=== PATIENT | female | born 1950 | race Caucasian/White ===

== ENCOUNTER → 2016-09-25 | Outpatient (CLI) | payer OTHER ==
[~2016-09-25] MED LIST: ACET325T96 PO; ALBU1AER9 INH; ASPI-435 PO; CHLOTAB10 PO; DEXT30SU8 PO; GEMF600T PO; GLC500 PO; HYDR25TA4 PO; HYDR5SYP11 PO; LISI-729 PO; LISI5TAB3 PO; NF34 PV; PRED10TA PO; PRLSR20 PO
--- NOTE | 2016-09-25 11:51 | DIAGNOSTIC IMAGING REPORT ---
MRI LUMBAR SPINE W/O CONTRAST CLINICAL HISTORY: Low back pain with bilateral radiculopathy. Altered gait. Diminished lower extremity reflexes. TECHNIQUE: Sagittal and axial T1, T2 and STIR images were obtained. The patient was imaged under 0.7 Rosi open MRI scanner. COMPARISON STUDY: No previous studies for comparison. OBSERVATIONS: The vertebral bodies and posterior elements appear intact. There is no abnormal bony signal present to suggest a marrow replacement process. L1-2: There is a mild circumferential disc bulge. This is asymmetric on the right. There is minimal spinal canal narrowing. There is no significant foraminal narrowing L2-3: There is a mild circumferential disc bulge with mild spinal canal narrowing. There is no significant foraminal narrowing L3-4: There is a mild circumferential disc bulge. There is an annular fissure and small left lateral disc protrusion. There is no significant spinal or foraminal stenosis. L4-5: There is a grade 1 spondylolisthesis of L4 on L5. There is a circumferential disc bulge present. There is facet joint arthropathy. There is moderate to severe spinal stenosis. There is mild right-sided foraminal narrowing. L5-S1: There is a moderate left-sided disc extrusion which fills the left lateral recess and likely impinges on the left S1 nerve root. There is secondary thecal sac deformity. The conus medullaris and cauda equina appear normal. IMPRESSION: 1. Multilevel spondylitic changes as described above. The study is most significant for moderate to severe spinal stenosis at the L4-5 level, as well as a moderate left-sided disc extrusion at the L5-S1 level which fills the left lateral recess and likely impinges on the left S1 nerve root. Electronically signed by: Brandon Stone M.D. 09/25/2016 11:49 AM Dictated Date/Time: 09/25/2016 11:43 AM
== END | disposition home or self-care (01) ==
LOC: C.OPENMRI 10:32
PROVIDERS: ATTEND Family Medicine
DX: M48.06 Spinal stenosis, lumbar region (principal); M51.27 Other intervertebral disc displacement, lumbosacral region

== ENCOUNTER 2016-12-01 12:48 | Emergency (ER) | payer OTHER ==
[~2016-12-01] VITALS: Ht 152.4 cm; Wt 85.5 kg
[~2016-12-01 12:48] MED LIST changes: -CHLOTAB10 PO; -DEXT30SU8 PO; -GEMF600T PO; -HYDR5SYP11 PO; -LISI-729 PO; -PRED10TA PO
[2016-12-01 12:55] VITALS: TEMP 36.6; Ht 152.4 cm; Wt 85.5 kg
[2016-12-01 13:20] VITALS: O2SAT 96
[2016-12-01] MEDS ORDERED: ALBUT/IPRATROP 3MG/0.5MG NEB 3 ML VIAL INH STA (13:26)
[2016-12-01] MEDS ORDERED: METHYLPREDNISOLONE 125 MG VIAL IV STA (13:26)
[2016-12-01 13:39] LABS: BASO % 0.5 %; BASO ABS # 0.03 K/uL (0-0.2); COMPLETE YES; EOS % 7.7 %; HEMATOCRIT 38.8 % (37-47); IG% 0.2 %; LYMPH % 40.4 %; LYMPH ABS # 2.31 K/uL (1.2-3.4); MEAN CORPUSCULAR HEMOGLOBIN 29.6 pg (25-34); MEAN PLATELET VOLUME 9.5 fL (7.4-10.4); MONO % 7.3 %; NEUT % 43.9 %; PLATELET COUNT 300 K/uL (130-400); RED BLOOD COUNT 4.46 M/uL (4.2-5.4); WHITE BLOOD COUNT 5.72 K/uL (4.8-10.8)
[2016-12-01] MEDS ORDERED: LISI-729 PO (13:43)
--- NOTE | 2016-12-01 13:45 | DIAGNOSTIC IMAGING REPORT ---
CHEST ONE VIEW PORTABLE CLINICAL HISTORY: Cough. Difficulty breathing. COMPARISON STUDY: Chest radiograph and chest CT November 25, 2015. FINDINGS: No pneumothorax or pleural effusion is present. There is no consolidation to suggest pneumonia. Borderline cardiomegaly is unchanged. There is no evidence of pulmonary edema. IMPRESSION: No acute cardiopulmonary findings. Electronically signed by: Monster Bains M.D. 12/01/2016 1:44 PM Dictated Date/Time: 12/01/2016 1:43 PM
[2016-12-01] MEDS ORDERED: GEMF600T PO (13:46)
[2016-12-01] MEDS ORDERED: DEXT30SU8 PO (13:46)
[2016-12-01] MEDS ORDERED: CHLOTAB10 PO (13:46)
[2016-12-01 13:53] LABS: ALT/SGPT 31 U/L (12-78); AST/SGOT 17 U/L (15-37); BLOOD UREA NITROGEN 19 mg/dl (7-18); BUN/CREATININE RATIO 19.6 (10-20); CALCIUM 9.3 mg/dl (8.5-10.1); CARBON DIOXIDE 29 mmol/L (21-32); CHLORIDE 104 mmol/L (98-107); CREATININE 0.96 mg/dl (0.60-1.20); GLUCOSE 114 mg/dl (70-99); POTASSIUM 3.9 mmol/L (3.5-5.1); SODIUM 142 mmol/L (136-145)
[2016-12-01 13:56] LABS: ALKALINE PHOSPHATASE 60 U/L (45-117)
[2016-12-01 14:52] VITALS: BP 145/84; PULSE 90; O2SAT 94
[2016-12-01] MEDS ORDERED: PRED10TA PO (15:19)
[2016-12-01] MEDS ORDERED: HYDR5SYP11 PO (15:19)
--- NOTE | 2016-12-01 15:41 | EMERGENCY ROOM VISIT NOTE ---
History Report prepared by Charli: Dena Torres Under the Supervision of: Dr. María Hagan M.D. First contact with patient: 13:09 Chief Complaint: RESPIRATORY PROBLEMS Stated Complaint: CAN'T BREATHE History of Present Illness The patient is a 66 year old female who presents to the Emergency Room with complaints of worsening SOB starting 1 month ago. She has been seen by her PCP and was given a z-Rui, nebulizer, and inhaler. She has been using albuterol nebulizer treatments 4 times a day. She has not gotten any better. She has a cough and tightness in her chest. She has not had a chest X-ray. She has a history of diabetes. She denies any history of cancer. Source of History: patient Onset: 1 month ago Position: other (respiratory) Quality: other (SOB) Timing: worsening Associated Symptoms: + cough Note: Pt reports chest tightness. Review of Systems See HPI for pertinent positives & negatives. A total of 10 systems reviewed and were otherwise negative. Past Medical & Surgical Medical Problems: (1) Bronchitis (2) Diabetes (3) Heart disease (4) Hypertension (5) Pneumonia Family History Cancer Diabetes mellitus Diabetes mellitus Hypertension Seizures Social History Smoking Status: Never Smoker Alcohol Use: occasionally Marital Status: Housing Status: lives with significant other Current/Historical Medications Scheduled Aspirin (Aspirin 81), 81 M PO DAILY Gemfibrozil (Lopid), 1 TAB PO BID Hydrochlorothiazide (Hctz), 25 MG PO DAILY Lisinopril (Zestril), 5 MG PO DAILY Metformin HCl (Metformin HCl), 500 MG PO BID Omeprazole (Prilosec), 20 MG PO BID Prednisone (Prednisone), 10 MG PO DIRECTED Scheduled PRN Acetaminophen Tab (Tylenol), 650 MG PO Q4 PRN for Pain or Fever Chlorpheniramine-Dm (Coricidin Hbp Cough & Col), 1 TAB PO UD PRN for COLD SYMPTOMS Dextromethorphan Polistirex (Robitussin 12 Hour Cough), 5 ML PO UD PRN for Cough Hydrocodone W/ Homatropine (Hycodan 5/1.5MG 5 Ml), 5-10 ML PO Q4H PRN for Cough Allergies Coded Allergies: Naproxen (Verified Allergy, Intermediate, EDEMA OF FACE/LIPS/TONGUE, ) Sulfa Drugs (Unverified Allergy, Intermediate, RASH, 12/01/16) Atorvastatin (Verified Adverse Reaction, Intermediate, LEG PAIN/SWELLING, 12/01/16) Simvastatin (Verified Adverse Reaction, Mild, LEG CRAMPS, 12/01/16) Physical Exam Vital Signs Date Time Temp Pulse Resp B/P Pulse Ox O2 Delivery O2 Flow Rate FiO2 12/01/16 14:52 90 16 145/84 94 Room Air 12/01/16 14:14 91 12/01/16 13:20 96 Room Air 12/01/16 13:20 96 Room Air 12/01/16 12:55 36.6 98 20 149/93 93 Room Air Physical Exam Vital signs reviewed. General: Well-appearing, in no significant distress. HEENT: No scleral icterus, PERRLA, neck supple. Atraumatic. Cardiovascular: Regular rate and rhythm, no extra sounds. Pulmonary: Wheezing to the bilateral lung wayne, normal work of breathing. Abdomen: Soft, nontender, nondistended, positive bowel sounds. Musculoskeletal: Atraumatic, no peripheral edema. Neurologic: Patient awake alert and oriented x 3 Skin: Warm, dry, no rash Medical Decision & Procedures ER Provider Diagnostic Interpretation: X-ray results as stated below per interpretation by me and the radiologist: CHEST ONE VIEW PORTABLE CLINICAL HISTORY: Cough. Difficulty breathing. COMPARISON STUDY: Chest radiograph and chest CT November 25, 2015. FINDINGS: No pneumothorax or pleural effusion is present. There is no consolidation to suggest pneumonia. Borderline cardiomegaly is unchanged. There is no evidence of pulmonary edema. IMPRESSION: No acute cardiopulmonary findings. Electronically signed by: Monster Bains M.D. 12/01/2016 1:44 PM Dictated Date/Time: 12/01/2016 1:43 PM Laboratory Results 12/01/16 13:20 Red Blood Count 4.46, Mean Corpuscular Volume 87.0, Mean Corpuscular Hemoglobin 29.6, Mean Corpuscular Hemoglobin Concent 34.0, Mean Platelet Volume 9.5, Neutrophils (%) (Auto) 43.9, Lymphocytes (%) (Auto) 40.4, Monocytes (%) (Auto) 7.3, Eosinophils (%) (Auto) 7.7, Basophils (%) (Auto) 0.5, Neutrophils # (Auto) 2.51, Lymphocytes # (Auto) 2.31, Monocytes # (Auto) 0.42, Eosinophils # (Auto) 0.44, Basophils # (Auto) 0.03 12/01/16 13:20 Test 12/01/16 13:20 12/01/16 13:30 White Blood Count 5.72 K/uL (4.8-10.8) Red Blood Count 4.46 M/uL (4.2-5.4) Hemoglobin 13.2 g/dL (12.0-16.0) Hematocrit 38.8 % (37-47) Mean Corpuscular Volume 87.0 fL (80-100) Mean Corpuscular Hemoglobin 29.6 pg (25-34) Mean Corpuscular Hemoglobin Concent 34.0 g/dl (32-36) Platelet Count 300 K/uL (130-400) Mean Platelet Volume 9.5 fL (7.4-10.4) Neutrophils (%) (Auto) 43.9 % Lymphocytes (%) (Auto) 40.4 % Monocytes (%) (Auto) 7.3 % Eosinophils (%) (Auto) 7.7 % Basophils (%) (Auto) 0.5 % Neutrophils # (Auto) 2.51 K/uL (1.4-6.5) Lymphocytes # (Auto) 2.31 K/uL (1.2-3.4) Monocytes # (Auto) 0.42 K/uL (0.11-0.59) Eosinophils # (Auto) 0.44 K/uL (0-0.5) Basophils # (Auto) 0.03 K/uL (0-0.2) RDW Standard Deviation 43.2 fL (36.4-46.3) RDW Coefficient of Variation 13.6 % (11.5-14.5) Immature Granulocyte % (Auto) 0.2 % Immature Granulocyte # (Auto) 0.01 K/uL (0.00-0.02) Anion Gap 9.0 mmol/L (3-11) Est Creatinine Clear Calc Drug Dose 57.5 ml/min Estimated GFR () 72.4 Estimated GFR (Non- 62.5 BUN/Creatinine Ratio 19.6 (10-20) Calcium Level 9.3 mg/dl (8.5-10.1) Total Bilirubin 0.3 mg/dl (0.2-1) Direct Bilirubin < 0.1 mg/dl (0-0.2) Aspartate Amino Transf (AST/SGOT) 17 U/L (15-37) Alanine Aminotransferase (ALT/SGPT) 31 U/L (12-78) Alkaline Phosphatase 60 U/L (45-117) Total Protein 7.6 gm/dl (6.4-8.2) Albumin 3.8 gm/dl (3.4-5.0) Bedside D-Dimer 289 ng/mlFEU (0-450) Laboratory results per my review. Medications Administered Medications (Trade) Dose Ordered Sig/Светлана Route Start Time Stop Time Status Last Admin Dose Admin Albuterol/ Ipratropium (Duoneb) 3 ml NOW STAT INH 12/01/16 13:26 12/01/16 13:28 DC 12/01/16 13:37 3 ML Methylprednisolone Sodium Succinate (Solu-Medrol IV) 125 mg NOW STAT IV 12/01/16 13:26 12/01/16 13:28 DC 12/01/16 13:37 125 MG ECG Indication: SOB/dyspnea Rate (beats per minute): 87 Rhythm: normal sinus Findings: no acute ischemic change, no ectopy ED Course 1321: Past medical records reviewed. The patient was evaluated in room A9. A complete history and physical examination was performed. 1326: Solu-Medrol IV 125 mg IV, Duoneb 3 ml INH. 1450: Upon reevaluation, the patient appeared to have improvement of her symptoms. I discussed findings with her. She verbalized agreement of the treatment plan. She was discharged home. Medical Decision Differential diagnosis: Etiologies such as infections, reactive airway disease, pneumonia, pneumothorax , COPD, CHF, cardiac ischemia, pulmonary embolism, musculoskeletal, gastrointestinal, as well as others were entertained. This patient was evaluated and appeared to be in no significant distress. IV access was obtained and laboratory work was drawn. The patient was given a DuoNeb treatment, IV Solu-Medrol. Chest x-ray was obtained and is negative for focal infiltrate. EKG reveals a sinus rhythm without ectopy or ischemia. The patient was discharged with a prednisone taper, advised to watch her carbohydrate intake and her blood glucose closely. Patient was advised to use her albuterol inhaler every 4-6 hours as needed. Patient will follow-up with her primary care physician this week for reevaluation return to the ER for worsening of symptoms or any medical concerns. Impression Primary Impression: Wheezing Additional Impression: Bronchitis Scribe Attestation The scribe's documentation has been prepared under my direction and personally reviewed by me in its entirety. I confirm that the note above accurately reflects all work, treatment, procedures, and medical decision making performed by me. Departure Information Dispostion Home / Self-Care Prescriptions Hydrocodone W/ Homatropine (HYCODAN 5/1.5MG 5 ML) 1 Syp Syp 5-10 ML PO Q4H Y for Cough, #120 ML Prov: María Hagan M.D. 12/01/16 Prednisone (Prednisone) 10 Mg Tab 10 MG PO DIRECTED, #31 TAB Prov: María Hagan M.D. 12/01/16 Referrals Liliam Crum PA-C Forms HOME CARE DOCUMENTATION FORM, IMPORTANT VISIT INFORMATION, WORK / SCHOOL INSTRUCTIONS Patient Instructions My [facility] Additional Instructions Diagnosis: Wheezing, bronchitis Prednisone 40 mg for 4 days, 30 mg for 3 days, 20 g for 2 days, 10 mg for 2 days. Maintain a low carbohydrate diet while on this medication, check blood sugars several times daily Continue albuterol nebulizers every 4 hours as needed. Hycodan cough syrup 1-2 teaspoons at night for coughing. Do not drive on this medication. Follow-up with your physician this week for reevaluation. Return to the ER for worsening of symptoms or any medical concerns. Problem Qualifiers
== END 2016-12-01 15:15 | disposition home or self-care (01) ==
LOC: C.EDB 12:51 → C.EDA 15:15
DX: J40 Bronchitis, not specified as acute or chronic (principal); E11.9 Type 2 diabetes mellitus without complications; I10 Essential (primary) hypertension; Z87.01 Personal history of pneumonia (recurrent); Z80.9 Family history of malignant neoplasm, unspecified; Z83.3 Family history of diabetes mellitus; Z82.49 Family history of ischemic heart disease and other diseases of the circulatory system; Z82.0 Family history of epilepsy and other diseases of the nervous system; Z79.82 Long term (current) use of aspirin; Z79.899 Other long term (current) drug therapy

== ENCOUNTER 2017-05-11 13:08 | Emergency (ER) | payer OTHER ==
[~2017-05-11] VITALS: Ht 154.9 cm; Wt 84.6 kg
[~2017-05-11 13:08] MED LIST changes: -ALBU1AER9 INH; +CHLOTAB10 PO; +DEXT30SU8 PO; +GEMF600T PO; +LISI-729 PO; -LISI5TAB3 PO; -NF34 PV; +PRED10TA PO
[2017-05-11 13:17] VITALS: TEMP 36.8; Ht 154.9 cm; Wt 84.6 kg
[2017-05-11] MEDS ORDERED: IBUP-1050 PO (13:33)
[2017-05-11] MEDS ORDERED: GUAI1SOL5 PO (13:33)
[2017-05-11] MEDS ORDERED: PRED10TA PO (13:33)
[2017-05-11] MEDS ORDERED: AZITTAB PO (13:33)
[2017-05-11] MEDS ORDERED: GEMF600T3 PO (13:33)
[2017-05-11] MEDS ORDERED: VNTHFA/IN INH (13:35)
[2017-05-11] MEDS ORDERED: ALBINS/ INH (13:35)
[2017-05-11 14:12] VITALS: O2SAT 91
[2017-05-11 14:26] LABS: BASO % 0.7 %; BASO ABS # 0.05 K/uL (0-0.2); COMPLETE YES; EOS % 1.6 %; HEMATOCRIT 40.5 % (37-47); IG% 1.3 %; LYMPH % 21.4 %; LYMPH ABS # 1.51 K/uL (1.2-3.4); MEAN CELL VOLUME 83.9 fL (80-100); MEAN CORPUSCULAR HEMOGLOBIN 29.2 pg (25-34); MEAN CORPUSCULAR HGB CONC 34.8 g/dl (32-36); MEAN PLATELET VOLUME 9.5 fL (7.4-10.4); MONO % 4.2 %; NEUT % 70.8 %; PLATELET COUNT 330 K/uL (130-400); RED BLOOD COUNT 4.83 M/uL (4.2-5.4); WHITE BLOOD COUNT 7.06 K/uL (4.8-10.8)
[2017-05-11 14:40] LABS: BUN/CREATININE RATIO 24.5 (10-20); CALCIUM 9.4 mg/dl (8.5-10.1); CREATININE 0.95 mg/dl (0.60-1.20); POTASSIUM 3.8 mmol/L (3.5-5.1)
--- NOTE | 2017-05-11 15:05 | EMERGENCY ROOM VISIT NOTE ---
History Report prepared by Charli: Isidra Knight Under the Supervision of: Dr. Cuba Jarvis M.D. First contact with patient: 13:49 Chief Complaint: RESPIRATORY PROBLEMS Stated Complaint: CHEST COLD Nursing Triage Summary: pt reports cold and cough sx X 1.5 weeks , to PCP on . started on abx with cough med and prednisone . sat. started to cough worse and not feeling better History of Present Illness The patient is a 67 year old female who presents to the Emergency Room with complaints of worsening respiratory problems that started over a week ago. Patient states that she saw her PCP three days ago and was prescribed a Z-Rui and Prednisone. She notes that the medications seemed to be helping her feel better. The patient also states that she has been taking cough syrup to help with her cough. She notes that her symptoms have not improved with the cough syrup. The patient has a history of bronchitis and pneumonia. She notes that she has an albuterol machine that she uses 4 times per day. She also has an inhaler that she uses PRN. She states that she has been experiencing sweats and chills. She denies any fever, abdominal pain, diarrhea, or trouble urinating. She rates her pain as a 5/10 in severity. Source of History: patient Onset: Over 1 week ago Position: chest (respiratory) Symptom Intensity: 5/10 Timing: worsening Modifying Factors (Relieving): other (Z-Rui and Prednisone) Associated Symptoms: + chills, No fevers, No abdominal pain, No diarrhea, No urinary symptoms Note: The patient reports sweats. Review of Systems All systems have been listed, reviewed, and are negative other than those previously mentioned. Please see Additional Medical History Sheet. Past Medical & Surgical Medical Problems: (1) Bronchitis (2) Diabetes (3) Heart disease (4) Hypertension (5) Pneumonia Family History Cancer Diabetes mellitus Diabetes mellitus Hypertension Seizures Social History Smoking Status: Current Every Day Smoker Alcohol Use: occasionally Marital Status: Housing Status: lives with significant other Current/Historical Medications Scheduled Albuterol Hfa (Ventolin Hfa), 2-4 PUFFS INH Q6H Albuterol Sulf (Proventil 0.083% 2.5MG/3ML), 2.5 MG INH QID Aspirin (Aspirin 81), 81 M PO DAILY Azithromycin (Zithromax Z-Rui), 1 PKT PO UD Gemfibrozil (Lopid), 600 MG PO BID Guaifenesin-Codeine (Codeine/Guaifenesin 100-10 mg/5Ml), 5 ML PO Q4H Hydrochlorothiazide (Hctz), 25 MG PO DAILY Lisinopril (Zestril), 5 MG PO DAILY Metformin HCl (Metformin HCl), 500 MG PO BID Omeprazole (Prilosec), 20 MG PO DAILY Prednisone (Prednisone), 20 MG PO BID Prednisone Tab (Prednisone), 10 MG PO DAILY Scheduled PRN Ibuprofen (Advil), 200-600 MG PO Q4H PRN for Pain Allergies Coded Allergies: Naproxen (Verified Allergy, Intermediate, EDEMA OF FACE/LIPS/TONGUE, ) Sulfa Drugs (Unverified Allergy, Intermediate, RASH, 05/11/17) Atorvastatin (Verified Adverse Reaction, Intermediate, LEG PAIN/SWELLING, 05/11/17) Simvastatin (Verified Adverse Reaction, Mild, LEG CRAMPS, 05/11/17) Physical Exam Vital Signs Date Time Temp Pulse Resp B/P (MAP) Pulse Ox O2 Delivery O2 Flow Rate FiO2 05/11/17 16:53 85 18 138/96 98 05/11/17 14:12 91 20 94 Room Air 05/11/17 14:12 91 Room Air 05/11/17 14:07 93 05/11/17 13:17 36.8 100 20 157/79 96 Room Air Physical Exam GENERAL: Patient awake, alert, oriented x 3. Patient follows commands. Patient does not appear toxic. Patient is adequately hydrated and well- nourished. SKIN: No erythema, pallor, cyanosis or rash HEENT: Normal head, pupils equal, reactive to light and accommodation. Ears normal. Oral cavity and posterior pharynx appear normal. Neck: Without adenopathy, no neck vein distention. LUNGS: Faint wheezing bilaterally. No rales, no rhonchi. HEART: No murmurs. No gallops. No rubs ABDOMEN: Soft, non-tender. EXTREMITIES: No signs of trauma or infection. NEUROLOGIC: Cranial nerves II-XII within normal limits. No gross motor sensory function deficits. Medical Decision & Procedures ER Provider Diagnostic Interpretation: Radiology results as stated below per my review and radiologist interpretation: CHEST 2 VIEWS ROUTINE CLINICAL HISTORY: 67 years-old Female presenting with cough for one week. TECHNIQUE: PA and lateral views of the chest were obtained. COMPARISON: 12/01/2016. FINDINGS: Prominence of the cardiac silhouette. A calcified mediastinal lymph node may be present in the right hilum. Lungs and pleural spaces clear. Mild degenerative changes of the thoracic spine. Surgical clip projects over the epigastrium. IMPRESSION: 1. No acute cardiopulmonary disease. Electronically signed by: Rashawn Pool M.D. 05/11/2017 4:20 PM Dictated Date/Time: 05/11/2017 4:17 PM Laboratory Results 05/11/17 14:00 Red Blood Count 4.83, Mean Corpuscular Volume 83.9, Mean Corpuscular Hemoglobin 29.2, Mean Corpuscular Hemoglobin Concent 34.8, Mean Platelet Volume 9.5, Neutrophils (%) (Auto) 70.8, Lymphocytes (%) (Auto) 21.4, Monocytes (%) (Auto) 4.2, Eosinophils (%) (Auto) 1.6, Basophils (%) (Auto) 0.7, Neutrophils # (Auto) 5.00, Lymphocytes # (Auto) 1.51, Monocytes # (Auto) 0.30, Eosinophils # (Auto) 0.11, Basophils # (Auto) 0.05 05/11/17 14:00 Test 05/11/17 14:00 White Blood Count 7.06 K/uL (4.8-10.8) Red Blood Count 4.83 M/uL (4.2-5.4) Hemoglobin 14.1 g/dL (12.0-16.0) Hematocrit 40.5 % (37-47) Mean Corpuscular Volume 83.9 fL (80-100) Mean Corpuscular Hemoglobin 29.2 pg (25-34) Mean Corpuscular Hemoglobin Concent 34.8 g/dl (32-36) Platelet Count 330 K/uL (130-400) Mean Platelet Volume 9.5 fL (7.4-10.4) Neutrophils (%) (Auto) 70.8 % Lymphocytes (%) (Auto) 21.4 % Monocytes (%) (Auto) 4.2 % Eosinophils (%) (Auto) 1.6 % Basophils (%) (Auto) 0.7 % Neutrophils # (Auto) 5.00 K/uL (1.4-6.5) Lymphocytes # (Auto) 1.51 K/uL (1.2-3.4) Monocytes # (Auto) 0.30 K/uL (0.11-0.59) Eosinophils # (Auto) 0.11 K/uL (0-0.5) Basophils # (Auto) 0.05 K/uL (0-0.2) RDW Standard Deviation 39.9 fL (36.4-46.3) RDW Coefficient of Variation 13.3 % (11.5-14.5) Immature Granulocyte % (Auto) 1.3 % Immature Granulocyte # (Auto) 0.09 K/uL (0.00-0.02) Anion Gap 10.0 mmol/L (3-11) Est Creatinine Clear Calc Drug Dose 58.2 ml/min Estimated GFR () 72.8 Estimated GFR (Non- 62.9 BUN/Creatinine Ratio 24.5 (10-20) Calcium Level 9.4 mg/dl (8.5-10.1) Laboratory results as stated above per my review. ED Course 1349: Past medical records reviewed. The patient was evaluated in room A11B. A complete history and physical examination was performed. 1636: I reassessed the patient at this time. She is feeling better and resting comfortably. I discussed the results and treatment plan with the patient. I answered all pertaining questions that she had. She expressed understanding and verbalized agreement. The patient will be discharged home. Medical Decision Nurses notes reviewed. Medical history sheet reviewed. Differential diagnosis includes but is not limited to: Bronchitis, pneumonia, asthma, COPD. The patient is here with frequent coughing but no fever. She has had some chills and sweats. The patient is currently on day 4 of Zithromax. She has an inhaler at home. The patient has also been on prednisone but that ran out. Blood work and imaging were performed today. Please see above. There is no evidence of a new pneumonia. The patient will complete her course of Zithromax. I will give her another 5 days of prednisone. The patient was encouraged to increase the frequency of her inhaler use. The patient is to follow-up with her family physician. Medication Reconcilliation Current Medication List: was personally reviewed by me Blood Pressure Screening Patient's blood pressure: Elevated blood pressure Blood pressure disposition: Referred to PCP Impression Primary Impression: Bronchitis Scribe Attestation The scribe's documentation has been prepared under my direction and personally reviewed by me in its entirety. I confirm that the note above accurately reflects all work, treatment, procedures, and medical decision making performed by me. Departure Information Dispostion Home / Self-Care Prescriptions Prednisone (Prednisone) 20 Mg Tab 20 MG PO BID for 5 Days, #10 TAB Prov: Cuba Jarvis M.D. 05/11/17 Referrals No Doctor, Assigned (PCP) Patient Instructions My [facility] Additional Instructions 20 mg of prednisone twice a day for 5 days. Complete course of Zithromax. Use your inhaler up to 6 times a day. Follow-up with your family physician within the next 7 days.
--- NOTE | 2017-05-11 16:21 | DIAGNOSTIC IMAGING REPORT ---
CHEST 2 VIEWS ROUTINE CLINICAL HISTORY: 67 years-old Female presenting with cough for one week. TECHNIQUE: PA and lateral views of the chest were obtained. COMPARISON: 12/01/2016. FINDINGS: Prominence of the cardiac silhouette. A calcified mediastinal lymph node may be present in the right hilum. Lungs and pleural spaces clear. Mild degenerative changes of the thoracic spine. Surgical clip projects over the epigastrium. IMPRESSION: 1. No acute cardiopulmonary disease. Electronically signed by: Rashawn Pool M.D. 05/11/2017 4:20 PM Dictated Date/Time: 05/11/2017 4:17 PM
[2017-05-11] MEDS ORDERED: PRED20TA PO (16:40)
[2017-05-11 16:53] VITALS: BP 138/96; PULSE 85; O2SAT 98
== END 2017-05-11 16:55 | disposition home or self-care (01) ==
LOC: C.EDB 13:09 → C.EDA 16:55
DX: J40 Bronchitis, not specified as acute or chronic (principal); E11.9 Type 2 diabetes mellitus without complications; I10 Essential (primary) hypertension; I51.9 Heart disease, unspecified; F17.200 Nicotine dependence, unspecified, uncomplicated; Z79.82 Long term (current) use of aspirin; Z79.84 Long term (current) use of oral hypoglycemic drugs; Z79.899 Other long term (current) drug therapy; Z88.2 Allergy status to sulfonamides; Z88.8 Allergy status to other drugs, medicaments and biological substances; Z80.9 Family history of malignant neoplasm, unspecified; Z83.3 Family history of diabetes mellitus; Z82.49 Family history of ischemic heart disease and other diseases of the circulatory system; Z82.0 Family history of epilepsy and other diseases of the nervous system

== ENCOUNTER 2017-08-02 13:49 | Emergency (ER) | payer OTHER ==
[~2017-08-02] VITALS: Ht 152.4 cm; Wt 84.6 kg
[~2017-08-02 13:49] MED LIST changes: -ACET325T96 PO; +ALBINS/ INH; +AZITTAB PO; -CHLOTAB10 PO; -DEXT30SU8 PO; -GEMF600T PO; +GEMF600T5 PO; +GUAI1SOL5 PO; +IBUP-1050 PO; +VNTHFA/IN INH
[2017-08-02 13:58] VITALS: Ht 152.4 cm; Wt 84.6 kg
--- NOTE | 2017-08-02 14:37 | DIAGNOSTIC IMAGING REPORT ---
CHEST 2 VIEWS ROUTINE CLINICAL HISTORY: 67 years-old Female presenting with cough . TECHNIQUE: PA and lateral views of the chest were obtained. COMPARISON: 05/11/2017. FINDINGS: Atherosclerosis of the aortic arch. Cardiac silhouette normal in size. Lungs and pleural spaces clear. Osseous structures normal. Surgical clip projects over the epigastrium. IMPRESSION: 1. No acute cardiopulmonary disease. Electronically signed by: Rashawn Pool M.D. 08/02/2017 2:36 PM Dictated Date/Time: 08/02/2017 2:35 PM
[2017-08-02] MEDS ORDERED: AMOXICILLIN 250 MG CAP PO STA (14:59)
[2017-08-02] MEDS ORDERED: AMOX500C3 PO (15:02)
[2017-08-02 15:05] LABS: INFLUENZA B ANTIGEN Neg for Influ B (NEG)
[2017-08-02 15:17] VITALS: BP 143/89; PULSE 100; TEMP 36.7; O2SAT 93
--- NOTE | 2017-08-02 20:00 | EMERGENCY ROOM VISIT NOTE ---
History Report prepared by Charli: Odalis Rod Under the Supervision of: Blaze GonsalezO. First contact with patient: 14:03 Chief Complaint: FLU LIKE SX Stated Complaint: FLU SYMPTOMS History of Present Illness The patient is a 67 year old female who presents to the Emergency Room with complaints of persistent flu like symptoms that began yesterday. Her main complaint today is her severe sore throat and a left ear pain. She notes that she is unable to hear out of her left ear. It has been throbbing. It is progressively worsening. The patient states that she has been having a sore throat, some discomfort with coughing. The patient denies having rhinorrhea. She notes that she is having trouble hearing out of her left ear. The patient states that she has a history of bronchitis. Pt denies headache, change in vision, fevers, shortness of breath, nausea, vomiting, diarrhea, pain with urination, and melena. Patient denies diabetes, hypertension, hyperlipidemia, CAD, history of sudden at a young age, and smoking. Patient denies swelling of calves, recent trips, history of immobilization or recent surgery, prior history of DVT, hemoptysis, history of malignancy, history of smoking, or control/estrogen use. Source of History: patient Onset: yesterday Position: other (global ) Quality: other (flu like symptoms ) Timing: other (persistent) Associated Symptoms: + sorethroat, + cough Review of Systems See HPI for pertinent positives & negatives. A total of 10 systems reviewed and were otherwise negative. Past Medical & Surgical Medical Problems: (1) Bronchitis (2) Diabetes (3) Heart disease (4) Hypertension (5) Pneumonia Family History Cancer Diabetes mellitus Diabetes mellitus Hypertension Seizures Social History Smoking Status: Never Smoker Alcohol Use: occasionally Marital Status: Housing Status: lives with significant other Current/Historical Medications Scheduled Albuterol Hfa (Ventolin Hfa), 2-4 PUFFS INH Q6H Albuterol Sulf (Proventil 0.083% 2.5MG/3ML), 2.5 MG INH QID Amoxicillin (Amoxil), 500 MG PO TID Aspirin (Aspirin 81), 81 M PO DAILY Gemfibrozil (Lopid), 600 MG PO BID Hydrochlorothiazide (Hctz), 25 MG PO DAILY Lisinopril (Zestril), 5 MG PO DAILY Metformin HCl (Metformin HCl), 500 MG PO BID Omeprazole (Prilosec), 20 MG PO DAILY Scheduled PRN Ibuprofen (Advil), 200-600 MG PO Q4H PRN for Pain Allergies Coded Allergies: Naproxen (Verified Allergy, Intermediate, EDEMA OF FACE/LIPS/TONGUE, 08/02) Sulfa Drugs (Unverified Allergy, Intermediate, RASH, 08/02/17) Atorvastatin (Verified Adverse Reaction, Intermediate, LEG PAIN/SWELLING, 08/02/17) Simvastatin (Verified Adverse Reaction, Mild, LEG CRAMPS, 08/02/17) Physical Exam Vital Signs Date Time Temp Pulse Resp B/P (MAP) Pulse Ox O2 Delivery O2 Flow Rate FiO2 08/02/17 15:17 36.7 100 18 143/89 93 08/02/17 13:58 36.7 100 18 143/89 93 Room Air Physical Exam GENERAL: Sitting up in bed, talking in full sentences, alert, well appearing, well nourished, no distress, non-toxic EYE EXAM: normal conjunctiva. OROPHARYNX: no exudate, no erythema, lips, buccal mucosa, and tongue normal and mucous membranes are moist EARS: Right TM clear, left TM with green purulence behind TM is bulging NECK: supple, no nuchal rigidity, no adenopathy, non-tender LUNGS: Clear to auscultation. Normal chest wall mechanics HEART: Tachycardic. no murmurs, S1 normal and S2 normal ABDOMEN: abdomen soft, non-tender, normo-active bowel sounds, no masses, no rebound or guarding. BACK: Back is symmetrical on inspection and there is no deformity, no midline tenderness, no CVA tenderness. SKIN: no rashes and no bruising UPPER EXTREMITIES: upper extremities are grossly normal. LOWER EXTREMITIES: No pitting edema. NEURO EXAM: Normal sensorium, cranial nerves II-XII grossly intact, normal speech, no gross weakness of arms, no gross weakness of legs. Medical Decision & Procedures ER Provider Diagnostic Interpretation: Radiology results as stated below per my review and the radiologist's interpretation: CHEST 2 VIEWS ROUTINE CLINICAL HISTORY: 67 years-old Female presenting with cough . TECHNIQUE: PA and lateral views of the chest were obtained. COMPARISON: 05/11/2017. FINDINGS: Atherosclerosis of the aortic arch. Cardiac silhouette normal in size. Lungs and pleural spaces clear. Osseous structures normal. Surgical clip projects over the epigastrium. IMPRESSION: 1. No acute cardiopulmonary disease. Electronically signed by: Rashawn Pool M.D. 08/02/2017 2:36 PM Dictated Date/Time: 08/02/2017 2:35 PM Laboratory Results Test 08/02/17 00:00 Influenza Type A Antigen Neg for Influ A (NEG) Influenza Type B Antigen Neg for Influ B (NEG) Laboratory results per my review. Medications Administered Medications (Trade) Dose Ordered Sig/Светлана Route Start Time Stop Time Status Last Admin Dose Admin Amoxicillin (Amoxil Cap) 500 mg NOW STAT PO 08/02/17 14:59 08/02/17 15:00 DC 08/02/17 15:15 500 MG ED Course ED COURSE: Vital signs were reviewed and showed tachycardic rate. The patients medical record was reviewed The above diagnostic studies were performed and reviewed. ED treatments and interventions as stated above. 1411: The patient was evaluated in room B12. A complete history and physical examination was performed. 1459: Ordered Amoxicillin 500mg PO. 1503: Upon reevaluation, the patient is feeling significantly better.I discussed my findings with the patient and she understands and agrees with the treatment plan. The patient was discharged home. Medical Decision Differential diagnosis: Etiologies such as viral syndrome, tonsillitis, streptococcal pharyngitis, mononucleosis, peritonsillar abscess, retropharyngeal abscess, otitis, pneumonia , influenza, as well as others were entertained. The patient is a 67 year old female who presents to the ED with complaints of a sore throat and left ear pain. She notes that she was unable to get in to see her PCP today. Symptoms started initially with her throat and now she cannot hear out of her left ear. On exam she has a clear left otitis media. She was given oral antibiotics. Influenza was negative. Chest x-ray unremarkable. Patient has no other complaints with the exception of a mild cough and discomfort with the coughing. I believe all her symptoms are likely related to a viral URI with now an otitis media. She is not swabbed for strep as the antibiotics will cover this as well. She is discharged follow-up with PCP as an outpatient. She was afebrile. Discussed with Pt concerning signs and symptoms to watch out for. Pt was instructed to follow up with their PCP and discussed with the patient their option to return to the ED at anytime for persistent or worsening symptoms. The appropriate anticipatory guidance and out- patient management, including indications for return to the emergency department , were explained at length to the patient and understood. Medication Reconcilliation Current Medication List: was personally reviewed by me Impression Primary Impression: Otitis media Additional Impressions: Pharyngitis Influenza-like symptoms Scribe Attestation The scribe's documentation has been prepared under my direction and personally reviewed by me in its entirety. I confirm that the note above accurately reflects all work, treatment, procedures, and medical decision making performed by me. Departure Information Dispostion Home / Self-Care Prescriptions Amoxicillin (AMOXIL) 500 Mg Cap 500 MG PO TID, #30 CAP Prov: Sam Frank, DO 08/02/17 Referrals Liliam Crum PA-C (PCP) Forms HOME CARE DOCUMENTATION FORM, IMPORTANT VISIT INFORMATION Patient Instructions My [facility] Additional Instructions Please follow up with your primary care doctor with in the next 24 hours. Any worsening of your symptoms, please return to the ED immediately. This includes any fevers greater than 100.4, worsening pain, chest pain, shortness breath, persistent nausea, vomiting, unable to eat or drink, or any other concerning signs or symptoms from your standpoint. Please take antibiotics as prescribed. Your will receive a phone call if your flu testing is positive. Problem Qualifiers Primary Impression: Otitis media Otitis media type: unspecified Chronicity: acute Qualified Codes: H66.90 - Otitis media, unspecified, unspecified ear Additional Impressions: Pharyngitis Pharyngitis/tonsillitis etiology: unspecified etiology Qualified Codes: J02.9 - Acute pharyngitis, unspecified
[2018-02-09] MEDS ORDERED: CEPH500C PO (15:43)
== END 2017-08-02 15:18 | disposition home or self-care (01) ==
LOC: C.EDB 13:52
DX: H66.90 Otitis media, unspecified, unspecified ear (principal); J02.9 Acute pharyngitis, unspecified; R69 Illness, unspecified; E11.9 Type 2 diabetes mellitus without complications; I51.9 Heart disease, unspecified; I10 Essential (primary) hypertension; Z83.3 Family history of diabetes mellitus; Z82.49 Family history of ischemic heart disease and other diseases of the circulatory system; Z82.0 Family history of epilepsy and other diseases of the nervous system; Z79.82 Long term (current) use of aspirin

== ENCOUNTER 2020-11-28 08:29 | Inpatient (IN) ==
[2020-11-28] MEDS ORDERED: SODIUM CHLORIDE 0.9% 500 ML IV STA (09:15)
[2020-11-28] MEDS ORDERED: SODIUM CHLORIDE 0.9% 1000ML 1,000 ML IV SCH (09:15)
[2020-11-28] MEDS ORDERED: dexAMETHasone 4 MG in SYRINGE 0 ML IV ONE (09:15)
[2020-11-28] MEDS ORDERED: ONDANSETRON INJ 2 MG/ML 2 ML VIAL IV STA (09:15)
[2020-11-28] MEDS ORDERED: ALBUT/IPRATROP 3MG/0.5MG NEB 3 ML VIAL NEB STA (09:17)
[2020-11-28] MEDS ORDERED: DEXAMETHASONE SOD INJ 4 MG/ML VIAL ONE (09:21)
[2020-11-28 09:29] LABS: Basophils # (auto) 0.02 K/uL (0-0.2); Basophils % (auto) 0.2 %; Hematocrit (blood only) 37.9 % (37-47); Hemoglobin 13.6 g/dL (12.0-16.0); Immature Granulocytes # (auto) 0.04 K/uL (0.00-0.02); Immature Granulocytes % (auto) 0.4 %; Lymphocytes % (auto) 9.4 %; Mean Corpuscular Hemoglobin 28.7 pg (25-34); Mean Corpuscular Hgb Conc 35.9 g/dL (32-36); Mean Platelet Volume 9.4 fL (7.4-10.4); Monocytes # (auto) 0.63 K/uL (0.11-0.59); Monocytes % (auto) 6.6 %; Neutrophils % (auto) 83.4 %; Platelet Count 342 K/uL (130-400); RDW Coefficient of Variation 13.9 % (11.5-14.5); RDW Standard Deviation 40.8 fL (36.4-46.3); Red Blood Count 4.74 M/uL (4.2-5.4); White Blood Count 9.59 K/uL (4.8-10.8)
[2020-11-28 09:35] LABS: Alanine Aminotransferase 28 U/L (12-78); Albumin Level 3.1 gm/dl (3.4-5.0); Aspartate Aminotransferase 35 U/L (15-37); Blood Urea Nitrogen 15 mg/dl (7-18); Calcium 9.8 mg/dl (8.5-10.1); Carbon Dioxide 24 mmol/L (21-32); Chloride 101 mmol/L (98-107); Est GFR (African American) 86.5; Est GFR (Non-African American) 74.6; Glucose 135 mg/dl (70-99); Magnesium 2.3 mg/dl (1.8-2.4); Potassium 3.4 mmol/L (3.5-5.1); Sodium 134 mmol/L (136-145)
[2020-11-28 09:40] LABS: Albumin Globulin Ratio 0.6 (0.9-2); Alkaline Phosphatase 71 U/L (45-117); Bilirubin,Total 0.5 mg/dl (0.2-1); Globulin 5.3 gm/dl (2.5-4.0); INR 1.1 (0.9-1.1); Partial Thromboplastin Time 25.8 Seconds (21.0-31.0); Prothrombin Time 11.3 Seconds (9.0-12.0); Total Protein 8.4 gm/dl (6.4-8.2); Troponin I < 0.015 ng/ml (0-0.045)
--- NOTE | 2020-11-28 10:03 | XRay Report ---
XR chest 1V portable CLINICAL HISTORY: Shortness of breath COMPARISON STUDY: 11/24/2020 FINDINGS: The heart is enlarged. There are bilateral pulmonary airspace opacities. There are no cysti c or pleural effusions. The findings are suspicious for multifocal pneumonia. Asymmetric pulmonary ed mahendra could potentially appear similar. Clinical and radiographic follow-up is recommended. IMPRESSION: Bilateral pulmonary airspace opacities suspicious for multifocal pneumonia. Clinical and radiographic follow-up are recommended. ACT 112: Negative or not required by law. Electronically signed by: Brandon Stone M.D. 11/28/2020 10:02 AM
--- NOTE | 2020-11-28 12:16 | History & Physical Report ---
Date of Service November 28, 2020 Assessment & Plan (1) Pneumonia due to COVID-19 virus: (2) Hypoxia: This is a 70-year-old female who has significant past medical history of T2DM, HTN, HLD, obesity, osteoporosis, lichen sclerosis who presents to ED secondary to worsening shortness of breath x3 days. CXR with multifocal PNA Hypoxic on 4L of O2 ESR 56, CRP 20.90, procal pending received 4mg IV decadron in ED Admit to PCU Obtain CTA chest give additional 2mg IV dexamethasone to = 6mg Dexamethasone 6mg IV daily Remdesivir 200mg IV x 1 now then 100mg daily albuterol QID, Incentive spirometry, muccinex, tessalon perles monitor LFTS Lovenox BID for DVT prophylaxis (3) Hypokalemia: k 3.4 give 20meq KCL monitor bmp (4) Diabetes: Last a1c 10/03/20 6.8 hold metformin lantus/novolog per protocol consult glycemic pharmacy 09/05 to steroid use (5) Hypertension: bp controlled continue lisinopril with parameters (6) HLD (hyperlipidemia): continue statin monitor lfts (7) DVT prophylaxis: SQ Lovenox Q12hr Dispo:PCU PCP: ELISEO Crum FULL CODE Pt was collaborated and seen by Dr. Steinberg, please see Addendum History of Present Illness Chief Complaint: Worsening shortness of breath x3 days. Primary Care Provider: Liliam Crum PA-C This is a 70-year-old female who has significant past medical history of T2DM, HTN, HLD, obesity, osteoporosis, lichen sclerosis who presents to ED secondary to worsening shortness of breath x3 days. Of significance patient presented to ED on 11/24 secondary to approximately 1 week of persistent cough, sinus congestion, shortness of breath, diarrhea, generalized weakness and loss of taste & smell. She admits to known Covid exposure with family member. She tested positive on 11/24 and imaging revealed small patchy airspace opacity in the left lower lobe. At that time she was not hypoxic and discharged to home. She had a follow-up video visit yesterday with PCP for which she did not participate in. She was prescribed azithromycin and prednisone for treatment which she started yesterday. Patient summoned EMS today in which her O2 saturations were 84% requiring 4 L to maintain normal saturation. In ED chest x-ray reveals bilateral pulmonary airspace opacities consistent with multifocal pneumonia. Lab work-up otherwise unremarkable except for mild hypokalemia and hyperglycemia. She was treated with IV dexamethasone, albuterol nebulizer treatment and IV fluid. Secondary to profound hypoxia she was recommended for admission. Allergies Allergy/AdvReac Type Severity Reaction Status Date / Time naproxen Allergy Intermediate EDEMA OF Verified 11/28/20 11:55 FACE/LIPS/TONGUE Sulfa (Sulfonamide Allergy Intermediate RASH Unverified 11/28/20 11:55 Antibiotics) atorvastatin AdvReac Intermediate LEG Verified 11/28/20 11:55 PAIN/SWELLING simvastatin AdvReac Mild LEG CRAMPS Verified 11/28/20 11:55 Home Medications Medication Instructions Recorded Confirmed Type albuterol sulfate 2.5 mg INHALATION QID 07/16/18 11/28/20 History albuterol sulfate [ProAir HFA] 2 - 4 puff INHALATION DIRECTED 07/16/18 11/28/20 History PRN aspirin 81 mg PO BID 07/16/18 11/28/20 History gemfibrozil [Lopid] 600 mg PO BID 07/16/18 11/28/20 History hydrochlorothiazide 25 mg PO DAILY PRN 07/16/18 11/28/20 History lisinopril 5 mg PO QAM 07/16/18 11/28/20 History metformin 500 mg PO BID 07/16/18 11/28/20 History omeprazole 20 mg PO QAM 07/16/18 11/28/20 History ezetimibe [Zetia] 10 mg PO QAM 11/24/20 11/28/20 History Past Med/Surg History Medical History (Updated 11/28/20 @ 12:48 by Bren Nuñez PA-C) Diabetes History of hysteroscopy HLD (hyperlipidemia) Hypertension Hypokalemia Lichen sclerosus Obesity Osteoporosis Surgical History History of cystoscopy History of shoulder surgery x 2 on R and L x 1 - rotator cuff Family History Mother , 65 Stomach cancer Coronary heart disease Stroke Daughter Breast cancer Social History Smoking Status: Never smoker Tobacco Type: Cigarettes Do You Dip or Chew Tobacco: No; Hx Alcohol Use: No Hx Substance Use: No Preferred Language: [place]an Communication Ability: Effective marital status: Current Living Situation: Spouse Feels Safe at Home: Yes Review of Systems Review of Systems: All systems reviewed & are unremarkable except as noted in HPI & below Physical Exam Physical Exam: please see Dr. Steinberg addendum for physical exam findings: Lying in bed with moderate shortness of breath Constitutional: well developed, well nourished, + acute distress (Due to shortness of breath at rest) and + ill appearing Eyes: PERRL, conjunctivae normal, anicteric sclerae ENMT: external ear and nose normal, oropharynx normal Neck: trachea midline, no thyromegaly Respiratory: + respiratory distress (Moderate shortness of breath at rest ) and + uses accessory muscles Auscultation: + diminished lung sounds and + crackles (Moderate crackles at the bases) Cardiovascular: Rate/Rhythm: regular rate and regular rhythm Heart Sounds: no murmur Extremities: + edema (Trace edema bilaterally) Gastrointestinal (Abdomen): Inspection/Auscultation: normal bowel sounds; abdomen not distended Percussion/Palpation: abdomen soft; abdomen nontender Musculoskeletal: No acute arthritis in any joint Neurologic: Alert, awake and oriented x3. Generally weak Psychiatric: A+Ox3, euthymic affect Lymphatic: no cervical or axillary lymphadenopathy Results & Data Results & Data ([facility]) Vital Signs (Past 12 Hours) Vital Signs Temp Pulse Pulse Resp BP BP Pulse Ox 11/28/20 11:31 92 H 30 H 92 11/28/20 11:30 36.6 C 95 H 22 135/74 92 11/28/20 11:15 93 H 25 H 123/69 96 11/28/20 11:00 90 24 119/70 96 11/28/20 10:45 98 H 24 124/71 95 11/28/20 10:30 93 H 21 117/66 95 11/28/20 10:15 102 H 22 124/74 94 11/28/20 10:00 100 H 20 118/69 95 11/28/20 09:45 99 H 22 124/69 95 11/28/20 09:35 96 H 20 119/61 95 11/28/20 09:28 95 H 24 94 11/28/20 08:55 88 L 11/28/20 08:50 98 H 20 141/81 H 93 11/28/20 08:39 37 C 107 H 22 122/70 79 L Laboratory Results Short CBC 11/28/20 Range/Units 08:55 WBC 9.59 (4.8-10.8) K/uL Hgb 13.6 (12.0-16.0) g/dL Hct 37.9 (37-47) % Plt Count 342 (130-400) K/uL BMP 11/28/20 08:55 Sodium 134 L Potassium 3.4 L Chloride 101 Carbon Dioxide 24 BUN 15 Creatinine 0.81 Glucose 135 H Calcium 9.8 Cardiac Enzymes 11/28/20 Range/Units 08:55 Troponin I < 0.015 (0-0.045) ng/ml Liver Function 11/28/20 Range/Units 08:55 Total Bilirubin 0.5 (0.2-1) mg/dl AST 35 (15-37) U/L ALT 28 (12-78) U/L Alkaline Phosphatase 71 (45-117) U/L Albumin 3.1 L (3.4-5.0) gm/dl Diagnostic Findings Chest X-Ray 11/28/20 09:15 XR chest 1V portable CLINICAL HISTORY: Shortness of breath COMPARISON STUDY: 11/24/2020 FINDINGS: The heart is enlarged. There are bilateral pulmonary airspace opacities. There are no cystic or pleural effusions. The findings are suspicious for multifocal pneumonia. Asymmetric pulmonary edema could potentially appear similar. Clinical and radiographic follow-up is recommended. IMPRESSION: Bilateral pulmonary airspace opacities suspicious for multifocal pneumonia. Clinical and radiographic follow-up are recommended. ACT 112: Negative or not required by law. Electronically signed by: Brandon Stone M.D. 11/28/2020 10:02 AM Medications Administered Sodium Chloride (Nss 1000ml) 1,000 mls @ 125 mls/hr IV .Q8H ELISE Stop: 11/28/20 17:14 Last Admin: 11/28/20 10:08 Dose: 125 mls/hr Documented by: [id number] Discontinued Medications Albuterol (Albut/Ipratrop 3mg/0.5mg Neb 3 Ml Vial) 3 ml NEB NOW STA Stop: 11/28/20 09:18 Last Admin: 11/28/20 09:25 Dose: 3 ml Documented by: [id number] Dexamethasone (Dexamethasone Sod Inj 4 Mg/Ml Vial) Confirm Administered Dose 4 mg .ROUTE .STK-MED ONE Stop: 11/28/20 09:22 Last Admin: 11/28/20 09:34 Dose: 4 mg Documented by: [id number] Sodium Chloride (Nss) 500 mls @ 999 mls/hr IV .Q31M STA Stop: 11/28/20 09:45 Last Infusion: 11/28/20 10:09 Dose: 0 mls/hr Documented by: [id number] Admin: 11/28/20 09:34 Dose: 999 mls/hr Documented by: [id number] Dexamethasone 4 mg/ Syringe 1 mls @ 1 mls/min IV ONE ONE Stop: 11/28/20 09:16 Last Admin: 11/28/20 09:34 Dose: Not Given Documented by: [id number] Ondansetron HCl (Ondansetron Inj 2 Mg/Ml 2 Ml Vial) 4 mg IV NOW STA Stop: 11/28/20 09:16 Last Admin: 11/28/20 09:34 Dose: 4 mg Documented by: [id number] ECG Rate (beats per minute): 97 Rhythm: normal sinus COVID-19 Results Results COVID-19 Adm Lab Results: RBC 4.74 M/uL (4.2-5.4) 11/28/20 WBC 9.59 K/uL (4.8-10.8) 11/28/20 Hgb 13.6 g/dL (12.0-16.0) 11/28/20 Hct 37.9 % (37-47) 11/28/20 Plt Count 342 K/uL (130-400) 11/28/20 Neutrophils (%) (Auto) 83.4 % 11/28/20 Lymphocytes (%) (Auto) 9.4 % 11/28/20 Monocytes # (Auto) 0.63 K/uL (0.11-0.59) H 11/28/20 Eosinophils # (Auto) 0.00 K/uL (0-0.5) 11/28/20 Immature Granulocyte % (Auto) 0.4 % 11/28/20 Neutrophils # (Auto) 8.00 K/uL (1.4-6.5) H 11/28/20 Lymphocytes # (Auto) 0.90 K/uL (1.2-3.4) L 11/28/20 Monocytes # (Auto) 0.63 K/uL (0.11-0.59) H 11/28/20 Eosinophils # (Auto) 0.00 K/uL (0-0.5) 11/28/20 Basophils # (Auto) 0.02 K/uL (0-0.2) 11/28/20 Immature Granulocyte # (Auto) 0.04 K/uL (0.00-0.02) H 11/28/20 Na 134 mmol/L (136-145) L 11/28/20 K 3.4 mmol/L (3.5-5.1) L 11/28/20 Cl 101 mmol/L (98-107) 11/28/20 CO2 24 mmol/L (21-32) 11/28/20 Anion Gap 9.0 (3-11) 11/28/20 BUN 15 mg/dl (7-18) 11/28/20 Creatinine 0.81 mg/dl (0.6-1.2) 11/28/20 BUN/Creatinine Ratio 18.0 (10-20) 11/28/20 Glucose Level 135 mg/dl (70-99) H 11/28/20 Ca 9.8 mg/dl (8.5-10.1) 11/28/20 Total Bilirubin 0.5 mg/dl (0.2-1) 11/28/20 AST/SGOT 35 U/L (15-37) 11/28/20 ALT/SGPT 28 U/L (12-78) 11/28/20 Alkaline Phosphatase 71 U/L (45-117) 11/28/20 Total Protein 8.4 gm/dl (6.4-8.2) H 11/28/20 Albumin 3.1 gm/dl (3.4-5.0) L 11/28/20 Globulin 5.3 gm/dl (2.5-4.0) H 11/28/20 Albumin/Globulin Ratio 0.6 (0.9-2) L 11/28/20 Troponin I < 0.015 ng/ml (0-0.045) 11/28/20 CRP 20.90 mg/dl (0-0.29) H 11/28/20 Procalcitonin Pending 11/28/20 PTT 25.8 Seconds (21.0-31.0) 11/28/20 INR 1.1 (0.9-1.1) 11/28/20 Chest X-Ray 11/28/20 Code Status & VTE Plan Code Status Full Code VTE Prophylaxis Plan VTE Prophylaxis will be ordered: Yes Supervising Physician Co-Signing Physician Notes Attending addendum: The patient was seen and examined in emergency room She has been complaining of cough with minimal shortness of breath for the last 1 week or so and was diagnosed with COVID-19 virus on of this month Her condition has been getting worse since yesterday especially last night when she checked her saturation that was around 70s She complains to have more shortness of breath with cough and sweating but no documented fever and/or pain Physical exam as in admission exam section Her admission labs, EKG and imaging studies reviewed Has bilateral multifocal pneumonia secondary to COVID-19 virus We will start with intravenous remdesivir and dexamethasone Supportive management for cough and shortness of breath Discussed with the patient about current management of Covid and further management options in case the condition deteriorates. Agree with assessment and plan as outlined above by ELISEO Menjivar Dr.
[2020-11-28] MEDS ORDERED: POTASSIUM CHLORIDE CRTAB 20 MEQ TABCR PO STA (12:40)
[2020-11-28] MEDS ORDERED: DEXAMETHASONE SOD INJ 4 MG/ML VIAL IV STA (12:41)
[2020-11-28] MEDS ORDERED: OPTIRAY 350 500ml IV ONE (12:44)
--- NOTE | 2020-11-28 12:57 | CT Scan Report ---
CT ANGIOGRAPHY OF THE CHEST, PULMONARY EMBOLUS PROTOCOL CLINICAL HISTORY: Shortness of breath. Covid. COMPARISON STUDY: Chest CT November 25, 2015. Chest radiograph performed earlier today. TECHNIQUE: Following IV administration of 111 mL of Optiray, helical axial images of the chest were o btained utilizing the pulmonary embolus protocol. Maximal intensity projections and sagittal and cor onal reformats were viewed on an independent 3D workstation. IV contrast was administered without co mplication. Automated exposure control was utilized for the study. A dose lowering technique was ut ilized adhering to the principles of ALARA. CT DOSE: 450.95 mGycm FINDINGS: No pulmonary emboli are identified although this exam is mildly compromised by respiratory motion. There is no thoracic aortic dissection. Moderate cardiomegaly and coronary artery calcificat ion is noted. Central airways are patent. Extensive groundglass opacities within the lungs are noted. No pneumothorax or pleural effusion is noted. There is no lobar consolidation. Multiple mildly enlar ged mediastinal lymph nodes are likely reactive. Index AP window lymph node measures 1.3 cm in short axis diameter. There is probable hepatic steatosis. IMPRESSION: 1. No pulmonary emboli identified although exam mildly compromised by respiratory motion. 2. Extensive groundglass opacities within the lungs suggestive of viral pneumonia. 3. Multiple mildly enlarged mediastinal lymph nodes which are likely reactive. 4. Cardiomegaly. ACT 112: Negative or not required by law. Electronically signed by: Monster Bains M.D. 11/28/2020 12:56 PM
--- NOTE | 2020-11-28 13:00 | Electrocardiogram Report ---
Test Reason : Blood Pressure : / mmHG Vent. Rate : 097 BPM Atrial Rate : 097 BPM P-R Int : 142 ms QRS Dur : 068 ms QT Int : 362 ms P-R-T Axes : 007 -29 031 degrees QTc Int : 459 ms Normal sinus rhythm Voltage criteria for left ventricular hypertrophy Abnormal ECG When compared with ECG of 24-NOV-2020 14:46, Premature atrial complexes are no longer Present Confirmed by Pradeep Martin ([id number]) on 11/28/2020 1:00:29 PM Referred By: REFERRED SELF Confirmed By:Pradeep Martin
[2020-11-28] MEDS ORDERED: GLUCAGON FOR INJ 1 MG VIAL SQ PRN (13:29)
[2020-11-28] MEDS ORDERED: MAGNESIUM HYDROXIDE SUSP 30 ML UDC PO PRN (13:29)
[2020-11-28] MEDS ORDERED: ACETAMINOPHEN 325 MG TAB PO PRN (13:29)
[2020-11-28] MEDS ORDERED: ONDANSETRON INJ 2 MG/ML 2 ML VIAL IV PRN (13:29)
[2020-11-28] MEDS ORDERED: GLUCOSE 10 TABS/TUBE PO PRN (13:29)
[2020-11-28] MEDS ORDERED: DEXTROSE 50% 50 ML SYRINGE IV PRN (13:29)
[2020-11-28] MEDS ORDERED: CARBOHYDRATES FOR HYPOGLYCEMIA PO PRN (13:29)
[2020-11-28] MEDS ORDERED: ALUMINUM/MAGNESIUM SUSP 30 ML UDC PO PRN (13:29)
[2020-11-28] MEDS ORDERED: GLUCOSE 40% GEL 15 GM TUBE PO PRN (13:29)
[2020-11-28] MEDS ORDERED: POLYETHYLENE (MIRALAX) 17 GM PACK PO PRN (13:29)
[2020-11-28] MEDS ORDERED: PHARMACY GLYCEMIC MGMT CONSULT PRN (13:56)
[2020-11-28] MEDS ORDERED: REMDESIVIR 200 MG in SODIUM CHLORIDE 0.9% 210 ML IV STA (13:57)
--- NOTE | 2020-11-28 14:23 | Pharmacy Report ---
Pharmacy Glycemic Short Note 2 - Date of Service November 28, 2020 - Glycemic Short BSG Results (Last 24 hours): 11/28/20 11/28/20 08:55 13:05 Glucose 135 H POC Glucose 168 H OUTPATIENT ANTIDIABETIC REGIMEN: * Metformin 500 mg PO BIDM * HbA1c = 6.8% (10/03/20) ASSESSMENT: * 70 yo F admitted secondary to Covid-19 pneumonia. Pharmacy has been consulted to assist with inpatient glycemic management. * Admission BSG was 135 mg/dL with a recheck at lunch of 168 mg/dL. * Patient received 4 mg of IV Dexamethasone. She will start on Dexamethasone 6 mg IV daily x 10 days tomorrow. * Will give an NPH dose of 20 units (~0.25 units/kg) x 1 now to account for steroid-induced hyperglycemia. Will start Novolog based on a weight/stress of 3. Will add overnight checks for the first evening. PLAN FOR INPATIENT GLYCEMIC CONTROL: * Hold outpatient oral diabetes medications * Basal insulin * NPH 20 units SC x 1 * Bolus insulin * NovoLog per scale ACHS or Q6hrs while NPO * Goal Range: Low 110 mg/dL - High 140 mg/dL * Correction Factor: 20 mg/dL/unit * Nutritional / Prandial insulin per carb ratio of 1 unit per 7 grams CHO consumed PLAN FOR DISCHARGE: * HbA1c = 6.8% from October 2020 which is at goal for this patient. Recommend continuing outpatient regimen upon discharge.
[2020-11-28] MEDS ORDERED: NovoLIN-N (NPH) PER UNIT CHARGE SQ ONE (14:30)
[2020-11-28 14:34] LABS: Appearance Urine Cloudy (Clear); Bacteria Urine Automated 4+ (Negative); Bilirubin Urine Negative (Negative); Blood Urine Trace (Negative); Color Urine Yellow; Epithelial Cell Urine Auto 0-5 /lpf (0-5); Glucose Urine UA Trace (Negative); Ketones Urine 1+ (Negative); Leukocyte Esterase Urine Trace (Negative); Nitrite Urine Positive (Negative); Protein Urine 1+ (Negative); RBC Urine Automated 0-4 /hpf (0-4); Specific Gravity Urine > 1.045 (1.000-1.030); Urobilinogen Urine Negative (Negative)
[2020-11-28] MEDS: BENZONATATE 100 MG CAPSULE PO SCH ×2 (14:34→20:48)
[2020-11-28] MEDS: ALBUTEROL HFA 8 GM INHALER INH SCH ×2 (14:57→19:44)
[2020-11-28] MEDS ORDERED: dexAMETHasone 2 MG in SYRINGE 0 ML IV ONE (15:00)
--- NOTE | 2020-11-28 15:12 | Emergency Department Note ---
History of Present Illness General Chief complaint: Shortness of Breath/Dyspnea Stated complaint: COVID, PNA, LOW O2 Source: patient and RN notes reviewed Mode of arrival: ambulatory Limitations: no limitations History of Present Illness Provider complaint: Covid, low oxygen saturations, shortness of breath Maximum Pain Intensity: 0 This patient is a 70-year-old female who presents to the emergency department with complaints of shortness of breath, low oxygen saturations. Patient states she is Covid positive and was tested here on 11/24. She has not been taking any medications at home until yesterday when she called her primary care physician and was prescribed azithromycin and prednisone. She has only had one dose of both of these medications. She has been able to drink plenty of fluids but now has not been eating. She did have diarrhea but this has now resolved. She denies any improvement with the above medications. Patient is concerned because her oxygen saturations were in the mid 80s at home on room air. She states "I am just not doing well." Home Medications Medication Instructions Recorded Confirmed Type albuterol sulfate 2.5 mg INHALATION QID 07/16/18 11/28/20 History albuterol sulfate [ProAir HFA] 2 - 4 puff INHALATION DIRECTED 07/16/18 11/28/20 History PRN aspirin 81 mg PO BID 07/16/18 11/28/20 History gemfibrozil [Lopid] 600 mg PO BID 07/16/18 11/28/20 History hydrochlorothiazide 25 mg PO DAILY PRN 07/16/18 11/28/20 History lisinopril 5 mg PO QAM 07/16/18 11/28/20 History metformin 500 mg PO BID 07/16/18 11/28/20 History omeprazole 20 mg PO QAM 07/16/18 11/28/20 History ezetimibe [Zetia] 10 mg PO QAM 11/24/20 11/28/20 History Allergies Allergy/AdvReac Type Severity Reaction Status Date / Time naproxen Allergy Intermediate EDEMA OF Verified 11/28/20 11:55 FACE/LIPS/TONGUE Sulfa (Sulfonamide Allergy Intermediate RASH Unverified 11/28/20 11:55 Antibiotics) atorvastatin AdvReac Intermediate LEG Verified 11/28/20 11:55 PAIN/SWELLING simvastatin AdvReac Mild LEG CRAMPS Verified 11/28/20 11:55 Past Med/Surg History Medical History Diabetes History of hysteroscopy HLD (hyperlipidemia) Hypertension Hypokalemia Lichen sclerosus Obesity Osteoporosis Surgical History History of cystoscopy History of shoulder surgery x 2 on R and L x 1 - rotator cuff Family History Mother , 65 Stomach cancer Coronary heart disease Stroke Daughter Breast cancer Social History Smoking Status: Never smoker Tobacco Type: Cigarettes Second Hand Exposure: No; Do You Dip or Chew Tobacco: No; Hx Alcohol Use: No Hx Substance Use: No Preferred Language: Swazi Communication Ability: Effective Business Support Assistant Required: No Beliefs That Will Affect Care: None marital status: Current Living Situation: Spouse Other Information That Helps Us Care for You: No Feels Safe at Home: Yes Safety Concerns: Feels Safe At This Time Assistive Devices: Oxygen - Continuous Review of Systems See HPI for pertinent positives & negatives. and A total of 10 systems reviewed and were otherwise negative Physical Exam Vital Signs Vital Signs - 24 hr 11/28/20 08:39 11/28/20 08:50 11/28/20 08:55 Temperature 37 C Temperature Source Temporal Artery Scan Pulse Rate 107 H Pulse Rate [Apical] 98 H Pulse Rate from SpO2 Sensor Respiratory Rate 22 20 Respiratory Effort / Characteristics Non-Labored Short of Breath SOB on Exertion Respiratory Depth Normal Normal Respiratory Pattern Regular Blood Pressure 122/70 Blood Pressure [Left Arm] 141/81 H Blood Pressure Mean 87 Blood Pressure Mean [Left Arm] 101 Pulse Oximetry 79 L 93 88 L Oxygen Delivery Method Room Air Nasal Cannula Room Air Oxygen Flow Rate 4 4 Sepsis Recent Fever Within 48 Hours Yes Sepsis New/Unexplained Change in Mental Status No Sepsis Action Taken by Nursing Physician Notified Oxygen Flow Rate - Titration 4 Pulse Oximetry Post Tiitration 93 11/28/20 09:28 11/28/20 09:35 11/28/20 09:45 Temperature Temperature Source Pulse Rate 99 H Pulse Rate [Apical] 95 H 96 H Pulse Rate from SpO2 Sensor Respiratory Rate 24 20 22 Respiratory Effort / Characteristics Non-Labored Spontaneous Respiratory Depth Respiratory Pattern Blood Pressure 124/69 Blood Pressure [Left Arm] 119/61 Blood Pressure Mean 87 Blood Pressure Mean [Left Arm] 80 Pulse Oximetry 94 95 95 Oxygen Delivery Method Nasal Cannula Nasal Cannula Oxygen Flow Rate 4 4 4 Sepsis Recent Fever Within 48 Hours Sepsis New/Unexplained Change in Mental Status Sepsis Action Taken by Nursing Oxygen Flow Rate - Titration Pulse Oximetry Post Tiitration 11/28/20 10:00 11/28/20 10:15 11/28/20 10:30 Temperature Temperature Source Pulse Rate 100 H 102 H 93 H Pulse Rate [Apical] Pulse Rate from SpO2 Sensor Respiratory Rate 20 22 21 Respiratory Effort / Characteristics Respiratory Depth Respiratory Pattern Blood Pressure 118/69 124/74 117/66 Blood Pressure [Left Arm] Blood Pressure Mean 85 90 83 Blood Pressure Mean [Left Arm] Pulse Oximetry 95 94 95 Oxygen Delivery Method Oxygen Flow Rate 4 4 4 Sepsis Recent Fever Within 48 Hours Sepsis New/Unexplained Change in Mental Status Sepsis Action Taken by Nursing Oxygen Flow Rate - Titration Pulse Oximetry Post Tiitration 11/28/20 10:45 11/28/20 11:00 11/28/20 11:15 Temperature Temperature Source Pulse Rate 98 H 90 93 H Pulse Rate [Apical] Pulse Rate from SpO2 Sensor 89 Respiratory Rate 24 24 25 H Respiratory Effort / Characteristics Respiratory Depth Respiratory Pattern Blood Pressure 124/71 119/70 123/69 Blood Pressure [Left Arm] Blood Pressure Mean 88 86 87 Blood Pressure Mean [Left Arm] Pulse Oximetry 95 96 96 Oxygen Delivery Method Oxygen Flow Rate 4 4 4 Sepsis Recent Fever Within 48 Hours Sepsis New/Unexplained Change in Mental Status Sepsis Action Taken by Nursing Oxygen Flow Rate - Titration Pulse Oximetry Post Tiitration 11/28/20 11:30 11/28/20 11:31 11/28/20 11:45 Temperature 36.6 C Temperature Source Pulse Rate 95 H 92 H 90 Pulse Rate [Apical] Pulse Rate from SpO2 Sensor 93 H Respiratory Rate 22 30 H 22 Respiratory Effort / Characteristics Respiratory Depth Respiratory Pattern Blood Pressure 135/74 122/71 Blood Pressure [Left Arm] Blood Pressure Mean 94 88 Blood Pressure Mean [Left Arm] Pulse Oximetry 92 92 93 Oxygen Delivery Method Oxygen Flow Rate 4 4 Sepsis Recent Fever Within 48 Hours Sepsis New/Unexplained Change in Mental Status Sepsis Action Taken by Nursing Oxygen Flow Rate - Titration Pulse Oximetry Post Tiitration 11/28/20 12:00 Temperature Temperature Source Pulse Rate 87 Pulse Rate [Apical] Pulse Rate from SpO2 Sensor Respiratory Rate 24 Respiratory Effort / Characteristics Respiratory Depth Respiratory Pattern Blood Pressure 113/73 Blood Pressure [Left Arm] Blood Pressure Mean 86 Blood Pressure Mean [Left Arm] Pulse Oximetry 93 Oxygen Delivery Method Oxygen Flow Rate 4 Sepsis Recent Fever Within 48 Hours Sepsis New/Unexplained Change in Mental Status Sepsis Action Taken by Nursing Oxygen Flow Rate - Titration Pulse Oximetry Post Tiitration Vital signs reviewed. General: Somewhat ill-appearing 70-year-old female, in no significant distress. On nasal cannula oxygen. HEENT: No scleral icterus, PERRLA, neck supple. Atraumatic. Cardiovascular: Regular but tachycardic, no extra sound Pulmonary: Coarse breath sounds bilaterally, normal work of breathing on nasal cannula oxygen. Dry cough. Abdomen: Soft, nontender, nondistended, positive bowel sounds. Musculoskeletal: Atraumatic, no peripheral edema. Neurologic: Patient awake alert and oriented x 3 Skin: Warm, dry, no rash Course Administered Medications Acetaminophen (Acetaminophen 325 Mg Tab) 650 mg PO Q4H PRN PRN Reason: Pain or Fever Stop: 12/28/20 13:28 Last Admin: 11/29/20 18:35 Dose: 650 mg Documented by: [id number] Albuterol (Albuterol Hfa 8 Gm Inhaler) 2 puffs INH QIDR ELISE Stop: 12/28/20 14:59 Last Admin: 11/30/20 19:42 Dose: 2 puffs Documented by: [id number] Admin: 11/30/20 14:49 Dose: 2 puffs Documented by: [id number] Admin: 11/30/20 11:36 Dose: 2 puffs Documented by: [id number] Admin: 11/30/20 07:01 Dose: 2 puffs Documented by: [id number] Admin: 11/30/20 04:51 Dose: 2 puffs Documented by: [id number] Admin: 11/29/20 19:28 Dose: 2 puffs Documented by: [id number] Admin: 11/29/20 15:05 Dose: 2 puffs Documented by: [id number] Admin: 11/29/20 11:16 Dose: 2 puffs Documented by: [id number] Admin: 11/29/20 07:56 Dose: 2 puffs Documented by: [id number] Admin: 11/28/20 19:44 Dose: 2 puffs Documented by: [id number] Admin: 11/28/20 14:57 Dose: 2 puffs Documented by: [id number] Aspirin (Aspirin 81 Mg Ectab) 81 mg PO BID ELISE Stop: 12/28/20 20:59 Last Admin: 11/30/20 08:46 Dose: 81 mg Documented by: [id number] Admin: 11/29/20 21:12 Dose: 81 mg Documented by: [id number] Admin: 11/29/20 08:34 Dose: 81 mg Documented by: [id number] Admin: 11/28/20 20:48 Dose: 81 mg Documented by: [id number] Benzonatate (Benzonatate 100 Mg Capsule) 100 mg PO TID ELISE Stop: 12/28/20 13:59 Last Admin: 11/30/20 14:09 Dose: 100 mg Documented by: [id number] Admin: 11/30/20 08:44 Dose: 100 mg Documented by: [id number] Admin: 11/29/20 21:13 Dose: 100 mg Documented by: [id number] Admin: 11/29/20 14:28 Dose: 100 mg Documented by: [id number] Admin: 11/29/20 08:35 Dose: 100 mg Documented by: [id number] Admin: 11/28/20 20:48 Dose: 100 mg Documented by: [id number] Admin: 11/28/20 14:34 Dose: 100 mg Documented by: [id number] Ezetimibe (Ezetimibe 10 Mg Tablet) 10 mg PO QAM ELISE Stop: 12/29/20 08:59 Last Admin: 11/30/20 08:44 Dose: 10 mg Documented by: [id number] Admin: 11/29/20 08:35 Dose: 10 mg Documented by: [id number] Enoxaparin Sodium (Enoxaparin Inj 40 Mg/0.4 Ml Syr) 40 mg SQ Q12H ELISE Stop: 12/28/20 21:59 Last Admin: 11/30/20 10:50 Dose: 40 mg Documented by: [id number] Admin: 11/29/20 21:12 Dose: 40 mg Documented by: [id number] Admin: 11/29/20 09:12 Dose: 40 mg Documented by: [id number] Admin: 11/28/20 20:48 Dose: 40 mg Documented by: [id number] Gemfibrozil (Gemfibrozil 600 Mg Tab) 600 mg PO BID ELISE Stop: 12/28/20 20:59 Last Admin: 11/30/20 08:45 Dose: 600 mg Documented by: [id number] Admin: 11/29/20 21:12 Dose: 600 mg Documented by: [id number] Admin: 11/29/20 08:34 Dose: 600 mg Documented by: [id number] Admin: 11/28/20 20:48 Dose: 600 mg Documented by: [id number] Guaifenesin/Codeine Phosphate (Guaifenesin/Codeine 100mg/10mg 5ml Udc) 5 ml PO Q6H PRN PRN Reason: Cough Stop: 12/28/20 23:14 Last Admin: 11/29/20 21:13 Dose: 5 ml Documented by: [id number] Admin: 11/28/20 23:38 Dose: 5 ml Documented by: [id number] Dexamethasone 6 mg/ Syringe 1.5 mls @ 1 mls/min IV DAILY ELISE Stop: 12/09/20 08:59 Last Admin: 11/30/20 08:43 Dose: 1 mls/min Documented by: [id number] Admin: 11/29/20 08:34 Dose: 1 mls/min Documented by: [id number] Remdesivir 100 mg/ Sodium (Chloride) 250 mls @ 250 mls/hr IV Q24H ELISE; Protocol Stop: 12/02/20 12:59 Last Infusion: 11/30/20 13:01 Dose: 0 mls/hr Documented by: [id number] Admin: 11/30/20 11:41 Dose: 250 mls/hr Documented by: [id number] Infusion: 11/29/20 13:44 Dose: 0 mls/hr Documented by: [id number] Admin: 11/29/20 12:18 Dose: 250 mls/hr Documented by: [id number] Ceftriaxone Sodium 2,000 mg/ (Dextrose) 70 mls @ 100 mls/hr IV DAILY@1600 ELISE; Protocol Stop: 12/03/20 16:44 Last Infusion: 11/30/20 16:49 Dose: 0 mls/hr Documented by: [id number] Admin: 11/30/20 16:07 Dose: 100 mls/hr Documented by: [id number] Infusion: 11/29/20 17:14 Dose: 0 mls/hr Documented by: [id number] Admin: 11/29/20 16:19 Dose: 100 mls/hr Documented by: [id number] Infusion: 11/28/20 17:54 Dose: 0 mls/hr Documented by: [id number] Admin: 11/28/20 16:57 Dose: 100 mls/hr Documented by: [id number] Insulin Aspart (Insulin Aspart 100 Units/Ml 3 Ml Pen) 0 units SC AC [facility] Stop: 12/29/20 07:29 Last Admin: 11/30/20 16:43 Dose: Not Given Documented by: [id number] Cosigned by: [id number] Admin: 11/30/20 11:44 Dose: Not Given Documented by: [id number] Cosigned by: [id number] Admin: 11/30/20 09:23 Dose: Not Given Documented by: [id number] Cosigned by: [id number] Admin: 11/29/20 17:01 Dose: Not Given Documented by: [id number] Cosigned by: [id number] Admin: 11/29/20 12:06 Dose: Not Given Documented by: [id number] Cosigned by: [id number] Admin: 11/29/20 08:57 Dose: Not Given Documented by: [id number] Cosigned by: [id number] Insulin Aspart (Insulin Aspart 100 Units/Ml 3 Ml Pen) 0 units SC [facility] Stop: 12/29/20 20:59 Last Admin: 11/29/20 20:50 Dose: Not Given Documented by: [id number] Cosigned by: [id number] Insulin Human NPH (Insulin Human Nph) 24 units SC [facility] Stop: 12/29/20 08:59 Last Admin: 11/29/20 08:58 Dose: Not Given Documented by: [id number] Lisinopril (Lisinopril 5 Mg Tab) 5 mg PO [facility] Stop: 12/29/20 08:59 Last Admin: 11/30/20 08:45 Dose: 5 mg Documented by: [id number] Admin: 11/29/20 08:35 Dose: 5 mg Documented by: [id number] Miscellaneous (Carbohydrates For Hypoglycemia ) 15 - 30 gm PO UD PRN PRN Reason: Hypoglycemia Protocol Stop: 12/28/20 13:28 Last Admin: 11/29/20 03:57 Dose: 15 gm Documented by: [id number] Pantoprazole Sodium (Pantoprazole 40 Mg Tab) 40 mg PO [facility]; Protocol Stop: 12/29/20 08:59 Last Admin: 11/30/20 08:45 Dose: 40 mg Documented by: [id number] Admin: 11/29/20 08:34 Dose: 40 mg Documented by: [id number] Sodium Chloride (Sodium Chloride 0.9% 10ml Flush) 30 ml IV DAILY@1200 ELISE Stop: 12/02/20 12:01 Last Admin: 11/30/20 11:41 Dose: 30 ml Documented by: [id number] Admin: 11/29/20 12:20 Dose: 30 ml Documented by: [id number] Admin: 11/28/20 16:35 Dose: 30 ml Documented by: [id number] Discontinued Medications Albuterol (Albut/Ipratrop 3mg/0.5mg Neb 3 Ml Vial) 3 ml NEB NOW STA Stop: 11/28/20 09:18 Last Admin: 11/28/20 09:25 Dose: 3 ml Documented by: [id number] Dexamethasone (Dexamethasone Sod Inj 4 Mg/Ml Vial) Confirm Administered Dose 4 mg .ROUTE .STK-MED ONE Stop: 11/28/20 09:22 Last Admin: 11/28/20 09:34 Dose: 4 mg Documented by: [id number] Furosemide (Furosemide 40 Mg/4 Ml Vial) 40 mg IV 0900 ONE Stop: 11/30/20 09:01 Last Admin: 11/30/20 08:54 Dose: 40 mg Documented by: [id number] Sodium Chloride (Nss 1000ml) 1,000 mls @ 125 mls/hr IV .Q8H ELISE Stop: 11/28/20 17:14 Last Infusion: 11/28/20 13:00 Dose: 0 mls/hr Documented by: [id number] Admin: 11/28/20 10:08 Dose: 125 mls/hr Documented by: [id number] Sodium Chloride (Nss) 500 mls @ 999 mls/hr IV .Q31M STA Stop: 11/28/20 09:45 Last Infusion: 11/28/20 10:09 Dose: 0 mls/hr Documented by: [id number] Admin: 11/28/20 09:34 Dose: 999 mls/hr Documented by: [id number] Dexamethasone 4 mg/ Syringe 1 mls @ 1 mls/min IV ONE ONE Stop: 11/28/20 09:16 Last Admin: 11/28/20 09:34 Dose: Not Given Documented by: [id number] Remdesivir 200 mg/ Sodium (Chloride) 250 mls @ 125 mls/hr IV NOW STA; Protocol Stop: 11/28/20 15:56 Last Infusion: 11/28/20 16:35 Dose: 0 mls/hr Documented by: [id number] Admin: 11/28/20 14:33 Dose: 125 mls/hr Documented by: [id number] Dexamethasone 2 mg/ Syringe 0.5 mls @ 1 mls/min IV ONE ONE Stop: 11/28/20 15:01 Last Admin: 11/28/20 15:38 Dose: 1 mls/min Documented by: [id number] Vancomycin HCl 2,000 mg/ (Sodium Chloride) 540 mls @ 200 mls/hr IV TODAY@0830 [facility] Stop: 11/29/20 12:00 Last Infusion: 11/29/20 12:17 Dose: 0 mls/hr Documented by: [id number] Admin: 11/29/20 09:12 Dose: 200 mls/hr Documented by: [id number] Insulin Aspart (Insulin Aspart 100 Units/Ml 3 Ml Pen) 0 units SC [facility]S [facility] Stop: 12/28/20 16:29 Last Admin: 11/29/20 17:01 Dose: Not Given Documented by: [id number] Cosigned by: [id number] Admin: 11/28/20 20:57 Dose: 7 units Documented by: [id number] Cosigned by: [id number] Admin: 11/28/20 17:33 Dose: 6 units Documented by: [id number] Cosigned by: [id number] Insulin Aspart (Insulin Aspart 100 Units/Ml 3 Ml Pen) 0 units SC TODAY@0000,0400 [facility] Stop: 11/29/20 04:01 Last Admin: 11/29/20 03:56 Dose: Not Given Documented by: [id number] Admin: 11/28/20 23:57 Dose: 4 units Documented by: [id number] Cosigned by: [id number] Insulin Human NPH (Novolin-N (Nph) Per Unit Charge) 20 units SQ ONE ONE Stop: 11/28/20 14:31 Last Admin: 11/28/20 15:38 Dose: 20 units Documented by: [id number] Cosigned by: [id number] Ioversol (Optiray 350 500ml) 111 ml IV ONCE ONE Stop: 11/28/20 12:45 Last Admin: 11/28/20 12:46 Dose: 111 ml Documented by: [id number] Ondansetron HCl (Ondansetron Inj 2 Mg/Ml 2 Ml Vial) 4 mg IV NOW STA Stop: 11/28/20 09:16 Last Admin: 11/28/20 09:34 Dose: 4 mg Documented by: [id number] Potassium Chloride (Potassium Chloride Crtab 20 Meq Tabcr) 20 meq PO NOW STA Stop: 11/28/20 12:41 Last Admin: 11/28/20 15:38 Dose: 20 meq Documented by: [id number] Medical Decision Making Differential Diagnosis Reactive airway disease, pneumonia, pneumothorax, COPD, CHF, infections, cardiac ischemia, pulmonary embolism, musculoskeletal, gastrointestinal, as well as other pathologies. Medical Records Attestation: I reviewed the patient's medical records. Home Medications Current Medication List: was personally reviewed by me Laboratory Data Attestation: I reviewed the patient's lab results. Result diagrams: 11/30/20 06:09 11/30/20 06:09 Lab Results 11/28/20 11/28/20 11/28/20 Range/Units 08:55 08:55 08:55 WBC 9.59 (4.8-10.8) K/uL RBC 4.74 (4.2-5.4) M/uL Hgb 13.6 (12.0-16.0) g/dL Hct 37.9 (37-47) % MCV 80.0 (80-100) fL MCH 28.7 (25-34) pg MCHC 35.9 (32-36) g/dL RDW Std Deviation 40.8 (36.4-46.3) fL RDW Coeff of Jason 13.9 (11.5-14.5) % Plt Count 342 (130-400) K/uL MPV 9.4 (7.4-10.4) fL Immature Gran % (Auto) 0.4 % Neut % (Auto) 83.4 % Lymph % (Auto) 9.4 % [place] % (Auto) 6.6 % Eos % (Auto) 0.0 % Baso % (Auto) 0.2 % Neut # (Auto) 8.00 H (1.4-6.5) K/uL Lymph # (Auto) 0.90 L (1.2-3.4) K/uL [place] # (Auto) 0.63 H (0.11-0.59) K/uL Eos # (Auto) 0.00 (0-0.5) K/uL Baso # (Auto) 0.02 (0-0.2) K/uL Immature Gran # (Auto) 0.04 H (0.00-0.02) K/uL ESR (0-30) mm/hr PT 11.3 (9.0-12.0) Seconds INR 1.1 (0.9-1.1) APTT 25.8 (21.0-31.0) Seconds PTT Ratio 1.0 Sodium 134 L (136-145) mmol/L Potassium 3.4 L (3.5-5.1) mmol/L Chloride 101 (98-107) mmol/L Carbon Dioxide 24 (21-32) mmol/L Anion Gap 9.0 (3-11) BUN 15 (7-18) mg/dl Creatinine 0.81 (0.6-1.2) mg/dl Est Cr Clr Drug Dosing 61.0 ml/min Est GFR ( Amer) 86.5 Est GFR (Non-Af Amer) 74.6 BUN/Creatinine Ratio 18.0 (10-20) Glucose 135 H (70-99) mg/dl Lactate (0.4-2.0) mmol/L Calcium 9.8 (8.5-10.1) mg/dl Magnesium 2.3 (1.8-2.4) mg/dl Total Bilirubin 0.5 (0.2-1) mg/dl AST 35 (15-37) U/L ALT 28 (12-78) U/L Alkaline Phosphatase 71 (45-117) U/L Troponin I < 0.015 (0-0.045) ng/ml C-Reactive Protein (0-0.29) mg/dl Total Protein 8.4 H (6.4-8.2) gm/dl Albumin 3.1 L (3.4-5.0) gm/dl Globulin 5.3 H (2.5-4.0) gm/dl Albumin/Globulin Ratio 0.6 L (0.9-2) Procalcitonin (0-0.5) ng/ml 11/28/20 11/28/20 11/28/20 Range/Units 09:18 09:18 09:18 WBC (4.8-10.8) K/uL RBC (4.2-5.4) M/uL Hgb (12.0-16.0) g/dL Hct (37-47) % MCV (80-100) fL MCH (25-34) pg MCHC (32-36) g/dL RDW Std Deviation (36.4-46.3) fL RDW Coeff of Jason (11.5-14.5) % Plt Count (130-400) K/uL MPV (7.4-10.4) fL Immature Gran % (Auto) % Neut % (Auto) % Lymph % (Auto) % [place] % (Auto) % Eos % (Auto) % Baso % (Auto) % Neut # (Auto) (1.4-6.5) K/uL Lymph # (Auto) (1.2-3.4) K/uL [place] # (Auto) (0.11-0.59) K/uL Eos # (Auto) (0-0.5) K/uL Baso # (Auto) (0-0.2) K/uL Immature Gran # (Auto) (0.00-0.02) K/uL ESR 56 H (0-30) mm/hr PT (9.0-12.0) Seconds INR (0.9-1.1) APTT (21.0-31.0) Seconds PTT Ratio Sodium (136-145) mmol/L Potassium (3.5-5.1) mmol/L Chloride (98-107) mmol/L Carbon Dioxide (21-32) mmol/L Anion Gap (3-11) BUN (7-18) mg/dl Creatinine (0.6-1.2) mg/dl Est Cr Clr Drug Dosing ml/min Est GFR ( Amer) Est GFR (Non-Af Amer) BUN/Creatinine Ratio (10-20) Glucose (70-99) mg/dl Lactate (0.4-2.0) mmol/L Calcium (8.5-10.1) mg/dl Magnesium (1.8-2.4) mg/dl Total Bilirubin (0.2-1) mg/dl AST (15-37) U/L ALT (12-78) U/L Alkaline Phosphatase (45-117) U/L Troponin I (0-0.045) ng/ml C-Reactive Protein 20.90 H (0-0.29) mg/dl Total Protein (6.4-8.2) gm/dl Albumin (3.4-5.0) gm/dl Globulin (2.5-4.0) gm/dl Albumin/Globulin Ratio (0.9-2) Procalcitonin 0.49 (0-0.5) ng/ml 11/28/20 Range/Units 09:30 WBC (4.8-10.8) K/uL RBC (4.2-5.4) M/uL Hgb (12.0-16.0) g/dL Hct (37-47) % MCV (80-100) fL MCH (25-34) pg MCHC (32-36) g/dL RDW Std Deviation (36.4-46.3) fL RDW Coeff of Jason (11.5-14.5) % Plt Count (130-400) K/uL MPV (7.4-10.4) fL Immature Gran % (Auto) % Neut % (Auto) % Lymph % (Auto) % [place] % (Auto) % Eos % (Auto) % Baso % (Auto) % Neut # (Auto) (1.4-6.5) K/uL Lymph # (Auto) (1.2-3.4) K/uL [place] # (Auto) (0.11-0.59) K/uL Eos # (Auto) (0-0.5) K/uL Baso # (Auto) (0-0.2) K/uL Immature Gran # (Auto) (0.00-0.02) K/uL ESR (0-30) mm/hr PT (9.0-12.0) Seconds INR (0.9-1.1) APTT (21.0-31.0) Seconds PTT Ratio Sodium (136-145) mmol/L Potassium (3.5-5.1) mmol/L Chloride (98-107) mmol/L Carbon Dioxide (21-32) mmol/L Anion Gap (3-11) BUN (7-18) mg/dl Creatinine (0.6-1.2) mg/dl Est Cr Clr Drug Dosing ml/min Est GFR ( Amer) Est GFR (Non-Af Amer) BUN/Creatinine Ratio (10-20) Glucose (70-99) mg/dl Lactate 1.2 (0.4-2.0) mmol/L Calcium (8.5-10.1) mg/dl Magnesium (1.8-2.4) mg/dl Total Bilirubin (0.2-1) mg/dl AST (15-37) U/L ALT (12-78) U/L Alkaline Phosphatase (45-117) U/L Troponin I (0-0.045) ng/ml C-Reactive Protein (0-0.29) mg/dl Total Protein (6.4-8.2) gm/dl Albumin (3.4-5.0) gm/dl Globulin (2.5-4.0) gm/dl Albumin/Globulin Ratio (0.9-2) Procalcitonin (0-0.5) ng/ml Imaging Data Radiologist's Impression: Chest X-Ray 11/28/20 09:15 XR chest 1V portable CLINICAL HISTORY: Shortness of breath COMPARISON STUDY: 11/24/2020 FINDINGS: The heart is enlarged. There are bilateral pulmonary airspace opacities. There are no cystic or pleural effusions. The findings are suspicious for multifocal pneumonia. Asymmetric pulmonary edema could potentially appear similar. Clinical and radiographic follow-up is recommended. IMPRESSION: Bilateral pulmonary airspace opacities suspicious for multifocal pneumonia. Clinical and radiographic follow-up are recommended. ACT 112: Negative or not required by law. Electronically signed by: Brandon Stone M.D. 11/28/2020 10:02 AM Chest CTA 11/28/20 12:01 CT ANGIOGRAPHY OF THE CHEST, PULMONARY EMBOLUS PROTOCOL CLINICAL HISTORY: Shortness of breath. Covid. COMPARISON STUDY: Chest CT November 25, 2015. Chest radiograph performed earlier today. TECHNIQUE: Following IV administration of 111 mL of Optiray, helical axial images of the chest were obtained utilizing the pulmonary embolus protocol. Maximal intensity projections and sagittal and coronal reformats were viewed on an independent 3D workstation. IV contrast was administered without complication. Automated exposure control was utilized for the study. A dose lowering technique was utilized adhering to the principles of ALARA. CT DOSE: 450.95 mGycm FINDINGS: No pulmonary emboli are identified although this exam is mildly compromised by respiratory motion. There is no thoracic aortic dissection. Moderate cardiomegaly and coronary artery calcification is noted. Central airways are patent. Extensive groundglass opacities within the lungs are noted. No pneumothorax or pleural effusion is noted. There is no lobar consolidation. Multiple mildly enlarged mediastinal lymph nodes are likely reactive. Index AP window lymph node measures 1.3 cm in short axis diameter. There is probable hepatic steatosis. IMPRESSION: 1. No pulmonary emboli identified although exam mildly compromised by respiratory motion. 2. Extensive groundglass opacities within the lungs suggestive of viral pneumonia. 3. Multiple mildly enlarged mediastinal lymph nodes which are likely reactive. 4. Cardiomegaly. ACT 112: Negative or not required by law. Electronically signed by: Monster Bains M.D. 11/28/2020 12:56 PM ECG Data Attestation: I personally reviewed and interpreted this ECG as follows: Indication: + palpitations Rate (beats per minute): 97 Rhythm: + normal sinus ECG Intervals/blocks: + Normal QT-c ECG ST segments: + Nonspecific ST abnormalities ECG Findings: + LVH; no PACs and no PVCs Blood Pressure Blood Pressure Findings: Normal blood pressure Blood Pressure Disposition: did not require urgent referral MDM Narrative This patient was evaluated and appeared to be in no significant distress. IV access was obtained and laboratory work was drawn. An order for cardiac monitoring was placed and the patient is noted to be in a normal sinus rhythm and 97 bpm. Patient was hydrated with normal saline solution. She was given IV dexamethasone, DuoNeb, IV Zofran. Patient's chest x-ray is with the Covid pneumonia and multifocal bilateral infiltrates. Given the patient's oxygen requirement and failed outpatient management, she will be referred to the hospitalist service for further management. Patient is aware of the plan and ag yamilet. Impression & Plan Pneumonia due to COVID-19 virus, Hypoxia Discharge Plan Visit Data Chief Complaint: Shortness of Breath/Dyspnea Stated Complaint: COVID, PNA, LOW O2 ED Provider: María Hagan Discharge Problem: Pneumonia due to COVID-19 virus, Hypoxia Patient Disposition: Admitted As Inpatient Discharge Instructions Interventions: ED Discharge Assessment Last Done: 11/28/20 12:30
[2020-11-28] MEDS: SODIUM CHLORIDE 0.9% 10ML FLUSH IV SCH (16:35)
[2020-11-28] MEDS: cefTRIAXone SODIUM 2,000 MG in DEXTROSE 5% 50 ML IV SCH (16:57)
[2020-11-28] MEDS: INSULIN ASPART 100 UNITS/ML 3 ML PEN SC SCH ×3 (17:33→23:57)
[2020-11-28] MEDS: ASPIRIN 81 MG ECTAB PO SCH (20:48)
[2020-11-28] MEDS: ENOXAPARIN INJ 40 MG/0.4 ML SYR SQ SCH (20:48)
[2020-11-28] MEDS: gemfibroziL 600 MG TAB PO SCH (20:48)
[2020-11-28] MEDS ORDERED: INSULIN GLARGINE SOLOSTAR 100 UNITS/ML 3 ML PEN SC SCH (21:00)
[2020-11-28] MEDS: guaiFENesin/CODEINE 100MG/10MG 5ML UDC PO PRN (23:38)
[2020-11-29] MEDS: INSULIN ASPART 100 UNITS/ML 3 ML PEN SC SCH ×6 (03:56→20:50)
[2020-11-29 06:04] LABS: Hematocrit (blood only) 32.7 % (37-47); Hemoglobin 11.3 g/dL (12.0-16.0); Mean Corpuscular Hemoglobin 28.1 pg (25-34); Mean Corpuscular Hgb Conc 34.6 g/dL (32-36); Mean Corpuscular Volume 81.3 fL (80-100); Mean Platelet Volume 8.8 fL (7.4-10.4); Platelet Count 264 K/uL (130-400); RDW Standard Deviation 42.2 fL (36.4-46.3); Red Blood Count 4.02 M/uL (4.2-5.4); White Blood Count 5.85 K/uL (4.8-10.8)
[2020-11-29 06:19] LABS: Basophils # (auto) 0.02 K/uL (0-0.2); Basophils % (auto) 0.3 %; Immature Granulocytes # (auto) 0.02 K/uL (0.00-0.02); Immature Granulocytes % (auto) 0.3 %; Lymphocytes # (auto) 0.95 K/uL (1.2-3.4); Lymphocytes % (auto) 16.2 %; Monocytes # (auto) 0.58 K/uL (0.11-0.59); Monocytes % (auto) 9.9 %; Neutrophils # (auto) 4.28 K/uL (1.4-6.5); Neutrophils % (auto) 73.3 %; Ovalocytes 1+
[2020-11-29 06:46] LABS: Albumin Globulin Ratio 0.6 (0.9-2); Albumin Level 2.5 gm/dl (3.4-5.0); BUN Creatinine Ratio 27.2 (10-20); Bilirubin,Total 0.2 mg/dl (0.2-1); Calcium 8.5 mg/dl (8.5-10.1); Est GFR (Non-African American) 95.8; Globulin 4.2 gm/dl (2.5-4.0); Magnesium 2.6 mg/dl (1.8-2.4); Potassium 4.3 mmol/L (3.5-5.1); Total Protein 6.7 gm/dl (6.4-8.2)
[2020-11-29] MEDS: ALBUTEROL HFA 8 GM INHALER INH SCH ×4 (07:56→19:28)
[2020-11-29] MEDS ORDERED: VANCOMYCIN CONSULT ACTIVE PRN (08:04)
[2020-11-29] MEDS ORDERED: VANCOMYCIN HCL 1,000 MG/270 ML BAG IV STA (08:04)
[2020-11-29] MEDS ORDERED: VANCOMYCIN HCL 2,000 MG in SODIUM CHLORIDE 0.9% 500 ML IV SCH (08:30)
[2020-11-29] MEDS: PANTOprazole 40 MG TAB PO SCH (08:34)
[2020-11-29] MEDS: dexAMETHasone 6 MG in SYRINGE 0 ML IV SCH (08:34)
[2020-11-29] MEDS: ASPIRIN 81 MG ECTAB PO SCH ×2 (08:34→21:12)
[2020-11-29] MEDS: gemfibroziL 600 MG TAB PO SCH ×2 (08:34→21:12)
[2020-11-29] MEDS: lisinopril 5 MG TAB PO SCH (08:35)
[2020-11-29] MEDS: EZETIMIBE 10 MG TABLET PO SCH (08:35)
[2020-11-29] MEDS: BENZONATATE 100 MG CAPSULE PO SCH ×3 (08:35→21:13)
[2020-11-29] MEDS ORDERED: INSULIN HUMAN NPH SC SCH (09:00)
[2020-11-29] MEDS: ENOXAPARIN INJ 40 MG/0.4 ML SYR SQ SCH ×2 (09:12→21:12)
--- NOTE | 2020-11-29 11:31 | Pharmacy Report ---
Pharmacy Glycemic Short Note 2 - Date of Service November 29, 2020 - Glycemic Short BSG Results (Last 24 hours): 11/28/20 11/28/20 11/28/20 13:05 16:09 20:29 Glucose POC Glucose 168 H 193 H 278 H 11/28/20 11/29/20 11/29/20 23:55 03:55 04:13 Glucose POC Glucose 195 H 62 L* 92 11/29/20 11/29/20 05:51 07:47 Glucose 91 POC Glucose 89 OUTPATIENT ANTIDIABETIC REGIMEN: * Metformin 500 mg PO BIDM * HbA1c = 6.8% (10/03/20) ASSESSMENT: 11/29 * BSGs did climb to as high as 278 yesterday evening following dinner * She did drop into the 60s overnight, this was likely secondary to Novolog correction given HS and midnight, at a time when the effects of dexamethasone IV were dissipating. * I have ordered NPH 0.3units/kg SQ to be given w/ AM dexamethasone. I have also ordered Novolog CF / CR based upon weight and "moderate" stress level. Of note, patient is refusing all insulin doses at this time (no basal or prandial). IV dexamethasone 6mg daily continues. Hyperglycemia will likely ensue. 11/28 * 70 yo F admitted secondary to Covid-19 pneumonia. Pharmacy has been consulted to assist with inpatient glycemic management. * Admission BSG was 135 mg/dL with a recheck at lunch of 168 mg/dL. * Patient received 4 mg of IV Dexamethasone. She will start on Dexamethasone 6 mg IV daily x 10 days tomorrow. * Will give an NPH dose of 20 units (~0.25 units/kg) x 1 now to account for steroid-induced hyperglycemia. Will start Novolog based on a weight/stress of 3. Will add overnight checks for the first evening. PLAN FOR INPATIENT GLYCEMIC CONTROL: * Hold outpatient oral diabetes medications (metformin) * Basal insulin * NPH 24 units SC daily in the AM w/ IV dexamethasone * Bolus insulin * NovoLog per scale ACHS or Q6hrs while NPO * Goal Range: Low 110 mg/dL - High 140 mg/dL * Correction Factor: 20 mg/dL/unit * Nutritional / Prandial insulin per carb ratio of 1 unit per 7 grams CHO consumed PLAN FOR DISCHARGE: * HbA1c = 6.8% from October 2020 which is at goal for this patient. Recommend continuing outpatient regimen upon discharge.
[2020-11-29] MEDS: REMDESIVIR 100 MG in SODIUM CHLORIDE 0.9% 230 ML IV SCH (12:18)
[2020-11-29] MEDS: SODIUM CHLORIDE 0.9% 10ML FLUSH IV SCH (12:20)
--- NOTE | 2020-11-29 15:06 | Hospitalist Progress Note ---
Date of Service November 29, 2020 Assessment & Plan (1) Pneumonia due to COVID-19 virus: Management with intravenous remdesivir and dexamethasone Oxygen as needed Cough suppressants (2) Hypoxia: Acute respiratory failure with hypoxia secondary to Covid 19 pneumonia This is a 70-year-old female who has significant past medical history of T2DM, HTN, HLD, obesity, osteoporosis, lichen sclerosis who presents to ED secondary to worsening shortness of breath x3 days. CXR with multifocal PNA Hypoxic on 4L of O2 ESR 56, CRP 20.90, procal pending Started with intravenous remdesivir and dexamethasone Oxygen as needed Albuterol QID, Incentive spirometry, muccinex, tessalon perles Monitor LFTS Lovenox BID for DVT prophylaxis (3) Hypokalemia: k 3.4 give 20meq KCL monitor bmp-potassium has been normalized to 4.3 (4) Diabetes: Last a1c 10/03/20 6.8 Hold metformin lantus/novolog per protocol consult glycemic pharmacy 09/05 to steroid use Has been refusing sliding scale insulin coverage and will hold off for now (5) Hypertension: bp controlled continue lisinopril with parameters (6) HLD (hyperlipidemia): continue statin monitor lfts (7) DVT prophylaxis: SQ Lovenox Q12hr Dispo:PCU PCP: ELISEO Crum FULL CODE Admission and Anticipated Discharge Date Admission Date: November 28, 2020 Subjective 11/29/2020 The patient was seen and examined in telemetry and Covid unit She has been feeling a little better but is still requiring 4 L of oxygen to maintain saturation Still has cough but denies any fever and/or chills Review of Systems Review of Systems: All systems reviewed and are unremarkable except as noted below Respiratory: + cough, + dyspnea and + dyspnea on exertion Physical Exam Physical Exam: please see Dr. Steinberg addendum for physical exam findings: Lying in bed with moderate shortness of breath Constitutional: well developed, well nourished, + acute distress (Due to shortness of breath at rest) and + ill appearing Eyes: PERRL, conjunctivae normal, anicteric sclerae ENMT: external ear and nose normal, oropharynx normal Neck: trachea midline, no thyromegaly Respiratory: + respiratory distress (Moderate shortness of breath at rest ) and + uses accessory muscles Auscultation: + diminished lung sounds and + crackles (Moderate crackles at the bases) Cardiovascular: Rate/Rhythm: regular rate and regular rhythm Heart Sounds: no murmur Extremities: + edema (Trace edema bilaterally) Gastrointestinal (Abdomen): Inspection/Auscultation: normal bowel sounds; abdomen not distended Percussion/Palpation: abdomen soft; abdomen nontender Psychiatric: A+Ox3, euthymic affect Lymphatic: no cervical or axillary lymphadenopathy Results & Data Results & Data ([facility]) Vital Signs (Past 12 Hours) Vital Signs Temp Pulse Pulse Resp BP BP Pulse Ox 11/29/20 11:27 36.4 C L 76 23 113/71 92 11/29/20 11:16 76 16 95 11/29/20 07:56 84 20 90 11/29/20 07:45 36.5 C 90 24 105/64 90 11/29/20 07:38 66 11/29/20 04:38 36.9 C 82 24 111/55 L 94 Laboratory Results Short CBC 11/29/20 Range/Units 05:51 WBC 5.85 (4.8-10.8) K/uL Hgb 11.3 L (12.0-16.0) g/dL Hct 32.7 L (37-47) % Plt Count 264 (130-400) K/uL BMP 11/29/20 05:51 Sodium 140 Potassium 4.3 D Chloride 109 H Carbon Dioxide 27 BUN 15 Creatinine 0.56 L Glucose 91 Calcium 8.5 Liver Function 11/29/20 Range/Units 05:51 Total Bilirubin 0.2 (0.2-1) mg/dl AST 26 (15-37) U/L ALT 26 (12-78) U/L Alkaline Phosphatase 54 (45-117) U/L Albumin 2.5 L (3.4-5.0) gm/dl Medications Administered Current Inpatient Medications Acetaminophen (Acetaminophen 325 Mg Tab) 650 mg PO Q4H PRN PRN Reason: Pain or Fever Stop: 12/28/20 13:28 Al Hydrox/Mg Hydrox/Simethicone (Aluminum/Magnesium Susp 30 Ml Udc) 15 ml PO Q4H PRN PRN Reason: Dyspepsia Stop: 12/28/20 13:28 Albuterol (Albuterol Hfa 8 Gm Inhaler) 2 puffs INH QIDR [facility] Stop: 12/28/20 14:59 Last Admin: 11/29/20 15:05 Dose: 2 puffs Documented by: Aspirin (Aspirin 81 Mg Ectab) 81 mg PO BID [facility] Stop: 12/28/20 20:59 Last Admin: 11/29/20 08:34 Dose: 81 mg Documented by: Benzonatate (Benzonatate 100 Mg Capsule) 100 mg PO TID [facility] Stop: 12/28/20 13:59 Last Admin: 11/29/20 14:28 Dose: 100 mg Documented by: Dextrose (Dextrose 50% 50 Ml Syringe) 25 - 50 ml IV UD PRN; Protocol PRN Reason: Hypoglycemia Protocol Stop: 12/28/20 13:28 Ezetimibe (Ezetimibe 10 Mg Tablet) 10 mg PO QAM [facility] Stop: 12/29/20 08:59 Last Admin: 11/29/20 08:35 Dose: 10 mg Documented by: Enoxaparin Sodium (Enoxaparin Inj 40 Mg/0.4 Ml Syr) 40 mg SQ Q12H [facility] Stop: 12/28/20 21:59 Last Admin: 11/29/20 09:12 Dose: 40 mg Documented by: Gemfibrozil (Gemfibrozil 600 Mg Tab) 600 mg PO BID [facility] Stop: 12/28/20 20:59 Last Admin: 11/29/20 08:34 Dose: 600 mg Documented by: Glucagon (Glucagon For Inj 1 Mg Vial) 1 mg SQ UD PRN; Protocol PRN Reason: Hypoglycemia Protocol Stop: 12/28/20 13:28 Glucose (Glucose 10 Tabs/Tube) 4 - 8 tabs PO UD PRN; Protocol PRN Reason: Hypoglycemia Protocol Stop: 12/28/20 13:28 Glucose (Glucose 40% Gel 15 Gm Tube) 15 - 30 gm PO UD PRN; Protocol PRN Reason: Hypoglycemia Protocol Stop: 12/28/20 13:28 Guaifenesin/Codeine Phosphate (Guaifenesin/Codeine 100mg/10mg 5ml Udc) 5 ml PO Q6H PRN PRN Reason: Cough Stop: 12/28/20 23:14 Last Admin: 11/28/20 23:38 Dose: 5 ml Documented by: Dexamethasone 6 mg/ Syringe 1.5 mls @ 1 mls/min IV DAILY [facility] Stop: 12/09/20 08:59 Last Admin: 11/29/20 08:34 Dose: 1 mls/min Documented by: Remdesivir 100 mg/ Sodium (Chloride) 250 mls @ 250 mls/hr IV Q24H [facility]; Protocol Stop: 12/02/20 12:59 Last Infusion: 11/29/20 13:44 Dose: Infused Documented by: Ceftriaxone Sodium 2,000 mg/ (Dextrose) 70 mls @ 100 mls/hr IV DAILY@1600 [facility]; Protocol Stop: 12/03/20 16:44 Last Infusion: 11/28/20 17:54 Dose: Infused Documented by: Insulin Aspart (Insulin Aspart 100 Units/Ml 3 Ml Pen) 0 units SC AC [facility] Stop: 12/29/20 07:29 Last Admin: 11/29/20 12:06 Dose: Not Given Documented by: Insulin Aspart (Insulin Aspart 100 Units/Ml 3 Ml Pen) 0 units SC [facility] Stop: 12/29/20 20:59 Insulin Human NPH (Insulin Human Nph) 24 units SC [facility] [place] [place] Stop: 12/29/20 08:59 Last Admin: 11/29/20 08:58 Dose: Not Given Documented by: Lisinopril (Lisinopril 5 Mg Tab) [facility] [place] [place] Stop: 12/29/20 08:59 Last Admin: 11/29/20 08:35 Dose: 5 mg Documented by: Magnesium Hydroxide (Magnesium Hydroxide Susp 30 Ml Udc) 30 ml PO Q12H PRN PRN Reason: Constipation Stop: 12/28/20 13:28 Miscellaneous (Carbohydrates For Hypoglycemia ) 15 - 30 gm PO UD PRN PRN Reason: Hypoglycemia Protocol Stop: 12/28/20 13:28 Last Admin: 11/29/20 03:57 Dose: 15 gm Documented by: Miscellaneous Information (Pharmacy Glycemic Mgmt Consult) 1 ea N/A UD PRN; Protocol PRN Reason: Consult Stop: 12/28/20 13:55 Ondansetron HCl (Ondansetron Inj 2 Mg/Ml 2 Ml Vial) 4 mg IV Q6H PRN PRN Reason: Nausea Stop: 12/28/20 13:28 Pantoprazole Sodium (Pantoprazole 40 Mg Tab) [facility] [place] [place]; Protocol Stop: 12/29/20 08:59 Last Admin: 11/29/20 08:34 Dose: 40 mg Documented by: Polyethylene Glycol (Polyethylene (Miralax) 17 Gm Pack) 17 gm PO DAILY PRN PRN Reason: Constipation Stop: 12/28/20 13:28 Sodium Chloride (Sodium Chloride 0.9% 10ml Flush) 30 ml IV DAILY@1200 [facility] Stop: 12/02/20 12:01 Last Admin: 11/29/20 12:20 Dose: 30 ml Documented by:
[2020-11-29] MEDS: cefTRIAXone SODIUM 2,000 MG in DEXTROSE 5% 50 ML IV SCH (16:19)
[2020-11-29] MEDS: guaiFENesin/CODEINE 100MG/10MG 5ML UDC PO PRN (21:13)
[2020-11-30] MEDS: ALBUTEROL HFA 8 GM INHALER INH SCH ×5 (04:51→19:42)
[2020-11-30 06:35] LABS: Basophils # (auto) 0.01 K/uL (0-0.2); Basophils % (auto) 0.2 %; Hemoglobin 11.8 g/dL (12.0-16.0); Immature Granulocytes # (auto) 0.02 K/uL (0.00-0.02); Immature Granulocytes % (auto) 0.4 %; Lymphocytes # (auto) 1.16 K/uL (1.2-3.4); Lymphocytes % (auto) 20.4 %; Mean Corpuscular Hemoglobin 27.6 pg (25-34); Mean Corpuscular Hgb Conc 33.7 g/dL (32-36); Mean Corpuscular Volume 81.8 fL (80-100); Mean Platelet Volume 8.7 fL (7.4-10.4); Monocytes # (auto) 0.52 K/uL (0.11-0.59); Monocytes % (auto) 9.1 %; Neutrophils # (auto) 3.99 K/uL (1.4-6.5); Neutrophils % (auto) 69.9 %; Platelet Count 353 K/uL (130-400); RDW Coefficient of Variation 14.2 % (11.5-14.5); RDW Standard Deviation 42.4 fL (36.4-46.3); Red Blood Count 4.28 M/uL (4.2-5.4)
--- NOTE | 2020-11-30 07:00 | XRay Report ---
XR chest 1V portable HISTORY: 70 years-old Female hypoxia acute hypoxia COMPARISON: Chest radiograph and CTA chest 11/28/2020 TECHNIQUE: Portable AP view of the chest FINDINGS: Cardiac silhouette is mildly enlarged. No pneumothorax, pleural effusion or overt pulmonary edema. Le ft greater than right bilateral airspace opacities are redemonstrated and appear generally unchanged. Degenerative changes of the shoulders and spine. Surgical clip of the abdominal left upper quadrant. IMPRESSION: Unchanged left greater than right airspace opacities compatible with multifocal pneumonia . ACT 112: Negative or not required by law. The above report was generated using voice recognition software. It may contain grammatical, syntax o r spelling errors. Electronically signed by: Roc Hernandez M.D. 11/30/2020 6:59 AM
[2020-11-30 07:12] LABS: Albumin Level 2.7 gm/dl (3.4-5.0); BUN Creatinine Ratio 24.6 (10-20); Calcium 8.7 mg/dl (8.5-10.1); Creatinine Clr Calc Pharmacy 71.2 ml/min; Est GFR (African American) 103.2; Magnesium 2.5 mg/dl (1.8-2.4)
[2020-11-30 07:14] LABS: Albumin Globulin Ratio 0.6 (0.9-2); Bilirubin,Total 0.2 mg/dl (0.2-1); Globulin 4.3 gm/dl (2.5-4.0); Phosphorus 3.1 mg/dl (2.5-4.9)
[2020-11-30] MEDS ORDERED: FUROSEMIDE 40 MG in SYRINGE 0 ML IV ONE (08:43)
[2020-11-30] MEDS: dexAMETHasone 6 MG in SYRINGE 0 ML IV SCH (08:43)
[2020-11-30] MEDS: BENZONATATE 100 MG CAPSULE PO SCH ×3 (08:44→21:47)
[2020-11-30] MEDS: EZETIMIBE 10 MG TABLET PO SCH (08:44)
[2020-11-30] MEDS: gemfibroziL 600 MG TAB PO SCH ×2 (08:45→21:47)
[2020-11-30] MEDS: PANTOprazole 40 MG TAB PO SCH (08:45)
[2020-11-30] MEDS: lisinopril 5 MG TAB PO SCH (08:45)
[2020-11-30] MEDS: ASPIRIN 81 MG ECTAB PO SCH ×2 (08:46→21:47)
[2020-11-30] MEDS ORDERED: FUROSEMIDE 40 MG/4 ML VIAL IV ONE (09:00)
[2020-11-30] MEDS: INSULIN ASPART 100 UNITS/ML 3 ML PEN SC SCH ×4 (09:23→21:48)
--- NOTE | 2020-11-30 10:23 | Pharmacy Report ---
Pharmacy Glycemic Short Note 2 - Date of Service November 30, 2020 - Glycemic Short BSG Results (Last 24 hours): 11/29/20 11/29/20 11/29/20 11:36 16:32 20:43 Glucose POC Glucose 110 H 157 H 172 H 11/30/20 11/30/20 06:09 07:31 Glucose 117 H POC Glucose 100 H OUTPATIENT ANTIDIABETIC REGIMEN: * Metformin 500 mg PO BIDM * HbA1c = 6.8% (10/03/20) ASSESSMENT: 11/30 * BSGs actually well controlled over last 24 hrs despite no insulin administration * Patient refused all insulin doses yesterday * Will remove orders for NPH and prandial insulin at this time. Correctional insulin will remain for BSGs greater than 180. * Should BSG climb to greater than 180, insulin adjustments will be made. 11/29 * BSGs did climb to as high as 278 yesterday evening following dinner * She did drop into the 60s overnight, this was likely secondary to Novolog correction given HS and midnight, at a time when the effects of dexamethasone IV were dissipating. * I have ordered NPH 0.3units/kg SQ to be given w/ AM dexamethasone. I have also ordered Novolog CF / CR based upon weight and "moderate" stress level. Of note, patient is refusing all insulin doses at this time (no basal or prandial). IV dexamethasone 6mg daily continues. Hyperglycemia will likely ensue. 11/28 * 70 yo F admitted secondary to Covid-19 pneumonia. Pharmacy has been consulted to assist with inpatient glycemic management. * Admission BSG was 135 mg/dL with a recheck at lunch of 168 mg/dL. * Patient received 4 mg of IV Dexamethasone. She will start on Dexamethasone 6 mg IV daily x 10 days tomorrow. * Will give an NPH dose of 20 units (~0.25 units/kg) x 1 now to account for steroid-induced hyperglycemia. Will start Novolog based on a weight/stress of 3. Will add overnight checks for the first evening. PLAN FOR INPATIENT GLYCEMIC CONTROL: * Hold outpatient oral diabetes medications (metformin) * Basal insulin * NPH - hold * Bolus insulin * NovoLog per scale ACHS or Q6hrs while NPO * Goal Range: Low 110 mg/dL - High 180 mg/dL * Correction Factor: 20 mg/dL/unit * Nutritional / Prandial insulin: hold PLAN FOR DISCHARGE: * HbA1c = 6.8% from October 2020 which is at goal for this patient. Recommend continuing outpatient regimen upon discharge.
[2020-11-30] MEDS: ENOXAPARIN INJ 40 MG/0.4 ML SYR SQ SCH ×2 (10:50→21:46)
[2020-11-30] MEDS: REMDESIVIR 100 MG in SODIUM CHLORIDE 0.9% 230 ML IV SCH (11:41)
[2020-11-30] MEDS: SODIUM CHLORIDE 0.9% 10ML FLUSH IV SCH (11:41)
[2020-11-30] MEDS: cefTRIAXone SODIUM 2,000 MG in DEXTROSE 5% 50 ML IV SCH (16:07)
--- NOTE | 2020-11-30 17:23 | Hospitalist Progress Note ---
Date of Service November 30, 2020 Assessment & Plan (1) Pneumonia due to COVID-19 virus: Management with intravenous remdesivir and dexamethasone Oxygen as needed Was requiring 5 L of oxygen to maintain saturation Received a dose of Lasix of 40 mg Feels a little bit better following administration of Lasix (2) Hypoxia: Acute respiratory failure with hypoxia secondary to Covid 19 pneumonia This is a 70-year-old female who has significant past medical history of T2DM, HTN, HLD, obesity, osteoporosis, lichen sclerosis who presents to ED secondary to worsening shortness of breath x3 days. CXR with multifocal PNA Hypoxic on 4L of O2 ESR 56, CRP 20.90, procal pending Started with intravenous remdesivir and dexamethasone Oxygen as needed Albuterol QID, Incentive spirometry, muccinex, tessalon perles Monitor LFTS-remains stable Remains stable but not showing any significant improvement (3) Hypokalemia: k 3.4 give 20meq KCL monitor bmp-potassium has been normalized to 4.3 (4) Diabetes: Last a1c 10/03/20 6.8 Hold metformin lantus/novolog per protocol consult glycemic pharmacy 09/05 to steroid use Has been refusing sliding scale insulin coverage and will hold off for now (5) Hypertension: bp controlled continue lisinopril with parameters (6) HLD (hyperlipidemia): continue statin monitor lfts (7) DVT prophylaxis: SQ Lovenox Q12hr Dispo:PCU PCP: ELISEO Crum FULL CODE Admission and Anticipated Discharge Date Admission Date: November 28, 2020 Subjective 11/29/2020 The patient was seen and examined in telemetry and Covid unit She has been feeling a little better but is still requiring 4 L of oxygen to maintain saturation Still has cough but denies any fever and/or chills 11/30/2020 The patient was seen in the telemetry and Covid unit She has not been doing much better and required 5 L of oxygen to maintain saturation Has been feeling a lot better during my examination Review of Systems Review of Systems: All systems reviewed and are unremarkable except as noted below Respiratory: + cough, + dyspnea and + dyspnea on exertion Physical Exam Physical Exam: please see Dr. Steinberg addendum for physical exam findings: Lying in bed with moderate shortness of breath Constitutional: well developed, well nourished, + acute distress (Due to shortness of breath at rest) and + ill appearing Eyes: PERRL, conjunctivae normal, anicteric sclerae ENMT: external ear and nose normal, oropharynx normal Neck: trachea midline, no thyromegaly Respiratory: + respiratory distress (Moderate shortness of breath at rest ) and + uses accessory muscles Auscultation: + diminished lung sounds and + crackles (Moderate crackles at the bases) Cardiovascular: Rate/Rhythm: regular rate and regular rhythm Heart Sounds: no murmur Extremities: + edema (Trace edema bilaterally) Gastrointestinal (Abdomen): Inspection/Auscultation: normal bowel sounds; abdomen not distended Percussion/Palpation: abdomen soft; abdomen nontender Musculoskeletal: No acute arthritis in any joint Psychiatric: A+Ox3, euthymic affect Lymphatic: no cervical or axillary lymphadenopathy Results & Data Results & Data ([facility]) Vital Signs (Past 12 Hours) Vital Signs Temp Pulse Pulse Resp BP Pulse Ox 11/30/20 14:51 80 19 92 11/30/20 14:20 88 11/30/20 11:37 94 H 18 95 11/30/20 11:16 88 22 113/60 93 11/30/20 07:30 36.4 C L 78 20 130/76 91 11/30/20 07:20 67 11/30/20 07:01 87 22 90 Laboratory Results Short CBC 11/30/20 Range/Units 06:09 WBC 5.70 (4.8-10.8) K/uL Hgb 11.8 L (12.0-16.0) g/dL Hct 35.0 L (37-47) % Plt Count 353 (130-400) K/uL BMP 11/30/20 06:09 Sodium 140 Potassium 4.0 Chloride 109 H Carbon Dioxide 29 BUN 17 Creatinine 0.70 Glucose 117 H Calcium 8.7 Liver Function 11/30/20 Range/Units 06:09 Total Bilirubin 0.2 (0.2-1) mg/dl AST 21 (15-37) U/L ALT 27 (12-78) U/L Alkaline Phosphatase 55 (45-117) U/L Albumin 2.7 L (3.4-5.0) gm/dl Medications Administered Current Inpatient Medications Acetaminophen (Acetaminophen 325 Mg Tab) 650 mg PO Q4H PRN PRN Reason: Pain or Fever Stop: 12/28/20 13:28 Last Admin: 11/29/20 18:35 Dose: 650 mg Documented by: Al Hydrox/Mg Hydrox/Simethicone (Aluminum/Magnesium Susp 30 Ml Udc) 15 ml PO Q4H PRN PRN Reason: Dyspepsia Stop: 12/28/20 13:28 Albuterol (Albuterol Hfa 8 Gm Inhaler) 2 puffs INH QIDR [facility] Stop: 12/28/20 14:59 Last Admin: 11/30/20 14:49 Dose: 2 puffs Documented by: Aspirin (Aspirin 81 Mg Ectab) 81 mg PO BID [facility] Stop: 12/28/20 20:59 Last Admin: 11/30/20 08:46 Dose: 81 mg Documented by: Benzonatate (Benzonatate 100 Mg Capsule) 100 mg PO TID [facility] Stop: 12/28/20 13:59 Last Admin: 11/30/20 14:09 Dose: 100 mg Documented by: Dextrose (Dextrose 50% 50 Ml Syringe) 25 - 50 ml IV UD PRN; Protocol PRN Reason: Hypoglycemia Protocol Stop: 12/28/20 13:28 Ezetimibe (Ezetimibe 10 Mg Tablet) 10 mg PO QAM [facility] Stop: 12/29/20 08:59 Last Admin: 11/30/20 08:44 Dose: 10 mg Documented by: Enoxaparin Sodium (Enoxaparin Inj 40 Mg/0.4 Ml Syr) 40 mg SQ Q12H [facility] Stop: 12/28/20 21:59 Last Admin: 11/30/20 10:50 Dose: 40 mg Documented by: Gemfibrozil (Gemfibrozil 600 Mg Tab) 600 mg PO BID [facility] Stop: 12/28/20 20:59 Last Admin: 11/30/20 08:45 Dose: 600 mg Documented by: Glucagon (Glucagon For Inj 1 Mg Vial) 1 mg SQ UD PRN; Protocol PRN Reason: Hypoglycemia Protocol Stop: 12/28/20 13:28 Glucose (Glucose 10 Tabs/Tube) 4 - 8 tabs PO UD PRN; Protocol PRN Reason: Hypoglycemia Protocol Stop: 12/28/20 13:28 Glucose (Glucose 40% Gel 15 Gm Tube) 15 - 30 gm PO UD PRN; Protocol PRN Reason: Hypoglycemia Protocol Stop: 12/28/20 13:28 Guaifenesin/Codeine Phosphate (Guaifenesin/Codeine 100mg/10mg 5ml Udc) 5 ml PO Q6H PRN PRN Reason: Cough Stop: 12/28/20 23:14 Last Admin: 11/29/20 21:13 Dose: 5 ml Documented by: Dexamethasone 6 mg/ Syringe 1.5 mls @ 1 mls/min IV DAILY [facility] Stop: 12/09/20 08:59 Last Admin: 11/30/20 08:43 Dose: 1 mls/min Documented by: Remdesivir 100 mg/ Sodium (Chloride) 250 mls @ 250 mls/hr IV Q24H [facility]; Protocol Stop: 12/02/20 12:59 Last Infusion: 11/30/20 13:01 Dose: Infused Documented by: Ceftriaxone Sodium 2,000 mg/ (Dextrose) 70 mls @ 100 mls/hr IV DAILY@1600 [facility]; Protocol Stop: 12/03/20 16:44 Last Infusion: 11/30/20 16:49 Dose: Infused Documented by: Insulin Aspart (Insulin Aspart 100 Units/Ml 3 Ml Pen) 0 units SC AC [facility] Stop: 12/29/20 07:29 Last Admin: 11/30/20 16:43 Dose: Not Given Documented by: Insulin Aspart (Insulin Aspart 100 Units/Ml 3 Ml Pen) 0 units SC HS [facility] Stop: 12/29/20 20:59 Last Admin: 11/29/20 20:50 Dose: Not Given Documented by: Insulin Human NPH (Insulin Human Nph) [facility] Stop: 12/29/20 08:59 Last Admin: 11/29/20 08:58 Dose: Not Given Documented by: Lisinopril (Lisinopril 5 Mg Tab) 5 mg PO QAM [facility] Stop: 12/29/20 08:59 Last Admin: 11/30/20 08:45 Dose: 5 mg Documented by: Magnesium Hydroxide (Magnesium Hydroxide Susp 30 Ml Udc) 30 ml PO Q12H PRN PRN Reason: Constipation Stop: 12/28/20 13:28 Miscellaneous (Carbohydrates For Hypoglycemia ) 15 - 30 gm PO UD PRN PRN Reason: Hypoglycemia Protocol Stop: 12/28/20 13:28 Last Admin: 11/29/20 03:57 Dose: 15 gm Documented by: Miscellaneous Information (Pharmacy Glycemic Mgmt Consult) 1 ea N/A UD PRN; Protocol PRN Reason: Consult Stop: 12/28/20 13:55 Ondansetron HCl (Ondansetron Inj 2 Mg/Ml 2 Ml Vial) 4 mg IV Q6H PRN PRN Reason: Nausea Stop: 12/28/20 13:28 Pantoprazole Sodium (Pantoprazole 40 Mg Tab) 40 mg PO QAM [facility]; Protocol Stop: 12/29/20 08:59 Last Admin: 11/30/20 08:45 Dose: 40 mg Documented by: Polyethylene Glycol (Polyethylene (Miralax) 17 Gm Pack) 17 gm PO DAILY PRN PRN Reason: Constipation Stop: 12/28/20 13:28 Sodium Chloride (Sodium Chloride 0.9% 10ml Flush) 30 ml IV DAILY@1200 [facility] Stop: 12/02/20 12:01 Last Admin: 11/30/20 11:41 Dose: 30 ml Documented by:
[2020-11-30] MEDS: guaiFENesin/CODEINE 100MG/10MG 5ML UDC PO PRN (21:47)
[2020-12-01] MEDS: ALBUTEROL HFA 8 GM INHALER INH SCH ×4 (07:30→20:12)
[2020-12-01 07:43] LABS: Calcium 8.7 mg/dl (8.5-10.1); Est GFR (African American) 104.2; Est GFR (Non-African American) 89.9; Magnesium 2.3 mg/dl (1.8-2.4); Potassium 3.8 mmol/L (3.5-5.1)
[2020-12-01 07:46] LABS: C Reactive Protein 4.66 mg/dl (0-0.29); Phosphorus 3.6 mg/dl (2.5-4.9)
[2020-12-01] MEDS: lisinopril 5 MG TAB PO SCH (08:57)
[2020-12-01] MEDS: dexAMETHasone 6 MG in SYRINGE 0 ML IV SCH (08:57)
[2020-12-01] MEDS: FLUTICASONE PROPIONATE NA SPR 16 GM BTL SCH (08:57)
[2020-12-01] MEDS: gemfibroziL 600 MG TAB PO SCH ×2 (08:57→21:08)
[2020-12-01] MEDS: ENOXAPARIN INJ 40 MG/0.4 ML SYR SQ SCH ×2 (08:57→21:08)
[2020-12-01] MEDS: EZETIMIBE 10 MG TABLET PO SCH (08:57)
[2020-12-01] MEDS: ASPIRIN 81 MG ECTAB PO SCH ×2 (08:57→21:08)
[2020-12-01] MEDS: BENZONATATE 100 MG CAPSULE PO SCH ×3 (08:57→21:08)
[2020-12-01] MEDS: PANTOprazole 40 MG TAB PO SCH (08:57)
[2020-12-01] MEDS: INSULIN ASPART 100 UNITS/ML 3 ML PEN SC SCH ×2 (10:00→11:49)
[2020-12-01] MEDS: REMDESIVIR 100 MG in SODIUM CHLORIDE 0.9% 230 ML IV SCH (11:44)
[2020-12-01] MEDS: SODIUM CHLORIDE 0.9% 10ML FLUSH IV SCH (11:45)
[2020-12-01] MEDS ORDERED: FUROSEMIDE 40 MG in SYRINGE 0 ML IV ONE (14:38)
--- NOTE | 2020-12-01 14:38 | Hospitalist Progress Note ---
Date of Service December 01, 2020 Assessment & Plan (1) Pneumonia due to COVID-19 virus: Management with intravenous remdesivir and dexamethasone Oxygen as needed Was requiring 5 L of oxygen to maintain saturation Received a dose of Lasix of 40 mg Feels a little bit better following administration of Lasix Clinically much better and he still has bibasilar crackles Will administer another dose of intravenous Lasix today and monitor PRP (2) Hypoxia: Acute respiratory failure with hypoxia secondary to Covid 19 pneumonia This is a 70-year-old female who has significant past medical history of T2DM, HTN, HLD, obesity, osteoporosis, lichen sclerosis who presents to ED secondary to worsening shortness of breath x3 days. CXR with multifocal PNA Hypoxic on 4L of O2 ESR 56, CRP 20.90, procal pending Started with intravenous remdesivir and dexamethasone Oxygen as needed Albuterol QID, Incentive spirometry, muccinex, tessalon perles Monitor LFTS-remains stable Remains stable but not showing any significant improvement Requiring 2 L of oxygen to maintain saturation which is an improvement (3) Hypokalemia: k 3.4 give 20meq KCL monitor bmp-potassium has been normalized to 4.3 (4) Diabetes: Last a1c 10/03/20 6.8 Hold metformin lantus/novolog per protocol consult glycemic pharmacy 09/05 to steroid use Has been refusing sliding scale insulin coverage and will hold off for now She does not like to have any insulin and will discontinue that (5) Hypertension: bp controlled continue lisinopril with parameters (6) HLD (hyperlipidemia): continue statin monitor lfts (7) DVT prophylaxis: SQ Lovenox Q12hr Dispo:PCU PCP: ELISEO Crum FULL CODE Admission and Anticipated Discharge Date Admission Date: November 28, 2020 Subjective 11/29/2020 The patient was seen and examined in telemetry and Covid unit She has been feeling a little better but is still requiring 4 L of oxygen to maintain saturation Still has cough but denies any fever and/or chills 11/30/2020 The patient was seen in the telemetry and Covid unit She has not been doing much better and required 5 L of oxygen to maintain saturation Has been feeling a lot better during my examination 12/01/2020 The patient was seen and examined in telemetry and Covid unit She has been feeling much better today Her cough is decreased and shortness of breath is improved too Denies any significant symptoms Review of Systems Review of Systems: All systems reviewed and are unremarkable except as noted below Respiratory: + cough, + dyspnea and + dyspnea on exertion Physical Exam Physical Exam: Sitting on a chair without any acute distress Constitutional: well developed, well nourished, + acute distress (Due to shortness of breath at rest) and + ill appearing Eyes: PERRL, conjunctivae normal, anicteric sclerae ENMT: external ear and nose normal, oropharynx normal Neck: trachea midline, no thyromegaly Respiratory: + respiratory distress (Moderate shortness of breath at rest ) and + uses accessory muscles Auscultation: + diminished lung sounds and + crackles (Moderate crackles at the bases) Cardiovascular: Rate/Rhythm: regular rate and regular rhythm Heart Sounds: no murmur Extremities: + edema (Trace edema bilaterally) Gastrointestinal (Abdomen): Inspection/Auscultation: normal bowel sounds; abdomen not distended Percussion/Palpation: abdomen soft; abdomen nontender Musculoskeletal: No acute arthritis in any joint Psychiatric: A+Ox3, euthymic affect Lymphatic: no cervical or axillary lymphadenopathy Results & Data Results & Data ([facility]) Vital Signs (Past 12 Hours) Vital Signs Temp Pulse Resp BP Pulse Ox 12/01/20 14:32 92 12/01/20 13:30 90 12/01/20 11:07 36.6 C 92 H 18 112/65 91 12/01/20 11:05 90 20 93 12/01/20 10:38 95 12/01/20 07:48 36.7 C 93 H 22 119/74 89 L 12/01/20 07:32 92 H 20 90 12/01/20 04:00 36.7 C 77 20 113/60 95 Laboratory Results [facility] 12/01/20 06:27 Sodium 138 Potassium 3.8 Chloride 105 Carbon Dioxide 29 BUN 20 H Creatinine 0.68 Glucose 99 Calcium 8.7 Liver Function 12/01/20 Range/Units 06:27 AST 16 (15-37) U/L ALT 24 (12-78) U/L Medications Administered Current Inpatient Medications Acetaminophen (Acetaminophen 325 Mg Tab) 650 mg PO Q4H PRN PRN Reason: Pain or Fever Stop: 12/28/20 13:28 Last Admin: 11/29/20 18:35 Dose: 650 mg Documented by: Al Hydrox/Mg Hydrox/Simethicone (Aluminum/Magnesium Susp 30 Ml Udc) 15 ml PO Q4H PRN PRN Reason: Dyspepsia Stop: 12/28/20 13:28 Albuterol (Albuterol Hfa 8 Gm Inhaler) 2 puffs INH QIDR ELISE Stop: 12/28/20 14:59 Last Admin: 12/01/20 11:03 Dose: 2 puffs Documented by: Aspirin (Aspirin 81 Mg Ectab) 81 mg PO BID [facility] Stop: 12/28/20 20:59 Last Admin: 12/01/20 08:57 Dose: 81 mg Documented by: Benzonatate (Benzonatate 100 Mg Capsule) 100 mg PO TID [facility] Stop: 12/28/20 13:59 Last Admin: 12/01/20 13:19 Dose: 100 mg Documented by: Dextrose (Dextrose 50% 50 Ml Syringe) 25 - 50 ml IV UD PRN; Protocol PRN Reason: Hypoglycemia Protocol Stop: 12/28/20 13:28 Ezetimibe (Ezetimibe 10 Mg Tablet) 10 mg PO QAM [facility] Stop: 12/29/20 08:59 Last Admin: 12/01/20 08:57 Dose: 10 mg Documented by: Enoxaparin Sodium (Enoxaparin Inj 40 Mg/0.4 Ml Syr) 40 mg SQ Q12H [facility] Stop: 12/28/20 21:59 Last Admin: 12/01/20 08:57 Dose: 40 mg Documented by: Fluticasone Propionate (Fluticasone Propionate Na Spr 16 Gm Btl) 2 sprays NA DAILY [facility] Stop: 12/31/20 08:59 Last Admin: 12/01/20 08:57 Dose: 2 sprays Documented by: Gemfibrozil (Gemfibrozil 600 Mg Tab) 600 mg PO BID [facility] Stop: 12/28/20 20:59 Last Admin: 12/01/20 08:57 Dose: 600 mg Documented by: Glucagon (Glucagon For Inj 1 Mg Vial) 1 mg SQ UD PRN; Protocol PRN Reason: Hypoglycemia Protocol Stop: 12/28/20 13:28 Glucose (Glucose 10 Tabs/Tube) 4 - 8 tabs PO UD PRN; Protocol PRN Reason: Hypoglycemia Protocol Stop: 12/28/20 13:28 Glucose (Glucose 40% Gel 15 Gm Tube) 15 - 30 gm PO UD PRN; Protocol PRN Reason: Hypoglycemia Protocol Stop: 12/28/20 13:28 Guaifenesin/Codeine Phosphate (Guaifenesin/Codeine 100mg/10mg 5ml Udc) 5 ml PO Q6H PRN PRN Reason: Cough Stop: 12/28/20 23:14 Last Admin: 11/30/20 21:47 Dose: 5 ml Documented by: Dexamethasone 6 mg/ Syringe 1.5 mls @ 1 mls/min IV DAILY [facility] Stop: 12/09/20 08:59 Last Admin: 12/01/20 08:57 Dose: 1 mls/min Documented by: Remdesivir 100 mg/ Sodium (Chloride) 250 mls @ 250 mls/hr IV Q24H [facility]; Protocol Stop: 12/02/20 12:59 Last Infusion: 12/01/20 13:07 Dose: Infused Documented by: Ceftriaxone Sodium 2,000 mg/ (Dextrose) 70 mls @ 100 mls/hr IV DAILY@1600 [facility]; Protocol Stop: 12/03/20 16:44 Last Infusion: 11/30/20 16:49 Dose: Infused Documented by: [facility]inopril ([facility] 5 Mg Tab) [facility] [place]: 12/29/20 08:59 Last Admin: 12/01/20 08:57 Dose: 5 mg Documented by: Magnesium Hydroxide (Magnesium Hydroxide Susp 30 Ml Udc) 30 ml PO Q12H PRN PRN Reason: Constipation Stop: 12/28/20 13:28 Miscellaneous (Carbohydrates For Hypoglycemia ) 15 - 30 gm PO UD PRN PRN Reason: Hypoglycemia Protocol Stop: 12/28/20 13:28 Last Admin: 11/29/20 03:57 Dose: 15 gm Documented by: Ondansetron HCl (Ondansetron Inj 2 Mg/Ml 2 Ml Vial) 4 mg IV Q6H PRN PRN Reason: Nausea Stop: 12/28/20 13:28 Pantoprazole Sodium (Pantoprazole 40 Mg Tab) 40 mg PO QAM [facility]; Protocol Stop: 12/29/20 08:59 Last Admin: 12/01/20 08:57 Dose: 40 mg Documented by: Polyethylene Glycol (Polyethylene (Miralax) 17 Gm Pack) 17 gm PO DAILY PRN PRN Reason: Constipation Stop: 12/28/20 13:28 Sodium Chloride (Sodium Chloride 0.9% 10ml Flush) 30 ml IV DAILY@1200 [facility] Stop: 12/02/20 12:01 Last Admin: 12/01/20 11:45 Dose: 30 ml Documented by:
[2020-12-01] MEDS ORDERED: FUROSEMIDE 40 MG/4 ML VIAL IV ONE (14:45)
[2020-12-01] MEDS: cefTRIAXone SODIUM 2,000 MG in DEXTROSE 5% 50 ML IV SCH (14:57)
[2020-12-01] MEDS: guaiFENesin/CODEINE 100MG/10MG 5ML UDC PO PRN (21:08)
[2020-12-02 07:19] LABS: Calcium 9.1 mg/dl (8.5-10.1); Creatinine Clr Calc Pharmacy 71.4 ml/min; Est GFR (African American) 104.2; Est GFR (Non-African American) 89.9; Magnesium 2.3 mg/dl (1.8-2.4); Potassium 3.5 mmol/L (3.5-5.1)
[2020-12-02] MEDS: ALBUTEROL HFA 8 GM INHALER INH SCH ×4 (07:38→19:18)
[2020-12-02] MEDS: FLUTICASONE PROPIONATE NA SPR 16 GM BTL SCH (08:25)
[2020-12-02] MEDS: PANTOprazole 40 MG TAB PO SCH (08:25)
[2020-12-02] MEDS: lisinopril 5 MG TAB PO SCH (08:25)
[2020-12-02] MEDS: ASPIRIN 81 MG ECTAB PO SCH ×2 (08:25→21:14)
[2020-12-02] MEDS: EZETIMIBE 10 MG TABLET PO SCH (08:25)
[2020-12-02] MEDS: BENZONATATE 100 MG CAPSULE PO SCH ×3 (08:25→21:14)
[2020-12-02] MEDS: dexAMETHasone 6 MG in SYRINGE 0 ML IV SCH (08:25)
[2020-12-02] MEDS: gemfibroziL 600 MG TAB PO SCH ×2 (08:25→21:14)
[2020-12-02] MEDS: ENOXAPARIN INJ 40 MG/0.4 ML SYR SQ SCH ×2 (08:26→21:15)
[2020-12-02] MEDS: guaiFENesin/CODEINE 100MG/10MG 5ML UDC PO PRN ×2 (08:31→19:47)
[2020-12-02] MEDS: REMDESIVIR 100 MG in SODIUM CHLORIDE 0.9% 230 ML IV SCH (11:52)
[2020-12-02] MEDS: SODIUM CHLORIDE 0.9% 10ML FLUSH IV SCH (12:59)
[2020-12-02] MEDS ORDERED: FUROSEMIDE 20 MG in SYRINGE 0 ML IV ONE (14:06)
--- NOTE | 2020-12-02 14:11 | Hospitalist Progress Note ---
Date of Service December 02, 2020 Assessment & Plan (1) Pneumonia due to COVID-19 virus: Management with intravenous remdesivir and dexamethasone Oxygen as needed Was requiring 5 L of oxygen to maintain saturation Received a dose of Lasix of 40 mg Feels a little bit better following administration of Lasix Clinically much better and he still has bibasilar crackles Has been diuresing enough without any impairment of kidney function Will give 20 mg of Lasix IV today Advised to ambulate in the room (2) Hypoxia: Acute respiratory failure with hypoxia secondary to Covid 19 pneumonia This is a 70-year-old female who has significant past medical history of T2DM, HTN, HLD, obesity, osteoporosis, lichen sclerosis who presents to ED secondary to worsening shortness of breath x3 days. CXR with multifocal PNA Hypoxic on 4L of O2 ESR 56, CRP 20.90, procal pending Started with intravenous remdesivir and dexamethasone Oxygen as needed Albuterol QID, Incentive spirometry, muccinex, tessalon perles Monitor LFTS-remains stable Remains stable but not showing any significant improvement Requiring 2 L of oxygen to maintain saturation which is an improvement 12/01/20 Still requiring 4 L of oxygen to maintain saturation (3) Hypokalemia: k 3.4 give 20meq KCL monitor bmp-potassium has been normalized to 4.3 (4) Diabetes: Last a1c 10/03/20 6.8 Hold metformin lantus/novolog per protocol consult glycemic pharmacy 09/05 to steroid use Has been refusing sliding scale insulin coverage and will hold off for now She does not like to have any insulin and will discontinue that (5) Hypertension: bp controlled continue lisinopril with parameters (6) HLD (hyperlipidemia): continue statin monitor lfts (7) DVT prophylaxis: SQ Lovenox Q12hr Dispo:PCU PCP: ELISEO Crum FULL CODE Likely discharge tomorrow up-to-date to do steps O2 saturation test Admission and Anticipated Discharge Date Admission Date: November 28, 2020 Subjective 11/29/2020 The patient was seen and examined in telemetry and Covid unit She has been feeling a little better but is still requiring 4 L of oxygen to maintain saturation Still has cough but denies any fever and/or chills 11/30/2020 The patient was seen in the telemetry and Covid unit She has not been doing much better and required 5 L of oxygen to maintain saturation Has been feeling a lot better during my examination 12/01/2020 The patient was seen and examined in telemetry and Covid unit She has been feeling much better today Her cough is decreased and shortness of breath is improved too Denies any significant symptoms 12/02/2020 The patient was seen and examined in telemetry and Covid unit She is feeling much better clinically but still requiring 4 L of oxygen to maintain saturation Her cough and shortness of breath are better She is done with her remdesivir course Review of Systems Review of Systems: All systems reviewed and are unremarkable except as noted below Respiratory: + cough, + dyspnea and + dyspnea on exertion Physical Exam Physical Exam: Sitting on a chair without any acute distress Constitutional: well developed, well nourished, + acute distress (Due to shortness of breath at rest) and + ill appearing Eyes: PERRL, conjunctivae normal, anicteric sclerae ENMT: external ear and nose normal, oropharynx normal Neck: trachea midline, no thyromegaly Respiratory: + respiratory distress (Moderate shortness of breath at rest ) and + uses accessory muscles Auscultation: + diminished lung sounds and + crackles (Moderate crackles at the bases) Cardiovascular: Rate/Rhythm: regular rate and regular rhythm Heart Sounds: no murmur Extremities: + edema (Trace edema bilaterally) Gastrointestinal (Abdomen): Inspection/Auscultation: normal bowel sounds; abdomen not distended Percussion/Palpation: abdomen soft; abdomen nontender Musculoskeletal: No acute arthritis involving any joint Neurologic: Alert, awake and oriented x3 Psychiatric: A+Ox3, euthymic affect Lymphatic: no cervical or axillary lymphadenopathy Results & Data Results & Data ([facility]) Vital Signs (Past 12 Hours) Vital Signs Temp Pulse Pulse Resp BP BP Pulse Ox 12/02/20 11:58 36.7 C 98 H 18 115/65 95 12/02/20 10:29 97 H 18 97 12/02/20 08:00 61 12/02/20 07:40 96 H 18 91 12/02/20 07:34 36.8 C 78 18 109/56 L 91 12/02/20 04:06 36.6 C 74 24 114/58 L 96 Laboratory Results Short CBC 11/28/20 11/29/20 11/30/20 Range/Units 08:55 05:51 06:09 Creatinine 0.81 0.56 L 0.70 (0.6-1.2) mg/dl 12/01/20 12/02/20 Range/Units 06:27 06:42 Creatinine 0.68 0.68 (0.6-1.2) mg/dl BMP 12/02/20 06:42 Sodium 136 Potassium 3.5 Chloride 101 Carbon Dioxide 30 BUN 20 H Creatinine 0.68 Glucose 107 H Calcium 9.1 Liver Function 12/02/20 Range/Units 06:42 AST 15 (15-37) U/L ALT 22 (12-78) U/L Medications Administered Current Inpatient Medications Acetaminophen (Acetaminophen 325 Mg Tab) 650 mg PO Q4H PRN PRN Reason: Pain or Fever Stop: 12/28/20 13:28 Last Admin: 11/29/20 18:35 Dose: 650 mg Documented by: Al Hydrox/Mg Hydrox/Simethicone (Aluminum/Magnesium Susp 30 Ml Udc) 15 ml PO Q4H PRN PRN Reason: Dyspepsia Stop: 12/28/20 13:28 Albuterol (Albuterol Hfa 8 Gm Inhaler) 2 puffs INH QIDR [facility] Stop: 12/28/20 14:59 Last Admin: 12/02/20 10:29 Dose: 2 puffs Documented by: Aspirin (Aspirin 81 Mg Ectab) 81 mg PO BID [facility] Stop: 12/28/20 20:59 Last Admin: 12/02/20 08:25 Dose: 81 mg Documented by: Benzonatate (Benzonatate 100 Mg Capsule) 100 mg PO TID [facility] Stop: 12/28/20 13:59 Last Admin: 12/02/20 12:59 Dose: 100 mg Documented by: Dextrose (Dextrose 50% 50 Ml Syringe) 25 - 50 ml IV UD PRN; Protocol PRN Reason: Hypoglycemia Protocol Stop: 12/28/20 13:28 Ezetimibe (Ezetimibe 10 Mg Tablet) 10 mg PO QAM [facility] Stop: 12/29/20 08:59 Last Admin: 12/02/20 08:25 Dose: 10 mg Documented by: Enoxaparin Sodium (Enoxaparin Inj 40 Mg/0.4 Ml Syr) 40 mg SQ Q12H [facility] Stop: 12/28/20 21:59 Last Admin: 12/02/20 08:26 Dose: 40 mg Documented by: Fluticasone Propionate (Fluticasone Propionate Na Spr 16 Gm Btl) 2 sprays NA DAILY [facility] Stop: 12/31/20 08:59 Last Admin: 12/02/20 08:25 Dose: 2 sprays Documented by: Gemfibrozil (Gemfibrozil 600 Mg Tab) 600 mg PO BID [facility] Stop: 12/28/20 20:59 Last Admin: 12/02/20 08:25 Dose: 600 mg Documented by: Glucagon (Glucagon For Inj 1 Mg Vial) 1 mg SQ UD PRN; Protocol PRN Reason: Hypoglycemia Protocol Stop: 12/28/20 13:28 Glucose (Glucose 10 Tabs/Tube) 4 - 8 tabs PO UD PRN; Protocol PRN Reason: Hypoglycemia Protocol Stop: 12/28/20 13:28 Glucose (Glucose 40% Gel 15 Gm Tube) 15 - 30 gm PO UD PRN; Protocol PRN Reason: Hypoglycemia Protocol Stop: 12/28/20 13:28 Guaifenesin/Codeine Phosphate (Guaifenesin/Codeine 100mg/10mg 5ml Udc) 5 ml PO Q6H PRN PRN Reason: Cough Stop: 12/28/20 23:14 Last Admin: 12/02/20 08:31 Dose: 5 ml Documented by: Dexamethasone 6 mg/ Syringe 1.5 mls @ 1 mls/min IV DAILY [facility] Stop: 12/09/20 08:59 Last Admin: 12/02/20 08:25 Dose: 1 mls/min Documented by: Ceftriaxone Sodium 2,000 mg/ (Dextrose) 70 mls @ 100 mls/hr IV DAILY@1600 ELISE; Protocol Stop: 12/03/20 16:44 Last Infusion: 12/01/20 15:39 Dose: Infused Documented by: Furosemide 20 mg/ Syringe 2 mls @ 4 mls/min IV ONE ONE Stop: 12/02/20 14:07 Lisinopril (Lisinopril 5 Mg Tab) 5 mg PO QAM [facility] Stop: 12/29/20 08:59 Last Admin: 12/02/20 08:25 Dose: 5 mg Documented by: Magnesium Hydroxide (Magnesium Hydroxide Susp 30 Ml Udc) 30 ml PO Q12H PRN PRN Reason: Constipation Stop: 12/28/20 13:28 Miscellaneous (Carbohydrates For Hypoglycemia ) 15 - 30 gm PO UD PRN PRN Reason: Hypoglycemia Protocol Stop: 12/28/20 13:28 Last Admin: 11/29/20 03:57 Dose: 15 gm Documented by: Ondansetron HCl (Ondansetron Inj 2 Mg/Ml 2 Ml Vial) 4 mg IV Q6H PRN PRN Reason: Nausea Stop: 12/28/20 13:28 Pantoprazole Sodium (Pantoprazole 40 Mg Tab) 40 mg PO [facility]; Protocol Stop: 12/29/20 08:59 Last Admin: 12/02/20 08:25 Dose: 40 mg Documented by: Polyethylene Glycol (Polyethylene (Miralax) 17 Gm Pack) 17 gm PO DAILY PRN PRN Reason: Constipation Stop: 12/28/20 13:28
[2020-12-02] MEDS ORDERED: FUROSEMIDE 40 MG/4 ML VIAL IV ONE (14:15)
[2020-12-02] MEDS: cefTRIAXone SODIUM 2,000 MG in DEXTROSE 5% 50 ML IV SCH (16:16)
[2020-12-03] MEDS: ALBUTEROL HFA 8 GM INHALER INH SCH ×2 (07:26→11:23)
[2020-12-03 07:46] LABS: BUN Creatinine Ratio 35.2 (10-20); C Reactive Protein 9.81 mg/dl (0-0.29); Calcium 8.9 mg/dl (8.5-10.1); Est GFR (African American) 106.8; Est GFR (Non-African American) 92.2; Potassium 3.8 mmol/L (3.5-5.1)
[2020-12-03 07:52] LABS: Phosphorus 2.9 mg/dl (2.5-4.9)
[2020-12-03] MEDS: gemfibroziL 600 MG TAB PO SCH ×2 (08:14→20:56)
[2020-12-03] MEDS: PANTOprazole 40 MG TAB PO SCH (08:14)
[2020-12-03] MEDS: ASPIRIN 81 MG ECTAB PO SCH ×2 (08:14→20:56)
[2020-12-03] MEDS: EZETIMIBE 10 MG TABLET PO SCH (08:14)
[2020-12-03] MEDS: ENOXAPARIN INJ 40 MG/0.4 ML SYR SQ SCH ×2 (08:15→21:01)
[2020-12-03] MEDS: dexAMETHasone 6 MG in SYRINGE 0 ML IV SCH (08:15)
[2020-12-03] MEDS: FLUTICASONE PROPIONATE NA SPR 16 GM BTL SCH (08:15)
[2020-12-03] MEDS: BENZONATATE 100 MG CAPSULE PO SCH ×3 (08:15→20:55)
[2020-12-03] MEDS: lisinopril 5 MG TAB PO SCH (08:15)
[2020-12-03] MEDS: guaiFENesin/CODEINE 100MG/10MG 5ML UDC PO PRN ×2 (08:19→21:03)
--- NOTE | 2020-12-03 09:05 | XRay Report ---
XR chest 1V portable HISTORY: 70 years-old Female covid pneumonia acute shortness of breath with recent pneumonia COMPARISON: Chest radiograph 11/30/2020 TECHNIQUE: Portable AP view of the chest FINDINGS: Cardiomediastinal and hilar silhouettes are within normal limits. Calcified plaque of the thoracic ao rta. Stable to slightly improved left greater than right bilateral multifocal airspace opacities. No pneumothorax or large pleural effusion. Degenerative changes of the shoulders and spine. IMPRESSION: Stable to slightly improved bilateral left greater than right airspace opacities. ACT 112: Negative or not required by law. The above report was generated using voice recognition software. It may contain grammatical, syntax o r spelling errors. Electronically signed by: Roc Hernandez M.D. 12/03/2020 9:03 AM
--- NOTE | 2020-12-03 11:41 | Hospitalist Progress Note ---
Date of Service December 03, 2020 Assessment & Plan (1) Pneumonia due to COVID-19 virus: Management with intravenous remdesivir and dexamethasone Oxygen as needed Was requiring 5 L of oxygen to maintain saturation Received received a few doses of intravenous Lasix for the last few days Condition has improved a lot and requiring as low as 3 L of oxygen to maintain saturation Symptomatically much better Advised to walk around in the room (2) Hypoxia: Acute respiratory failure with hypoxia secondary to Covid 19 pneumonia This is a 70-year-old female who has significant past medical history of T2DM, HTN, HLD, obesity, osteoporosis, lichen sclerosis who presents to ED secondary to worsening shortness of breath x3 days. CXR with multifocal PNA Hypoxic on 4L of O2 ESR 56, CRP 20.90, procal pending Started with intravenous remdesivir and dexamethasone Oxygen as needed Albuterol QID, Incentive spirometry, muccinex, tessalon perles Monitor LFTS-remains stable Remains stable but not showing any significant improvement Requiring 2 L of oxygen to maintain saturation which is an improvement 12/01/20 Still requiring 4 L of oxygen to maintain saturation Repeat chest x-ray shows improvement Oxygen requirements is down to 3 L Like you to be discharged tomorrow following it to do steps O2 saturation test (3) Hypokalemia: k 3.4 give 20meq KCL monitor bmp-potassium has been normalized to 4.3 (4) Diabetes: Last a1c 10/03/20 6.8 Hold metformin lantus/novolog per protocol consult glycemic pharmacy 09/05 to steroid use Has been refusing sliding scale insulin coverage and will hold off for now She does not like to have any insulin and will discontinue that (5) Hypertension: bp controlled continue lisinopril with parameters (6) HLD (hyperlipidemia): continue statin monitor lfts (7) DVT prophylaxis: SQ Lovenox Q12hr Dispo:PCU PCP: ELISEO Crum FULL CODE Likely discharge tomorrow Admission and Anticipated Discharge Date Admission Date: November 28, 2020 Subjective 11/29/2020 The patient was seen and examined in telemetry and Covid unit She has been feeling a little better but is still requiring 4 L of oxygen to maintain saturation Still has cough but denies any fever and/or chills 11/30/2020 The patient was seen in the telemetry and Covid unit She has not been doing much better and required 5 L of oxygen to maintain saturation Has been feeling a lot better during my examination 12/01/2020 The patient was seen and examined in telemetry and Covid unit She has been feeling much better today Her cough is decreased and shortness of breath is improved too Denies any significant symptoms 12/02/2020 The patient was seen and examined in telemetry and Covid unit She is feeling much better clinically but still requiring 4 L of oxygen to maintain saturation Her cough and shortness of breath are better She is done with her remdesivir course 12/03/2020 The patient was seen and examined in telemetry and Covid unit She has been much better and her oxygen requirements is down to 3 L Minimal symptoms at rest Chest x-ray shows improvement of the pneumonia Review of Systems Review of Systems: All systems reviewed and are unremarkable except as noted below Respiratory: + cough, + dyspnea and + dyspnea on exertion Physical Exam Physical Exam: Sitting on a chair without any acute distress Constitutional: well developed, well nourished, + acute distress (Due to shortness of breath at rest) and + ill appearing Eyes: PERRL, conjunctivae normal, anicteric sclerae ENMT: external ear and nose normal, oropharynx normal Neck: trachea midline, no thyromegaly Respiratory: no respiratory distress (Moderate shortness of breath at rest ) and does not use accessory muscles Auscultation: + diminished lung sounds and + crackles (Minimal crackles at the bases) Cardiovascular: Rate/Rhythm: regular rate and regular rhythm Heart Sounds: no murmur Extremities: + edema (Trace edema bilaterally) Gastrointestinal (Abdomen): Inspection/Auscultation: normal bowel sounds; abdomen not distended Percussion/Palpation: abdomen soft; abdomen nontender Musculoskeletal: No acute arthritis in any joint Psychiatric: A+Ox3, euthymic affect Lymphatic: no cervical or axillary lymphadenopathy Results & Data Results & Data ([facility]) Vital Signs (Past 12 Hours) Vital Signs Temp Pulse Resp BP Pulse Ox 12/03/20 11:27 36.6 C 79 20 99/58 L 90 12/03/20 11:23 86 18 92 12/03/20 08:15 20 93 12/03/20 07:35 36.3 C L 86 30 H 117/76 91 12/03/20 07:26 90 16 90 12/03/20 03:26 36.5 C 59 L 21 105/54 L 98 12/02/20 23:42 36.6 C 65 23 98/55 L 96 Laboratory Results BMP 12/03/20 06:51 Sodium 136 Potassium 3.8 Chloride 101 Carbon Dioxide 29 BUN 22 H Creatinine 0.63 Glucose 128 H Calcium 8.9 Liver Function 12/03/20 Range/Units 06:51 AST 12 L (15-37) U/L ALT 20 (12-78) U/L Medications Administered Current Inpatient Medications Acetaminophen (Acetaminophen 325 Mg Tab) 650 mg PO Q4H PRN PRN Reason: Pain or Fever Stop: 12/28/20 13:28 Last Admin: 11/29/20 18:35 Dose: 650 mg Documented by: Al Hydrox/Mg Hydrox/Simethicone (Aluminum/Magnesium Susp 30 Ml Udc) 15 ml PO Q4H PRN PRN Reason: Dyspepsia Stop: 12/28/20 13:28 Albuterol (Albuterol Hfa 8 Gm Inhaler) 2 puffs INH QIDR [facility] Stop: 12/28/20 14:59 Last Admin: 12/03/20 11:23 Dose: 2 puffs Documented by: Aspirin (Aspirin 81 Mg Ectab) 81 mg PO BID [facility] Stop: 12/28/20 20:59 Last Admin: 12/03/20 08:14 Dose: 81 mg Documented by: Benzonatate (Benzonatate 100 Mg Capsule) 100 mg PO TID [facility] Stop: 12/28/20 13:59 Last Admin: 12/03/20 08:15 Dose: 100 mg Documented by: Dextrose (Dextrose 50% 50 Ml Syringe) 25 - 50 ml IV UD PRN; Protocol PRN Reason: Hypoglycemia Protocol Stop: 12/28/20 13:28 Ezetimibe (Ezetimibe 10 Mg Tablet) 10 mg PO QAM [facility] Stop: 12/29/20 08:59 Last Admin: 12/03/20 08:14 Dose: 10 mg Documented by: Enoxaparin Sodium (Enoxaparin Inj 40 Mg/0.4 Ml Syr) 40 mg SQ Q12H [facility] Stop: 12/28/20 21:59 Last Admin: 12/03/20 08:15 Dose: 40 mg Documented by: Fluticasone Propionate (Fluticasone Propionate Na Spr 16 Gm Btl) 2 sprays NA DAILY [facility] Stop: 12/31/20 08:59 Last Admin: 12/03/20 08:15 Dose: 2 sprays Documented by: Gemfibrozil (Gemfibrozil 600 Mg Tab) 600 mg PO BID [facility] Stop: 12/28/20 20:59 Last Admin: 12/03/20 08:14 Dose: 600 mg Documented by: Glucagon (Glucagon For Inj 1 Mg Vial) 1 mg SQ UD PRN; Protocol PRN Reason: Hypoglycemia Protocol Stop: 12/28/20 13:28 Glucose (Glucose 10 Tabs/Tube) 4 - 8 tabs PO UD PRN; Protocol PRN Reason: Hypoglycemia Protocol Stop: 12/28/20 13:28 Glucose (Glucose 40% Gel 15 Gm Tube) 15 - 30 gm PO UD PRN; Protocol PRN Reason: Hypoglycemia Protocol Stop: 12/28/20 13:28 Guaifenesin/Codeine Phosphate (Guaifenesin/Codeine 100mg/10mg 5ml Udc) 5 ml PO Q6H PRN PRN Reason: Cough Stop: 12/28/20 23:14 Last Admin: 12/03/20 08:19 Dose: 5 ml Documented by: Dexamethasone 6 mg/ Syringe 1.5 mls @ 1 mls/min IV DAILY [facility] Stop: 12/09/20 08:59 Last Admin: 12/03/20 08:15 Dose: 1 mls/min Documented by: Ceftriaxone Sodium 2,000 mg/ (Dextrose) 70 mls @ 100 mls/hr IV DAILY@1600 [facility]; Protocol Stop: 12/03/20 16:44 Last Infusion: 12/02/20 16:58 Dose: Infused Documented by: Lisinopril (Lisinopril 5 Mg Tab) 5 mg PO QAM [facility] Stop: 12/29/20 08:59 Last Admin: 12/03/20 08:15 Dose: 5 mg Documented by: Magnesium Hydroxide (Magnesium Hydroxide Susp 30 Ml Udc) 30 ml PO Q12H PRN PRN Reason: Constipation Stop: 12/28/20 13:28 Miscellaneous (Carbohydrates For Hypoglycemia ) 15 - 30 gm PO UD PRN PRN Reason: Hypoglycemia Protocol Stop: 12/28/20 13:28 Last Admin: 11/29/20 03:57 Dose: 15 gm Documented by: Ondansetron HCl (Ondansetron Inj 2 Mg/Ml 2 Ml Vial) 4 mg IV Q6H PRN PRN Reason: Nausea Stop: 12/28/20 13:28 Pantoprazole Sodium (P[facility] 40 Mg Tab) [facility]; Protocol Stop: 12/29/20 08:59 Last Admin: 12/03/20 08:14 Dose: 40 mg Documented by: Polyethylene Glycol (Polyethylene (Miralax) 17 Gm Pack) 17 gm PO DAILY PRN PRN Reason: Constipation Stop: 12/28/20 13:28
[2020-12-03] MEDS ORDERED: ALBUTEROL HFA 8 GM INHALER INH PRN (14:06)
[2020-12-03] MEDS: cefTRIAXone SODIUM 2,000 MG in DEXTROSE 5% 50 ML IV SCH (15:00)
[2020-12-04] MEDS: BENZONATATE 100 MG CAPSULE PO SCH ×2 (08:42→14:45)
[2020-12-04] MEDS: dexAMETHasone 6 MG in SYRINGE 0 ML IV SCH (08:42)
[2020-12-04] MEDS: ENOXAPARIN INJ 40 MG/0.4 ML SYR SQ SCH (08:42)
[2020-12-04] MEDS: gemfibroziL 600 MG TAB PO SCH (08:42)
[2020-12-04] MEDS: FLUTICASONE PROPIONATE NA SPR 16 GM BTL SCH (08:42)
[2020-12-04] MEDS: PANTOprazole 40 MG TAB PO SCH (08:43)
[2020-12-04] MEDS: ASPIRIN 81 MG ECTAB PO SCH (08:43)
[2020-12-04] MEDS: lisinopril 5 MG TAB PO SCH (08:43)
[2020-12-04] MEDS: EZETIMIBE 10 MG TABLET PO SCH (08:43)
--- NOTE | 2020-12-04 12:13 | Hospitalist Progress Note ---
Date of Service December 04, 2020 Assessment & Plan (1) Pneumonia due to COVID-19 virus: Management with intravenous remdesivir and dexamethasone Oxygen as needed Was requiring 5 L of oxygen to maintain saturation Received received a few doses of intravenous Lasix for the last few days Condition has improved a lot and requiring as low as 3 L of oxygen to maintain saturation Symptomatically much better Advised to walk around in the room Much improved Has been requiring as low as 1 L of nasal cannula oxygen to maintain saturation Denies any significant cough and/or shortness of breath (2) Hypoxia: Acute respiratory failure with hypoxia secondary to Covid 19 pneumonia This is a 70-year-old female who has significant past medical history of T2DM, HTN, HLD, obesity, osteoporosis, lichen sclerosis who presents to ED secondary to worsening shortness of breath x3 days. CXR with multifocal PNA Hypoxic on 4L of O2 ESR 56, CRP 20.90, procal pending Started with intravenous remdesivir and dexamethasone Oxygen as needed Albuterol QID, Incentive spirometry, muccinex, tessalon perles Monitor LFTS-remains stable Remains stable but not showing any significant improvement Requiring 2 L of oxygen to maintain saturation which is an improvement 12/01/20 Still requiring 4 L of oxygen to maintain saturation Repeat chest x-ray shows improvement Oxygen requirements is down to 3 L Has had to do steps O2 saturation test today She will require 2 L of nasal cannula oxygen at rest and 3 with ambulation She will be discharged home this afternoon (3) Hypokalemia: k 3.4 give 20meq KCL monitor bmp-potassium has been normalized to 4.3 (4) Diabetes: Last a1c 10/03/20 6.8 Hold metformin lantus/novolog per protocol consult glycemic pharmacy 09/05 to steroid use Has been refusing sliding scale insulin coverage and will hold off for now She does not like to have any insulin and will discontinue that (5) Hypertension: bp controlled continue lisinopril with parameters (6) HLD (hyperlipidemia): continue statin monitor lfts (7) DVT prophylaxis: SQ Lovenox Q12hr Dispo:PCU PCP: ELISEO Crum FULL CODE Discharge this afternoon Admission and Anticipated Discharge Date Admission Date: November 28, 2020 Subjective 11/29/2020 The patient was seen and examined in telemetry and Covid unit She has been feeling a little better but is still requiring 4 L of oxygen to maintain saturation Still has cough but denies any fever and/or chills 11/30/2020 The patient was seen in the telemetry and Covid unit She has not been doing much better and required 5 L of oxygen to maintain saturation Has been feeling a lot better during my examination 12/01/2020 The patient was seen and examined in telemetry and Covid unit She has been feeling much better today Her cough is decreased and shortness of breath is improved too Denies any significant symptoms 12/02/2020 The patient was seen and examined in telemetry and Covid unit She is feeling much better clinically but still requiring 4 L of oxygen to maintain saturation Her cough and shortness of breath are better She is done with her remdesivir course 12/03/2020 The patient was seen and examined in telemetry and Covid unit She has been much better and her oxygen requirements is down to 3 L Minimal symptoms at rest Chest x-ray shows improvement of the pneumonia 12/04/2020 The patient was seen and examined in telemetry and Covid unit She has been doing much better and she has had a 2 steps O2 saturation test She will require 2 L of oxygen at rest and 3 with exertion She was noted to be tachycardic following the 2-step test but the heart rate has been coming down She will be discharged this afternoon Review of Systems Review of Systems: All systems reviewed and are unremarkable except as noted below Respiratory: + cough, + dyspnea and + dyspnea on exertion Physical Exam Physical Exam: Sitting on a chair without any acute distress Constitutional: well developed, well nourished, + acute distress (Due to shortness of breath at rest) and + ill appearing Eyes: PERRL, conjunctivae normal, anicteric sclerae ENMT: external ear and nose normal, oropharynx normal Neck: trachea midline, no thyromegaly Respiratory: no respiratory distress (Moderate shortness of breath at rest ) and does not use accessory muscles Auscultation: + diminished lung sounds and + crackles (Minimal crackles at the bases) Cardiovascular: Rate/Rhythm: regular rate and regular rhythm Heart Sounds: no murmur Extremities: + edema (Trace edema bilaterally) Gastrointestinal (Abdomen): Inspection/Auscultation: normal bowel sounds; abdomen not distended Percussion/Palpation: abdomen soft; abdomen nontender Musculoskeletal: No acute arthritis in any joint Neurologic: Alert, awake and oriented x3. No focal sensory and motor deficit appreciated Psychiatric: A+Ox3, euthymic affect Lymphatic: no cervical or axillary lymphadenopathy Results & Data Results & Data ([facility]) Vital Signs (Past 12 Hours) Vital Signs Temp Pulse Pulse Pulse Pulse Pulse Pulse 12/04/20 10:31 112 H 111 H 122 H 104 H 12/04/20 08:00 65 12/04/20 07:54 36.8 C 87 12/04/20 04:48 38.2 C H 73 Pulse Resp Resp Resp Resp Resp Resp 12/04/20 10:31 97 H 20 19 20 18 18 12/04/20 08:00 12/04/20 07:54 18 12/04/20 04:48 16 BP Pulse Ox Pulse Ox Pulse Ox Pulse Ox Pulse Ox Pulse Ox 12/04/20 10:31 87 L 90 85 L 92 89 L 12/04/20 08:00 12/04/20 07:54 118/69 91 12/04/20 04:48 106/57 L 94 Medications Administered Current Inpatient Medications Acetaminophen (Acetaminophen 325 Mg Tab) 650 mg PO Q4H PRN PRN Reason: Pain or Fever Stop: 12/28/20 13:28 Last Admin: 11/29/20 18:35 Dose: 650 mg Documented by: Al Hydrox/Mg Hydrox/Simethicone (Aluminum/Magnesium Susp 30 Ml Udc) 15 ml PO Q4H PRN PRN Reason: Dyspepsia Stop: 12/28/20 13:28 Albuterol (Albuterol Hfa 8 Gm Inhaler) 1 puffs INH QIDR PRN PRN Reason: Wheezing Stop: 12/10/20 14:05 Aspirin (Aspirin 81 Mg Ectab) 81 mg PO BID [facility] Stop: 12/28/20 20:59 Last Admin: 12/04/20 08:43 Dose: 81 mg Documented by: Benzonatate (Benzonatate 100 Mg Capsule) 100 mg PO TID [facility] Stop: 12/28/20 13:59 Last Admin: 12/04/20 08:42 Dose: 100 mg Documented by: Dextrose (Dextrose 50% 50 Ml Syringe) 25 - 50 ml IV UD PRN; Protocol PRN Reason: Hypoglycemia Protocol Stop: 12/28/20 13:28 Ezetimibe (Ezetimibe 10 Mg Tablet) 10 mg PO QAM [facility] Stop: 12/29/20 08:59 Last Admin: 12/04/20 08:43 Dose: 10 mg Documented by: Enoxaparin Sodium (Enoxaparin Inj 40 Mg/0.4 Ml Syr) 40 mg SQ Q12H [facility] Stop: 12/28/20 21:59 Last Admin: 12/04/20 08:42 Dose: 40 mg Documented by: Fluticasone Propionate (Fluticasone Propionate Na Spr 16 Gm Btl) 2 sprays NA DAILY [facility] Stop: 12/31/20 08:59 Last Admin: 12/04/20 08:42 Dose: 2 sprays Documented by: Gemfibrozil (Gemfibrozil 600 Mg Tab) 600 mg PO BID [facility] Stop: 12/28/20 20:59 Last Admin: 12/04/20 08:42 Dose: 600 mg Documented by: Glucagon (Glucagon For Inj 1 Mg Vial) 1 mg SQ UD PRN; Protocol PRN Reason: Hypoglycemia Protocol Stop: 12/28/20 13:28 Glucose (Glucose 10 Tabs/Tube) 4 - 8 tabs PO UD PRN; Protocol PRN Reason: Hypoglycemia Protocol Stop: 12/28/20 13:28 Glucose (Glucose 40% Gel 15 Gm Tube) 15 - 30 gm PO UD PRN; Protocol PRN Reason: Hypoglycemia Protocol Stop: 12/28/20 13:28 Guaifenesin/Codeine Phosphate (Guaifenesin/Codeine 100mg/10mg 5ml Udc) 5 ml PO Q6H PRN PRN Reason: Cough Stop: 12/28/20 23:14 Last Admin: 12/03/20 21:03 Dose: 5 ml Documented by: Dexamethasone 6 mg/ Syringe 1.5 mls @ 1 mls/min IV DAILY [facility] Stop: 12/09/20 08:59 Last Admin: 12/04/20 08:42 Dose: 1 mls/min Documented by: Lisinopril (Lisinopril 5 Mg Tab) 5 mg PO QAM [facility] Stop: 12/29/20 08:59 Last Admin: 12/04/20 08:43 Dose: 5 mg Documented by: Magnesium Hydroxide (Magnesium Hydroxide Susp 30 Ml Udc) 30 ml PO Q12H PRN PRN Reason: Constipation Stop: 12/28/20 13:28 Miscellaneous (Carbohydrates For Hypoglycemia ) 15 - 30 gm PO UD PRN PRN Reason: Hypoglycemia Protocol Stop: 12/28/20 13:28 Last Admin: 11/29/20 03:57 Dose: 15 gm Documented by: Ondansetron HCl (Ondansetron Inj 2 Mg/Ml 2 Ml Vial) 4 mg IV Q6H PRN PRN Reason: Nausea Stop: 12/28/20 13:28 Pantoprazole Sodium (Pantoprazole 40 Mg Tab) [address] [facility]; Protocol Stop: 12/29/20 08:59 Last Admin: 12/04/20 08:43 Dose: 40 mg Documented by: Polyethylene Glycol (Polyethylene (Miralax) 17 Gm Pack) 17 gm PO DAILY PRN PRN Reason: Constipation Stop: 12/28/20 13:28
--- NOTE | 2020-12-05 08:22 | Discharge Summary ---
Date of Service December 05, 2020 Admission HPI Per Admitting Provider Chief Complaint: Worsening shortness of breath x3 days. Primary Care Provider: Liliam Crum PA-C This is a 70-year-old female who has significant past medical history of T2DM, HTN, HLD, obesity, osteoporosis, lichen sclerosis who presents to ED secondary to worsening shortness of breath x3 days. Of significance patient presented to ED on 11/24 secondary to approximately 1 week of persistent cough, sinus congestion, shortness of breath, diarrhea, generalized weakness and loss of taste & smell. She admits to known Covid exposure with family member. She tested positive on 11/24 and imaging revealed small patchy airspace opacity in the left lower lobe. At that time she was not hypoxic and discharged to home. She had a follow-up video visit yesterday with PCP for which she did not participate in. She was prescribed azithromycin and prednisone for treatment which she started yesterday. Patient summoned EMS today in which her O2 saturations were 84% requiring 4 L to maintain normal saturation. In ED chest x-ray reveals bilateral pulmonary airspace opacities consistent with multifocal pneumonia. Lab work-up otherwise unremarkable except for mild hypokalemia and hyperglycemia. She was treated with IV dexamethasone, albuterol nebulizer treatment and IV fluid. Secondary to profound hypoxia she was recommended for admission. Admission Exam Per Admitting Provider Physical Exam: please see Dr. Steinberg addendum for physical exam findings: Lying in bed with moderate shortness of breath Constitutional: well developed, well nourished, + acute distress (Due to shortness of breath at rest) and + ill appearing Eyes: PERRL, conjunctivae normal, anicteric sclerae ENMT: external ear and nose normal, oropharynx normal Neck: trachea midline, no thyromegaly Respiratory: + respiratory distress (Moderate shortness of breath at rest ) and + uses accessory muscles Auscultation: + diminished lung sounds and + crackles (Moderate crackles at the bases) Cardiovascular: Rate/Rhythm: regular rate and regular rhythm Heart Sounds: no murmur Extremities: + edema (Trace edema bilaterally) Gastrointestinal (Abdomen): Inspection/Auscultation: normal bowel sounds; abdomen not distended Percussion/Palpation: abdomen soft; abdomen nontender Musculoskeletal: No acute arthritis in any joint Neurologic: Alert, awake and oriented x3. Generally weak Psychiatric: A+Ox3, euthymic affect Lymphatic: no cervical or axillary lymphadenopathy Principal Diagnosis COVID-19 infection, pneumonia, acute respiratory failure with hypoxia, type 2 diabetes mellitus, hypertension Discharge Exam Constitutional well developed, well nourished, + acute distress (Due to shortness of breath at rest) and + ill appearing Eyes PERRL, conjunctivae normal, anicteric sclerae ENMT external ear and nose normal, oropharynx normal Neck trachea midline, no thyromegaly Respiratory no respiratory distress (Moderate shortness of breath at rest ) and does not use accessory muscles Auscultation: + diminished lung sounds and + crackles (Minimal crackles at the bases) Cardiovascular Rate/Rhythm: regular rate and regular rhythm Heart Sounds: no murmur Extremities: + edema (Trace edema bilaterally) Gastrointestinal (Abdomen) Inspection/Auscultation: normal bowel sounds; abdomen not distended Percussion/Palpation: abdomen soft; abdomen nontender Psychiatric A+Ox3, euthymic affect Lymphatic no cervical or axillary lymphadenopathy Discharge Data Allergies Allergy/AdvReac Type Severity Reaction Status Date / Time naproxen Allergy Intermediate EDEMA OF Verified 11/28/20 11:55 FACE/LIPS/TONGUE Sulfa (Sulfonamide Allergy Intermediate RASH Unverified 11/28/20 11:55 Antibiotics) atorvastatin AdvReac Intermediate LEG Verified 11/28/20 11:55 PAIN/SWELLING simvastatin AdvReac Mild LEG CRAMPS Verified 11/28/20 11:55 Consultations 11/28/20 11:58 ED Decision to Admit Stat Ordered Studies 11/28/20 12:01 CT angio chest PE protocol Stat Hospital Course (1) Pneumonia due to COVID-19 virus: Management with intravenous remdesivir and dexamethasone Oxygen as needed Was requiring 5 L of oxygen to maintain saturation Received received a few doses of intravenous Lasix for the last few days Condition has improved a lot and requiring as low as 3 L of oxygen to maintain saturation Symptomatically much better Advised to walk around in the room Much improved Has been requiring as low as 1 L of nasal cannula oxygen to maintain saturation Denies any significant cough and/or shortness of breath (2) Hypoxia: Acute respiratory failure with hypoxia secondary to Covid 19 pneumonia This is a 70-year-old female who has significant past medical history of T2DM, HTN, HLD, obesity, osteoporosis, lichen sclerosis who presents to ED secondary to worsening shortness of breath x3 days. CXR with multifocal PNA Hypoxic on 4L of O2 ESR 56, CRP 20.90, procal pending Started with intravenous remdesivir and dexamethasone Oxygen as needed Albuterol QID, Incentive spirometry, muccinex, tessalon perles Monitor LFTS-remains stable Remains stable but not showing any significant improvement Requiring 2 L of oxygen to maintain saturation which is an improvement 12/01/20 Still requiring 4 L of oxygen to maintain saturation Repeat chest x-ray shows improvement Oxygen requirements is down to 3 L Has had to do steps O2 saturation test today She will require 2 L of nasal cannula oxygen at rest and 3 with ambulation She will be discharged home this afternoon (3) Hypokalemia: k 3.4 give 20meq KCL monitor bmp-potassium has been normalized to 4.3 (4) Diabetes: Last a1c 10/03/20 6.8 Hold metformin lantus/novolog per protocol consult glycemic pharmacy 09/05 to steroid use Has been refusing sliding scale insulin coverage and will hold off for now She does not like to have any insulin and will discontinue that (5) Hypertension: bp controlled continue lisinopril with parameters (6) HLD (hyperlipidemia): continue statin monitor lfts (7) DVT prophylaxis: SQ Lovenox Q12hr Dispo:PCU PCP: ELISEO Crum FULL CODE Discharge this afternoon Total Time Total Time Spent Total Time Spent (In Minutes): 35 minutes Total Time Includes: Examination of the Patient, Discharge Planning, Medication Reconciliation and Communication With Other Providers Discharge Plan Discharge Items Patient Disposition: Home - Self-Care Reason For Visit: COVID PNA, HYPOXIA Discharge Diagnosis: COVID-19 infection, pneumonia, acute respiratory failure with hypoxia, type 2 diabetes mellitus, hypertension Condition on Discharge: Fair Activity: Resume your previous activity Activity Comment: Take it easy for the next few weeks Non-emergency contact: Primary Care Provider Call non-emergency contact if: you have any medication questions Follow-up/Referrals: Liliam Crum PA-C [Primary Care Provider] - (Date & Time 12/07/2020 10:40 AM Provider Liliam Crum PA-C Department [facility] PLEASE NOTE THAT THIS IS A TELEPHONE CALL APPOINTMENT. YOUR PROVIDER WILL CALL YOU AT THE APPOINTMENT TIME. IF YOU HAVE ANY QUESTIONS REGARDING THIS APPOINTMENT, PLEASE CALL ) Diet: Carb Consistent or DM2 Addtl Attending Provider Instructions: Please take extreme precaution to avoid fall You have only tonight to finish the quarantine for COVID-19 infection following the diagnosis Finish the course of dexamethasone Continue with the cough suppressants Please follow the usual instructions as per CDC to prevent COVID-19 infection as follows: Coronavirus disease 2019 (COVID-19) is a virus that causes a respiratory illn ess. It is caused by a coronavirus called 2019 novel coronavirus (2019-nCoV). There are many types of coronavirus. Coronaviruses are a very common cause of bronchitis. They may sometimes cause lung infection(pneumonia). Symptoms can range from mild to severe respiratory illness. These viruses are also foundin some animals. COVID-19 was first found in people in [facility], in late 2018. In 2020, several cases of COVID-19 have been confirmed in the [place] Public health officials are working to find the source. How the virus spreads is not yet fully known. It may be spread through droplets of fluid that a person coughs or sneezes into the air. It may be spread if you touch a surface with virus on it, such as a handle or object, and then touch your mouth. What are the symptoms of COVID-19? Some people have no symptoms or mild symptoms. Symptoms may appear 2 to 14 days after contact with the virus. Symptoms can include: Fever Coughing Trouble breathing What are possible complications from COVID-19? In many cases, this virus can cause infection (pneumonia) in both lungs. In some cases, this can cause . How is COVID-19 diagnosed? Your healthcare provider will ask about your symptoms. He or she will also ask about your recent travel and contact with sick people. Testing for the virus is only done through the CDC. If yourhealthcare provider thinks you may have COVID- 19, he or she will work with your local health department and the CDC on testing. Follow all instructions from your healthcare provider. COVID-19 is diagnosed by: Nasal and throat swab. A cotton-tipped swab is wiped inside your nose or throat. This is done to check for viruses in your nasal mucus. Sputum culture. A small sample of mucus coughed from your lungs (sputum) is collected if you have a cough. It is checked for the virus. How is COVID-19 treated? There is currently no medicine to treat the virus. Treatment is done to help your body while it fights the virus. This is known as supportive care. Supportive care may include: Pain medicine. These include acetaminophen and ibuprofen. They are used to help ease pain and reduce fever. Bed rest. This helps your body fight the illness. For severe illness, you may need to stay in the hospital. Care during severe illness may include: IV (intravenous) fluids.These are given through a vein to help keep your body hydrated. Oxygen. Supplemental oxygen or ventilation with a breathing machine (ventilator) may be given. This is done to keep enough oxygen in your body. Are you at risk for COVID-19? If youve been to a place where people have been sick with this virus, you are at risk for infection. You are at risk if you: Recently traveled to an affected area Had contact with a sick person who recently traveled to this area Had contact with a person who was diagnosed with COVID-19 How can COVID-19 be prevented? There is no vaccine yet. The best prevention is to not have contact with the virus. The CDC advises that people should not travel to areas where there are COVID-19 outbreaks right now for any reason that is not urgent. To help prevent spreading the infection, wash your hands often, or use an alcohol-basedhand inspector air carrier. If you are in an area with COVID-19: Wash your hands often. Or use an alcohol-based hand inspector air carrier often. Only touch your eyes, nose, or mouth with clean hands. Dont have contact with people who are sick. Follow local instructions about being in public. For example, you may be told to not use public transport for a period of time. Stay away from markets that have live or animals. Wash your hands after touching any animals. Don't touch animals that may be sick. Dont share eating or drinking tools with sick people. Dont kiss someone who is sick. Clean surfaces often with disinfectant. If you were in an area with COVID-19 in the last 14 days: Call your healthcare provider. He or she can talk with local health staff to see what action may be needed. Follow all instructions from your provider. Take your temperature every morning and evening for at least 14 days. This is to check for fever. Keep a record of the readings. Keep watch for symptoms of the virus. Tell your provider right away if you have symptoms. If you were in an area with COVID-19 and have a fever or other symptoms: Dont panic. Keep in mind that other illnesses can cause similar symptoms. Stay away from work, school, and public places. Limit physical contact with family members. Don't kiss anyone or share eating or drinking utensils. Clean surfaces you touch with disinfectant. This is to help prevent the virus from spreading. Call your healthcare provider. Explain that you have been exposed to COVID-19 and have symptoms. Do this before going to any hospital. Wait for instructions. Keep in mind that healthcare staff may wear protective equipment such as masks, gowns, gloves, and eye protection. You may be put in a separate room. This is to prevent the possible virus from spreading. Tell the healthcare staff about recent travel. This includes local travel on public transport. Staff may need to find other people you have been in contact with. Follow all instructions the healthcare staff give you. If you have been diagnosed with COVID-19 Follow all instructions from your healthcare provider. Dont leave your home, except to get medical care. Call your healthcare providers office before going. They can prepare and give you instructions. This will help prevent the virus from spreading. Dont go to work, school, or public areas. Dont use public transport or taxis. Stay away from other people in your home. Have them wear face masks around you. Dont share household items or food. Wear a face mask if you can. This includes at home or in a medical facility. Cover your face with a tissue when you cough or sneeze. Throw the tissue away. Wash your hands. Wash your hands often. Caregivers should: Follow all instructions from healthcare staff. Wear a face mask and protective clothing as advised. Wash hands often. Keep track of the sick persons symptoms. Clean surfaces, fabrics, and laundry thoroughly. Keep other people away from the sick person. When to call your healthcare provider Call your healthcare provider: If youve recently traveled and have symptoms If you have been diagnosed with COVID-19 and your symptoms are worse To learn more To find out more about COVID-19, visit the CDC website at www.cdc.gov/coronavirus/2019-ncov/index.html. 5533-[employer]. [address] [place] [address]. All rights reserved. This information is not intended as a substitute for professional medical care. Always follow your healthcare professional's instructions. This information has been adapted from [employer] Pending Studies at Discharge: No Stand-Alone Forms: [facility], Smoking Cessation Medications and DC Order Prescriptions: New benzonatate [Tessalon Perles] 100 mg Capsule 100 mg PO TID 10 Days Qty: 30 RF: 0 dexamethasone 6 mg tablet 6 mg PO DAILY Qty: 4 RF: 0 Continued metformin 500 mg Tablet 500 mg PO BID RF: 0 albuterol sulfate 2.5 mg /3 mL (0.083 %) Solution For Nebulization 2.5 mg INHALATION QID RF: 0 aspirin 81 mg Tablet,Delayed Release (Dr/Ec) 81 mg PO BID RF: 0 gemfibrozil [Lopid] 600 mg Tablet 600 mg PO BID RF: 0 omeprazole 20 mg Capsule,Delayed Release(Dr/Ec) 20 mg PO QAM RF: 0 lisinopril 5 mg Tablet 5 mg PO QAM RF: 0 hydrochlorothiazide 25 mg Tablet 25 mg PO DAILY PRN (Reason: Edema) RF: 0 albuterol sulfate [ProAir HFA] 90 mcg/actuation Hfa Aerosol Inhaler 2 - 4 puff INHALATION DIRECTED PRN (Reason: Shortness Of Breath) RF: 0 ezetimibe [Zetia] 10 mg Tablet 10 mg PO QAM RF: 0 Discharge Orders: Discharge Order (Routine); Ordered 12/04/20 Ordered By: Adrianna Steinberg Admission Data Admit Date/Time: 11/28/20 12:08 Attending Provider: Adrianna Steinberg Admit Provider: Adrianna Steinberg Primary Care Provider: Liliam Crum Other Providers: Adrianna Steinberg Other Interventions: Discharge Summary Assessment (RN) Last Done: 12/04/20 13:15
== END 2020-12-04 16:00 | disposition home or self-care (01) | DRG 177 ==
LOC: ED 08:29 → 2E 12:08

== ENCOUNTER 2023-11-22 05:27 | Inpatient (IN) ==
[2023-11-22] MEDS: ACETAMINOPHEN 1,000 MG/100 ML VIAL IV STA (05:50)
[2023-11-22 06:15] LABS: Albumin Globulin Ratio 0.9 (0.9-2); Albumin Level 3.1 gm/dl (3.4-5.0); BUN Creatinine Ratio 19.7 (10-20); Bilirubin,Total 0.5 mg/dl (0.2-1.0); Calcium 8.6 mg/dl (8.6-10.3); Creatinine Clr Calc Pharmacy 67.6 ml/min; Est GFR (African American) 91.5 ml/min; Est GFR (Non-African American) 78.9 ml/min; Globulin 3.5 gm/dl (2.5-4.0); Potassium 3.2 mmol/L (3.5-5.1); Total Protein 6.6 gm/dl (6.0-8.3)
--- NOTE | 2023-11-22 06:15 | Electrocardiogram Report ---
Test Reason : Blood Pressure : / mmHG Vent. Rate : 112 BPM Atrial Rate : 107 BPM P-R Int : 130 ms QRS Dur : 066 ms QT Int : 326 ms P-R-T Axes : 050 -33 034 degrees QTc Int : 444 ms Sinus rhythm with PACs Poor R wave progression, consider anterior RI vs. lead placement vs. LVH Left axis deviation Abnormal ECG Confirmed by Agustin Burris ([id number]) on 11/22/2023 6:15:30 AM Referred By: Confirmed By:Darryl Burris
[2023-11-22 06:34] LABS: Hematocrit (blood only) 28.2 % (37.0-47.0); Hemoglobin 9.5 g/dl (12.0-16.0); Mean Corpuscular Hemoglobin 26.3 pg (25.0-34.0); Mean Corpuscular Hgb Conc 33.7 g/dL (32.0-36.0); Mean Corpuscular Volume 78.1 fL (80.0-100.0); Mean Platelet Volume 9.7 fL (9.4-12.4); Platelet Count 317 K/uL (130-400); RDW Coefficient of Variation 14.7 % (11.5-14.5); RDW Standard Deviation 41.9 fL (36.4-46.3); Red Blood Count 3.61 M/uL (4.20-5.40); White Blood Count 11.54 K/ul (4.8-10.8)
--- NOTE | 2023-11-22 06:44 | Emergency Department Note ---
History of Present Illness General Chief complaint: Fever Stated complaint: Fever, Sick x1 Week, Low Sats Time Seen by Provider: 11/22/23 06:28 Source: patient, family ( and daughter who are at the bedside), RN notes reviewed and old records reviewed (12/25/20-discharge summary for admission for COVID) Mode of arrival: EMS Limitations: no limitations History of Present Illness This patient is 73-year-old female comes in after feeling sick since last Friday. She says she feels like a train wreck she had a high fever she is prone to UTIs and they thought she could have a UTI although she had no urinary symptoms she has had a cough she does not get pneumonia as well. She has had some wheezing at times she feels mildly short of breath and when EMS arrived she was hypoxemic on room air in the high 80s she feels diffusely weak. She is vomiting after coughing at times but no dysuria or hematuria. She had diarrhea on Friday has gotten better. No blood or melena in her stool no fall or trauma. No sick contacts. Home Medications Medication Instructions Recorded Confirmed Type albuterol sulfate 2.5 mg/3 mL 2.5 mg inhalation QID PRN 07/16/18 11/22/23 History (0.083 %) solution for nebulization Shortness Of Breath Or Wheezing albuterol sulfate 90 mcg/actuation 2 puff inhalation DIRECTED PRN 07/16/18 11/22/23 History aerosol inhaler (ProAir HFA) Shortness Of Breath aspirin 81 mg tablet,delayed 81 mg PO DAILY 07/16/18 11/22/23 History release gemfibrozil 600 mg tablet (Lopid) 600 mg PO BID 07/16/18 11/22/23 History hydrochlorothiazide 25 mg tablet 25 mg PO DAILY PRN Edema 07/16/18 11/22/23 History lisinopril 5 mg tablet 5 mg PO QAM 07/16/18 11/22/23 History metformin 500 mg tablet 500 mg PO BID 07/16/18 11/22/23 History omeprazole 20 mg capsule,delayed 20 mg PO QAM 07/16/18 11/22/23 History release ezetimibe 10 mg tablet (Zetia) 10 mg PO QAM 11/24/20 11/22/23 History Allergies Allergy/AdvReac Type Severity Reaction Status Date / Time naproxen Allergy Intermediate EDEMA OF Verified 11/22/23 11:32 FACE/LIPS/TONGUE Sulfa (Sulfonamide Allergy Intermediate RASH Unverified 11/22/23 11:32 Antibiotics) atorvastatin AdvReac Intermediate LEG Verified 11/22/23 11:32 PAIN/SWELLING simvastatin AdvReac Mild LEG CRAMPS Verified 11/22/23 11:32 Past Med/Surg History Medical History HLD (hyperlipidemia) Lichen sclerosus Osteoporosis Obesity Hypokalemia Hypertension Diabetes Surgical History History of shoulder surgery x 2 on R and L x 1 - rotator cuff History of hysteroscopy History of cystoscopy Family History Mother , 65 Stomach cancer Coronary heart disease Stroke Daughter Breast cancer Social History Smoking Status: Former smoker Tobacco Type: Cigarettes Second Hand Exposure: No; Do You Dip or Chew Tobacco: No; Hx Alcohol Use: Yes Hx Substance Use: No Preferred Language: Estonian Communication Ability: Effective Regional Transportation Manager Required: No Beliefs That Will Affect Care: None marital status: Current Living Situation: Spouse Other Information That Helps Us Care for You: No Feels Safe at Home: Yes Safety Concerns: Feels Safe At This Time Assistive Devices: Glasses Review of Systems A total of 10 systems reviewed and were otherwise negative Physical Exam Vital Signs Vital Signs - 24 hr 11/22/23 05:32 11/22/23 05:32 11/22/23 05:34 Temperature Temperature Source Pulse Rate 112 H 107 H Pulse Rate from SpO2 Sensor Respiratory Rate 22 Respiratory Effort / Characteristics Respiratory Depth Respiratory Pattern Blood Pressure 134/67 Blood Pressure Mean 72 Pulse Oximetry Oxygen Delivery Method Sepsis Recent Fever Within 48 Hours Sepsis New/Unexplained Change in Mental Status Sepsis Action Taken by Nursing 11/22/23 05:40 11/22/23 05:40 11/22/23 05:50 Temperature 39.2 C H Temperature Source Oral Pulse Rate 105 H 118 H 94 H Pulse Rate from SpO2 Sensor 121 H 113 H Respiratory Rate 18 27 H 38 H Respiratory Effort / Characteristics Non-Labored Spontaneous Respiratory Depth Normal Respiratory Pattern Regular Blood Pressure 134/67 Blood Pressure Mean 89 Pulse Oximetry 92 93 97 Oxygen Delivery Method Room Air Sepsis Recent Fever Within 48 Hours Yes Sepsis New/Unexplained Change in Mental Status No Sepsis Action Taken by Nursing No Action Required 11/22/23 06:00 11/22/23 06:10 11/22/23 06:20 Temperature Temperature Source Pulse Rate 108 H 103 H 98 H Pulse Rate from SpO2 Sensor 115 H 103 H 105 H Respiratory Rate 28 H 31 H 32 H Respiratory Effort / Characteristics Respiratory Depth Respiratory Pattern Blood Pressure Blood Pressure Mean Pulse Oximetry 97 98 97 Oxygen Delivery Method Sepsis Recent Fever Within 48 Hours Sepsis New/Unexplained Change in Mental Status Sepsis Action Taken by Nursing 11/22/23 06:30 11/22/23 06:40 11/22/23 06:50 Temperature Temperature Source Pulse Rate 102 H 101 H 100 H Pulse Rate from SpO2 Sensor 115 H 111 H 99 H Respiratory Rate 32 H 31 H 30 H Respiratory Effort / Characteristics Respiratory Depth Respiratory Pattern Blood Pressure Blood Pressure Mean Pulse Oximetry 97 98 97 Oxygen Delivery Method Sepsis Recent Fever Within 48 Hours Sepsis New/Unexplained Change in Mental Status Sepsis Action Taken by Nursing 11/22/23 07:00 11/22/23 07:10 11/22/23 07:20 Temperature Temperature Source Pulse Rate 106 H 112 H 105 H Pulse Rate from SpO2 Sensor 104 H 119 H 99 H Respiratory Rate 29 H 29 H 25 H Respiratory Effort / Characteristics Respiratory Depth Respiratory Pattern Blood Pressure Blood Pressure Mean Pulse Oximetry 97 97 97 Oxygen Delivery Method Sepsis Recent Fever Within 48 Hours Sepsis New/Unexplained Change in Mental Status Sepsis Action Taken by Nursing 11/22/23 07:30 11/22/23 07:40 11/22/23 07:50 Temperature Temperature Source Pulse Rate 90 92 H 86 Pulse Rate from SpO2 Sensor 90 87 88 Respiratory Rate 27 H 27 H Respiratory Effort / Characteristics Respiratory Depth Respiratory Pattern Blood Pressure Blood Pressure Mean Pulse Oximetry 97 97 96 Oxygen Delivery Method Sepsis Recent Fever Within 48 Hours Sepsis New/Unexplained Change in Mental Status Sepsis Action Taken by Nursing General: Well developed well nourished mildly ill-appearing older female who in no acute distress, breathing comfortably on room air. Normal speech HEENT: Normal cephalic atraumatic. Pupils are equal round and reactive to light. Extraocular movements are intact. Oropharynx is pink with moist mucous membranes. No swelling of the mouth lips or tongue. Neck: Supple with a midline trachea. No meningeal signs or stiffness, no JVD or bruits. No Stridor. Chest: She does have some rhonchi to to auscultation bilaterally mostly in the left base,. No wheezes or rhonchi. No increased work of breathing. Heart: Regular rate and rhythm without murmurs or gallops. Abdomen: Soft nontender, nondistended without rebound guarding or rigidity. Extremities: No cyanosis clubbing or edema. No calf tenderness or assymetry Spine/Back. Non tender to palpation. No CVA tenderness Skin: Good turgor without rashes. Neurologic exam: Cranial nerves two through 12 are intact. Motor and sensation are intact and symmetrical throughout. Course Administered Medications Doxycycline Hyclate (Doxycycline Hyclate 100 Mg Cap) 100 mg PO BID [facility] Stop: 11/29/23 09:12 Last Admin: 11/22/23 09:53 Dose: 100 mg Documented By: MADI Enoxaparin Sodium (Enoxaparin Inj 40 Mg/0.4 Ml Syr) 40 mg SQ QAM ELISE Stop: 12/22/23 09:12 Last Admin: 11/22/23 09:59 Dose: 40 mg Documented By: MADI Guaifenesin/Dextromethorphan (Guaifenesin/Dextrom Syrup 200mg/20mg 10ml Udc) 10 ml PO Q6H PRN PRN Reason: Cough Stop: 12/22/23 09:12 Last Admin: 11/22/23 09:59 Dose: 10 ml Documented By: MADI Potassium Chloride/Sodium Chloride (Normal Saline W/20 Meq Kcl) 20 meq in 1,000 mls @ 125 mls/hr IV .Q8H [facility]; Protocol Stop: 11/23/23 01:12 Last Admin: 11/22/23 09:54 Dose: 125 mls/hr Documented By: MADI Insulin Aspart (Insulin Aspart Per Unit Charge) 0 units SC ACHS [facility] Stop: 12/22/23 11:29 Last Admin: 11/22/23 13:01 Dose: Not Given Documented By: MADI Co-signed By: NATASHA Pantoprazole Sodium (Pantoprazole 40 Mg Tab) 40 mg PO QAM ELISE; Protocol Stop: 12/22/23 09:44 Last Admin: 11/22/23 09:53 Dose: 40 mg Documented By: MADI Discontinued Medications Acetaminophen (Ofirmev) 1,000 mg in 100 mls @ 400 mls/hr IV NOW STA Stop: 11/22/23 06:02 Last Infusion: 11/22/23 06:06 Dose: Infused Documented By: Admin: 11/22/23 05:50 Dose: 400 mls/hr Documented By: HARRIET Cefepime HCl 2,000 mg/ Syringe 20 mls @ 5 mls/min IV NOW STA; Protocol Stop: 11/22/23 06:42 Last Admin: 11/22/23 07:42 Dose: 5 mls/min Documented By: MADI Potassium Chloride (Potassium Chloride Crtab 20 Meq Tabcr) 40 meq PO ONE ONE Stop: 11/22/23 09:14 Last Admin: 11/22/23 09:53 Dose: 40 meq Documented By: MADI Medical Decision Making Differential Diagnosis Pneumonia, sepsis, COVID, influenza, UTI, electrolyte or metabolic abnormality Medical Records Attestation: I reviewed the patient's medical records. Home Medications Current Medication List: was personally reviewed by me Laboratory Data Attestation: I reviewed the patient's lab results. 11/22/23 05:40 11/22/23 05:40 Lab Results 11/22/23 11/22/23 11/22/23 Range/Units 05:40 05:44 06:56 WBC 11.54 H (4.8-10.8) K/ul RBC 3.61 L (4.20-5.40) M/uL Hgb 9.5 L (12.0-16.0) g/dl Hct 28.2 L (37.0-47.0) % MCV 78.1 L (80.0-100.0) fL MCH 26.3 (25.0-34.0) pg MCHC 33.7 (32.0-36.0) g/dL RDW Std Deviation 41.9 (36.4-46.3) fL RDW Coeff of Jason 14.7 H (11.5-14.5) % Plt Count 317 (130-400) K/uL MPV 9.7 (9.4-12.4) fL Immature Gran % (Auto) 0.8 % Neut % (Auto) 85.1 % Lymph % (Auto) 9.0 % [place] % (Auto) 4.9 % Eos % (Auto) 0.0 % Baso % (Auto) 0.2 % Neut # (Auto) 9.82 H (1.40-6.50) K/uL Lymph # (Auto) 1.04 L (1.20-3.40) K/uL [place] # (Auto) 0.57 (0.11-0.59) K/uL Eos # (Auto) 0.00 (0.00-0.50) K/uL Baso # (Auto) 0.02 (0.00-0.20) K/uL Immature Gran # (Auto) 0.09 (0.01-0.20) K/uL Toxic Granulation 1+ Dohle Bodies 1+ Sodium 129 L (136-145) mmol/L Potassium 3.2 L (3.5-5.1) mmol/L Chloride 97 L (98-107) mmol/L Carbon Dioxide 22 (21-32) mmol/L Anion Gap 10 (3-11) BUN 15 (6-23) mg/dl Creatinine 0.76 (0.6-1.2) mg/dl Est Cr Clr Drug Dosing 67.6 ml/min Est GFR ( Amer) 91.5 ml/min Est GFR (Non-Af Amer) 78.9 ml/min BUN/Creatinine Ratio 19.7 (10-20) Glucose 136 H (70-99(Fasting)) mg/dl Osmolality 268 L (280-300) mOsm/kg Lactate 0.9 (0.4-2.0) mmol/L Calcium 8.6 (8.6-10.3) mg/dl Magnesium 1.8 (1.7-2.4) mg/dl Total Bilirubin 0.5 (0.2-1.0) mg/dl AST 30 (13-39) U/L ALT 25 (7-52) U/L Alkaline Phosphatase 73 (34-104) U/L Total Protein 6.6 (6.0-8.3) gm/dl Albumin 3.1 L (3.4-5.0) gm/dl Globulin 3.5 (2.5-4.0) gm/dl Albumin/Globulin Ratio 0.9 (0.9-2) Procalcitonin 1.49 H (0-0.5) ng/ml SARS-CoV-2 (PCR) NEGATIVE (Negative) Influenza Type A (PCR) Negative (Neg) Influenza Type B (PCR) Negative (Neg) RSV (RT-PCR) Negative (Neg) Imaging Data Attestation: I personally reviewed and interpreted this imaging study as follows: My Impression: Chest x-raythere is an infiltrate in the left base Radiologist's Impression: Chest X-Ray 11/22/23 05:41 SINGLE VIEW CHEST CLINICAL HISTORY: Dyspnea. Hypoxia. FINDINGS: An AP, portable, upright chest radiograph is compared to study dated 12/03/2020 and correlated with chest CT dated 11/28/2020. The heart is enlarged noting atherosclerotic calcification of the thoracic aorta. The pulmonary vasculature is noncongested. There is airspace consolidation at the left lung base. No large pleural effusion or pneumothorax is seen. The skeletal structures are osteopenic. The bony thorax is grossly intact. Advanced arthritic change is noted in the shoulders. IMPRESSION: 1. Airspace consolidation at the left lung base is typical for pneumonia/aspiration pneumonitis. Clinical correlation will be required and radiographic follow-up to resolution is recommended. 2. Cardiomegaly without radiographic evidence of congestive failure. ACT 112: Negative or not required by law. Electronically signed by: Luis Quintana M.D. 11/22/2023 7:36 AM ECG Data Attestation: I personally reviewed and interpreted this ECG as follows: Indication: + SOB/dyspnea and + weakness Rate (beats per minute): 112 Rhythm: + other (Poor baseline but appears to be normal sinus rhythm with some ectopy) ECG Intervals/blocks: + Normal QRS and + Normal QT ECG [place]: + Left axis deviation ECG ST segments: + Normal ST segments ECG Findings: + PACs; no PVCs Comparison ECG Date: from (11/28/20) Change: the following changes noted (Rate has increased.) MDM Narrative This patient comes in described above she is been sick for about a week. She was hypoxemic in the ambulance she is on supplemental oxygen. The patient was my first patient the day at 630 the night team had put in labs and x-rays she does have pneumonia in the left base. White count is elevated her sodium is low at 129 she has received 1 L IV normal saline bolus. I did order cefepime 2 g IV as well as blood cultures and lactic acid. Lactic acid was not elevated white count is. Urinalysis also does suggest a UTI. The patient has been given cefepime IV which should have good pulmonary and urine coverage. The patient remained normotensive and did have a normal lactate there for I did not feel needed 30/kg normal saline bolus. COVID testing was negative. [facility] the [facility]. She will be admitted. Continuous cardiac monitoring: Orders placed in EMR for continuous nurse monitoring: Upon my evaluation the patient was in normal sinus with a rate of 80s Impression & Plan Sepsis, Weakness, Pneumonia, Acute UTI (urinary tract infection), Lab test negative for COVID-19 virus Discharge Plan Visit Data Chief Complaint: Fever Stated Complaint: Fever, Sick x1 Week, Low Sats ED Provider: Jerome Glass Discharge Problem: Sepsis, Weakness, Pneumonia, Acute UTI (urinary tract infection), Lab test negative for COVID-19 virus Patient Disposition: Admitted As Inpatient Discharge Instructions Interventions: ED Discharge Assessment Last Done: 11/22/23 08:16 Discharge Problem: Sepsis Qualifiers: Sepsis type: sepsis due to unspecified organism Sepsis acute organ dysfunction status: unspecified Qualified Code(s): A41.9 - Sepsis, unspecified organism Pneumonia Qualifiers: Pneumonia type: due to unspecified organism Lung location: lower lobe of lung
[2023-11-22 07:11] LABS: Basophils # (auto) 0.02 K/uL (0.00-0.20); Basophils % (auto) 0.2 %; Dohle Bodies 1+; Immature Granulocytes # (auto) 0.09 K/uL (0.01-0.20); Immature Granulocytes % (auto) 0.8 %; Lymphocytes # (auto) 1.04 K/uL (1.20-3.40); Monocytes # (auto) 0.57 K/uL (0.11-0.59); Monocytes % (auto) 4.9 %; Neutrophils # (auto) 9.82 K/uL (1.40-6.50); Neutrophils % (auto) 85.1 %; Toxic Granulation 1+
[2023-11-22 07:25] LABS: Influenza A virus by PCR Negative (Neg); Influenza B virus by PCR Negative (Neg); RSV by PCR Negative (Neg); SARS CoV2 RNA(COVID-19) Ceph NEGATIVE (Negative)
--- NOTE | 2023-11-22 07:35 | History & Physical Report ---
Date of Service November 22, 2023 Assessment & Plan (1) Pneumonia: Plan: Sepsis Left lower lobe pneumonia Hypoxia --CXR:Airspace consolidation at the left lung base is typical for pneumonia/aspiration pneumonitis. Clinical correlation will be required and radiographic follow-up to resolution is recommended. Cardiomegaly without radiographic evidence of congestive failure. -- BioFire negative -Normal lactate -Procalcitonin 1.49 -Blood cultures pending Continue cefepime, doxycycline Continue IV fluids Saturating well on 2 L supplemental oxygen Possible urinary tract infection Urine culture pending On cefepime as above Diarrhea Stool PCR pending Monitor volume status Acute on chronic anemia Denies any acute bleeding issues Anemia workup pending Hypokalemia Replete electrolytes as needed PACs Monitor and replete electrolytes as needed DM Type II: Hold oral diabetic meds Last A1c:6.6 ISS, basal Insulin, Accu checks, Diabetic diet Monitor BGs Hyponatremia Likely chronic, GI losses, poor oral intake likely contributing as well Check urine, serum osmolality, urine sodium Monitor sodium levels Other chronic conditions Dyslipidemia H/O statin intolerance Hypertension Obesity BMI 38 Lichen sclerosus Continue home medications as able DVT Px: Lovenox SQ CODE STATUS Full code Disposition PT OT prior to discharge (2) Acute UTI (urinary tract infection): (3) Sepsis: Plan: Management as above History of Present Illness Chief Complaint: Generalized weakness Primary Care Provider: Liliam Crum PA-C Patient is a 73-year-old female with history of diabetes mellitus type 2, dyslipidemia, hypertension, lichen sclerosis, COVID, obesity and other medical problems presents with history of worsening generalized weakness, cough since about 1 week duration. Patient states having significant weakness and having difficulty with ambulation. She was prescribed prednisone by her PCP 2 days ago but has not started to take the medication yet. Reports dry cough associated with intermittent fever, poor oral intake, dyspnea predominantly on exertion, nausea and vomiting. Also reports diarrhea 2 days ago which she currently believes has improved. Patient is a poor historian. Patient also states that she had transient confusion 2 days ago but currently has no issues. She states being prone to UTIs and currently suspicious of having UTI. Denies any aspiration. Denies any history of chest pain, palpitations, dizziness, hemoptysis, headache, change in vision, abdominal pain, blood in stools, hematuria. Allergies Allergy/AdvReac Type Severity Reaction Status Date / Time naproxen Allergy Intermediate EDEMA OF Verified 11/22/23 11:32 FACE/LIPS/TONGUE Sulfa (Sulfonamide Allergy Intermediate RASH Unverified 11/22/23 11:32 Antibiotics) atorvastatin AdvReac Intermediate LEG Verified 11/22/23 11:32 PAIN/SWELLING simvastatin AdvReac Mild LEG CRAMPS Verified 11/22/23 11:32 Home Medications Medication Instructions Recorded Confirmed Type albuterol sulfate 2.5 mg/3 mL 2.5 mg inhalation QID PRN 07/16/18 11/22/23 History (0.083 %) solution for nebulization Shortness Of Breath Or Wheezing albuterol sulfate 90 mcg/actuation 2 puff inhalation DIRECTED PRN 07/16/18 11/22/23 History aerosol inhaler (ProAir HFA) Shortness Of Breath aspirin 81 mg tablet,delayed 81 mg PO DAILY 07/16/18 11/22/23 History release gemfibrozil 600 mg tablet (Lopid) 600 mg PO BID 07/16/18 11/22/23 History hydrochlorothiazide 25 mg tablet 25 mg PO DAILY PRN Edema 07/16/18 11/22/23 History lisinopril 5 mg tablet 5 mg PO QAM 07/16/18 11/22/23 History metformin 500 mg tablet 500 mg PO BID 07/16/18 11/22/23 History omeprazole 20 mg capsule,delayed 20 mg PO QAM 07/16/18 11/22/23 History release ezetimibe 10 mg tablet (Zetia) 10 mg PO QAM 11/24/20 11/22/23 History Past Med/Surg History Medical History HLD (hyperlipidemia) Lichen sclerosus Osteoporosis Obesity Hypokalemia Hypertension Diabetes Surgical History History of shoulder surgery x 2 on R and L x 1 - rotator cuff History of hysteroscopy History of cystoscopy Family History Mother , 65 Stomach cancer Coronary heart disease Stroke Daughter Breast cancer Social History Smoking Status: Former smoker Tobacco Type: Cigarettes Second Hand Exposure: No; Do You Dip or Chew Tobacco: No; Hx Alcohol Use: Yes Hx Substance Use: No Preferred Language: Senegalese Communication Ability: Effective Pcb Design Engineer Required: No Beliefs That Will Affect Care: None marital status: Current Living Situation: Spouse Other Information That Helps Us Care for You: No Feels Safe at Home: Yes Safety Concerns: Feels Safe At This Time Assistive Devices: Glasses Review of Systems Review of Systems: All systems reviewed & are unremarkable except as noted in Subjective Physical Exam Physical Exam: Physical Exam: Vitals signs as noted above General Appearance:Obese, no apparent distress Head: normocephalic, Atraumatic Eyes: normal inspection, EOMI Neck: supple, Trachea midline Respiratory/Chest: Decreased breath sounds, CTA, No accessory muscle use Cardiovascular: S1, S2, No murmur Abdomen/GI:Soft, Non tender, Bowel sounds present Extremities/Musculoskeletal:normal inspection, Trace pedal edema Neurologic/Psych:AAOX3, grossly no focal neurological deficits Skin: normal color, warm Results & Data Results & Data Vital Signs (Past 12 Hours) Vital Signs Temp Pulse Resp BP Pulse Ox O2 Del Method 11/22/23 05:40 39.2 C H 105 H 18 134/67 92 Room Air 11/22/23 05:34 107 H Laboratory Results Short CBC 11/22/23 Range/Units 05:40 WBC 11.54 H (4.8-10.8) K/ul Hgb 9.5 L (12.0-16.0) g/dl Hct 28.2 L (37.0-47.0) % Plt Count 317 (130-400) K/uL BMP 11/22/23 05:40 Sodium 129 L Potassium 3.2 L Chloride 97 L Carbon Dioxide 22 BUN 15 Creatinine 0.76 Glucose 136 H Calcium 8.6 Liver Function 11/22/23 Range/Units 05:40 Total Bilirubin 0.5 (0.2-1.0) mg/dl AST 30 (13-39) U/L ALT 25 (7-52) U/L Alkaline Phosphatase 73 (34-104) U/L Albumin 3.1 L (3.4-5.0) gm/dl Urine 11/22/23 Range/Units 09:10 Urine Color Yellow Urine Appearance Clear (Clear) Urine pH 6.0 (4.5-7.5) Ur Specific [place] 1.013 (1.000-1.030) Urine Protein 1+ H (Negative) Urine Glucose (UA) Negative (Negative) Diagnostic Findings CXR:Airspace consolidation at the left lung base is typical for pneumonia/aspiration pneumonitis. Clinical correlation will be required and radiographic follow-up to resolution is recommended. Cardiomegaly without radiographic evidence of congestive failure. ECG Additional Comments: EKG: Sinus rhythm with PACs. Left axis deviation. QTc 444. (1) Pneumonia Lung location: lower lobe of lung Pneumonia type: due to unspecified organism (3) Sepsis Sepsis acute organ dysfunction status: unspecified Sepsis type: sepsis due to unspecified organism Qualified Code(s): A41.9 - Sepsis, unspecified organism
--- NOTE | 2023-11-22 07:37 | XRay Report ---
SINGLE VIEW CHEST CLINICAL HISTORY: Dyspnea. Hypoxia. FINDINGS: An AP, portable, upright chest radiograph is compared to study dated 12/03/2020 and correlate d with chest CT dated 11/28/2020. The heart is enlarged noting atherosclerotic calcification of the th oracic aorta. The pulmonary vasculature is noncongested. There is airspace consolidation at the left lung base. No large pleural effusion or pneumothorax is seen. The skeletal structures are osteopenic. The bony thorax is grossly intact. Advanced arthritic change is noted in the shoulders. IMPRESSION: 1. Airspace consolidation at the left lung base is typical for pneumonia/aspiration pneumonitis. Clin ical correlation will be required and radiographic follow-up to resolution is recommended. 2. Cardiomegaly without radiographic evidence of congestive failure. ACT 112: Negative or not required by law. Electronically signed by: Luis Quintana M.D. 11/22/2023 7:36 AM
[2023-11-22] MEDS: CEFEPIME 2,000 MG in SYRINGE 0 ML IV STA (07:42)
[2023-11-22] MEDS ORDERED: ONDANSETRON INJ 2 MG/ML 2 ML VIAL IV PRN (09:13)
[2023-11-22] MEDS ORDERED: CARBOHYDRATES FOR HYPOGLYCEMIA PO PRN (09:13)
[2023-11-22] MEDS ORDERED: GLUCOSE 40% GEL 15 GM TUBE PO PRN (09:13)
[2023-11-22] MEDS ORDERED: GLUCAGON FOR INJ 1 MG VIAL SQ PRN (09:13)
[2023-11-22] MEDS ORDERED: POLYETHYLENE (MIRALAX) 17 GM PACK PO PRN (09:13)
[2023-11-22] MEDS ORDERED: GLUCOSE 10 TAB/TUBE PO PRN (09:13)
[2023-11-22] MEDS ORDERED: DEXTROSE 50% 50 ML SYRINGE IV PRN (09:13)
[2023-11-22 09:33] LABS: Appearance Urine Clear (Clear); Bacteria Urine Automated 4+ (None Seen); Bilirubin Urine Negative (Negative); Blood Urine 2+ (Negative); Cast Urine Automated 0-2 /lpf (0-2); Color Urine Yellow; Epithelial Cell Urine Auto 0-2 /hpf (0-2); Glucose Urine UA Negative (Negative); Ketones Urine 1+ (Negative); Leukocyte Esterase Urine Trace (Negative); Nitrite Urine Negative (Negative); Protein Urine 1+ (Negative); RBC Urine Automated 0-2 /hpf (0-2); Specific Gravity Urine 1.013 (1.000-1.030); Urobilinogen Urine Negative (Negative); WBC Urine Automated 21-50 /hpf (0-5)
[2023-11-22 09:39] LABS: Magnesium 1.8 mg/dl (1.7-2.4)
[2023-11-22] MEDS: POTASSIUM CHLORIDE CRTAB 20 MEQ TABCR PO ONE (09:53)
[2023-11-22] MEDS: PANTOprazole 40 MG TAB PO SCH (09:53)
[2023-11-22] MEDS: DOXYCYCLINE HYCLATE 100 MG CAP PO SCH (09:53)
[2023-11-22] MEDS: NSS + 20MEQ KCL 20 MEQ/1,000 ML BAG IV SCH (09:54)
[2023-11-22] MEDS: ENOXAPARIN INJ 40 MG/0.4 ML SYR SQ SCH (09:59)
[2023-11-22] MEDS: guaiFENesin/DEXTROM SYRUP 200MG/20MG 10ML UDC PO PRN (09:59)
[2023-11-22 11:01] LABS: Adenovirus PCR Not Detected (NotDetected); Bordetella parapertussis PCR Not Detected (NotDetected); Bordetella pertussis PCR Not Detected (NotDetected); Chlamydia pneumoniae PCR Not Detected (NotDetected); Coronavirus 229E PCR Not Detected (NotDetected); Coronavirus CoV-2 (COVID19)PCR Not Detected (NotDetected); Coronavirus HKU1 PCR Not Detected (NotDetected); Coronavirus NL63 PCR Not Detected (NotDetected); Coronavirus OC43PCR Not Detected (NotDetected); Human Metapneumovirus PCR Not Detected (NotDetected); Influenza A PCR Not Detected (NotDetected); Influenza B PCR Not Detected (NotDetected); Mycoplasma pneumoniae PCR Not Detected (NotDetected); Parainfluenza Virus 1 PCR Not Detected (NotDetected); Parainfluenza Virus 2 PCR Not Detected (NotDetected); Parainfluenza Virus 3 PCR Not Detected (NotDetected); Parainfluenza Virus 4 PCR Not Detected (NotDetected); Respiratory Syncytial VirusPCR Not Detected (NotDetected); Rhinovirus/Enterovirus PCR Not Detected (NotDetected)
[2023-11-22] MEDS: INSULIN ASPART PER UNIT CHARGE SC SCH (13:01)
[2023-11-22] MEDS: ADVANCED PROBIOTIC 625 MG CAPSULE PO SCH (13:07)
[2023-11-22] MEDS: ALBUTEROL 0.083% NEBU SOLN 3 ML VIAL NEB PRN (14:29)
[2023-11-22] MEDS: MAGNESIUM SULFATE / D5W 1 GM/100 ML BAG IV ONE (15:35)
[2023-11-22] MEDS: CEFEPIME 2,000 MG in SYRINGE 0 ML IV SCH (15:35)
[2023-11-22 17:34] LABS: Adenovirus F 40/41 PCR Not Detected (NotDetected); Astrovirus PCR Not Detected (NotDetected); Campylobacter PCR Not Detected (NotDetected); Cryptosporidium PCR Not Detected (NotDetected); Cyclospora cayetanensis PCR Not Detected (NotDetected); Entamoeba histolytica PCR Not Detected (NotDetected); Enteroaggregative E.coli(EAEC) Not Detected (NotDetected); Enteropathogenic E.coli (EPEC) Not Detected (NotDetected); Enterotoxigenic E.coli (ETEC) Not Detected (NotDetected); Giardia lamblia PCR Not Detected (NotDetected); Norovirus GI/GII PCR Not Detected (NotDetected); Plesiomonas shigelloides PCR Not Detected (NotDetected); Rotavirus A PCR Not Detected (NotDetected); Salmonella PCR Not Detected (NotDetected); Sapovirus PCR Not Detected (NotDetected); Shiga-like Toxin E.coli (STEC) Not Detected (NotDetected); Shigella/Enteroinvasive E.coli Not Detected (NotDetected); Vibrio cholerae PCR Not Detected (NotDetected); Vibrio species PCR Not Detected (NotDetected); Yersinia enterocolitica PCR Not Detected (NotDetected)
--- OUTSIDE RECORDS SUMMARY | 2023-11-22 18:19 | External Medical Summary | Summary of Care ---
Author Name Unknown Organization [facility] Address [address] [place] [address] Phone [phone] Care Team Providers Care Build Engineer Name Role Phone Liliam Crum PA-C Primary Care Provider [phone] Reason for Visit * Reason Onset Date Comments Advice 11/19/2023 Status Check 11/19/2023 Encounter Details Date Type Department Care Team (Late st Contact Info) Description 11/19/[address] [facility] [place] [address] [facility] [place] [address] Liliam Crum PA-C [address] [facility] [place] [address] Advice; Status Check Allergies Active Allergy Reactions Criticality Noted Date Comments Cephalexin Rash 06/29/2019 Informed by pt. Happened in January 2018 started on the legs while on vacation Atorvastatin Calcium 08/08/2011 Leg pain and swelling Nitrofurantoin Macrocrystal Diarrhea,Nausea/vom iting 10/02/2018 Also rash per Vidhya Reis Nitrofurantoin 10/02/2018 Makes patient sick Naproxen Edema face/lips/tongue High 01/22/2008 Facial swelling Sulfa Antibiotics Rash 02/08/1999 Also causes burning and skin changes Simvastatin - High Dose 10/05/2013 Muscle pain and cramping documented as of this encounter (statuses as of 11/21/2023) Medications Medication Sig Dispensed Refills Start Date End Date Status Aspirin 81 MG TabletIndications: Type 2 diabetes mellitus with hemoglobin A1c goal of less than 7.0% ([facility]) Take 1 Tablet by mouth in the morning. 30 Tab 0 02/03/2017 Active Albuterol Sulfate HFA 108 (90 Base) MCG/ACT Inhalation Aerosol Solution Inhale 2 Puffs by mouth 4 times a day. 54 g 1 10/12/2020 Active Estradiol 0.1 MG/GM Vaginal Cream (Estrace) Administer into the vagina 0.5 g once a day Friday and only . At nighttime as directed. 42.5 g 6 11/29/2021 Active Additional Information Patient taking differently:0.5 g VaginalPRN, At nighttime as directed., Reported on 08/20/2023 Ibuprofen 200 MG Oral Tablet (Motrin) Take 2 Tablets by mouth as needed. 0 Active D-Mannose 500 MG Oral Capsule Take 2 Capsules by mouth in the morning and 2 Capsules before bedtime. 0 Active metFORMIN HCl 500 MG Oral Tablet (Glucophage)Indica tions:Essential hypertension with goal blood pressure less than 140/90 Take 1 Tab by mouth 2 times a day with morning and evening meals. 180 Tablet 3 08/27/2023 Active Lisinopril 5 MG Oral Tablet (Prinivil)Indicati ons:Essential hypertension with goal blood pressure less than 140/90 Take 1 Tablet by mouth in the morning. 90 Tablet 3 08/27/2023 Active Clobetasol Propionate 0.05 % External Ointment (Temovate) use daily on affected area after warm soaks for 5-10 days and then use twice a week sparingly 60 g 08/27/2023 Active Ezetimibe 10 MG Oral Tablet (Zetia) Take 1 Tablet by mouth in the morning. 90 Tablet 3 11/10/2023 Active Gemfibrozil 600 MG Oral Tablet (Lopid) Take 1 Tablet by mouth 2 times a day 30 minutes before morning and evening meals. 180 Tablet 3 11/10/2023 Active hydroCHLOROthiazid e 25 MG Oral Tablet (Hydrodiuril)Indic ations:Essential hypertension with goal blood pressure less than 140/90 Take 1 Tablet by mouth daily as needed for Other (swelling). 90 Tablet 3 11/10/2023 Active Omeprazole 20 MG Oral Capsule Delayed Release (PriLOSEC)Indicati ons:Gastroesophage al reflux disease with esophagitis without hemorrhage Take 1 Capsule by mouth in the morning. 90 Capsule 3 11/10/2023 Active OneTouch Verio w/Device Kit Use up to 4 times a day E11.9 1 Kit 0 11/18/2023 Active OneTouch Verio In Vitro Strip (Glucose Blood) Use up to 4 times a day E11.9 200 Strip 3 11/18/2023 Active OneTouch Delica Lancets 30G Use twice daily 200 Each 3 11/18/2023 Active Albuterol Sulfate (2.5 MG/3ML) 0.083% Inhalation Nebulization Solution (Proventil)Indicat ions:Acute bronchospasm One vial in nebulizer every 4 hours as needed for wheezing 60 mL 3 11/19/2023 Active predniSONE 20 MG Oral Tablet (Deltasone) Take 2 Tablets by mouth in the morning for 5 days. 10 Tablet 0 11/20/2023 4 Active Benzonatate 100 MG Oral Capsule (Tessalon Perles) Take 1 Capsule by mouth 3 times a day as needed for Cough. Do not cut, crush, or chew. 21 Capsule 1 11/21/2023 Active Albuterol Sulfate (2.5 MG/3ML) 0.083% Inhalation Nebulization Solution (Proventil)Indicat ions:Acute bronchospasm One vial in nebulizer every 4 hours as needed for wheezing 60 mL 3 01/02/2022 4 Discontinue d(Refill) documented as of this encounter (statuses as of 11/21/2023) Active Problems Problem Noted Date Diagnosed Date History of 2019 novel coronavirus disease (COVID -19) 11/27/2021 Age-related osteoporosis wit hout current pathological fracture 07/31/2020 Hypokalemia 02/20/2018 Facial nerve paresis 08/19/2017 Left asymmetrical SNHL 08/19/2017 Mastoiditis of left side 08/18/2017 Statin intolerance 06/03/2016 Type 2 diabetes mellitus wit h hemoglobin A1c goal of less than 7.0% 11/16/2014 Overview: ICD-10 update of inactive term BMI 35-39 ISOLATED (SEE ACTUAL BMI) 01/15/2010 Overview: Per Obesity Protocol, #19 DYSLIPIDEMIA, GOAL TO BE DETERMINED 07/18/2009 Overview: Per Lipid Taxonomy. ADVANCE DIRECTIVE INFORMATION 09/05/2006 Overview: No, Advance Directive brochure given to patient at prior appointment. 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 Torn rotator cuff 02/16/2019 Overview: surgeries times 3. documented as of this encounter (statuses as of 11/21/2023) Immunizations Name Administration Dates Next Due Pneumococcal Conjugate Vacc, 13 Valent (Prevnar) 07/31/2018 Pneumococcal Polysaccharide PPV23 (Pneumovax) 02/03/2017 Season Influenza, Quad, PF, Adjuvanted, 65+ Yrs, IM (FLUAD) 04/18/2020 Seasonal Influenza, PF, 6 M & above, IM , (FluLaval or Fluzone) 07/31/2018,09/09/2017 Seasonal Influenza, Quadriva lent Hd (Fluzone Hd) 07/10/2022 Seasonal Influenza, Quadriva lent, No Preserve, IM 06/03/2016,05/18/2015 05/22/2016 Seasonal Influenza, Split, I IV3, With Preserve, Inj 04/07/2014,06/01/2013,05/28/2012,08/04,06/05/2010,05/26/2008 TD, Preservative Free 08/06/2017 TDAP (age 10 and older)(Boostrix) 11/27/2021 TDAP (age 11 and older)(Adacel) 05/26/2008 documented as of this encounter Social History Tobacco Use Types Packs/Day Years Used Date Smoking Tobacco: Never Smokeless Tobacco: Never Alcohol Use Standard Drinks/Week Comments Yes 0 (1 standard drink = 0.6 oz pur e alcohol) rare PHQ-2 Answer Date Recorded PHQ-2 Score 0 06/15/2018 Sex and Gender Information Value Date Recorded Sex Assigned at Not on file Gender Identity Not on file Sexual Orientation Not on file Job Start Date Occupation Industry Not on file Not on file Not on file documented as of this encounter Functional Status Functional Status Response Date of Assess ment Are you deaf or do you have serious difficulty h earing? No 04/03/2023 Are you blind or do you have serious difficulty seeing, even when wearing glasses? No 04/03/2023 Do you have serious difficul ty walking or climbing stairs? (5 years old or older) No 04/03/2023 Do you have difficulty dress ing or bathing? (5 years old or older) No 04/03/2023 Because of a physical, menta l, or emotional condition, do you have difficulty doing errands alone such as visiting a doctor s office or shopping? (15 years old or older) No 04/03/20 Cognitive Status Response Date of Assessm ent Because of a physical, menta l, or emotional condition, do you have serious difficulty concentrating, remembering, or making decisions? (5 years old or older) No 04/03/2023 documented as of this encounter Miscellaneous Notes * Addendum Note - Levar Nieto III, MD - 11/21/2023 4:09 PM EDTAddended by: LEVAR NIETO on: 11/21/2023 04:09 PM Modules accepted: Orders * Telephone Encounter - Selena Jacob PHARM Tech - 11/21/2023 2:10 PM EDT Pt calling with complaints of cough suppressant and is requesting a medication be prescribed. Pt did not want to schedule an appointment at this time. Call details was not completed because ongoing. Please advise. Pt coughing so much it is making her sick. Thank you, Selena Jacob Mud Tank Operator I [facility] ([facility]) (Formerly Telepharm[facility]) 11/21/2023,2:10 PM * Telephone Encounter - Liliam Crum PA-C - 11/20/2023 5:04 PM EDT Script sent. * Telephone Encounter - Kamille Coles LPN - 11/20/2023 5:02 PM EDT Provider has been seeing patients all day. Will try to catch her between patients. * Telephone Encounter - Nora Jimenez OSA - 11/20/2023 4:53 PM EDT Patient called she is still waiting for a response about medication for prednisone, she needs this put in zaida because the Pharmacy closes soon. * Telephone Encounter - Elise Monsalve CPhT - 11/20/2023 2:21 PM EDT Pt's calling to check on status of a medication for a cough. Pt's was very upset stating "does [facility] even give a shit about her". Caller states she has tried some otc medications but they are not working for her she still has a bad cough. Pt's is asking that when anyone calls back to call her phone number and not his because he will not be very pleasant. Caller can be reached at [phone]. Thank you, Yanni Monsalve CPhT Retail Receiving Clerk II [facility] ([facility]) (Formerly Telepharmacy) 11/20/2023,2:21 PM * Telephone Encounter - Abena Almaguer LPN - 11/20/2023 11:02 AM EDT Patient is aware and verbalizes understanding. Patient would like prednisone script and she is asking if there could be something she could be prescribed for the cough Mucinex not helping, has taken an entire bottle Or is there something different OTC that you recommend Pharm selected. Please advise. Please call patient back at [phone] with advice * Telephone Encounter - Dorinda Knox OSA - 11/20/2023 10:59 AM EDT Reason for patient's call: returning call Caller was transferred to Abena at the nurse line. * Telephone Encounter - Aurora Carney LPN - 11/20/2023 9:07 AM EDT Called pt. No answer. Left message message to return call. * Telephone Encounter - Liliam Crum PA-C - 11/19/2023 7:24 PM EDT Albuterol sent. Would she like a short burst of prednisone * Telephone Encounter - Nora Ac LPN - 11/19/2023 12:22 PM EDT Ok for prescription or should she come in for an appt, please advise. * Telephone Encounter - Malaika Bains OSA - 11/19/2023 12:07 PM EDT Pt. Has called in states she has been really sick since last Friday11/14/23 she took 3 covid tests she states 2 were negative 1 was positive. She took one today & was negative she's got a really bad cough, diarrhea, chills, a fever of 103.2 when she last took. Pt. States she has been wheezing has a nebulizer but it has no more liquid solution all packages are needs something called insoon please advise documented in this encounter Plan of Treatment Upcoming Encounters Date Type Department Care Team (Late st Contact Info) Description 12/13/2023 3:30 PM EDT Imaging Radiology [facility] [address] [facility] [place] [address] [place] [address] 12/24/2023 2:55 PM EDT Office Visit Urogynecology [facility] [address] [place] [address] George Loyola MD [address] [place] [address] Nurse Sakina Alcaraz [facility] [address] [place] [address] Scheduled Procedures Name Priority Associated Diagnoses Date/Ti me COLONOSCOPY FLEXIBLE PROXIMA L DIAGNOSTIC Recall Special screening for malignant neoplasms, colon Health Maintenance Due Date Last Done Comments Cologuard 1997 Fecal Occult Blood Test 1997 Sigmoidoscopy 1997 Zoster Vaccines (1 of 2) 2002 Colonoscopy 05/15/2017 05/15/2007 Colorectal Cancer Screening 05/15/2017 Depression Screening 06/15/2019 06/15/2018, 11/16/2014 (Discussed) Mammogram 01/26/2020 01/25/2019, 10/19/2010 *BISPHONATE OR OTHER ACCEPTABLE MEDICATION NEEDED FOR OSTEOPOROSIS (REFER TO SMARTSET #1146) 08/02/2020 DXA Scan 01/26/2021 01/26/2019 Pneumococcal Vaccine: 65+ Years (3 of 3 - PPSV23 or PCV20) 02/03/2022 07/31/2018, 02/03/2017 COVID-19 Vaccine (1 - season) 2023 Diabetic Eye Exam 05/14/2023 05/14/2022, , 12/13/2019, Additional history exists Albumin/Creatinine Ratio 07/03/202307/03/2 022, 06/07/2016, 11/16/2014 (Discussed) B-12 07/03/2023 07/03/2022, 09/2020, 02/11/2019, Additional history exists Influenza Vaccine (FLU shot) (Season Ended) 2024 07/10/2022, 04/18/2020, 07/31/2018, Additional history exists HbA1c 05/05/2024 11/04/2023, 08/2022, 07/03/2022, Additional history exists GFR 11/03/2024 11/04/2023, 08/04, 04/04/2023, Additional history exists Diabetic Foot Exam 11/09/2024 11/10/2023, 10/01/2019, 02/13/2018, Additional history exists Lipid Panel 11/03/2028 11/04/2023, 06/06, 10/03/2020, Additional history exists DTaP,Tdap,and Td Vaccines (4 - Td or Tdap) 11/28/2031 11/27/2021, 08/06/2017, 05/26/2008 VITAMIN D LEVEL ONCE IN A LIFETIME-USE SMARTSET# 17180 Completed 03/06/2020 GARDASIL-HPV IMMUNIZATION SERIES Aged Out No longer eligible based on patient's age to complete this topic Hepatitis B Aged Out No longer eligi ble based on patient's age to complete this topic MENINGOCOCCAL (MENACTRA/MENVEO) Aged Out No longer eligible based on patient's age to complete this topic documented as of this encounter Medical Devices Implanted Type Area Electronic Resources Librarian Device Identifier Shelf Expiration Date Model / Serial / Lot Sling Kaleigh Mclaughlin - [id number] Implanted:Qty: 1 on 04/03/2023 by George Loyola MD at OR [facility] N/A: Vagina [employer] 06/14/2024 [id number] / / [id number] Y-Mesh 26 X 4 X 3 Cm - [id number] Implanted:Qty: 1 on 04/03/2023 by George Loyola MD at OR [facility] N/A: Vagina [employer] 06/04/2027 [id number] / / [id number] documented as of this encounter Visit Diagnoses Diagnosis Acute bronchospasm documented in this encounter Advance Directives Latest Code Status on File Code Status Date Activated Date Inactivated Comments Full Code 04/03/2023 1:19 PM 04/04/2023 5:35 PM This o rder reflects the patients wishes and were consensually agreed upon. Question Answer Comments Discussion of Advance Directives occurred with: Patient Care Teams Build Engineer Relationship Specialty Start Date End Date RadamesNovember ELISEO Rosa [facility] [address] [place] [address] PCP - General Physician Roller Leveler Operator 02/20/18 documented as of this encounter
--- OUTSIDE RECORDS SUMMARY | 2023-11-22 18:19 | External Medical Summary | Summary of Care ---
Author Name Unknown Organization [facility] Address [address] [place] [address] Phone [phone] Care Team Providers Care Non Destructive Testing Technician Name Role Phone Liliam Crum PA-C Primary Care Provider [phone] Reason for Visit * Reason Onset Date Comments Advice 11/19/2023 Status Check 11/19/2023 Encounter Details Date Type Department Care Team (Late st Contact Info) Description 11/19/2023 Telephone Family Practice [facility] [address] [facility] [place] [address] Liliam Crum PA-C [address] [facility] [place] [address] Advice; Status Check Allergies Active Allergy Reactions [...] hemoglobin A1c goal of less than 7.0% ([facility]) Take 1 Tablet by mouth in the [...] days. 10 Tablet 0 11/20/2023 4 Active Albuterol Sulfate (2.5 MG/3ML) 0.083% Inhalation [...] cystitis without hematuria 02/20/2018 05/22/2018 Bronchitis, complicated 05/07/20170 10/2017 Impaired fasting glucose 02/21/201110/2017 Dyslipidemia, goal to [...] as of this encounter Miscellaneous Notes * Telephone Encounter - Selena Jacob PHARM Tech - 11/21/2023 2:10 PM EDT Pt calling with complaints of cough suppressant and is requesting a medication be prescribed. Pt did not want to schedule an appointment at this time. Call details was not completed because ongoing. Please advise. Pt coughing so much it is making her sick. Thank you, Selena Jacob Clipping Marker I [facility] ([facility]) (Formerly [...] very pleasant. Caller can be reached at [phone]. Thank you, Yanni Monsalve CPhT Parliamentary Archivist II [facility] ([facility]) (Formerly [...] Please advise. Please call patient back at [phone] with advice * Telephone Encounter - Dorinda Knox OSA - 11/20/2023 10:59 AM EDT Reason for patient's call: returning call Caller was transferred to [facility] at the nurse line. * Telephone Encounter [...] Description 12/13/2023 3:30 PM EDT Imaging Radiology [address] [place] [id number] 12/24/2023 2:55 PM EDT Office Visit Urogynecology [facility] [address] [place] [address] George Loyola MD [address] [place] [address] Nurse Sakina Alcaraz Lili [address] [place] [address] Scheduled Procedures Name Priority Associated Diagnoses Date/Ti [...] or PCV20) 02/03/2022 07/31/2018, 02/03/2017 COVID-19 Vaccine ( season) 2023 Diabetic Eye Exam 05/14/2023 05/14/2022, , 12/13/2019, Additional history exists Albumin/Creatinine Ratio 07/03/2023 022, 06/07/2016, 11/16/2014 (Discussed) B-12 07/03/2023 07/03/2022, 09/2020, 02/11/2019, Additional history exists Influenza Vaccine (FLU shot) (Season Ended) 2024 07/10/2022, 04/18/2020, 07/31/2018, Additional history exists HbA1c 05/05/2024 11/04/2023, 09/0 08/2022, 07/03/2022, Additional history exists GFR 11/03/2024 11/04/2023, 08/04, 04/04/2023, Additional history exists Diabetic Foot Exam 11/09/2024 11/10/2023, 1 10/01/2019, 02/13/2018, Additional history exists Lipid Panel 11/03/2028 11/04/2023, 06/06, 10/03/2020, Additional history exists DTaP,Tdap,and Td Vaccines (4 - Td or Tdap) 11/28/2031 11/27/2021, 08/06/2017, 05/26/2008 VITAMIN D LEVEL ONCE IN A LIFETIME-USE SMARTSET# 72818 Completed 03/06/2020 GARDASIL-HPV IMMUNIZATION SERIES Aged Out No longer eligible based on patient's age to complete this topic Hepatitis B Aged Out No longer eligi ble based on patient's age to complete this topic MENINGOCOCCAL (MENACTRA/MENVEO) Aged Out No longer eligible based on patient's age to complete this topic documented as of this encounter Medical Devices Implanted Type Area Production Hardener Device Identifier Shelf Expiration Date Model / Serial / Lot Sling Desara One - [id number] Implanted:Qty: 1 on 04/03/2023 by George Loyola MD at OR [facility] N/A: Vagina [employer] 06/14/2024 [id number] / / [id number] Y-Mesh 26 X 4 X 3 Cm - [id number] Implanted:Qty: 1 on 04/03/2023 by George Loyola MD at OR [facility] N/A: Vagina [employer] 06/04/2027 [id number] / / [id number] documented as of this encounter Visit Diagnoses Diagnosis Acute bronchospasm documented in this encounter Advance Directives Latest Code Status on File Code Status Date Activated Date Inactivated Comments Full Code 04/03/2023 1:19 PM 04/04/2023 5:35 PM This o rder reflects the patients wishes and were consensually agreed upon. Question Answer Comments Discussion of Advance Directives occurred with: Patient Care Teams Non Destructive Testing Technician Relationship Specialty Start Date End Date RadamesNovember ELISEO Rosa [address] [place], [place] [address] PCP - General Physician R D Manager 02/20/18 documented as of this encounter
--- OUTSIDE RECORDS SUMMARY | 2023-11-22 18:19 | External Medical Summary | Summary of Care ---
Author Name Unknown Organization [facility] Address [address] [place] [address] Phone [phone] Care Team Providers Care Kindergartner Name Role Phone Liliam Crum PA-C Primary Care Provider [phone] Reason for Visit * Reason Onset Date Comments Advice 11/19/2023 Status Check 11/19/2023 Encounter Details Date Type Department Care Team (Late st Contact Info) Description 11/19/2023 Telephone Family Practice [facility] 200 [facility] [place] [address] Liliam Crum PA-C 200 [facility] [place] [address] Advice; Status Check Allergies Active Allergy Reactions [...] as of this encounter (statuses as of 11/20/2023) Medications Medication Sig Dispensed Refills Start Date End Date Status Aspirin 81 MG TabletIndications: Type 2 diabetes mellitus with hemoglobin A1c goal of less than 7.0% ([facility]) Take 1 Tablet by mouth in the [...] as of this encounter (statuses as of 11/20/2023) Active Problems Problem Noted Date Diagnosed Date [...] as of this encounter (statuses as of 11/20/2023) Resolved Problems Problem Noted Date Diagnosed Date [...] as of this encounter (statuses as of 11/20/2023) Immunizations Name Administration Dates Next Due Pneumococcal [...] encounter Miscellaneous Notes * Telephone Encounter - Liliam Crum PA-C [...] cough. Pt's was very upset stating "does [facility] even give a shit about her". Caller states she has tried some otc medications but they are not working for her she still has a bad cough. Pt's is asking that when anyone calls back to call her phone number and not his because he will not be very pleasant. Caller can be reached at [phone]. Thank you, Yanni Monsalve CPhT Rn Urgent Care II [facility] ([facility]) (Formerly [...] Please advise. Please call patient back at [phone] with advice * Telephone Encounter - Dorinad Knox OSA - 11/20/2023 10:59 AM EDT Reason for patient's call: returning call Caller was transferred to [facility] at the nurse line. * Telephone Encounter [...] Description 12/13/2023 3:30 PM EDT Imaging Radiology [facility] 1st [facility] [address] [place] [address] 12/24/2023 2:55 PM EDT Office Visit Urogynecology [facility] [address] [place] [address] George Loyola MD [address] [place] [address] Nurse Sakina Alcaraz [address] [place] [address] Scheduled Procedures Name Priority Associated Diagnoses Date/Ti [...] 022, 06/07/2016, 11/16/2014 (Discussed) B-12 07/03/2023 07/03/2022, 0309/2020, 02/11/2019, Additional history exists Influenza Vaccine (FLU [...] D LEVEL ONCE IN A LIFETIME-USE SMARTSET# [id number] Completed 03/06/2020 GARDASIL-HPV IMMUNIZATION SERIES Aged Out No longer eligible based on patient's age to complete this topic Hepatitis B Aged Out No longer eligi ble based on patient's age to complete this topic MENINGOCOCCAL (MENACTRA/MENVEO) Aged Out No longer eligible based on patient's age to complete this topic documented as of this encounter Medical Devices Implanted Type Area Scientific Informatics Project Leader Device Identifier Shelf Expiration Date Model / Serial / Lot Sling Kaleigh One - [id number] Implanted:Qty: 1 on 04/03/2023 by George Loyola MD at OR [facility] N/A: Vagina [employer] 06/14/2024 [id number] / / [id number] Y-Mesh 26 X 4 X 3 Cm - [id number] Implanted:Qty: 1 on 04/03/2023 by George Loyola MD at OR [facility] N/A: Vagina [employer] 06/04/2027 [id number] / / [id number] documented as of this encounter Visit Diagnoses Diagnosis Acute bronchospasm documented in this encounter Advance Directives Latest Code Status on File Code Status Date Activated Date Inactivated Comments Full Code 04/03/2023 1:19 PM 04/04/2023 5:35 PM This o rder reflects the patients wishes and were consensually agreed upon. Question Answer Comments Discussion of Advance Directives occurred with: Patient Care Teams Kindergartner Relationship Specialty Start Date End Date Ebonynovember ELISEO Rosa [address] [place] [address] PCP - General Physician Fire Management Technician 02/20/18 documented as of this encounter
--- OUTSIDE RECORDS SUMMARY | 2023-11-22 18:19 | External Medical Summary | Summary of Care ---
Author Name Unknown Organization [facility] Address [address] [facility] [place] [address] Phone [phone] Care Team Providers Care Floorman Name Role Phone Liliam Crum PA-C Primary Care Provider [phone] Reason for Visit * Reason Onset Date Comments Advice 11/19/2023 Status Check 11/19/2023 Encounter Details Date Type Department Care Team (Late st Contact Info) Description 11/19/2023 Telephone Family Practice [facility] [address] [facility] [place] [address] Liliam Crum PA-C [address] [facility] [place] [address] Advice; Status Check Allergies Active Allergy Reactions [...] hemoglobin A1c goal of less than 7.0% ([facility]) Take 1 Tablet by mouth [...] making her sick. Thank you, Selena Jacob Water Quality Control Engineer I [facility] (Formerly [...] very pleasant. Caller can be reached at [phone]. Thank you, Yanni Monsalve CPhT Steno Typist II [facility]) (Formerly [...] Please advise. Please call patient back at [phone] with advice * Telephone Encounter - Dorinda Knox OSA - 11/20/2023 10:59 AM EDT Reason for patient's call: returning call Caller was transferred to [facility] at the nurse line. * Telephone [...] Description 12/13/2023 3:30 PM EDT Imaging Radiology [address] [place] [id number] 12/24/2023 2:55 PM EDT Office Visit Urogynecology [facility] [address] [place] [address] George Loyola MD [address] [place] [address] Nurse Sakina Alcaraz Lili [address] [place] [address] Scheduled Procedures Name Priority Associated Diagnoses Date/Ti [...] D LEVEL ONCE IN A LIFETIME-USE SMARTSET# 94732 Completed 03/06/2020 GARDASIL-HPV IMMUNIZATION SERIES Aged Out No longer eligible based on patient's age to complete this topic Hepatitis B Aged Out No longer eligi ble based on patient's age to complete this topic MENINGOCOCCAL (MENACTRA/MENVEO) Aged Out No longer eligible based on patient's age to complete this topic documented as of this encounter Medical Devices Implanted Type Area Missile Tracking Technician Device Identifier Shelf Expiration Date Model / Serial / Lot Sling Desara One - [id number] Implanted:Qty: 1 on 04/03/2023 by George Loyola MD at OR [facility] N/A: Vagina [employer] 06/14/2024 [id number] / / [id number] Y-Mesh 26 X 4 X 3 Cm - [id number] Implanted:Qty: 1 on 04/03/2023 by George Loyola MD at OR [facility] N/A: Vagina [employer] 06/04/2027 [id number] / / [id number] documented as of this encounter Visit Diagnoses Diagnosis Acute bronchospasm documented in this encounter Advance Directives Latest Code Status on File Code Status Date Activated Date Inactivated Comments Full Code 04/03/2023 1:19 PM 04/04/2023 5:35 PM This o rder reflects the patients wishes and were consensually agreed upon. Question Answer Comments Discussion of Advance Directives occurred with: Patient Care Teams Floorman Relationship Specialty Start Date End Date RadamesNovember ELISEO Rosa [address] [place], [place] [address] PCP - General Physician Personal Driver 02/20/18 documented as of this encounter
--- OUTSIDE RECORDS SUMMARY | 2023-11-22 18:20 | External Medical Summary | Summary of Care ---
Author Name Unknown Organization [facility] Address [address] [place] [address] Phone [phone] Care Team Providers Care Anesthesia Director Name Role Phone Liliam Crum PA-C Primary Care Provider [phone] Reason for Referral * Ancillary Services (Within 30 days (routine)) - Authorized Specialty Diagnoses / Procedures Referred By Carmen parsons Referred To Contact Gastroenterology Diagnoses Screen for colon cancer Liliam Crum PA-C [address] [place] [address] Referral ID Status Reason Start Date Expiration Date Visits Requested Visits Authorized [id number] Authorized Ancillary Services Required 11/10/2023 999 999 Question Answer Referral Priority Within 30 days (routine) Where should this appointment be scheduled? [facility] Comments ALERT: Do not order for pediatric patients (18 years or younger). Cancel off screen and order PEDS GASTROENTEROLOGY CONSULT (Type: 1 visit only-Evaluate and Treat) The following Pt. Instructions are available: - Gastro Colonoscopy Prep Instructions [19608] - Gastro Colonoscopy Prep Instructions (Zambian Version) [[id number]] Go to the Pt. Instructions section within the Visit Navigator to access. Colonoscopy ASGE Guidelines: Average risk screening (begin at age 50, 10 year intervals) ADDITIONAL INFORMATION 1. Is the patient on Coumadin? No 2. Is the patient on Pradaxa? No * Precert (Within 10 days (routine)) - Authorized Specialty Diagnoses / Procedures Referred By Carmen parsons Referred To Contact Radiology Diagnoses DDD (degenerative disc disease), lumbosacral Lumbar radiculopathy Procedures MRI L SPINE WO CONTRAST Liliam Crum PA-C [address] [place] [address] Referral ID Status Reason Start Date Expiration Date V isits Requested Visits Authorized [id number] Authorized 11/10/2023 999 999 Reason for Visit * Reason Comments Follow Up Patient would like t o go over lab results and review medications Back Pain Patient reports havi ng back pain for many years. Encounter Details Date Type Department Care Team (Late st Contact Info) Description 11/10/2023 8:00 AM EDT Office Visit [facility] [address] [facility] [place] [address] Liliam Crum PA-C [address] [facility] [place] [address] Type 2 diabetes mellitus with hemoglobin A1c goal of less than 7.0% ([facility])*; HTN, goal below 140/90; DYSLIPIDEMIA, GOAL TO BE DETERMINED; Age-related osteoporosis without current pathological fracture; DDD (degenerative disc disease), lumbosacral; Lumbar radiculopathy; Trigger ring finger of left hand; Essential hypertension with goal blood pressure less than 140/90; Gastroesophageal reflux disease with esophagitis without hemorrhage; Encounter for screening mammogram for breast cancer; Screen for colon cancer; 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 Happened in January 2018 started on the legs while on vacation Atorvastatin Calcium 08/08/2011 Leg pain and swelling Nitrofurantoin Macrocrystal Diarrhea,Nausea/vom iting 10/02/2018 Also rash per [facility] Nitrofurantoin 10/02/2018 Makes patient sick Naproxen Edema face/lips/tongue High 01/22/2008 Facial swelling Sulfa Antibiotics Rash 02/08/1999 Also causes burning and skin changes Simvastatin - High Dose 10/05/2013 Muscle pain and cramping documented as of this encounter (statuses as of 11/10/2023) Medications Medication Sig Dispensed Refills Start Date End Date Status Aspirin 81 MG TabletIndications :Type 2 diabetes mellitus with hemoglobin A1c goal of less than 7.0% (HCC) Take 1 Tablet by mouth in the [...] At nighttime as directed., Reported on 08/20/2023 Albuterol Sulfate (2.5 MG/3ML) 0.083% Inhalation Nebulization Solution (Proventil)Indica tions:Acute bronchospasm One vial in nebulizer every 4 hours as needed for wheezing 60 mL 3 01/02/2022 Active Ibuprofen 200 MG Oral Tablet (Motrin) Take 2 Tablets by mouth as needed. 0 Active D-Mannose 500 MG Oral Capsule Take 2 Capsules by mouth in the morning and 2 Capsules before bedtime. 0 Active metFORMIN HCl 500 MG Oral Tablet (Glucophage)Indic ations:Essential hypertension with goal blood pressure less than 140/90 Take 1 Tab by mouth 2 times a day with morning and evening meals. 180 Tablet 3 08/27/2023 Active Lisinopril 5 MG Oral Tablet (Prinivil)Indicat ions:Essential hypertension with goal blood pressure less than 140/90 Take 1 Tablet by mouth in the morning. 90 Tablet 3 08/27/2023 Active Clobetasol Propionate 0.05 % External Ointment (Temovate) use daily on affected area after warm soaks for 5-10 days and then use twice a week sparingly 60 g 3 08/27/2023 Active Ezetimibe 10 MG Oral Tablet (Zetia) Take 1 Tablet by mouth in the morning. 90 Tablet 3 11/10/2023 Active Gemfibrozil 600 MG Oral Tablet (Lopid) Take 1 Tablet by mouth 2 times a day 30 minutes before morning and evening meals. 180 Tablet 3 11/10/2023 Active hydroCHLOROthiazi de 25 MG Oral Tablet (Hydrodiuril)Uma cations:Essential hypertension with goal blood pressure less than 140/90 Take 1 Tablet by mouth daily as needed for Other (swelling). 90 Tablet 3 11/10/2023 Active Omeprazole 20 MG Oral Capsule Delayed Release (PriLOSEC)Indicat ions:Gastroesopha geal reflux disease with esophagitis without hemorrhage Take 1 Capsule by mouth in the morning. 90 Capsule 3 11/10/2023 Active ONETOUCH ULTRASOFT LANCETS [facility] [place] Use as directed 4 times a day as needed for Hyperglycemia (high sugar) or Hypoglycemia (low sugar). Use up to four times a day as directed 1 Box Dosing Unit 11 02/16/2019 11/10/19 24 Discontinu ed(Formula ry/Cost) OneTouch Ultra Blue In Vitro Strip (Glucose Blood) Use as directed 3 times a day. Use up to three times a day as directed e11.9 100 Strip 10/18/2020 11/10/19 24 Discontinu ed(Formula ry/Cost) OneTouch UltraSoft Lancets Use as directed 3 times a day. Use up to three times a day as directed E11.9 100 Each 10/18/2020 11/10/19 24 Discontinu ed(Formula ry/Cost) hydroCHLOROthiazi de 25 MG Oral Tablet (Hydrodiuril)Uma cations:Essential hypertension with goal blood pressure less than 140/90 Take 1 Tablet by mouth daily as needed for Other (swelling). 90 Tablet 3 10/09/2022 11/10/19 24 Discontinu ed(Refill) Omeprazole 20 MG Oral Capsule Delayed Release (PriLOSEC)Indicat ions:Gastroesopha geal reflux disease with esophagitis Take 1 Capsule by mouth in the morning. 90 Capsule 3 10/09/2022 11/10/19 24 Discontinu ed(Refill) Ezetimibe 10 MG Oral Tablet (Zetia) Take 1 Tablet by mouth in the morning. 90 Tablet 3 10/31/2022 11/10/19 24 Discontinu ed(Refill) Gemfibrozil 600 MG Oral Tablet (Lopid) Take 1 Tablet by mouth 2 times a day 30 minutes before morning and evening meals. 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 Torn rotator cuff 02/16/2019 Overview: surgeries times 3. documented as of this encounter (statuses as of 11/10/2023) Immunizations Name Administration Dates Next Due Pneumococcal [...] on file documented as of this encounter Last Filed Vital Signs Vital Sign Reading Time Taken Comments Blood Pressure 122/68 11/10/2023 8:08 AM EDT Pulse 75 11/10/2023 8:08 AM EDT Temperature 36.4 C (97.6 F) 11/10/2023 8:08 AM ED T Respiratory Rate - - Oxygen Saturation 96% 11/10/2023 8:08 AM EDT Inhaled Oxygen Concentration - - Weight 78 kg (172 lb) 11/10/2023 8:08 AM EDT Height 152.4 cm (5') 11/10/2023 8:08 AM EDT Body Mass Index 33.59 11/10/2023 8:08 AM EDT documented in this encounter Functional Status Functional Status Response [...] (15 years old or older) No 04/03/20 23 Cognitive Status Response Date of Assessm ent Because of a physical, menta l, or emotional condition, do you have serious difficulty concentrating, remembering, or making decisions? (5 years old or older) No 04/03/2023 documented as of this encounter Progress Notes * Liliam Crum PA-C - 11/10/2023 8:33 AM EDT Images from the original note were not included. History of Present Illness Rita Glover is a 73 year old female that presents for Follow Up (Patient would like to go over lab results and review medications) and Back Pain (Patient reports having back pain for many years. ) Patient is a 73 year old female who presents for a follow up on diabetes and hypertension. Had her bladder tack done. Now is having back pain. Also talking about left 4th finger sticking. Denies chest pain, sob, palpitations, edema, headaches, dizzy Appetite good Sleep diminished due to her back. Cramps in legs. Urination / bowel movements good. History of low back pain and has had mri which has showed multiple herniation of discs. Pain radiates down both legs. Has times where she can not move and has difficulty waliking Physical Exam Vitals: 11/10/23 0808 Temp: 36.4 C (97.6 F) Pulse: 75 SpO2: 96% BP: 122/68 BMI: 33.59 BP Readings from Last 3 Encounters: 11/10/23 122/68 08/20/23 126/66 04/29/23 122/82 Wt Readings from Last 3 Encounters: 11/10/23 78 kg (172 lb) 08/20/23 78 kg (172 lb) 04/29/23 76.7 kg (169 lb) General: alert, healthy, no distress, well nourished, well developed, comfortable, and cooperative Head: Normocephalic, No masses, lesions, tenderness or abnormalities Eye Exam: PERRLA, extraocular movements intact, conjunctiva are pink and non- injected, sclera clear Neck: supple, no adenopathy, no bruits, thyroid normal size, non-tender, without nodularity Heart: regular rate & rhythm, no murmur, and no gallops Lungs: chest symmetric with normal AP diameter, no chest deformities noted, normal respiratory rateand rhythm, no chest wall tenderness, diaphragmatic excursion normal, lungs clear to auscultation Extremities: less than 2 second capillary refill, no joint deformities, effusion, or inflammation, no edema, no skin discoloration, no clubbing, no cyanosis I have reviewed the following results: CMP, Lipid Panel, and Hemoglobin A1C Assessment and Plan Type 2 diabetes mellitus with hemoglobin A1c goal of less than 7.0% ([facility]) (Primary) - DIABETES FOOT EXAM - DIABETIC EYE EXAM - ALBUMIN / CREATININE RATIO, URINE; Future; Expected date: 11/10/2023 - VITAMIN B12; Future; Expected date: 11/10/2023 HTN, goal below 140/90 DYSLIPIDEMIA, GOAL TO BE DETERMINED Age-related osteoporosis without current pathological fracture DDD (degenerative disc disease), lumbosacral - MRI L SPINE WO CONTRAST; Future; Expected date: 11/10/2023 Lumbar radiculopathy - MRI L SPINE WO CONTRAST; Future; Expected date: 11/10/2023 Trigger ring finger of left hand Essential hypertension with goal blood pressure less than 140/90 - hydroCHLOROthiazide 25 MG Oral Tablet (Hydrodiuril); Take 1 Tablet by mouth daily as needed for Other (swelling). Gastroesophageal reflux disease with esophagitis - Omeprazole 20 MG Oral Capsule Delayed Release (PriLOSEC); Take 1 Capsule by mouth in the morning. Encounter for screening mammogram for breast cancer - MAMMOGRAM SCREENING AIDEN BILATERAL; Future; Expected date: 11/11/2023 Screen for colon cancer - COLONOSCOPY, GI REFERRAL OP Other [facility] (current) drug therapy - VITAMIN B12; Future; Expected date: 11/10/2023 Other orders - Ezetimibe 10 MG Oral Tablet (Zetia); Take 1 Tablet by mouth in the morning. - Gemfibrozil 600 MG Oral Tablet (Lopid); Take 1 Tablet by mouth 2 times a day 30 minutes before morning and evening meals. Follow Up: Return in about 6 months (around 05/11/2024) for Clinic Visit. | For: Clinic Visit | Check-out note: Schedule mri Continue current medications Wrap-Up Time: I spent a total of 30-39 minutes (exact time 39 mins) on the date of service in preparation, delivery, and documentation of the care provided to Rita Glover excluding any time spent in the performance of separately billed services. documented in this encounter Nursing Notes * Riya Marcos MED ASSIST - 11/10/2023 8:08 AM EDT Chief Complaint Patient presents with Follow Up Patient would like to go over lab results and review medications Back Pain Patient reports having back pain for many years. Patient has been verbally educated on the need or importance of Immunizations: Shingles and has declined topic(s). documented in this encounter Plan of Treatment Upcoming Encounters Date Type Department Care Team (Late st Contact Info) Description 12/24/2023 2:55 PM EDT Office Visit Urogynecology [facility] [address] [place] [address] George Loyola MD [address] [place] [address] Nurse Sakina Alcaraz [address] [place] [address] Scheduled Orders Name Type Priority Associated Diagnoses Orde r Schedule MAMMOGRAM SCREENING AIDEN BILATERAL Medical Imaging Routine Encounter for screening mammogram for breast cancer Expected: 11/11/2023, Expires: 12/09/2024 ALBUMIN / CREATININE RATIO, URINE Lab Routine Type 2 diabetes mellitus with hemoglobin A1c goal of less than 7.0% (HCC) Expected: 11/10/2023 (Approximate), Expires: 11/09/2024 VITAMIN B12 Lab Routine Type 2 diabetes mellitus with hemoglobin A1c goal of less than 7.0% (HCC) Other [facility] (current) drug therapy Expected: 11/10/2023 (Approximate), Expires: 11/09/2024 MRI L SPINE WO CONTRAST Medical Imaging Routine DDD (degenerative disc disease), lumbosacral Lumbar radiculopathy Expected: 11/10/2023 (Approximate), Expires: 12/09/2024 Scheduled Procedures Name Priority Associated Diagnoses Date/Ti me COLONOSCOPY FLEXIBLE PROXIMA L DIAGNOSTIC Recall Special screening for malignant neoplasms, colon Scheduled Referrals Name Type Priority Associated Diagnoses Orde r Schedule COLONOSCOPY, GI REFERRAL OP Referral Within 30 days (routine) Screen for colon cancer Ordered: 11/10/2023 Health Maintenance Due Date Last Done Comments [...] 07/31/2018, Additional history exists HbA1c 05/05/2024 11/04/2023, 090 08/2022, 07/03/2022, Additional history exists GFR 11/03/2024 11/04/2023, 08/04, 04/04/2023, Additional history exists Diabetic Foot Exam 11/09/2024 11/10/2023, 1 10/01/2019, 02/13/2018, Additional history exists Lipid Panel 11/03/2028 11/04/2023, 06/06, 10/03/2020, Additional history exists DTaP,Tdap,and Td Vaccines (4 - Td or Tdap) 11/28/2031 11/27/2021, 08/06/2017, 05/26/2008 VITAMIN D LEVEL ONCE IN A LIFETIME-USE SMARTSET# [id number] Completed 03/06/2020 GARDASIL-HPV IMMUNIZATION SERIES Aged Out No longer eligible based on patient's age to complete this topic Hepatitis B Aged Out No longer eligi ble based on patient's age to complete this topic MENINGOCOCCAL (MENACTRA/MENVEO) Aged Out No longer eligible based on patient's age to complete this topic documented as of this encounter Medical Devices Implanted Type Area Slurry Plant Operator Device Identifier Shelf Expiration Date Model / Serial / Lot Sling Desara One - [id number] Implanted:Qty: 1 on 04/03/2023 by George Loyola MD at OR [facility] N/A: Vagina [employer] 06/14/2024 [id number] / / [id number] Y-Mesh 26 X 4 X 3 Cm - [id number] Implanted:Qty: 1 on 04/03/2023 by George Loyola MD at OR [facility] N/A: Vagina [employer] 06/04/2027 [id number] / / [id number] documented as of this encounter Visit Diagnoses Diagnosis Type 2 diabetes mellitus with hemoglobin A1c goal of less than 7.0% (HCC)- Primary HTN, goal below 140/90 Unspecified essential hypertension DYSLIPIDEMIA, GOAL TO BE DETERMINED Other and unspecified hyperlipidemia Age-related osteoporosis without current pathological fracture Senile osteoporosis DDD (degenerative disc disease), lumbosacral Degeneration of lumbar or lumbosacral intervertebral disc Lumbar radiculopathy Thoracic or lumbosacral neuritis or radiculitis, unspecified Trigger ring finger of left hand Trigger finger (acquired) Essential hypertension with goal blood pressure less than 140/90 Gastroesophageal reflux disease with esophagitis without hemorrhage Encounter for screening mammogram for breast cancer Screen for colon cancer Special screening for malignant neoplasms, colon 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 Question Answer Comments Discussion of Advance Directives occurred with: Patient Care Teams Anesthesia Director Relationship Specialty Start Date End Date RadamesNovember ELISEO Rosa [address] [place] [address] PCP - General Physician Telephone Advice Nurse 02/20/18 documented as of this encounter"
--- OUTSIDE RECORDS SUMMARY | 2023-11-22 18:20 | External Medical Summary | Summary of Care ---
Author Name Unknown Organization [facility] Address [address] [facility] [place] [address] Phone [phone] Care Team Providers Care Optical Laboratory Manager Name Role Phone Liliam Crum ELISEO Primary Care Provider [phone] Reason for Visit * Reason Onset Date Comments Appointment 11/20/2023 Encounter Details Date Type Department Care Team (Late st Contact Info) Description 11/20/2023 Telephone Radiology, [facility] [address] [place] [address] Lissette Carlson RT (R) Appointment Allergies Active Allergy Reactions Criticality Noted Date [...] Date End Date Status Aspirin 81 MG TabletIndications:T ype 2 diabetes mellitus with hemoglobin A1c goal [...] Active metFORMIN HCl 500 MG Oral Tablet (Glucophage)Indicat ions:Essential hypertension with goal blood pressure less than 140/90 Take 1 Tab by mouth 2 times a day with morning and evening meals. 180 Tablet 3 08/27/2023 Active Lisinopril 5 MG Oral Tablet (Prinivil)Indicatio ns:Essential hypertension with goal blood pressure less than 140/90 Take 1 Tablet by mouth in the morning. 90 Tablet 08/27/2023 Active Clobetasol Propionate 0.05 % External [...] evening meals. 180 Tablet 3 11/10/2023 Active hydroCHLOROthiazide 25 MG Oral Tablet (Hydrodiuril)Indica tions:Essential hypertension with goal blood pressure less than 140/90 Take 1 Tablet by mouth daily as needed for Other (swelling). 90 Tablet 3 11/10/2023 Active Omeprazole 20 MG Oral Capsule Delayed Release (PriLOSEC)Indicatio ns:Gastroesophageal reflux disease with esophagitis without hemorrhage Take [...] Sulfate (2.5 MG/3ML) 0.083% Inhalation Nebulization Solution (Proventil)Indicati ons:Acute bronchospasm One vial in nebulizer every 4 hours as needed for wheezing 60 mL 3 11/19/2023 Active documented as of this encounter (statuses as [...] encounter Miscellaneous Notes * Telephone Encounter - Lissette Carlson RT (R) - 11/20/2023 2:08 PM EDT Left message for mri questionnaire documented in this encounter Plan of Treatment Upcoming Encounters Date Type Department Care Team (Late st Contact Info) Description 11/24/2023 12:30 PM EDT Appointment Radiology, [address] [address] 12/24/2023 2:55 PM EDT Office Visit Urogynecology [facility] [address] [place] [address] George Loyola MD [address] [place] [address] Nurse Sakina [facility]car[facility] [address] [place] [address] Scheduled Procedures Name Priority Associated Diagnoses Date/Ti [...] D LEVEL ONCE IN A LIFETIME-USE SMARTSET# 89917 Completed 03/06/2020 GARDASIL-HPV IMMUNIZATION SERIES Aged Out No longer eligible based on patient's age to complete this topic Hepatitis B Aged Out No longer eligi ble based on patient's age to complete this topic MENINGOCOCCAL (MENACTRA/MENVEO) Aged Out No longer eligible based on patient's age to complete this topic documented as of this encounter Medical Devices Implanted Type Area Calf Skinner Device Identifier Shelf Expiration Date Model / Serial / Lot Sling Kaleigh Mclaughlin - [id number] Implanted:Qty: 1 on 04/03/2023 by George Loyola MD at OR [facility] N/A: Vagina [employer] 06/14/2024 [id number] / / [id number] Y-Mesh 26 X 4 X 3 Cm - [id number] Implanted:Qty: 1 on 04/03/2023 by George Loyola MD at OR [facility] N/A: Vagina [employer] 06/04/2027 [id number] / / [id number] documented as of this encounter Advance Directives Latest Code Status on File Code Status Date Activated Date Inactivated Comments Full Code 04/03/2023 1:19 PM 04/04/2023 5:35 PM This o rder reflects the patients wishes and were consensually agreed upon. Question Answer Comments Discussion of Advance Directives occurred with: Patient Care Teams Optical Laboratory Manager Relationship Specialty Start Date End Date Ebonynovember ELISEO Rosa [address] [place] [address] PCP - General Physician Cafe Aide 02/20/18 documented as of this encounter
--- OUTSIDE RECORDS SUMMARY | 2023-11-22 18:20 | External Medical Summary | Summary of Care ---
Author Name Unknown Organization [facility] Address [address] [facility] [place] [address] Phone [phone] Care Team Providers Care Head Bellhop Captain Name Role Phone Liliam Crum PA-C Primary Care Provider [phone] Reason for Visit * Reason Onset Date Comments Med Request 11/14/2023 Encounter Details Date Type Department Care Team (Late st Contact Info) Description 11/14/2023 Telephone Family Practice [facility] [address] [facility] [place] [address] Liliam Crum PA-C [address] [facility] [place] [address] Med Request Allergies Active Allergy Reactions Criticality Noted Date [...] as of this encounter (statuses as of 11/18/2023) Medications Medication Sig Dispensed Refills Start Date End Date Status Aspirin 81 MG TabletIndications:T ype 2 diabetes mellitus with hemoglobin A1c goal of less than 7.0% ([facility]) Take 1 Tablet by mouth [...] before morning and evening meals. 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 Torn rotator cuff 02/16/2019 Overview: surgeries times 3. documented as of this encounter (statuses as of 11/18/2023) Immunizations Name Administration Dates Next Due Pneumococcal [...] encounter Miscellaneous Notes * Addendum Note - Liliam Crum PA-C - 11/18/2023 7:25 PM EDTAddended by: LILIAM CRUM on: 11/18/2023 07:25 PM Modules accepted: Orders * Telephone Encounter - Liliam Crum PA-C - 11/18/2023 7:25 PM EDT Orders placed. * Telephone Encounter - Brinda Hoyt dementia program director - 11/14/2023 2:25 PM EDT Pt said her insurance will cover onetouch verio She needs new rx for onetouch verio kit, test strips, and the lancet She tests twice a day she was told to call dr with this information Thank you for your assistance Brinda Hoyt Hr Payroll Coordinator II Centralized Clinical Pharmacy Services (CCPS) (Formerly Telepharmacy) 11/14/2023,2:27 PM documented in this encounter Plan of Treatment Upcoming Encounters Date Type Department Care Team (Late st Contact Info) Description 11/24/2023 12:30 PM EDT Appointment Radiology, [facility] [address] [place] [address] 12/24/2023 2:55 PM EDT Office Visit Urogynecology [address] [place] [address] George Lyoola MD [address] [place] [address] Nurse Sakina [facility]caraz [address] [place] [address] Scheduled Procedures Name Priority Associated Diagnoses Date/Ti [...] D LEVEL ONCE IN A LIFETIME-USE SMARTSET# 63778 Completed 03/06/2020 GARDASIL-HPV IMMUNIZATION SERIES Aged Out No longer eligible based on patient's age to complete this topic Hepatitis B Aged Out No longer eligi ble based on patient's age to complete this topic MENINGOCOCCAL (MENACTRA/MENVEO) Aged Out No longer eligible based on patient's age to complete this topic documented as of this encounter Medical Devices Implanted Type Area Crabber Device Identifier Shelf Expiration Date Model / Serial / Lot Sling Desara One - [id number] Implanted:Qty: 1 on 04/03/2023 by George Loyola MD at OR [facility] N/A: Vagina [employer] 06/14/2024 [id number] / / [id number] Y-Mesh 26 X 4 X 3 Cm - [id number] Implanted:Qty: 1 on 04/03/2023 by George Loyola MD at OR [facility] N/A: Vagina [employer] 06/04/2027 [id number] / / [id number] documented as of this encounter Advance Directives Latest Code Status on File Code Status Date Activated Date Inactivated Comments Full Code 04/03/2023 1:19 PM 04/04/2023 5:35 PM This order reflects the patients wishes and were consensually agreed upon. Question Answer Comments Discussion of Advance Directives occurred with: Patient Care Teams Head Bellhop Captain Relationship Specialty Start Date End Date Radames November ELSIEO Rosa [address] [place] [address] PCP - General Physician Saw Offbearer 02/20/18 documented as of this encounter
--- OUTSIDE RECORDS SUMMARY | 2023-11-22 18:20 | External Medical Summary | Summary of Care ---
Author Name Unknown Organization [facility] Address [address] [facility] [address] Phone [phone] Care Team Providers Care Chemical Maker Name Role Phone Liliam Crum PA-C Primary Care Provider [phone] Reason for Visit * Reason Onset Date Comments Advice 11/19/2023 Status Check 11/19/2023 Encounter Details Date Type Department Care Team (Late st Contact Info) Description 11/19/2023 Telephone Family Practice [facility] [address] [facility] [place] [address] Liliam Crum PA-C [address] [facility] [place] [address] Advice; Status Check Allergies Active Allergy Reactions [...] hemoglobin A1c goal of less than 7.0% ([facility]) Take 1 Tablet by mouth in the [...] very pleasant. Caller can be reached at [phone]. Thank you, Yanni Monsalve CPhT Electronic Device Repairer II Centralized Clinical Pharmacy Services (CCPS) (Formerly [...] Please advise. Please call patient back at [phone] with advice * Telephone Encounter - Dorinda Knox OSA - 11/20/2023 10:59 AM EDT Reason for patient's call: returning call Caller was transferred to [facility] at the nurse line. * [...] Description 12/13/2023 3:30 PM EDT Imaging Radiology [facility] [address] [place] [address] 12/24/2023 2:55 PM EDT Office Visit Urogynecology [facility] [address] [place] [address] George Loyola MD [address] [place] [address] Nurse Sakina Alcaraz [address] [place] [address] Scheduled Procedures Name Priority Associated Diagnoses Date/Ti [...] D LEVEL ONCE IN A LIFETIME-USE SMARTSET# 78537 Completed 03/06/2020 GARDASIL-HPV IMMUNIZATION SERIES Aged Out No longer eligible based on patient's age to complete this topic Hepatitis B Aged Out No longer eligi ble based on patient's age to complete this topic MENINGOCOCCAL (MENACTRA/MENVEO) Aged Out No longer eligible based on patient's age to complete this topic documented as of this encounter Medical Devices Implanted Type Area Recorder Gravity Prospecting Device Identifier Shelf Expiration Date Model / Serial / Lot Sling Kaleigh One - [id number] Implanted:Qty: 1 on 04/03/2023 by George Loyola MD at OR [facility] N/A: Vagina [employer] 06/14/2024 [id number] / / [id number] Y-Mesh 26 X 4 X 3 Cm - [id number] Implanted:Qty: 1 on 04/03/2023 by George Loyola MD at OR [facility] N/A: Vagina [employer] 06/04/2027 [id number] / / [id number] documented as of this encounter Visit Diagnoses Diagnosis Acute bronchospasm documented in this encounter Advance Directives Latest Code Status on File Code Status Date Activated Date Inactivated Comments Full Code 04/03/2023 1:19 PM 04/04/2023 5:35 PM This o rder reflects the patients wishes and were consensually agreed upon. Question Answer Comments Discussion of Advance Directives occurred with: Patient Care Teams Chemical Maker Relationship Specialty Start Date End Date Ebonynovember ELISEO Rosa [address] [place] [address] PCP - General Physician Client Portfolio Manager 02/20/18 documented as of this encounter
--- OUTSIDE RECORDS SUMMARY | 2023-11-22 18:20 | External Medical Summary | Summary of Care ---
Author Name Unknown Organization [facility] Address [address] [facility] [place] [address] Phone [phone] Care Team Providers Care Conductor Pullman Name Role Phone Liliam Crum PA-C Primary Care Provider [phone] Reason for Visit * Reason Onset Date Comments Med Request 11/14/2023 Encounter Details Date Type Department Care Team (Late st Contact Info) Description 11/14/2023 Telephone Family Practice [facility] 200 [facility] [place] [address] Liliam Crum PA-C [address] [facility] [place] [address] Med Request Allergies Active Allergy Reactions Criticality [...] as of this encounter (statuses as of 11/16/2023) Medications Medication Sig Dispensed Refills Start Date End Date Status Aspirin 81 MG TabletIndications:T ype 2 diabetes mellitus with hemoglobin A1c goal of less than 7.0% ([facility]) Take 1 Tablet by mouth [...] the morning. 90 Capsule 3 11/10/2023 Active documented as of this encounter (statuses as of 11/16/2023) Active Problems Problem Noted Date Diagnosed Date [...] as of this encounter (statuses as of 11/16/2023) Resolved Problems Problem Noted Date Diagnosed Date Resolved Date Acute cystitis without hematuria 02/20/2018 05/22/2018 Bronchitis, complicated 05/07/201710/2017 Impaired fasting glucose 02/21/201110/2017 Dyslipidemia, goal to be determined 05/02/2009 06/28/2009 Overview: Per Lipid Taxonomy 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 Torn rotator cuff 02/16/2019 Overview: surgeries times 3. documented as of this encounter (statuses as of 11/16/2023) Immunizations Name Administration Dates Next Due Pneumococcal [...] encounter Miscellaneous Notes * Telephone Encounter - Brinda Hoyt PHARM Tech - 11/14/2023 2:25 PM EDT Pt said her insurance will cover onetouch verio She needs new rx for onetouch verio kit, test strips, and the lancet She tests twice a day she was told to call dr with this information Thank you for your assistance Brinda Hoyt Certified Executive Chef II Centralized Clinical Pharmacy Services (CCPS) (Formerly Telepharmacy) 11/14/2023,2:27 PM documented in this encounter Plan of Treatment Upcoming Encounters Date Type Department Care Team (Late st Contact Info) Description 11/24/2023 12:30 PM EDT Appointment Radiology, [address] [place] [address] 12/24/2023 2:55 PM EDT Office Visit Urogynecology [facility] [address] [place] [address] George Loyola MD [address] [place] [address] Nurse Sakina [facility]caraz [address] [place] [address] Scheduled Procedures Name Priority Associated Diagnoses Date/Ti [...] PCV20) 02/03/2022 07/31/2018, 02/03/2017 COVID-19 Vaccine ( - season) 2023 Diabetic Eye Exam 05/14/2023 [...] D LEVEL ONCE IN A LIFETIME-USE SMARTSET# [id number] Completed 03/06/2020 GARDASIL-HPV IMMUNIZATION SERIES Aged Out No longer eligible based on patient's age to complete this topic Hepatitis B Aged Out No longer eligi ble based on patient's age to complete this topic MENINGOCOCCAL (MENACTRA/MENVEO) Aged Out No longer eligible based on patient's age to complete this topic documented as of this encounter Medical Devices Implanted Type Area Gis Analyst Developer Device Identifier Shelf Expiration Date Model / Serial / Lot Sling Kaleigh Mclaughlin - [id number] Implanted:Qty: 1 on 04/03/2023 by George Loyola MD at OR [facility] N/A: Vagina [employer] 06/14/2024 [facility]-[id number] / / [id number] Y-Mesh 26 X 4 X 3 Cm - [id number] Implanted:Qty: 1 on 04/03/2023 by George Loyola MD at OR [facility] N/A: Vagina [employer] 06/04/2027 [facility]-[id number] / / [id number] documented as of this encounter Advance Directives Latest Code Status on File Code Status Date Activated Date Inactivated Comments Full Code 04/03/2023 1:19 PM 04/04/2023 5:35 PM This o rder reflects the patients wishes and were consensually agreed upon. Question Answer Comments Discussion of Advance Directives occurred with: Patient Care Teams Conductor Pullman Relationship Specialty Start Date End Date Ebonynovember ELISEO Rosa [address] [place], [place] [address] PCP - General Physician Counterintelligence/Humint Specialist 02/20/18 documented as of this encounter
--- OUTSIDE RECORDS SUMMARY | 2023-11-22 18:20 | External Medical Summary | Summary of Care ---
Author Name Unknown Organization [facility] Address [address] [place] [address] Phone [phone] Care Team Providers Care Director [place] Sales Name Role Phone Liliam Crum PA-C Primary Care Provider [phone] Reason for Referral * Ancillary Services (Within 30 days (routine)) - Authorized Specialty Diagnoses / Procedures Referred By Carmen parsons Referred To Contact Gastroenterology Diagnoses Screen for colon cancer Liliam Crum PA-C [address] [place] [address] Referral ID Status Reason Start Date Expiration Date Visits Requested Visits Authorized [id number] Authorized Ancillary Services Required 11/10/2023 999 999 Question Answer Referral Priority Within 30 days (routine) Where should this appointment be scheduled? [facility] Comments ALERT: Do not order for pediatric patients (18 years or younger). Cancel off screen and order PEDS GASTROENTEROLOGY CONSULT (Type: 1 visit only-Evaluate and Treat) The following Pt. Instructions are available: - Gastro Colonoscopy Prep Instructions [06451] - Gastro Colonoscopy Prep Instructions (Slovenian Version) [[id number]] Go to the Pt. Instructions section within [...] WO CONTRAST Liliam Crum PA-C [address] [place] [address] Referral ID Status Reason Start Date Expiration Date V isits Requested Visits Authorized [id number] Authorized 11/10/2023 999 999 Reason for Visit * Reason Comments Follow Up Patient would like t o go over lab results and review medications Back Pain Patient reports havi ng back pain for many years. Encounter Details Date Type Department Care Team (Late st Contact Info) Description 11/10/2023 8:00 AM EDT Office Visit [facility] [address] [place] [address] Liliam Crum PA-C [address] [facility] [place] [address] Type 2 diabetes mellitus with hemoglobin A1c goal of less than 7.0% ([facility])*; HTN, goal below 140/90; DYSLIPIDEMIA, GOAL TO BE DETERMINED; Age-related osteoporosis without current pathological fracture; DDD (degenerative disc disease), lumbosacral; Lumbar radiculopathy; Trigger ring finger of left hand; Essential hypertension with goal blood pressure less than 140/90; Gastroesophageal reflux disease with esophagitis without hemorrhage; Encounter for screening mammogram for breast cancer; Screen for colon cancer; Other transportation clerk (current) drug therapy Allergies Active Allergy Reactions Criticality Noted Date Comments Cephalexin Rash 06/29/2019 Informed by pt. Happened in January 2018 started on the legs while on vacation Atorvastatin Calcium 08/08/2011 Leg pain and swelling Nitrofurantoin Macrocrystal Diarrhea,Nausea/vom iting 10/02/2018 Also rash per [place] Nitrofurantoin 10/02/2018 Makes patient sick Naproxen Edema [...] Capsule 3 11/10/2023 Active ONETOUCH ULTRASOFT LANCETS [facility] Use as directed 4 times a day [...] goal of less than 7.0% ([facility]) (Primary) - DIABETES FOOT EXAM - DIABETIC [...] cancer - COLONOSCOPY, GI REFERRAL OP Other residential (current) drug therapy - VITAMIN B12; Future; [...] Urogynecology [facility] [address] [place] [address] George Loyola MD [address] [place] [address] Nurse Sakina Alcaraz [address] [place] [address] Scheduled Orders Name Type Priority Associated Diagnoses Orde r Schedule MAMMOGRAM SCREENING AIDEN BILATERAL Medical Imaging Routine Encounter for screening mammogram for breast cancer Expected: 11/11/2023, Expires: 12/09/2024 VITAMIN B12 Lab Routine Type 2 diabetes mellitus with hemoglobin A1c goal of less than 7.0% (HCC) Other transportation clerk (current) drug therapy Expected: 11/10/2023 (Approximate), Expires: [...] 07/31/2018, Additional history exists HbA1c 05/05/2024 11/04/2023, 0908/2022, 07/03/2022, Additional history exists GFR 11/03/2024 11/04/2023, 08/04, 04/04/2023, Additional history exists Diabetic Foot Exam 11/09/2024 11/10/2023, 1 10/01/2019, 02/13/2018, Additional history exists Lipid Panel 11/03/2028 11/04/2023, 06/06, 10/03/2020, Additional history exists DTaP,Tdap,and Td Vaccines (4 - Td or Tdap) 11/28/2031 11/27/2021, 08/06/2017, 05/26/2008 VITAMIN D LEVEL ONCE IN A LIFETIME-USE SMARTSET# 30434 Completed 03/06/2020 GARDASIL-HPV IMMUNIZATION SERIES Aged Out No longer eligible based on patient's age to complete this topic Hepatitis B Aged Out No longer eligi ble based on patient's age to complete this topic MENINGOCOCCAL (MENACTRA/MENVEO) Aged Out No longer eligible based on patient's age to complete this topic documented as of this encounter Medical Devices Implanted Type Area Cupola Melter Device Identifier Shelf Expiration Date Model / Serial / Lot Sling Desginna One - [id number] Implanted:Qty: 1 on 04/03/2023 by George Loyola MD at OR [facility] N/A: Vagina [employer] 06/14/2024 [id number] / / [id number] Y-Mesh 26 X 4 X 3 Cm - [id number] Implanted:Qty: 1 on 04/03/2023 by George Loyola MD at OR [facility] N/A: Vagina [employer] 06/04/2027 BRUCE-[id number] / / [id number] documented as of this encounter Visit Diagnoses Diagnosis Type 2 diabetes mellitus with hemoglobin A1c goal of less than 7.0% ([facility])- Primary HTN, goal below 140/90 Unspecified essential [...] Special screening for malignant neoplasms, colon Other residential (current) drug therapy documented in this encounter Advance Directives Latest Code Status on File Code Status Date Activated Date Inactivated Comments Full Code 04/03/2023 1:19 PM 04/04/2023 5:35 PM This o rder reflects the patients wishes and were consensually agreed upon. Question Answer Comments Discussion of Advance Directives occurred with: Patient Care Teams Director [place] Sales Relationship Specialty Start Date End Date Radames November Shelley, ELISEO [address] [place] [address] PCP - General Physician Slubber Machine Operator 02/20/18 documented as of this encounter"
--- OUTSIDE RECORDS SUMMARY | 2023-11-22 18:20 | External Medical Summary | Summary of Care ---
Author Name Unknown Organization [facility] Address [address] [facility] [place] [address] Phone [phone] Care Team Providers Care Tile Designer Name Role Phone Liliam Crum ELISEO Primary Care Provider [phone] Encounter Details Date Type Department Care Team (Late st Contact Info) Description 11/18/2023 Orders Only PATIENT PORTAL DO NOT DELETE THIS DEPT USED BY [place] [id number] Allergies Active Allergy Reactions Criticality Noted Date [...] hemoglobin A1c goal of less than 7.0% ([facility]) Take 1 Tablet by [...] No 04/03/2023 documented as of this encounter Plan of Treatment Upcoming Encounters Date Type Department Care Team (Late st Contact Info) Description 11/24/2023 12:30 PM EDT Appointment Radiology, [address] [place] [address] 12/24/2023 2:55 PM EDT Office Visit [facility]rogynecology [facility] [address] [place] [address] George Loyola MD [address] [place] [address] Nurse Sakina [facility]caraz [address] [place] [address] Scheduled Procedures Name Priority Associated Diagnoses Date/Ti [...] D LEVEL ONCE IN A LIFETIME-USE SMARTSET# 34420 Completed 03/06/2020 GARDASIL-HPV IMMUNIZATION SERIES Aged Out No longer eligible based on patient's age to complete this topic Hepatitis B Aged Out No longer eligi ble based on patient's age to complete this topic MENINGOCOCCAL (MENACTRA/MENVEO) Aged Out No longer eligible based on patient's age to complete this topic documented as of this encounter Medical Devices Implanted Type Area Glove Factory Sewer Device Identifier Shelf Expiration Date Model / Serial / Lot Sling Kaleigh One - [id number] Implanted:Qty: 1 on 04/03/2023 by George Loyola MD at OR [facility] N/A: Vagina [employer] 06/14/2024 [id number] / / [id number] Y-Mesh 26 X 4 X 3 Cm - [id number] Implanted:Qty: 1 on 04/03/2023 by George Loyola MD at OR [facility] N/A: Vagina [employer] 06/04/2027 [id number] / / [id number] documented as of this encounter Advance Directives Latest Code Status on File Code Status Date Activated Date Inactivated Comments Full Code 04/03/2023 1:19 PM 04/04/2023 5:35 PM This o rder reflects the patients wishes and were consensually agreed upon. Question Answer Comments Discussion of Advance Directives occurred with: Patient Care Teams Tile Designer Relationship Specialty Start Date End Date Liliam Crum PA-C [address] [place] [address] PCP - General Physician Dialysis Social Worker 02/20/18 documented as of this encounter
--- OUTSIDE RECORDS SUMMARY | 2023-11-22 18:20 | External Medical Summary | Summary of Care ---
Author Name Unknown Organization [facility] Address [address] [facility] [place] [address] Phone [phone] Care Team Providers Care Materials Planning Manager Name Role Phone Liliam Crum ELISEO Primary Care Provider [phone] Reason for Visit * Reason Onset Date Comments Appointment 11/20/2023 Encounter Details Date Type Department Care Team (Late st Contact Info) Description 11/20/2023 Telephone Radiology, [facility] [address] [place] [address] [facility] [address] [place] [address] Appointment Allergies Active Allergy Reactions Criticality Noted [...] hemoglobin A1c goal of less than 7.0% ([facility]) Take 1 Tablet by mouth in the [...] day E11.9 1 Kit 0 11/18/2023 Active MakerBotTouch Verio In Vitro Strip (Glucose Blood) Use [...] cystitis without hematuria 02/20/2018 05/22/2018 Bronchitis, complicated 05/07/2017/10/2017 Impaired fasting glucose 02/21/201110/2017 Dyslipidemia, goal to [...] encounter Miscellaneous Notes * Telephone Encounter - Vianney Pelletier [place] - 11/20/2023 2:25 PM EDT Name: Rita Glover Pt cx due to respiratory sickness. Transferred to scheduling to rescheduled pt for later date. LAURA Conley documented in this encounter Plan of Treatment Upcoming Encounters Date Type Department Care Team (Late st Contact Info) Description 12/13/2023 3:30 PM EDT Imaging Radiology [facility] [address] [place] [address] 12/24/2023 2:55 PM EDT Office Visit Urogynecology [facility] [address] [place] [address] George Loyola MD [address] [place] [address] Nurse Sakina [facility]car[facility] [address] [place] [address] Scheduled Procedures Name Priority Associated Diagnoses Date/Ti [...] D LEVEL ONCE IN A LIFETIME-USE SMARTSET# 22676 Completed 03/06/2020 GARDASIL-HPV IMMUNIZATION SERIES Aged Out No longer eligible based on patient's age to complete this topic Hepatitis B Aged Out No longer eligi ble based on patient's age to complete this topic MENINGOCOCCAL (MENACTRA/MENVEO) Aged Out No longer eligible based on patient's age to complete this topic documented as of this encounter Medical Devices Implanted Type Area Assistant Professor Of Biology Device Identifier Shelf Expiration Date Model / Serial / Lot Aura Mclaughlin - [id number] Implanted:Qty: 1 on 04/03/2023 by George Loyola MD at OR [facility] N/A: Vagina [employer] 06/14/2024 [id number] / / [id number] Y-Mesh 26 X 4 X 3 Cm - [id number] Implanted:Qty: 1 on 04/03/2023 by George Loyola MD at OR [facility] N/A: Vagina [employer] 06/04/2027 [id number] / / [id number] documented as of this encounter Advance Directives Latest Code Status on File Code Status Date Activated Date Inactivated Comments Full Code 04/03/2023 1:19 PM 04/04/2023 5:35 PM This o rder reflects the patients wishes and were consensually agreed upon. Question Answer Comments Discussion of Advance Directives occurred with: Patient Care Teams Materials Planning Manager Relationship Specialty Start Date End Date Radames November ELISEO Rosa [address] [facility] [place] [address] PCP - General Physician Heel Cementer Machine 02/20/18 documented as of this encounter
--- OUTSIDE RECORDS SUMMARY | 2023-11-22 18:20 | External Medical Summary | Summary of Care ---
Author Name Unknown Organization [facility] Address [address] [place] [address] Phone [phone] Care Team Providers Care Out And Out Cigar Maker Hand Name Role Phone Liliam Crum PA-C Primary Care Provider [phone] Reason for Referral * Ancillary Services (Within 30 days (routine)) - Authorized Specialty Diagnoses / Procedures Referred By Carmen parsons Referred To Contact Gastroenterology Diagnoses Screen for colon cancer Liliam Crum PA-C [address] [place] [address] Referral ID Status Reason Start Date Expiration Date Visits Requested Visits Authorized [id number] Authorized Ancillary Services Required 11/10/2023 999 999 Question Answer Referral Priority Within 30 days (routine) Where should this appointment be scheduled? [facility] Comments ALERT: Do not order for pediatric patients (18 years or younger). Cancel off screen and order PEDS GASTROENTEROLOGY CONSULT (Type: 1 visit only-Evaluate and Treat) The following Pt. Instructions are available: - Gastro Colonoscopy Prep Instructions [59818] - Gastro Colonoscopy Prep Instructions (Montenegrin Version) [[id number]] Go to the Pt. Instructions section within [...] WO CONTRAST Liliam Crum PA-C [address] [place] [address] Referral ID Status Reason Start Date Expiration Date V isits Requested Visits Authorized [id number] Authorized 11/10/2023 999 999 Reason for Visit * Reason Comments Follow Up Patient would like t o go over lab results and review medications Back Pain Patient reports havi ng back pain for many years. Encounter Details Date Type Department Care Team (Late st Contact Info) Description 11/10/2023 8:00 AM EDT Office Visit [facility] [address] [facility] [place] [address] Liliam Crum PA-C [address] [facility] [place] [address] Type 2 diabetes mellitus with hemoglobin A1c goal of less than 7.0% ([facility])*; HTN, goal below 140/90; DYSLIPIDEMIA, GOAL TO BE DETERMINED; Age-related osteoporosis without current pathological fracture; DDD (degenerative disc disease), lumbosacral; Lumbar radiculopathy; Trigger ring finger of left hand; Essential hypertension with goal blood pressure less than 140/90; Gastroesophageal reflux disease with esophagitis without hemorrhage; Encounter for screening mammogram for breast cancer; Screen for colon cancer; 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 Happened in January 2018 started on the legs while on vacation Atorvastatin Calcium 08/08/2011 Leg pain and swelling Nitrofurantoin Macrocrystal Diarrhea,Nausea/vom iting 10/02/2018 Also rash per [facility] Nitrofurantoin 10/02/2018 Makes patient sick Naproxen Edema [...] Capsule 3 11/10/2023 Active ONETOUCH ULTRASOFT LANCETS [facility] Use as directed 4 times a [...] A1c goal of less than 7.0% ([facility]) (Primary) - DIABETES FOOT EXAM - DIABETIC [...] cancer - COLONOSCOPY, GI REFERRAL OP Other usp (current) drug therapy - VITAMIN B12; Future; [...] [facility]gynecology [facility] [address] [place] [address] George Loyola MD [address] [place] [address] Nurse Sakina [facility] [address] [place] [address] Scheduled Orders Name Type Priority Associated Diagnoses [...] goal of less than 7.0% (HCC) Other usp (current) drug therapy Expected: 11/10/2023 (Approximate), Expires: [...] D LEVEL ONCE IN A LIFETIME-USE SMARTSET# [id number] Completed 03/06/2020 GARDASIL-HPV IMMUNIZATION SERIES Aged Out No longer eligible based on patient's age to complete this topic Hepatitis B Aged Out No longer eligi ble based on patient's age to complete this topic MENINGOCOCCAL (MENACTRA/MENVEO) Aged Out No longer eligible based on patient's age to complete this topic documented as of this encounter Medical Devices Implanted Type Area Pharmacy Affairs Assistant Device Identifier Shelf Expiration Date Model / Serial / Lot Sling Desara One - [id number] Implanted:Qty: 1 on 04/03/2023 by George Loyola MD at OR [facility] N/A: Vagina [employer] 06/14/2024 [id number] / / [id number] Y-Mesh 26 X 4 X 3 Cm - [id number] Implanted:Qty: 1 on 04/03/2023 by Geroge Loyola MD at OR [facility] N/A: Vagina [employer] 06/04/2027 [id number] / / [id number] documented as of this encounter Visit Diagnoses [...] Special screening for malignant neoplasms, colon 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 Question Answer Comments Discussion of Advance Directives occurred with: Patient Care Teams Out And Out Cigar Maker Hand Relationship Specialty Start Date End Date RadamesNovember ELISEO Rosa [address] [place] [address] PCP - General Physician Physical Therapy Director 02/20/18 documented as of this encounter"
--- OUTSIDE RECORDS SUMMARY | 2023-11-22 18:20 | External Medical Summary | Summary of Care ---
Author Name Unknown Organization [facility] Address [address] [place] [address] Phone [phone] Care Team Providers Care Business Instructor Name Role Phone Liliam Crum ELISEO Primary Care Provider [phone] Reason for Visit * Reason Onset Date Comments MyCode Nonconsent - Not interested at this time 11/10/2023 Encounter Details Date Type Department Care Team (Late st Contact Info) Description 11/10/2023 Orders Only Outcomes Research Department [address] [place] [address] Zeke Hernandez CHRA MyCode Nonconsent Documentation Allergies Active Allergy Reactions Criticality Noted Date [...] A1c goal of less than 7.0% ([facility]) Take 1 Tablet by [...] as of this encounter Progress Notes * Zeke Hernandez CHRA - 11/10/2023 9:23 AM EDT MyCode Nonconsent Documentation Rita Glover was approached in the clinic regarding participation in the MyCode Project and did not consent. documented in this encounter Plan of Treatment Upcoming Encounters Date Type Department Care Team (Late st Contact Info) Description 12/24/2023 2:55 PM EDT Office Visit [facility]necology [facility] [address] [place] [address] George Loyola MD [address] [place] [address] Nurse Sakina [facility] [address] [place] [address] Scheduled Procedures Name Priority Associated Diagnoses Date/Ti [...] 02/03/2022 07/31/2018, 02/03/2017 COVID-19 Vaccine (1 - 2022- season) 2023 Diabetic Eye Exam 05/14/2023 05/14/2022, [...] D LEVEL ONCE IN A LIFETIME-USE SMARTSET# [id number] Completed 03/06/2020 GARDASIL-HPV IMMUNIZATION SERIES Aged Out No longer eligible based on patient's age to complete this topic Hepatitis B Aged Out No longer eligi ble based on patient's age to complete this topic MENINGOCOCCAL (MENACTRA/MENVEO) Aged Out No longer eligible based on patient's age to complete this topic documented as of this encounter Medical Devices Implanted Type Area Cattle Sticker Device Identifier Shelf Expiration Date Model / Serial / Lot Sling Kaleigh Mclaughlin - [id number] Implanted:Qty: 1 on 04/03/2023 by George Loyola MD at OR [facility] N/A: Vagina [employer] 06/14/2024 [id number] / / [id number] Y-Mesh 26 X 4 X 3 Cm - [id number] Implanted:Qty: 1 on 04/03/2023 by George Loyola MD at OR [facility] N/A: Vagina [employer] 06/04/2027 [id number] / / [id number] documented as of this encounter Advance Directives Latest Code Status on File Code Status Date Activated Date Inactivated Comments Full Code 04/03/2023 1:19 PM 04/04/2023 5:35 PM This o rder reflects the patients wishes and were consensually agreed upon. Question Answer Comments Discussion of Advance Directives occurred with: Patient Care Teams Business Instructor Relationship Specialty Start Date End Date Ebonynovember ELISEO Rosa [address] [place], [place] [address] PCP - General Physician Morphologist 02/20/18 documented as of this encounter
--- OUTSIDE RECORDS SUMMARY | 2023-11-22 18:20 | External Medical Summary | Summary of Care ---
Author Name Unknown Organization [facility] Address [address] [place] [address] Phone [phone] Care Team Providers Care Metal Rolling Mill Operator Name Role Phone Liliam Crum PA-C Primary Care Provider Reason for Referral * Ancillary Services (Within 30 days (routine)) - Authorized Specialty Diagnoses / Procedures Referred By Carmen parsons Referred To Contact Gastroenterology Diagnoses Screen for colon cancer Liliam Crum PA-C [address] [place] [address] Referral ID Status Reason Start Date Expiration Date Visits Requested Visits Authorized [id number] Authorized Ancillary Services Required 11/10/2023 999 999 Question Answer Referral Priority Within 30 days (routine) Where should this appointment be scheduled? [facility] Comments ALERT: Do not order for pediatric patients (18 years or younger). Cancel off screen and order PEDS GASTROENTEROLOGY CONSULT (Type: 1 visit only-Evaluate and Treat) The following Pt. Instructions are available: - Gastro Colonoscopy Prep Instructions [52109] - Gastro Colonoscopy Prep Instructions (Cameroonian Version) [[id number]] Go to the Pt. Instructions section within [...] WO CONTRAST Liliam Crum PA-C [address] [place] [address] Referral ID Status Reason Start Date Expiration Date V isits Requested Visits Authorized [id number] Authorized 11/10/2023 999 999 Reason for Visit * Reason Comments Follow Up Patient would like t o go over lab results and review medications Back Pain Patient reports havi ng back pain for many years. Encounter Details Date Type Department Care Team (Late st Contact Info) Description 11/10/2023 8:00 AM EDT Office Visit [facility] [address] [place] [address] Liliam Crum PA-C [address] [facility] [place] [address] Type 2 diabetes mellitus with hemoglobin A1c goal of less than 7.0% ([facility])*; HTN, goal below 140/90; DYSLIPIDEMIA, GOAL TO BE DETERMINED; Age-related osteoporosis without current pathological fracture; DDD (degenerative disc disease), lumbosacral; Lumbar radiculopathy; Trigger ring finger of left hand; Essential hypertension with goal blood pressure less than 140/90; Gastroesophageal reflux disease with esophagitis without hemorrhage; Encounter for screening mammogram for breast cancer; Screen for colon cancer; 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 Happened in January 2018 started on the legs while on vacation Atorvastatin Calcium 08/08/2011 Leg pain and swelling Nitrofurantoin Macrocrystal Diarrhea,Nausea/vom iting 10/02/2018 Also rash per [facility] Nitrofurantoin 10/02/2018 Makes patient sick Naproxen Edema [...] Capsule 3 11/10/2023 Active ONETOUCH ULTRASOFT LANCETS [facility] Use as directed 4 times a day [...] hemoglobin A1c goal of less than 7.0% ([facility]) (Primary) - DIABETES FOOT EXAM - DIABETIC [...] cancer - COLONOSCOPY, GI REFERRAL OP Other penitentiary (current) drug therapy - VITAMIN B12; Future; [...] has declined topic(s). documented in this encounter Miscellaneous Notes * Addendum Note - Davis Ibrahim LPN - 11/10/2023 9:26 AM EDTAddended by: DAVIS IBRAHIM on: 11/10/2023 09:26 AM Modules accepted: Orders documented in this encounter Plan of Treatment Upcoming Encounters Date Type Department Care Team (Late st Contact Info) Description 12/24/2023 2:55 PM EDT Office Visit [facility]ne[facility] [address] [place] [address] George Loyola MD [address] [place] [address] Nurse Sakina [facility]caraz [address] [place] [address] Scheduled Orders Name Type Priority Associated Diagnoses Orde r Schedule MAMMOGRAM SCREENING AIDEN BILATERAL Medical Imaging Routine Encounter for screening mammogram for breast cancer Expected: 11/11/2023, Expires: 12/09/2024 VITAMIN B12 Lab Routine Type 2 diabetes mellitus with hemoglobin A1c goal of less than 7.0% (HCC) Other long term care phlebotomist (current) drug therapy Expected: 11/10/2023 (Approximate), Expires: 11/09/2024 MRI L SPINE WO CONTRAST Medical Imaging Routine DDD (degenerative disc disease), lumbosacral Lumbar radiculopathy Expected: 11/10/2023 (Approximate), Expires: 12/09/2024 ALBUMIN / CREATININE RATIO, URINE Lab Routine Type 2 diabetes mellitus with hemoglobin A1c goal of less than 7.0% (HCC) Expected: 11/10/2023 (Approximate), Expires: 11/09/2024 Scheduled Procedures Name Priority Associated Diagnoses Date/Ti [...] 022, 06/07/2016, 11/16/2014 (Discussed) B-12 07/03/2023 07/03/2022, 03/09/2020, 02/11/2019, Additional history exists Influenza Vaccine (FLU [...] D LEVEL ONCE IN A LIFETIME-USE SMARTSET# 14051 Completed 03/06/2020 GARDASIL-HPV IMMUNIZATION SERIES Aged Out No longer eligible based on patient's age to complete this topic Hepatitis B Aged Out No longer eligi ble based on patient's age to complete this topic MENINGOCOCCAL (MENACTRA/MENVEO) Aged Out No longer eligible based on patient's age to complete this topic documented as of this encounter Medical Devices Implanted Type Area Manufacturing Engineering Professor Device Identifier Shelf Expiration Date Model / Serial / Lot Sling Kaleigh Mclaughlin - [id number] Implanted:Qty: 1 on 04/03/2023 by George Loyola MD at OR [facility] N/A: Vagina [employer] 06/14/2024 [id number] / / [id number] Y-Mesh 26 X 4 X 3 Cm - [id number] Implanted:Qty: 1 on 04/03/2023 by George Loyola MD at OR [facility] N/A: Vagina [employer] 06/04/2027 [id number] / / [id number] documented as of this encounter Visit Diagnoses [...] Special screening for malignant neoplasms, colon Other long term care phlebotomist (current) drug therapy documented in this encounter Advance Directives Latest Code Status on File Code Status Date Activated Date Inactivated Comments Full Code 04/03/2023 1:19 PM 04/04/2023 5:35 PM This o rder reflects the patients wishes and were consensually agreed upon. Question Answer Comments Discussion of Advance Directives occurred with: Patient Care Teams Metal Rolling Mill Operator Relationship Specialty Start Date End Date Radames November ELISEO Rosa [facility] [address] [place] [address] PCP - General Physician Smash Hand 02/20/18 documented as of this encounter"
--- OUTSIDE RECORDS SUMMARY | 2023-11-22 18:20 | External Medical Summary | Summary of Care ---
Author Name Unknown Organization [facility] Address [address] [place] [address] Phone [phone] Care Team Providers Care Viscera Washer Name Role Phone Liliam Crum PA-C Primary Care Provider [phone] Reason for Referral * Ancillary Services (Within 30 days (routine)) - Authorized Specialty Diagnoses / Procedures Referred By Carmen parsons Referred To Contact Gastroenterology Diagnoses Screen for colon cancer Liliam Crum PA-C [address] [place] [address] Referral ID Status Reason Start Date Expiration Date Visits Requested Visits Authorized [id number] Authorized Ancillary Services Required 11/10/2023 999 999 Question Answer Referral Priority Within 30 days (routine) Where should this appointment be scheduled? [facility] Comments ALERT: Do not order for pediatric patients (18 years or younger). Cancel off screen and order PEDS GASTROENTEROLOGY CONSULT (Type: 1 visit only-Evaluate and Treat) The following Pt. Instructions are available: - Gastro Colonoscopy Prep Instructions [[id number]] - Gastro Colonoscopy Prep Instructions (Israeli Version) [[id number]] Go to the Pt. Instructions section within [...] WO CONTRAST Liliam Crum PA-C [address] [place] [address] Referral ID Status Reason Start Date Expiration Date V isits Requested Visits Authorized [id number] Authorized 11/10/2023 999 999 Reason for Visit * Reason Comments Follow Up Patient would like t o go over lab results and review medications Back Pain Patient reports havi ng back pain for many years. Encounter Details Date Type Department Care Team (Late st Contact Info) Description 11/10/2023 8:00 AM EDT Office Visit [facility] [address] [place] [address] Liliam Crum PA-C [address] [facility] [place] [address] Type 2 diabetes mellitus with hemoglobin A1c goal of less than 7.0% ([facility])*; HTN, goal below 140/90; DYSLIPIDEMIA, GOAL TO BE DETERMINED; Age-related osteoporosis without current pathological fracture; DDD (degenerative disc disease), lumbosacral; Lumbar radiculopathy; Trigger ring finger of left hand; Essential hypertension with goal blood pressure less than 140/90; Gastroesophageal reflux disease with esophagitis without hemorrhage; Encounter for screening mammogram for breast cancer; Screen for colon cancer; Other manager terminal (current) drug therapy Allergies Active Allergy Reactions Criticality Noted Date Comments Cephalexin Rash 06/29/2019 Informed by pt. Happened in January 2018 started on the legs while on vacation Atorvastatin Calcium 08/08/2011 Leg pain and swelling Nitrofurantoin Macrocrystal Diarrhea,Nausea/vom iting 10/02/2018 Also rash per [facility] Nitrofurantoin 10/02/2018 Makes patient sick Naproxen Edema [...] Capsule 3 11/10/2023 Active [place]AS[place] [facility] [place] as directed 4 times a day [...] No 04/03/2023 documented as of this encounter Patient Instructions * Patient Instructions* Elham Marcos, MED ASSIST - 11/10/2023 9:27 AM EDT Diabetes: Keeping Feet Healthy Inspect your feet every day for signs of a problem. Diabetes can damage nerves in your feet and cause neuropathy. This condition makes it hard for you to feel injuries or sore spots. Diabetes can also change blood flow, making it harder for small problems, like a blister, to heal properly. In fact, minor injuries can quickly become serious infections that send you to the hospital. Practice self-care to protect your feet and keep them healthy. Take Special Care Inspect your feet daily for problems such as redness, blisters, cracks, dry skin, or numbness. Use a mirror to see the bottoms of your feet. Or, ask for help. Manage your diabetes. Monitor and control your blood sugar. Take all your medications as prescribed. Avoid walking barefoot, even indoors. Wash your feet with warm water and mild soap. Dry well, especially between toes. Dont treat corns or calluses yourself. Talk to your doctor or senior engineering specialist (a doctor who specializes in foot care) if you need assistance trimming your toenails. Use moisturizing cream or lotion if you have dry skin, but dont use it between toes. Dont use heating pads on your feet. If you have neuropathy, you could get a burn and not feel it. Stop smoking. Smoking restricts blood flow and can make it harder for wounds to heal. Have Regular Checkups Foot problems can develop quickly. So be sure to follow your healthcare teams schedule for regular checkups. During office visits, take off your shoes and socks as soon as you get in the exam room. Ask your healthcare provider to examine your feet for problems. This will make it easier to find and treat small skin irritations before they get worse. Regular checkups can also help keep track of the blood flow and feeling in your feet. If you have neuropathy, you may need to have checkups more often. Wear Proper Footwear Wearing proper footwear is very important. If areas of your feet have been damaged by too much pressure, your healthcare provider may recommend changing your footwear. In some cases, avoiding high heels or tight work boots may be all thats needed. Or, your healthcare provider may recommend special shoes or custom inserts. These help protect your feet and keep existing irritations from getting worse. If you need special footwear, ask your healthcare provider if you qualify for [employer] diabetic shoe program. Make Sure Shoes and Socks Fit Any pair of shoes--new or old--should feel comfortable as soon as you put them on. There shouldnt be any rubbing when you walk. Wear the right shoe for any activity. For instance, a running shoe is designed to keep your feet injury-free while jogging. Buy shoes at the end of the day, when your feet are larger. Make sure they provide support without feeling too loose. Make sure your socks fit, too. Wear soft, seamless, well-padded socks for activity. Cotton or microfiber socks are best to help to absorb sweat. To protect your feet, avoid shoes that are open-toed or open-heeled. If you have questions about what kinds of shoes and socks are best, talk to your healthcare team. Get Regular Exercise Regular exercise improves blood flow in your feet. It also increases foot strength and flexibility.Gentle exercises, like walking or riding a stationary bicycle, are best. You can also do special foot exercises. Just be sure to talk with your healthcare provider before starting any exercise program. Also mention if any exercise causes pain, redness, or other signs of foot problems. Note: If you have any kind of break in the skin of your foot or ankle, keep the area clean. Then call your doctor--especially if the area doesnt appear to be healing. [id number] [employer], [address] [place] [address], [place] [address]. All rights reserved. This information is not intended as a substitute for professional medical care. Always follow your healthcare professional's instructions. documented in this encounter Progress Notes * Elham Marcos MED ASSIST - 11/10/2023 9:27 AM EDT Socks and Shoes Removed for Annual Diabetic Foot Screening RIGHT FOOT: No Reddened, Cracking, Or Open Areas Noted. RIGHT Dorsalis Pedis Pulse: Palpable RIGHT Posterior Tibial Pulse: Palpable RIGHT Monofilament:Patient reports feeling monofilament pressure on plantar surface of foot LEFT FOOT: No Reddened, Cracking or Open Areas Noted. LEFT Dorsalis Pedis Pulse: Palpable LEFT Posterior Tibial Pulse: Palpable LEFT Monofilament:Patient reports feeling monofilament pressure on plantar surface of foot Do you need diabetic shoes: No * Liliam Crum PA-C - 11/10/2023 8:33 [...] of less than 7.0% ([facility]) (Primary) - DIABETES FOOT EXAM - DIABETIC [...] cancer - COLONOSCOPY, GI REFERRAL OP Other manager terminal (current) drug therapy - VITAMIN B12; Future; [...] documented in this encounter Nursing Notes * Elham Marcos MED ASSIST - 11/10/2023 8:08 AM EDT Chief Complaint Patient presents with Follow Up Patient would like to go over lab results and review medications Back Pain Patient reports having back pain for many years. Patient has been verbally educated on the need or importance of Immunizations: Shingles and has declined topic(s). documented in this encounter Miscellaneous Notes * Addendum Note - Elham Marcos MED ASSIST - 11/10/2023 9:28 AM EDTAddended by: ELHAM MARCOS on: 11/10/2023 09:28 AM Modules accepted: Orders * Addendum Note - Davis Ibrahim LPN - 11/10/2023 9:26 AM EDTAddended by: DAVIS IBRAHIM on: 11/10/2023 09:26 AM Modules accepted: Orders documented in this encounter Plan of Treatment Upcoming Encounters Date Type Department Care Team (Late st Contact Info) Description 12/24/2023 2:55 PM EDT Office Visit [facility] [address] [place] [address] George Loyola MD [address] [place] [address] Nurse Sakina [facility] [address] [place] [address] Scheduled Orders Name Type Priority Associated Diagnoses Orde r Schedule MAMMOGRAM SCREENING AIDEN BILATERAL Medical Imaging Routine Encounter for screening mammogram for breast cancer Expected: 11/11/2023, Expires: 12/09/2024 VITAMIN B12 Lab Routine Type 2 diabetes mellitus with hemoglobin A1c goal of less than 7.0% (HCC) Other fpc (current) drug therapy Expected: 11/10/2023 (Approximate), Expires: [...] D LEVEL ONCE IN A LIFETIME-USE SMARTSET# [id number] Completed 03/06/2020 GARDASIL-HPV IMMUNIZATION SERIES Aged Out No longer eligible based on patient's age to complete this topic Hepatitis B Aged Out No longer eligi ble based on patient's age to complete this topic MENINGOCOCCAL (MENACTRA/MENVEO) Aged Out No longer eligible based on patient's age to complete this topic documented as of this encounter Medical Devices Implanted Type Area Automotive Starter Repairer Device Identifier Shelf Expiration Date Model / Serial / Lot Sling Kaleigh One - [id number] Implanted:Qty: 1 on 04/03/2023 by George Loyola MD at OR [facility] N/A: Vagina [employer] 06/14/2024 [id number] / / [id number] Y-[id number] 26 X 4 X 3 Cm - [id number] Implanted:Qty: 1 on 04/03/2023 by George Loyola MD at OR [facility] N/A: Vagina [employer] 06/04/2027 [id number] / / [id number] documented as of this encounter Visit Diagnoses Diagnosis Type 2 diabetes mellitus with hemoglobin A1c goal of less than 7.0% ([facility])- Primary HTN, goal below 140/90 Unspecified essential [...] Special screening for malignant neoplasms, colon Other manager terminal (current) drug therapy documented in this encounter Advance Directives Latest Code Status on File Code Status Date Activated Date Inactivated Comments Full Code 04/03/2023 1:19 PM 04/04/2023 5:35 PM This o rder reflects the patients wishes and were consensually agreed upon. Question Answer Comments Discussion of Advance Directives occurred with: Patient Care Teams Viscera Washer Relationship Specialty Start Date End Date Radames November ELISEO Rosa [address] [place] [address] PCP - General Physician Traffic Safety Administrator 02/20/18 documented as of this encounter"
--- OUTSIDE RECORDS SUMMARY | 2023-11-22 18:21 | External Medical Summary | Summary of Care ---
Author Name Unknown Organization [facility] Address [address] [facility] [place] [address] Phone [phone] Care Team Providers Care Humidifier Maintenance Worker Name Role Phone Radames Liliam Shelley ELISEO Primary Care Provider [phone] Reason for Visit * Reason Comments Follow Up Encounter Details Date Type Department Care Team (Late st Contact Info) Description 06/25/2023 2:55 PM EST Office Visit Urogynecology [facility] [address] [place] [address] George Loyola MD [address] [place] [address] Nurse Sakina [facility]Acaraz [address] [place] [address] Uterovaginal prolapse, incomplete*; Stress incontinence Allergies Active Allergy Reactions Criticality Noted Date [...] as of this encounter (statuses as of 06/27/2023) Medications Medication Sig Dispensed Refills Start Date End Date Status Aspirin 81 MG TabletIndications :Type 2 diabetes mellitus with hemoglobin A1c goal of less than 7.0% (HCC) Take 1 Tablet by mouth in the morning. 30 Tab 0 02/03/2017 Active ONETOUCH ULTRASOFT [place] [facility] [place] as directed 4 times a day as needed for Hyperglycemia (high sugar) or Hypoglycemia (low sugar). Use up to four times a day as directed 1 Box Dosing Unit 11 02/16/2019 Active Albuterol Sulfate HFA 108 (90 Base) MCG/ACT Inhalation Aerosol Solution Inhale 2 Puffs by mouth 4 times a day. 54 g 1 10/12/2020 Active OneTouch Ultra Blue In Vitro Strip (Glucose Blood) Use as directed 3 times a day. Use up to three times a day as directed e11.9 100 Strip 11 10/18/2020 Active OneTouch UltraSoft Lancets Use as directed 3 times a day. Use up to three times a day as directed E11.9 100 Each 11 10/18/2020 Active Estradiol 0.1 MG/GM Vaginal Cream (Estrace) Administer into the vagina 0.5 g once a day Friday and only . At nighttime as directed. 42.5 g 6 11/29/2021 Active Albuterol Sulfate (2.5 MG/3ML) 0.083% Inhalation Nebulization Solution (Proventil)Indica tions:Acute bronchospasm One vial in nebulizer every 4 hours as needed for wheezing 60 mL 3 01/02/2022 Active metFORMIN HCl 500 MG Oral Tablet (Glucophage)Indic ations:Essential hypertension with goal blood pressure less than 140/90 Take 1 Tab by mouth 2 times a day with morning and evening meals. 180 Tablet 3 09/03/2022 Active Clobetasol Propionate 0.05 % External Ointment (Temovate) use daily on affected area after warm soaks for 5-10 days and then use twice a week sparingly 60 g 3 09/03/2022 Active hydroCHLOROthiazi de 25 MG Oral Tablet (Hydrodiuril)Uma cations:Essential hypertension with goal blood pressure less than 140/90 Take 1 Tablet by mouth daily as needed for Other (swelling). 90 Tablet 3 10/09/2022 Active Lisinopril 5 MG Oral Tablet (Prinivil)Indicat ions:Essential hypertension with goal blood pressure less than 140/90 Take 1 Tablet by mouth in the morning. 90 Tablet 3 10/09/2022 Active Omeprazole 20 MG Oral Capsule Delayed Release (PriLOSEC)Indicat ions:Gastroesopha geal reflux disease with esophagitis Take 1 Capsule by mouth in the morning. 90 Capsule 3 10/09/2022 Active Ezetimibe 10 MG Oral Tablet (Zetia) Take 1 Tablet by mouth in the morning. 90 Tablet 3 10/31/2022 Active Gemfibrozil 600 MG Oral Tablet (Lopid) Take 1 Tablet by mouth 2 times a day 30 minutes before morning and evening meals. 180 Tablet 3 12/16/2022 Active Ibuprofen 600 MG Oral Tablet (Motrin) Take 1 Tablet by mouth every 6 hours with food as needed for post op pain. 30 Tablet 0 04/04/2023 Active Ampicillin 500 MG Oral Capsule Take 1 Capsule by mouth in the morning and 1 Capsule at noon and 1 Capsule in the evening and 1 Capsule before bedtime. Do all this for 7 days. until gone.. 28 Capsule 0 06/27/2023 07/04/20 Active cycloSPORINE 0.05 % Ophthalmic Emulsion 1 Drop in the morning and 1 Drop before bedtime. 0 06/25/20 23 Discontinu ed(Patient preference /discontin uation) Amoxicillin-Pot Clavulanate 500-125 MG Oral Tablet (Augmentin) Take 1 Tablet by mouth in the morning and 1 Tablet before bedtime. Until gone.. 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 Torn rotator cuff 02/16/2019 Overview: surgeries times 3. documented as of this encounter (statuses as of 06/27/2023) Immunizations Name Administration Dates Next Due Pneumococcal Conjugate Vacc, 13 Valent (Prevnar) 07/31/2018 Pneumococcal Polysaccharide PPV23 (Pneumovax) 02/03/2017 SEASONAL INFLUENZA, PF, 6 M & Above, IM , (FLULAVAL or FLUZONE) 07/31/2018,09/09/2017 Season Influenza, Quad, PF, Adjuvanted, 65+ Yrs, IM (FLUAD) 04/18/2020 Seasonal Influenza, Quadriva lent Hd (Fluzone Hd) 07/10/2022 Seasonal Influenza, Quadriva lent, No Preserve, IM 06/03/2016,05/18/2015 05/22/2016 Seasonal Influenza, Split, I IV3, With Preserve, Inj 04/07/2014,06/01/2013,05/28/2012,08/04,06/05/2010,05/26/2008 TD, Preservative Free 08/06/2017 TDAP (age 10 and older)(Boostrix) 11/27/2021 TDAP (age 11 and older)(Adacel) 05/26/2008 documented as of this encounter Social History Tobacco Use Types Packs/Day Years Used Date Smoking Tobacco: Never Smokeless Tobacco: Never Tobacco Cessation:Counseling Given: Not Answered Alcohol Use Standard Drinks/Week Comments Yes 0 [...] as of this encounter Progress Notes * George Loyola MD - 06/25/2023 2:46 PM EST Rita Glover presents for a follow up visit at [facility]. She was previously seen for N81.2 Uterovaginal prolapse, incomplete (primary encounter diagnosis) N39.3 Stress incontinence Since last seen, she is s/p. Robotic hysterectomy, BSO, sacral colpopexy, sling, and cystoscopy. Ather last visit, she had a mildly elevated PVR of 165 ml. Urinary: has some dysuria today, no incontinence, feels that she is emptying better Allergies: Review of patient's allergies indicates: Allergen Reactions Naproxen Dr [Naproxen] Edema face/lips/tongue Facial swelling Cephalexin Rash Informed by pt. Happened in January 2018 started on the legs while on vacation Lipitor [Atorvastatin Calcium] Leg pain and swelling Macrobid [Nitrofurantoin Macrocrystal] Diarrhea and Nausea/vomiting Also rash per [employer] Macrodantin [Nitrofurantoin] Makes patient sick Sulfa Antibiotics Rash Also causes burning and skin changes Zocor [Simvastatin - High Dose] Muscle pain and cramping Active Medications: Current Outpatient Medications Medication Sig Dispense Refill Aspirin 81 MG Tablet Take 1 Tablet by mouth in the morning. 30 Tab 0 cycloSPORINE 0.05 % Ophthalmic Emulsion 1 Drop in the morning and 1 Drop before bedtime. (Patient not taking: Reported on 05/14/2023) ON[place]OUCH ULTRAS[place]FT [place]ANC[place] [facility] [place] Use as directed 4 times a day as needed for Hyperglycemia (high sugar) or Hypoglycemia (low sugar). Use up to four times a day as directed 1 Box Dosing Unit 11 Albuterol Sulfate HFA 108 (90 Base) MCG/ACT Inhalation Aerosol Solution Inhale 2 Puffs by mouth 4 times a day. 54 g 1 OneTouch Ultra Blue In Vitro Strip (Glucose Blood) Use as directed 3 times a day. Use up to three times a day as directed e11.9 100 Strip 11 OneTouch UltraSoft Lancets Use as directed 3 times a day. Use up to three times a day as directed E11.9 100 Each 11 Estradiol 0.1 MG/GM Vaginal Cream (Estrace) Administer into the vagina 0.5 g once a day Friday and only . At nighttime as directed. 42.5 g 6 Albuterol Sulfate (2.5 MG/3ML) 0.083% Inhalation Nebulization Solution (Proventil) One vial in nebulizer every 4 hours as needed for wheezing 60 mL 3 metFORMIN HCl 500 MG Oral Tablet (Glucophage) Take 1 Tab by mouth 2 times a day with morning and evening meals. 180 Tablet 3 Clobetasol Propionate 0.05 % External Ointment (Temovate) use daily on affected area after warm soaks for 5-10 days and then use twice a week sparingly 60 g 3 hydroCHLOROthiazide 25 MG Oral Tablet (Hydrodiuril) Take 1 Tablet by mouth daily as needed for Other (swelling). 90 Tablet 3 Lisinopril 5 MG Oral Tablet (Prinivil) Take 1 Tablet by mouth in the morning. 90 Tablet 3 Omeprazole 20 MG Oral Capsule Delayed Release (PriLOSEC) Take 1 Capsule by mouth in the morning. 90Capsule 3 Ezetimibe 10 MG Oral Tablet (Zetia) Take 1 Tablet by mouth in the morning. 90 Tablet 3 Gemfibrozil 600 MG Oral Tablet (Lopid) Take 1 Tablet by mouth 2 times a day 30 minutes before morning and evening meals. 180 Tablet 3 Ibuprofen 600 MG Oral Tablet (Motrin) Take 1 Tablet by mouth every 6 hours with food as needed for post op pain. 30 Tablet 0 Amoxicillin-Pot Clavulanate 500-125 MG Oral Tablet (Augmentin) Take 1 Tablet by mouth in the morning and 1 Tablet before bedtime. Until gone.. 14 Tablet 0 No current facility-administered medications for this visit. ROS: No Change since previous visit with PVR: 90 ml Via bladder scan Results for orders placed or performed in visit on 04/29/23 CULTURE, URINE, QUANTITATIVE Specimen: Urine, Clean Catch Result Value Ref Range Culture Growth No significant growth Impression: This is a 73 year old with Uterovaginal prolapse, incomplete (Primary) Stress incontinence Bladder emptying is improving. PVR is 90 ml. A few days ago, started to have dysuria. Will send culture to lab and if positive will treat. Continue topical estrogen cream. I spent a total of 20 minutes on the date of service in preparation, delivery, and documentation ofthe care provided to Riat Glover excluding any time spent in the performance of separately billedservices. George Loyola MD 06/25/2023 2:47 PM documented in this encounter Nursing Notes * Luci Smith LPN - 06/25/2023 2:57 PM EST Patient presents to the clinic for 4 week PVR. documented in this encounter Miscellaneous Notes * Addendum Note - George Loyola MD - 06/27/2023 1:13 PM ESTAddended by: GEORGE LOYOLA on: 06/27/2023 01:13 PM Modules accepted: Orders * Addendum Note - George Loyola MD - 06/25/2023 3:12 PM ESTAddended by: GEORGE LOYOLA on: 06/25/2023 03:12 PM Modules accepted: Orders documented in this encounter Plan of Treatment Upcoming Encounters Date Type Department Care Team (Late st Contact Info) Description 09/11/2023 2:30 PM EST Office Visit Cardiology, [facility] [address] [place] [address] Noah Carmona MD [address] [place] [address] 10/10/2023 10:45 AM EST Office Visit Urogynecology [facility] [address] [place] [address] Selena Lopez MD [address] [place] [address] Nurse Sakina Griffith [address] [place] [address] 12/24/2023 2:55 PM EDT Office Visit Urogynecology [facility] [address] [place] [address] George Loyola MD [address] [place] [address] Nurse Sakina [facility]caraz [facility] [address] [place] [address] Scheduled Procedures Name Priority Associated Diagnoses Date/Ti me COLONOSCOPY FLEXIBLE PROXIMA L DIAGNOSTIC Recall Special screening for malignant neoplasms, colon Health Maintenance Due Date Last Done Comments COVID-19 Vaccine (#1) 1952 Cologuard 1997 Fecal Occult Blood Test 1997 Sigmoidoscopy 1997 Zoster Vaccines (1 of 2) 2002 Hepatitis B (1 of 3 - Risk 3-dose series) 2012 Colonoscopy 05/15/2017 05/15/2007 Colorectal Cancer Screening 05/15/2017 Depression Screening 06/15/2019 06/15/2018, 11/16/2014 (Discussed) Mammogram 01/26/2020 01/25/2019, 10/19/2010 *BISPHONATE OR OTHER ACCEPTABLE MEDICATION NEEDED FOR OSTEOPOROSIS (REFER TO SMARTSET #1146) 08/02/2020 DXA Scan 01/26/2021 01/26/2019 Diabetic Foot Exam 07/31/2021 07/31/2020, 0 02/13/2018, 06/03/2016, Additional history exists Pneumococcal Vaccine: 65+ Years (3 - PPSV23 or PCV20) 02/03/2022 07/31/2018, 02/03/2017 Influenza Vaccine (FLU shot) (#1) 2023 07/10/2022, 04/18/2020, 07/31/2018, Additional history exists Diabetic Eye Exam 05/14/2023 05/14/2022, , 12/13/2019, Additional history exists Albumin/Creatinine Ratio 07/03/2023 022, 06/07/2016, 11/16/2014 (Discussed) B-12 07/03/2023 07/03/2022, 03/0 09/2020, 02/11/2019, Additional history exists HbA1c 10/03/2023 04/04/2023, 06/06, 10/03/2020, Additional history exists GFR 04/04/2024 04/04/2023, 03/04, 07/03/2022, Additional history exists Lipid Panel 07/03/2027 07/03/2022, 03/0 09/2020, 03/06/2020, Additional history exists DTaP,Tdap,and Td Vaccines (4 - Td or Tdap) 11/28/2031 11/27/2021, 08/06/2017, 05/26/2008 VITAMIN D LEVEL ONCE IN A LIFETIME-USE SMARTSET# 62037 Completed 03/06/2020 GARDASIL-HPV IMMUNIZATION SERIES Aged Out No longer eligible based on patient's age to complete this topic MENINGOCOCCAL (MENACTRA/MENVEO) Aged Out No longer eligible based on patient's age to complete this topic documented as of this encounter Medical Devices Implanted Type Area Survey Rodman Device Identifier Shelf Expiration Date Model / Serial / Lot Y-Mesh 26 X 4 X 3 Cm - [id number] Implanted:Qty: 1 on 04/03/2023 by George Loyola MD at OR [facility] N/A: Vagina [employer] 06/04/2027 [id number] / / [id number] documented as of this encounter Procedures Procedure Name Priority Date/Time Associated Diagnosis Comments CULTURE, URINE, QUANTITATIVE Routine 06/25/2023 3:17 PM EST Uterovaginal prolapse, incomplete Stress incontinence documented in this encounter Results * (ABNORMAL) CULTURE, URINE, QUANTITATIVE (06/25/2023 3:17 PM EST) Culture Growth >100,000 colonies/mL Escherichia coli(A) MICROBROTH DILUTIONS 06/27/2023 1:04 PM EST LABORATORY [facility] Urine Urine specimen obtained by clean catch procedure / Unknown Non-blood Collection / Unknown 06/25/2023 3:17 PM EST 06/25/2023 3:40 PM EST Narrative LABORATORY [facility] - 06/27/2023 1:04 PM EST <10,000 colonies/ml mixed normal booker Organism Antibiotic Method Susceptibility Escherichia coli Ampicillin MICROBROTH DILUTIONS <=2: Susceptible Escherichia coli Cefazolin MICROBROTH DILUTIONS <=4: Susceptible Escherichia coli Cefepime MICROBROTH DILUTIONS <=1: Susceptible Escherichia coli Ceftriaxone MICROBROTH DILUTIONS <=1: Susceptible Escherichia coli Ciprofloxacin MICROBROTH DILUTIONS <=0.25: Susceptible Comment:Due to oc us side effects, the FDA has advised against using Ciprofloxacin to treat uncomplicated UTIs and respiratory tract infections unless there are no alternative treatment options. Escherichia coli Gentamicin MICROBROTH DILUTIONS <=1: Susceptible Escherichia coli Nitrofurantoin MICROBROTH DILUTIONS <=16: Susceptible Escherichia coli Piperacillin Tazobactam MICROBROTH DI LUTIONS <=4: Susceptible Escherichia coli Trimeth/Sulfamethoxazole MICROBROTH D ILUTIONS <=20: Susceptible George Loyola MD LAB MICRO - GENERAL ORDERABLES LAB[facility]ATORY [facility] [place] [place] [address] [place] [facility] [place] [address] documented in this encounter Visit Diagnoses Diagnosis Uterovaginal prolapse, incomplete- Primary Stress incontinence Female stress incontinence documented in this encounter Advance Directives Latest Code Status on File Code Status Date Activated Date Inactivated Comments Full Code 04/03/2023 1:19 PM 04/04/2023 5:35 PM This o rder reflects the patients wishes and were consensually agreed upon. Question Answer Comments Discussion of Advance Directives occurred with: Patient Care Teams Humidifier Maintenance Worker Relationship Specialty Start Date End Date Ebonynovember ELISEO Rosa [address] [place] [address] PCP - General Physician Beef Skinner 02/20/18 documented as of this encounter
--- OUTSIDE RECORDS SUMMARY | 2023-11-22 18:21 | External Medical Summary ---
Author Name Unknown Address Unknown Organization [id number]:LABORATORY [facility] [place] - [address] [facility] [address] Laboratory Report Ordering Provider Test Date Status 11/04/2023 11:32:43 Final Observation Date Value Abnormality Reference (Units ) Status Triglyceride 11/04/2023 11:32:43 59 <=174 ( mg/dL) Final Triglyceride Reference Range s (mg/dL):
<150 Acceptable
150-174 Borderline high
175-499 High
>=500 Very high Cholesterol 11/04/2023 11:32:43 225 Above high normal <200 (mg/dL) Final Total Cholesterol Reference Ranges (mg/dL):
<200 Desirable
200-239 Borderline high
>=240 High HDL 11/04/2023 11:32:43 78 >49 (mg/dL ) Final HDL Cholesterol Reference Ra nges (mg/dL):
>=60 High (Desirable)
<50 Low (Undesirable) For Females
<40 Low (Undesirable) For Males NON-HDL CHOLESTEROL 11/04/2023 11:32:43 147 <=159 (mg/dL) Final Non-HDL Cholesterol Referenc e Range (mg/dL):
<100 Target level for high risk ASCVD patient
<130 Optimal for general population
130-159 Near optimal for general population
160-189 Borderline High
190-219 High
>=220 Very High LDL, (calculated) 11/04/2023 11:32:43 135 Above high n ormal <=129 (mg/dL) Final LDL Cholesterol Reference Ra nges (mg/dL):
<70 Target level for high risk ASCVD patient
<100 Optimal for general population
100-129 Near optimal for general population
130-159 Borderline high
160-189 High
>=190 Very high Performing Location LABORATORY [facility] [place] - [address] [facility] [address]
--- OUTSIDE RECORDS SUMMARY | 2023-11-22 18:21 | External Medical Summary | Summary of Care ---
Author Name Unknown Organization [facility] Address [address] [facility] [place] [address] Phone [phone] Care Team Providers Care Fire Lieutenant Marine Name Role Phone Radames Liliam Shelley ELISEO Primary Care Provider [phone] Reason for Visit * Reason Comments Follow Up Encounter Details Date Type Department Care Team (Late st Contact Info) Description 06/25/2023 2:55 PM EST Office Visit [facility]rogynecology [facility] [address] [place] [address] George Loyola MD [address] [place] [address] Nurse Sakina [facility] [address] [place] [address] Uterovaginal prolapse, incomplete*; Stress incontinence Allergies Active [...] as of this encounter (statuses as of 06/25/2023) Medications Medication Sig Dispensed Refills Start Date End Date Status Aspirin 81 MG TabletIndications :Type 2 diabetes mellitus with hemoglobin A1c goal of less than 7.0% (HCC) Take 1 Tablet by mouth in the morning. 30 Tab 0 02/03/2017 Active ONETOUCH ULTRASOFT LANCETS [facility] [place] Use as directed 4 times a day [...] op pain. 30 Tablet 0 04/04/2023 Active cycloSPORINE 0.05 % Ophthalmic Emulsion 1 Drop in the morning and 1 Drop before bedtime. 0 06/25/20 23 Discontinu ed(Patient preference /discontin uation) Amoxicillin-Pot Clavulanate 500-125 MG Oral Tablet (Augmentin) Take 1 Tablet by mouth in the morning and 1 Tablet before bedtime. Until gone.. 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 Torn rotator cuff 02/16/2019 Overview: surgeries times 3. documented as of this encounter (statuses as of 06/25/2023) Immunizations Name Administration Dates Next Due Pneumococcal [...] presents for a follow up visit at [facility]. She was previously [...] Macrocrystal] Diarrhea and Nausea/vomiting Also rash per Vidhya Reis Macrodantin [Nitrofurantoin] Makes patient sick Sulfa Antibiotics [...] taking: Reported on 05/14/2023) ONETOUCH ULTRASOFT LANCETS [facility] Use as directed 4 times a day [...] delivery, and documentation ofthe care provided to Rita Glover excluding any [...] 09/11/2023 2:30 PM EST Office Visit Cardiology, [facility] [address] [place] [address] Noah Carmona MD [address] [place] [address] 10/10/2023 10:45 AM EST Office Visit Urogynecology [facility] [address] [place] [address] Selena Lopez MD [address] [place] [address] Nurse Saleem Urogyn [address] [place] [address] 12/24/2023 2:55 PM EDT Office Visit Urogynecology [facility] [address] [facility] [place] [address] George Loyola MD [address] [place] [address] Nurse Sakina Alcaraz [facility] [address] [place] [address] Scheduled Orders Name Type Priority Associated Diagnoses Orde r Schedule CULTURE, URINE, QUANTITATIVE Lab Routine Uterovaginal prolapse, incomplete Stress incontinence Ordered: 06/25/2023 Scheduled Procedures Name Priority Associated Diagnoses Date/Ti [...] D LEVEL ONCE IN A LIFETIME-USE SMARTSET# 74798 Completed 03/06/2020 GARDASIL-HPV IMMUNIZATION SERIES Aged Out No longer eligible based on patient's age to complete this topic MENINGOCOCCAL (MENACTRA/MENVEO) Aged Out No longer eligible based on patient's age to complete this topic documented as of this encounter Medical Devices Implanted Type Area Conceptor Device Identifier Shelf Expiration Date Model / Serial / Lot Y-Mesh 26 X 4 X 3 Cm - [id number] Implanted:Qty: 1 on 04/03/2023 by George Loyola MD at OR [facility] N/A: Vagina [employer] 06/04/2027 [id number] / / [id number] documented as of this encounter Visit Diagnoses Diagnosis Uterovaginal prolapse, [...] Advance Directives occurred with: Patient Care Teams Fire Lieutenant Marine Relationship Specialty Start Date End Date Ebony November ELISEO Rosa [address] [place] [address] [facility] [place] [address] PCP - General Physician News Reel Cameraman 02/20/18 documented as of this encounter
--- OUTSIDE RECORDS SUMMARY | 2023-11-22 18:21 | External Medical Summary ---
Author Name Unknown Address Unknown Organization [id number]:[place] [facility] [place] [address] [facility] [address] Laboratory Report Ordering Provider Test Date Status 11/04/2023 11:32:43 Final Observation Date Value Abnormality Reference (Units ) Status HbA1C 11/04/2023 11:32:43 6.6 Above high normal 4. 0-5.6 (%) Final The use of HbA1c to monitor glycemic status is based on normal hemoglobin and HbA composition. This test should not be used in patients with abnormal hemoglobin that affects the half life of the red blood cell or the in vivo glycation rates. Glucose, estimated average 11/04/2023 11:32:43 143 Above high normal <126 (mg/dL) Denilson arriaza Performing Location [place] [facility] [place] [address] [facility] [address]
--- OUTSIDE RECORDS SUMMARY | 2023-11-22 18:21 | External Medical Summary ---
Author Name Unknown Address Unknown Organization K0G[facility] [place] [address] [place] [address] Laboratory Report Ordering Provider Test Date Status JADE BAEZ 08/20/2023 14:57:57 Final Observation Date Value Abnormality Reference (Units ) Status BUN 08/20/2023 14:57:57 18 6-20 (mg/dL) Final Creatinine 08/20/2023 14:57:57 0.9 0.5-1.0 (mg/dL) Final Glomerular filtration rate/1.73 sq M.predicted [Volume Rate/Area] in Serum, Plasma or Blood by Creatinine-based formula (CKD-EPI) 08/20/2023 14:57:57 72 >=60 (mL/min) Final eGFR is calculated based on the CKD-EPI 2020 equation SODIUM 08/20/2023 14:57:57 140 135-146 (m mol/L) Final Potassium 08/20/2023 14:57:57 4.5 3.5-5.1 (m mol/L) Final Cl 08/20/2023 14:57:57 103 98-107 (mm ol/L) Final CO2 08/20/2023 14:57:57 25 22-32 (mmo l/L) Final Anion gap 08/20/2023 14:57:57 12 7-15 (mmol /L) Final Glucose 08/20/2023 14:57:57 100 70-120 (mg /dL) Final Calcium 08/20/2023 14:57:57 10.1 8.4-10.2 ( mg/dL) Final Performing Location [facility] [place] [facility] [address] [place] [address]
--- OUTSIDE RECORDS SUMMARY | 2023-11-22 18:21 | External Medical Summary | Summary of Care ---
Author Name Unknown Organization [facility] Address [address] [facility] [place] [address] Phone [phone] Care Team Providers Care Transmitter Engineer Name Role Phone Liliam Crum PA-C Primary Care Provider [phone] Reason for Visit * Reason Onset Date Comments Medication Refill 08/27/2023 Encounter Details Date Type Department Care Team (Late st Contact Info) Description 08/27/2023 Refill Family Practice [facility] [address] [facility] [place] [address] Liliam Crum PA-C [address] [facility] [place] [address] Essential hypertension with goal blood pressure less than 140/90 Allergies Active Allergy Reactions Criticality Noted Date [...] as of this encounter (statuses as of 08/27/2023) Medications Medication Sig Dispensed Refills Start Date End Date Status Aspirin 81 MG TabletIndications :Type 2 diabetes mellitus with hemoglobin A1c goal of less than 7.0% (HCC) Take 1 Tablet by mouth in the morning. 30 Tab 0 02/03/2017 Active ONETOUCH ULTRASOFT LANCETS MISC Use as directed 4 times a day [...] for wheezing 60 mL 3 01/02/2022 Active hydroCHLOROthiazi de 25 MG Oral Tablet (Hydrodiuril)Uma cations:Essential hypertension with goal blood pressure less than 140/90 Take 1 Tablet by mouth daily as needed for Other (swelling). 90 Tablet 3 10/09/2022 Active Omeprazole 20 [...] meals. 180 Tablet 3 12/16/2022 Active Ibuprofen 200 MG Oral Tablet (Motrin) [...] week sparingly 60 g 3 08/27/2023 Active metFORMIN HCl 500 MG Oral Tablet (Glucophage)Indic ations:Essential hypertension with goal blood pressure less than 140/90 Take 1 Tab by mouth 2 times a day with morning and evening meals. 180 Tablet 3 09/03/2022 08/27/19 24 Discontinu ed(Refill) Clobetasol Propionate 0.05 % External Ointment (Temovate) use daily on affected area after warm soaks for 5-10 days and then use twice a week sparingly 60 g 3 09/03/2022 08/27/19 24 Discontinu ed(Refill) Lisinopril 5 MG Oral Tablet (Prinivil)Indicat ions:Essential hypertension with goal blood pressure less than 140/90 Take 1 Tablet by mouth in the morning. 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 Torn rotator cuff 02/16/2019 Overview: surgeries times 3. documented as of this encounter (statuses as of 08/27/2023) Immunizations Name Administration Dates Next Due Pneumococcal [...] Telephone Encounter - Liliam Crum PA-C - 08/27/2023 6:21 PM ESTSigned Prescriptions: Disp Refills metFORMIN HCl 500 MG Oral Tablet (Glucopha*180 Ta*3 Sig: Take 1 Tab by mouth 2 times a day with morning and evening meals. Authorizing Provider: LILIAM CRUM Lisinopril 5 MG Oral Tablet (Prinivil) 90 Tab*3 Sig: Take 1 Tablet by mouth in the morning. Authorizing Provider: LILIAM CRUM Clobetasol Propionate 0.05 % External Oint*60 g 3 Sig: use daily on affected area after warm soaks for 5-10 days and then use twice a week sparingly Authorizing Provider: LILIAM CRUM * Telephone Encounter - Nora Ac, MERY - 08/27/2023 2:51 PM EST Pending Prescriptions: Disp Refills metFORMIN HCl 500 MG Oral Tablet (Glucoph*180 Ta*3 Sig: Take 1 Tab by mouth 2 times a day with morning and evening meals. Lisinopril 5 MG Oral Tablet (Prinivil) 90 Tab*3 Sig: Take 1 Tablet by mouth in the morning. Clobetasol Propionate 0.05 % External Oin*60 g 3 Sig: use daily on affected area after warm soaks for 5-10 days and then use twice a week sparingly Last Visit: 02/17/2023 (in office), 12/07/2020 (telemedicine) Next Visit: Visit date not found Last date the medication was ordered: 09/03/2022 Patient Active Problem List Diagnosis Code HTN, goal below 140/90 I10 ADVANCE DIRECTIVE INFORMATION DYSLIPIDEMIA, GOAL TO BE DETERMINED E78.5 BMI 35-39 ISOLATED (SEE ACTUAL BMI) E66.9 Lichen sclerosus L90.0 Type 2 diabetes mellitus with hemoglobin A1c goal of less than 7.0% ([facility]) E11.9 Statin intolerance Z78.9 Mastoiditis of left side H70.92 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 Hypokalemia E87.6 Age-related osteoporosis without current pathological fracture M81.0 History of 2019 novel coronavirus disease (COVID-19) Z86.16 Labs: Lab Results Component Value Date/Time CREATININE - [facility] 0.9 08/20/2023 02:57 PM CREATININE - [facility] 1.0 03/06/2020 07:55 AM CREATININE, RANDOM URINE - [facility] 50 07/03/2022 10:31 AM CREATININE, RANDOM URINE - [facility] 69 06/07/2016 10:09 AM CREATININE-OUTSIDE LAB 1.61 (A) 12/18/2018 12:00 AM Lab Results Component Value Date/Time POTASSIUM - [facility] 4.5 08/20/2023 02:57 PM POTASSIUM - [facility] 4.9 03/06/2020 07:55 AM POTASSIUM-OUTSIDE LAB 3.1 (A) 12/18/2018 12:00 AM Lab Results Component Value Date/Time TSH - [facility] 1.40 08/20/2023 02:57 PM TSH - [facility] 2.86 03/06/2020 07:55 AM Lab Results Component Value Date/Time LDL CHOLESTEROL (CALCULATED) - [facility] 132 (H) 07/03/2022 10:27 AM LDL CHOLESTEROL (CALCULATED) - [facility] 100 10/03/2020 09:59 AM LDL CHOLESTEROL (CALCULATED) - [facility] 170 (H) 03/06/2020 07:55 AM LDL CHOLESTEROL (CALCULATED) - [facility] 151 (H) 01/17/2017 09:58 AM LDL CHOLESTEROL (DIRECT MEASURE) - [facility] NOT APPLICABLE 03/06/2020 07:55 AM LDL CHOLESTEROL (DIRECT MEASURE) - [facility] NOT APPLICABLE 01/17/2017 09:58 AM LDL CHOLESTEROL (DIRECT MEASURE) - [facility] 191 (H) 10/03/2010 10:35 AM Lab Results Component Value Date/Time ALT - [facility] 14 12/14/2020 12:30 PM ALT - [facility] 15 01/20/2020 09:23 AM ALT-OUTSIDE LAB 27 11/25/2015 12:00 AM Hemoglobin AIC Results: Lab Results Component Value Date/Time HEMOGLOBIN A1C - [facility] 6.1 (H) 04/04/2023 04:41 AM HEMOGLOBIN A1C - [facility] 6.2 (H) 07/03/2022 10:27 AM HEMOGLOBIN A1C - [facility] 6.8 (H) 10/03/2020 09:59 AM HEMOGLOBIN A1C - [facility] 6.3 (H) 03/06/2020 07:55 AM HEMOGLOBIN A1C - [facility] 6.4 (H) 01/20/2020 09:23 AM HEMOGLOBIN A1C - [facility] 6.0 (H) 02/11/2019 08:09 AM * Telephone Encounter - Malaika Tracey OSA - 08/27/2023 2:33 PM EST Pt needs refills of these Metformin 500mg tab Clobetasol propiponate 0.05 Lisinopril 5 mg documented in this encounter Plan of Treatment Upcoming Encounters Date Type Department Care Team (Late st Contact Info) Description 10/10/2023 10:45 AM EST Office Visit [facility] [address] [place] [facility] [address] Selena Lopez MD [address] [place] [address] Nurse Sakina Griffith [address] [place] [address] 12/24/2023 2:55 PM EDT Office Visit [facility] [place] [address] [place] [address] George Loyola MD [address] [place] [address] Nurse Sakina [place] [address] [place] [address] Scheduled Procedures Name Priority Associated Diagnoses Date/Ti [...] 04/04/2023, 06/06, 10/03/2020, Additional history exists GFR 08/20/2024 08/20/2023, 090 08/2022, 03/14/2023, Additional history exists Lipid Panel 07/03/2027 07/03/2022, 03/0 09/2020, 03/06/2020, Additional history exists DTaP,Tdap,and Td Vaccines (4 - Td or Tdap) 11/28/2031 11/27/2021, 08/06/2017, 05/26/2008 VITAMIN D LEVEL ONCE IN A LIFETIME-USE SMARTSET# [id number] Completed 03/06/2020 GARDASIL-HPV IMMUNIZATION SERIES Aged Out No longer eligible based on patient's age to complete this topic MENINGOCOCCAL (MENACTRA/MENVEO) Aged Out No longer eligible based on patient's age to complete this topic documented as of this encounter Medical Devices Implanted Type Area Graphics Intern Device Identifier Shelf Expiration Date Model / Serial / Lot Y-Mesh 26 X 4 X 3 Cm - [id number] Implanted:Qty: 1 on 04/03/2023 by George Loyola MD at OR [facility] N/A: Vagina [employer] 06/04/2027 [id number] / / [id number] documented as of this encounter Visit Diagnoses Diagnosis Essential hypertension with goal blood pressure less than 140/90 documented in this encounter Advance Directives Latest Code Status on File Code Status Date Activated Date Inactivated Comments Full Code 04/03/2023 1:19 PM 04/04/2023 5:35 PM This o rder reflects the patients wishes and were consensually agreed upon. Question Answer Comments Discussion of Advance Directives occurred with: Patient Care Teams Transmitter Engineer Relationship Specialty Start Date End Date Ebonynovember ELISEO Rosa [address] [facility] [address] [place], [place] [address] PCP - General Physician Online Content Coordinator 02/20/18 documented as of this encounter
--- OUTSIDE RECORDS SUMMARY | 2023-11-22 18:21 | External Medical Summary | Summary of Care ---
Author Name Unknown Organization [facility] Address [address] [facility] [place] [address] Phone [phone] Care Team Providers Care Quality Assurance Lab Technician Name Role Phone Liliam Crum ELISEO Primary Care Provider [phone] Reason for Visit * Reason Comments Outpatient Testing Encounter Details Date Type Department Care Team (Late st Contact Info) Description 11/04/2023 11:30 AM EDT Laboratory Laboratory [facility] [address] [place] [address] [facility] [address] [place] [address] Dyslipidemia, goal to be determined; Type 2 diabetes mellitus with hemoglobin A1c goal of less than 7.0% (HCC); Abnormal blood chemistry; HTN, goal below 140/90; Hypokalemia Allergies Active Allergy Reactions Criticality Noted Date [...] as of this encounter (statuses as of 11/04/2023) Medications Medication Sig Dispensed Refills Start Date [...] for wheezing 60 mL 3 01/02/2022 Active hydroCHLOROthiazid e 25 MG Oral Tablet (Hydrodiuril)Indic ations:Essential hypertension with goal blood pressure less than 140/90 Take 1 Tablet by mouth daily as needed for Other (swelling). 90 Tablet 3 10/09/2022 Active Omeprazole 20 MG Oral Capsule Delayed Release (PriLOSEC)Indicati ons:Gastroesophage al reflux disease with esophagitis Take 1 Capsule [...] week sparingly 60 g 3 08/27/2023 Active documented as of this encounter (statuses as of 11/04/2023) Active Problems Problem Noted Date Diagnosed Date [...] as of this encounter (statuses as of 11/04/2023) Resolved Problems Problem Noted Date Diagnosed Date Resolved Date Acute cystitis without hematuria 02/20/2018 05/22/2018 Bronchitis, complicated 05/07/201710/2017 Impaired fasting glucose 02/21/201110/2017 Dyslipidemia, goal to be determined 05/02/2009 06/28/2009 Overview: Per Lipid Taxonomy 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 Torn rotator cuff 02/16/2019 Overview: surgeries times 3. documented as of this encounter (statuses as of 11/04/2023) Immunizations Name Administration Dates Next Due Pneumococcal [...] Description 11/10/2023 8:00 AM EDT Office Visit [facility] [address] [facility] [place] [address] Liliam Crum PA-C [address] [facility] [place] [address] 12/24/2023 2:55 PM EDT Office Visit [facility] [place] [address] [place] [address] George Loyola MD [address] [place] [address] Nurse Sakina [place] [address] [place] [address] Pending Results Name Type Priority Associated Diagnoses Date /Time LIPID PANEL WITH DIRECT LDL IF TG IS HIGH Lab Routine Dyslipidemia, goal to be determined 11/04/2023 11:32 AM EDT HEMOGLOBIN A1C Lab Routine Type 2 diabetes mellitus with hemoglobin A1c goal of less than 7.0% (HCC) 11/04/2023 11:32 AM EDT COMPREHENSIVE METABOLIC PANEL Lab Routine Type 2 diabetes mellitus with hemoglobin A1c goal of less than 7.0% (HCC) Abnormal blood chemistry HTN, goal below 140/90 Hypokalemia 11/04/2023 11:32 AM EDT Scheduled Procedures Name Priority Associated Diagnoses Date/Ti [...] history exists Pneumococcal Vaccine: 65+ Years (3 of 3 - PPSV23 or PCV20) 02/03/2022 07/31/2018, 02/03/2017 COVID-19 Vaccine ( season) 2023 Diabetic Eye Exam 05/14/2023 05/14/2022, , 12/13/2019, Additional history exists Albumin/Creatinine Ratio 07/03/2023 022, 06/07/2016, 11/16/2014 (Discussed) B-12 07/03/2023 07/03/2022, 09/2020, 02/11/2019, Additional history exists HbA1c 10/03/2023 04/04/2023, 06/06, 10/03/2020, Additional history exists Influenza Vaccine (FLU shot) (Season Ended) 2024 07/10/2022, 04/18/2020, 07/31/2018, Additional history exists GFR 08/20/2024 08/20/2023, 090 08/2022, 03/14/2023, Additional history exists Lipid Panel 07/03/2027 07/03/2022, 0 09/2020, 03/06/2020, Additional history exists DTaP,Tdap,and Td Vaccines (4 - Td or Tdap) 11/28/2031 11/27/2021, 08/06/2017, 05/26/2008 VITAMIN D LEVEL ONCE IN A LIFETIME-USE SMARTSET# [id number] Completed 03/06/2020 GARDASIL-HPV IMMUNIZATION SERIES Aged Out No longer eligible based on patient's age to complete this topic Hepatitis B Aged Out No longer eligi ble based on patient's age to complete this topic MENINGOCOCCAL (MENACTRA/MENVEO) Aged Out No longer eligible based on patient's age to complete this topic documented as of this encounter Medical Devices Implanted Type Area Blocking Machine Operator Second Device Identifier Shelf Expiration Date Model / Serial / Lot Sling Desara One - [id number] Implanted:Qty: 1 on 04/03/2023 by George Loyola MD at OR [facility] N/A: Vagina [employer] 06/14/2024 [id number] / [id number] Y-Mesh 26 X 4 X 3 Cm - [id number] Implanted:Qty: 1 on 04/03/2023 by George Loyola MD at OR [facility] N/A: Vagina [employer] 06/04/2027 [id number] / / [id number] documented as of this encounter Visit Diagnoses Diagnosis Dyslipidemia, goal to be determined Other and unspecified hyperlipidemia Type 2 diabetes mellitus with hemoglobin A1c goal of less than 7.0% (HCC) Abnormal blood chemistry Other abnormal blood chemistry HTN, goal below 140/90 Unspecified essential hypertension Hypokalemia Hypopotassemia documented in this encounter Advance Directives Latest Code Status on File Code Status Date Activated Date Inactivated Comments Full Code 04/03/2023 1:19 PM 04/04/2023 5:35 PM This o rder reflects the patients wishes and were consensually agreed upon. Question Answer Comments Discussion of Advance Directives occurred with: Patient Care Teams Quality Assurance Lab Technician Relationship Specialty Start Date End Date Radames November ELISEO Rosa [address] [place] [address] PCP - General Physician Pick Pulling Machine Operator 02/20/18 documented as of this encounter
--- OUTSIDE RECORDS SUMMARY | 2023-11-22 18:21 | External Medical Summary | Summary of Care ---
Author Name Unknown Organization [facility] Address [address] [facility] [place] [address] Phone [phone] Care Team Providers Care Nurse Case Management Name Role Phone Radames Liliam Shelley ELISEO Primary Care Provider [phone] Reason for Visit * Reason Comments Follow Up Encounter Details Date Type Department Care Team (Late st Contact Info) Description 08/20/2023 2:30 PM EST Office Visit Cardiology, [facility] [address] [facility] [place] [address] Krystal Garcia PA-C [address] [facility] [place] [address] HTN, goal below 140/90*; Dyslipidemia, goal LDL below 130; Statin intolerance Allergies Active Allergy Reactions Criticality Noted Date [...] as of this encounter (statuses as of 08/20/2023) Medications Medication Sig Dispensed Refills Start Date End Date Status Aspirin 81 MG TabletIndications :Type 2 diabetes mellitus with hemoglobin A1c goal of less than 7.0% ([facility]) Take 1 Tablet by mouth [...] and 2 Capsules before bedtime. 0 Active Ibuprofen 600 MG Oral Tablet (Motrin) Take 1 Tablet by mouth every 6 hours with food as needed for post op pain. 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 Torn rotator cuff 02/16/2019 Overview: surgeries times 3. documented as of this encounter (statuses as of 08/20/2023) Immunizations Name Administration Dates Next Due Pneumococcal [...] Sign Reading Time Taken Comments Blood Pressure 126/66 08/20/2023 2:35 PM EST Pulse 96 08/20/2023 2:35 PM EST Temperature - - Respiratory Rate 16 08/20/2023 2:35 PM EST Oxygen Saturation - - Inhaled Oxygen Concentration - - Weight 78 kg (172 lb) 08/20/2023 2:35 PM EST Height - - Body Mass Index 33.59 04/29/2023 2:04 PM EDT documented in this encounter Functional Status [...] as of this encounter Progress Notes * Krystal Garcia PA-C - 08/20/2023 2:34 PM EST 08/20/2023 Cardiology Follow Up Primary Ash Kier Boiler: Dr. Carmona Past Medical History: 1. HTN 2. HLD with limited statin tolerance 3. Atrial and ventricular ectopy, paroxysmal atrial tachycardia 4. Type 2 Diabetes mellitus HPI: Rita Glover is a 73 year old female who presents for routine cardiology follow up. Last evaluated in clinic 03/2023 by MILAGRO Mackenzie. Presents today feeling well from cardiac standpoint. Was under stress due to being in hospital recently, just returned home. Occasional palpitations. Denies chest pain, shortness of breath, edema, PND, orthopnea, lightheadedness, syncope. Compliant with all medications with no side effects. REVIEW OF SYSTEMS: See HPI for pertinent positives. All others negative other than those noted in the HPI. CONSTITUTIONAL: No change in weight, No weakness, No fatigue and No fevers, No sweats or chills. PULMONARY: No cough, sputum, or hemoptysis, No wheezing, No shortness of breath and No recent change in breathing. CARDIOVASCULAR: No chest pain, No dyspnea on exertion, No edema, +palpitations and No syncope. GASTROINTESTINAL: No abdominal pain, No change in bowel habits, No significant heartburn, No nausea, No vomiting, No diarrhea, No constipation, No blood in stools or black tarry stools. No dysphagia. HEMATOLOGIC: No abnormal bleeding and No bruising. NEUROLOGICAL: Normal balance, No headaches and No weakness. Review of patient's allergies indicates: Allergen Reactions Naproxen Dr [Naproxen] Edema face/lips/tongue Facial swelling Cephalexin Rash Informed by pt. Happened in January 2018 started on the legs while on vacation Lipitor [Atorvastatin Calcium] Leg pain and swelling Macrobid [Nitrofurantoin Macrocrystal] Diarrhea and Nausea/vomiting Also rash per [facility] Macrodantin [Nitrofurantoin] Makes patient sick Sulfa Antibiotics Rash Also causes burning and skin changes Zocor [Simvastatin - High Dose] Muscle pain and cramping Current Outpatient Medications Medication Sig Dispense Refill Aspirin 81 MG Tablet Take 1 Tablet by mouth in the morning. 30 Tab 0 Albuterol Sulfate HFA 108 (90 Base) MCG/ACT Inhalation Aerosol Solution Inhale 2 Puffs by mouth 4 times a day. 54 g 1 Estradiol 0.1 MG/GM Vaginal Cream (Estrace) Administer into the vagina 0.5 g once a day Friday and only . At nighttime as directed. (Patient taking differently: Administer 0.5 g into the vagina as needed. At nighttime as directed.) 42.5 g 6 Albuterol Sulfate (2.5 MG/3ML) [...] and evening meals. 180 Tablet 3 Ibuprofen 200 MG Oral Tablet (Motrin) Take 2 Tablets by mouth as needed. D-Mannose 500 MG Oral Capsule Take 2 Capsules by mouth in the morning and 2 Capsules before bedtime. ONETOUCH ULTRASOFT LANCETS [facility] Use as directed 4 times a day as needed for Hyperglycemia (high sugar) or Hypoglycemia (low sugar). Use up to four times a day as directed 1 Box Dosing Unit 11 OneTouch Ultra Blue In Vitro Strip (Glucose Blood) Use as directed 3 times a day. Use up to three times a day as directed e11.9 100 Strip 11 OneTouch UltraSoft Lancets Use as directed 3 times a day. Use up to three times a day as directed E11.9 100 Each 11 No current facility-administered medications for this visit. Past Medical History: Diagnosis Date COVID-2021 DM (diabetes mellitus) (HCC) Dyslipidemia Headache(784.0) Headache NOS HTN, goal below 140/90 Lichen sclerosus Torn rotator cuff 2 surgeries Family History Problem Relation Age of Onset Heart Disorder Mother CAD, CVA in her 50s Cancer Mother stomach diagnosed age 63, passed 65 Breast Cancer Daughter 44 Diabetes Grandmother (Maternal) Heart Disorder Aunt (Unspecified) No Past Hx Daughter No Past Hx Daughter No Past Hx Daughter Cancer Aunt (Unspecified) ovarian Social History Socioeconomic History Marital status: Spouse name: FRANCIS Number of children: 3 Occupational History 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 Employer: [employer] 248 Tobacco Use Smoking status: Never Smokeless tobacco: Never Vaping Use Vaping Use: Never used Substance and Sexual Activity Alcohol use: Yes Comment: rare Drug use: No Sexual activity: Yes Partners: Male Other Topics Concern Service No Blood Transfusions No Caffeine Concern Yes Occupational Exposure No Hobby Hazards No Sleep Concern Yes Stress Concern No Weight Concern Yes Special Diet No Back Care No Exercise No Seat Belt Yes Self-Exams Yes OBJECTIVE/PHYSICAL EXAMINATION: BP 126/66 (BP Site: Left Arm, BP Position: Sitting, BP Cuff Size: Large) | Pulse 96 | Resp 16 | Wt 78 kg (172 lb) | LMP 03/28/2006 | BMI 33.59 kg/m | BSA 1.82 m General: No acute distress. A+Ox3. HEENT: Normocephalic. Atraumatic. PERRL. EOMI. Conjunctiva and sclera clear. NECK: No carotid bruits. No JVD. Carotid upstrokes are brisk. Heart: RRR. S1 and S2 noted. No murmur. No rubs or gallops. PMI non displaced. Lungs: Clear to auscultation. No wheezes. No rhonchi. No rales. Abdomen: Normal bowel sounds. Soft. Nontender. No masses or organomegaly. No abdominal bruits. Extremities: No edema. No clubbing or cyanosis. Pulses: radial=2/4, posterior tibial=2/4, dorsalis pedis = 2/4. NEURO: No focal deficits. PSYCH: Appropriate affect and insight. DATA Labs & Imaging Reviewed Below: EKG 03/14/23 NSR, 70 bpm Stress echocardiogram 01/21/2023 The examination is adequate to evaluate the referral indication. The stress echo is negative for inducible ischemia. Exercise capacity is average . Heart rate response to stress was normal. Blood pressure response to exercise was normal. The stress EKG response showed no evidence of ischemia. The left ventricular wall motion is normal. The left ventricular wall motion with stress is normal. The left ventricular ejection fraction increases normally with stress. The left ventricular systolic function is normal. There is isolated basal septal hypertrophy with maximal thickness of 1.5 cm. The qualitative LV ejection fraction is 60-64% (normal). The aortic valve is moderately calcified. Image and Doppler assessment of aortic stenosis severity is discordant: Mild aortic stenosis is present. Moderate tricuspid regurgitation is present. Mild pulmonary hypertension is present. ASSESSMENT/PLAN: 73 year old female 1. HTN, goal below 140/90 - well controlled - continue lisinopril 5 mg daily - HCTZ as needed for edema, hasn't used since summer - repeat CBC, BMP, TSH 2. Dyslipidemia, goal LDL below 130 3. Statin intolerance - continue ezetimibe 10 mg daily, gemfibrozil 600 mg twice daily - intolerant to atorvastatin and simvastatin with myalgias - will repeat lipid panel at next visit DISPOSITION: Follow up 6 months or sooner if symptoms worsen/fail to improve. All questions were answered to the patients satisfaction. Patient advised to report to ED with any and all emergencies. The patient agrees to the above plan and will call with additional questions or concerns. Krystal Garcia PA-C Cardiology, [address] [place] [address] I spent a total of 30 minutes on the date of service in preparation, delivery, and documentation ofthe care provided to Rita Glover excluding any time spent in the performance of separately billedservices. This chart was completed in part utilizing [email or web address] Speech Voice Recognition Software. Grammatical errors, random word insertions, pronoun errors, and incomplete sentences are an occasional consequence of this system due to software limitations, ambient noise, and hardware issues. Any formal questions or concerns about the content, text, or information contained within the body of this dictation should be directly addressed to the provider for clarification. documented in this encounter Nursing Notes * Siobhan Leija CMA - 08/20/2023 2:28 PM EST Examination Room: 3 Name: Rita Glover Date of : (1950). Reason for Visit: 5M f/u Interim Hospitalization(s): none Problems/Concerns: denies Chest Pain/SOB: Denies CP or unusual SOB [facility] Discussed: Not applicable [facility] is a way you can talk to your provider online through e-mail. Would you like to sign up? I can activate it for you? DECLINES Patient was instructed to not get up on the exam table until directed and assisted by their provider; patient is to remain seated in the chair/ wheelchair/ exam table for fall prevention and safety reasons. Patient is aware to have assistance to step down off exam table with personnel. Patient voiced full comprehension of instructions. documented in this encounter Plan of Treatment Upcoming Encounters Date Type Department Care Team (Late st Contact Info) Description 10/10/2023 10:45 AM EST Office Visit Urogynecology [facility] [address] [place] [address] Selena Lopez MD [address] [place] [address] Nurse Sakina Monge [address] [place] [address] 12/24/2023 2:55 PM EDT Office Visit [facility]gynecology [facility] [address] [place] [address] George Loyola MD [address] [place] [address] Nurse Sakina [facility] [address] [place] [address] Pending Results Name Type Priority Associated Diagnoses Date /Time CBC Lab Routine HTN, goal below 140/90 Dyslipidemia, goal to be determined 08/20/2023 2:57 PM EST BASIC METABOLIC PANEL Lab Routine HTN, goal below 140/90 Dyslipidemia, goal to be determined 08/20/2023 2:57 PM EST TSH WITH FREE T4 IF INDICATED Lab Routine HTN, goal below 140/90 Dyslipidemia, goal to be determined 08/20/2023 2:57 PM EST Scheduled Orders Name Type Priority Associated Diagnoses Orde r Schedule CBC Lab Routine HTN, goal below 140/90 Dyslipidemia, goal LDL below 130 Expected: 08/20/2023, Expires: 08/20/2024 BASIC METABOLIC PANEL Lab Routine HTN, goal below 140/90 Dyslipidemia, goal LDL below 130 Expected: 08/20/2023, Expires: 08/20/2024 TSH WITH FREE T4 IF INDICATED Lab Routine HTN, goal below 140/90 Dyslipidemia, goal LDL below 130 Expected: 08/20/2023, Expires: 08/20/2024 Scheduled Procedures Name Priority Associated Diagnoses Date/Ti [...] , 12/13/2019, Additional history exists Albumin/Creatinine Ratio 07/03/202307/03/ 022, 06/07/2016, 11/16/2014 (Discussed) B-12 07/03/2023 07/03/2022, 09/2020, 02/11/2019, Additional history exists HbA1c 10/03/2023 04/04/2023, 06/06, 10/03/2020, Additional history exists GFR 04/04/2024 04/04/2023, 03/04, 07/03/2022, Additional history exists Lipid Panel 07/03/2027 07/03/2022, 03/0 09/2020, 03/06/2020, Additional history exists DTaP,Tdap,and Td Vaccines (4 - Td or Tdap) 11/28/2031 11/27/2021, 08/06/2017, 05/26/2008 VITAMIN D LEVEL ONCE IN A LIFETIME-USE SMARTSET# [id number] Completed 03/06/2020 GARDASIL-HPV IMMUNIZATION SERIES Aged Out No longer eligible based on patient's age to complete this topic MENINGOCOCCAL (MENACTRA/MENVEO) Aged Out No longer eligible based on patient's age to complete this topic documented as of this encounter Medical Devices Implanted Type Area Singer Songwriter Device Identifier Shelf Expiration Date Model / Serial / Lot Y-Mesh 26 X 4 X 3 Cm - [id number] Implanted:Qty: 1 on 04/03/2023 by George Loyola MD at OR [facility] N/A: Vagina [employer] 06/04/2027 [id number] / / [id number] documented as of this encounter Visit Diagnoses Diagnosis HTN, goal below 140/90- Primary Unspecified essential hypertension Dyslipidemia, goal LDL below 130 Other and unspecified hyperlipidemia Statin intolerance Other drug allergy documented in this encounter Advance Directives Latest Code Status on File Code Status Date Activated Date Inactivated Comments Full Code 04/03/2023 1:19 PM 04/04/2023 5:35 PM This o rder reflects the patients wishes and were consensually agreed upon. Question Answer Comments Discussion of Advance Directives occurred with: Patient Care Teams Nurse Case Management Relationship Specialty Start Date End Date Radames Liliam ELISEO Rosa [address] [place], [place] [address] PCP - General Physician Mis Specialist 02/20/18 documented as of this encounter"
--- OUTSIDE RECORDS SUMMARY | 2023-11-22 18:21 | External Medical Summary | Summary of Care ---
Author Name Unknown Organization [facility] Address [address] [facility] [place] [address] Phone [phone] Care Team Providers Care Headlight Adjuster Name Role Phone Radames Liliam Shelley ELISEO Primary Care Provider [phone] Reason for Visit * Reason Comments Follow Up Encounter Details Date Type Department Care Team (Late st Contact Info) Description 06/25/2023 2:55 PM EST Office Visit Urogynecology [facility] [address] [place] [address] George Loyola MD [address] [place] [address] Nurse Sakina [facility] [address] [place] [address] Uterovaginal prolapse, incomplete*; Stress incontinence Allergies Active [...] Tab 0 02/03/2017 Active ONETOUCH ULTRASOFT LANCETS [facility] [...] presents for a follow up visit at [facility] --Urogynecologic Division. She [...] taking: Reported on 05/14/2023) ONETOUCH ULTRASOFT LANCETS [facility] – [...] 09/11/2023 2:30 PM EST Office Visit Cardiology, [facility] [address] [place] [address] Noah Carmona MD [address] [place] [address] 10/10/2023 10:45 AM EST Office Visit Urogynecology [facility] [address] [place] [address] Selena Lopez MD [address] [place] [address] Nurse [place] [facility] [address] [place] [address] 12/24/2023 2:55 PM EDT Office Visit Urogynecology [facility] [address] [facility] [place] [address] George Loyola MD [address] [place] [address] Nurse Sakina [facility] [address] [place] [address] Scheduled Orders Name Type Priority Associated Diagnoses [...] D LEVEL ONCE IN A LIFETIME-USE SMARTSET# [id number] Completed 03/06/2020 GARDASIL-HPV IMMUNIZATION SERIES Aged Out No longer eligible based on patient's age to complete this topic MENINGOCOCCAL (MENACTRA/MENVEO) Aged Out No longer eligible based on patient's age to complete this topic documented as of this encounter Medical Devices Implanted Type Area Fiscal Agent Device Identifier Shelf Expiration Date Model / Serial / Lot Y-Mesh 26 X 4 X 3 Cm - [id number] Implanted:Qty: 1 on 04/03/2023 by George Loyola MD at OR [facility] N/A: Vagina [employer] 06/04/2027 [id number] / / [id number] documented as of this encounter Visit Diagnoses [...] Advance Directives occurred with: Patient Care Teams Headlight Adjuster Relationship Specialty Start Date End Date Ebony November ELISEO Rosa [address] [place] [address] [facility] [place] [address] PCP - General Physician Budget Coordinator 02/20/18 documented as of this encounter
--- OUTSIDE RECORDS SUMMARY | 2023-11-22 18:21 | External Medical Summary ---
Author Name Unknown Address Unknown Organization [id number]:[facility]ATORY [facility] [place] - [address] [facility] [address] [facility] [address] Laboratory Report Ordering Provider Test Date Status JADE BAEZ 08/20/2023 14:57:57 Final Observation Date Value Abnormality Reference (Units ) Status TSH 08/20/2023 14:57:57 1.40 0.27-4.20 (uIU/mL) Final Performing Location LABORATORY C - [address] [facility] [address]
--- OUTSIDE RECORDS SUMMARY | 2023-11-22 18:21 | External Medical Summary ---
Author Name Unknown Address Unknown Organization [id number]:LABORATORY [facility] [place] - [address] [facility] [address] [facility] [address] Laboratory Report Ordering Provider Test Date Status JADE BAEZ 08/20/2023 14:57:57 Final Observation Date Value Abnormality Reference (Units ) Status WBC, Total 08/20/2023 14:57:57 7.32 4.00-10.80 (K/uL) Final RBC 08/20/2023 14:57:57 4.41 3.85-5.15 (M/uL) Final Hemoglobin 08/20/2023 14:57:57 12.0 12.0-15.3 (g/dL) Final HCT 08/20/2023 14:57:57 38.0 36.0-45.2 (%) Final MCV 08/20/2023 14:57:57 86.2 81.5-97.5 (fL) Final MCH 08/20/2023 14:57:57 27.2 27.0-34.0 (pg) Final MCHC 08/20/2023 14:57:57 31.6 32.0-36.0 (g/dL) Final RDW 08/20/2023 14:57:57 13.4 11.5-15.5 (%) Final Platelets 08/20/2023 14:57:57 357 140-400 (K/uL) Final MPV 08/20/2023 14:57:57 10.6 6.6-11.1 (fL) Final Nucleated erythrocytes/100 leukocytes [Ratio] in Blood by Automated count 08/20/2023 14:57:57 0 <=0 (/100 WBCs) Final Performing Location LABORATORY [facility] [place] - [address] [place] [address]
--- OUTSIDE RECORDS SUMMARY | 2023-11-22 18:21 | External Medical Summary ---
Author Name Unknown Address Unknown Organization K09:LABORATORY [place] [address] - [address] [place] [address] Laboratory Report Ordering Provider Test Date Status NOVEMBER,MARQUIS11/04/2023 11:32:43 Final Observation Date Value Abnormality Reference (Units ) Status BUN 11/04/2023 11:32:43 15 6-20 (mg/dL) Final Creatinine 11/04/2023 11:32:43 0.8 0.5-1.0 (mg/dL) Final Glomerular filtration rate/1.73 sq M.predicted [Volume Rate/Area] in Serum, Plasma or Blood by Creatinine-based formula (CKD-EPI) 11/04/2023 11:32:43 79 >=60 (mL/min) Final eGFR is calculated based on the CKD-EPI 2020 equation Sodium 11/04/2023 11:32:43 140 135-146 (m mol/L) Final Potassium 11/04/2023 11:32:43 4.4 3.5-5.1 (m mol/L) Final Cl 11/04/2023 11:32:43 102 98-107 (mm ol/L) Final CO2 11/04/2023 11:32:43 27 22-32 (mmo l/L) Final Anion gap 11/04/2023 11:32:43 11 7-15 (mmol /L) Final Glucose 11/04/2023 11:32:43 120 70-120 (mg /dL) Final Albumin 11/04/2023 11:32:43 4.4 3.8-5.0 (g /dL) Final AST (Aspartate aminotransferase) 11/04/2023 11:32:43 17 10-35 (U/L) Final Alk Phos 11/04/2023 11:32:43 64 35-130 (U/ L) Final Bilirubin, Total 11/04/2023 11:32:43 0.3 <=1 .2 (mg/dL) Final Calcium 11/04/2023 11:32:43 9.8 8.4-10.2 ( mg/dL) Final Protein 11/04/2023 11:32:43 7.1 6.0-8.3 (g /dL) Final ALT (Alanine aminotransferase) 11/04/2023 11:32:43 15 10-35 (U/L) Final Performing Location LABORATORY [place] [address] - [address] [place] [address]
--- OUTSIDE RECORDS SUMMARY | 2023-11-22 18:21 | External Medical Summary | Summary of Care ---
Author Name Unknown Organization [facility] Address [address] [facility] [place] [address] Phone [phone] Care Team Providers Care Automotive Manufacturer Name Role Phone Radames Liliam [place] ELISEO Primary Care Provider [phone] Reason for Visit * Reason Comments Follow Up Encounter Details Date Type Department Care Team (Late st Contact Info) Description 06/25/2023 2:55 PM EST Office Visit U[facility]gynecology [facility] [address] [place] [address] George Loyola MD [address] [place] [address] Nurse Sakina [facility] [address] [place] [address] Uterovaginal prolapse, incomplete*; Stress incontinence Allergies Active [...] Tab 0 02/03/2017 Active ONETOUCH ULTRASOFT LANCETS [facility] [...] presents for a follow up visit at [facility] --Urogynecologic Division. She was [...] taking: Reported on 05/14/2023) ONETOUCH ULTRASOFT LANCETS [facility] [place] [...] 09/11/2023 2:30 PM EST Office Visit Cardiology, [facility] [address] [place] [address] Noah Carmona MD [address] [place] [address] 10/10/2023 10:45 AM EST Office Visit Urogynecology [facility] [address] [place] [address] Selena Lopez MD [address] [place] [address] Nurse [place] Urog[facility] [address] [place] [address] 12/24/2023 2:55 PM EDT Office Visit Urogynecology [facility] [address] [facility] [place] [address] George Loyola MD [address] [place] [address] Nurse Sakina [facility] [address] [place] [address] Scheduled Orders Name Type Priority Associated Diagnoses [...] D LEVEL ONCE IN A LIFETIME-USE SMARTSET# [id number] Completed 03/06/2020 GARDASIL-HPV IMMUNIZATION SERIES Aged Out No longer eligible based on patient's age to complete this topic MENINGOCOCCAL (MENACTRA/MENVEO) Aged Out No longer eligible based on patient's age to complete this topic documented as of this encounter Medical Devices Implanted Type Area Drain Tiler Device Identifier Shelf Expiration Date Model / Serial / Lot Y-Mesh 26 X 4 X 3 Cm - [id number] Implanted:Qty: 1 on 04/03/2023 by George Loyola MD at OR [facility] N/A: Vagina [employer] 06/04/2027 [id number] / / [id number] documented as of this encounter Visit Diagnoses [...] Advance Directives occurred with: Patient Care Teams Automotive Manufacturer Relationship Specialty Start Date End Date Ebony November ELISEO Rosa [address] [place] [address] [facility] [place] [address] PCP - General Physician Assistant Floor Covering Printer 02/20/18 documented as of this encounter
--- OUTSIDE RECORDS SUMMARY | 2023-11-22 18:21 | External Medical Summary | Summary of Care ---
Author Name Unknown Organization [facility] Address [address] [facility] [place] [address] Phone [phone] Care Team Providers Care Pricing Intern Name Role Phone Liliam Crum PA-C Primary Care Provider [phone] Reason for Visit * Reason Onset Date Comments Advice 10/31/2023 Order Request 10/31/2023 Encounter Details Date Type Department Care Team (Late st Contact Info) Description 10/31/2023 Telephone Family Practice [facility] [address] [facility] [place] [address] Liliam Crum PA-C [address] [facility] [place] [address] Advice; Order Request Allergies Active Allergy Reactions Criticality Noted [...] hemoglobin A1c goal of less than 7.0% ([facility]) Take 1 Tablet by mouth [...] encounter Miscellaneous Notes * Telephone Encounter - Aurora Carney LPN - 11/04/2023 9:30 AM EDT Called pt. Informed of message. Verbalized understanding. * Telephone Encounter - Liliam Crum PA-C - 11/03/2023 3:05 PM EDT Lab orders have been placed. Please inform patient. * Telephone Encounter - Abena Almaguer LPN - 10/31/2023 12:00 PM EDT Lab orders pended that patient is requesting Last office visit: 02/17/2023 Next office visit: Visit date not found Please advise * Telephone Encounter - Dora Khalil OSA - 10/31/2023 11:49 AM EDT An order was requested for this patient. Name of Requesting Provider: Pt Order Requested: cholesterol, glucose, kidney function Diagnosis/Reason for Request: Pt would like to have these done prior to going to seeing the surgeonin May If order request is for Mammogram: Is the patient having any breast symptoms? No Is there a chance of ? No Has the patient had any breast problems in the past? No What location AND department does the patient wish to have their order completed at? [facility] Fax Number, if applicable: n/a Pt would like to receive a call back. If the caller is not a current patient, please advise the patient to call their current PCP to havethe order's prior to being seen in our office. The patient was informed that our providers would not order anything (medication, labs, etc.) prior to being seen. documented in this encounter Plan of Treatment Upcoming Encounters Date Type Department Care Team (Late st Contact Info) Description 12/24/2023 2:55 PM EDT Office Visit [facility]necology [facility] [address] [place] [address] George Loyola MD [address] [place] [address] Nurse Sakina [facility] [address] [place] [address] Scheduled Orders Name Type Priority Associated Diagnoses Orde r Schedule LIPID PANEL WITH DIRECT LDL IF TG IS HIGH Lab Routine Dyslipidemia, goal to be determined Expected: 11/04/2023, Expires: 10/30/2024 HEMOGLOBIN A1C Lab Routine Type 2 diabetes mellitus with hemoglobin A1c goal of less than 7.0% (HCC) Expected: 11/04/2023 (Approximate), Expires: 10/30/2024 COMPREHENSIVE METABOLIC PANEL Lab Routine Type 2 diabetes mellitus with hemoglobin A1c goal of less than 7.0% (HCC) Abnormal blood chemistry HTN, goal below 140/90 Hypokalemia Expected: 11/04/2023 (Approximate), Expires: 10/30/2024 Scheduled Procedures Name Priority Associated Diagnoses Date/Ti [...] 07/31/2018, Additional history exists GFR 08/20/2024 08/20/2023, 09/0 08/2022, 03/14/2023, Additional history exists Lipid Panel 07/03/2027 07/03/2022, 03/0 09/2020, 03/06/2020, Additional history exists DTaP,Tdap,and Td Vaccines (4 - Td or Tdap) 11/28/2031 11/27/2021, 08/06/2017, 05/26/2008 VITAMIN D LEVEL ONCE IN A LIFETIME-USE SMARTSET# 73274 Completed 03/06/2020 GARDASIL-HPV IMMUNIZATION SERIES Aged Out No longer eligible based on patient's age to complete this topic Hepatitis B Aged Out No longer eligi ble based on patient's age to complete this topic MENINGOCOCCAL (MENACTRA/MENVEO) Aged Out No longer eligible based on patient's age to complete this topic documented as of this encounter Medical Devices Implanted Type Area Lead Loader Device Identifier Shelf Expiration Date Model / Serial / Lot Aura Mclaughlin - [id number] Implanted:Qty: 1 on 04/03/2023 by George Loyola MD at OR [facility] N/A: Vagina [employer] 06/14/2024 [id number] / / [id number] Y-Mesh 26 X 4 X 3 Cm - [id number] Implanted:Qty: 1 on 04/03/2023 by George Loyola MD at OR [facility] N/A: Vagina [employer] 06/04/2027 [id number] / / [id number] documented as of this encounter Visit Diagnoses Diagnosis Type 2 diabetes mellitus with hemoglobin A1c goal of less than 7.0% ([facility])- Primary Dyslipidemia, goal to be determined Other and unspecified hyperlipidemia Abnormal blood chemistry Other abnormal blood chemistry [...] Advance Directives occurred with: Patient Care Teams Pricing Intern Relationship Specialty Start Date End Date Radames November ELISEO Rosa [facility] [address] [place] [address] PCP - General Physician Gas Fitter Helper 02/20/18 documented as of this encounter
--- OUTSIDE RECORDS SUMMARY | 2023-11-22 18:21 | External Medical Summary | Summary of Care ---
Author Name Unknown Organization [facility] Address [address] [facility] [place] [address] Phone [phone] Care Team Providers Care Housekeeping Director Name Role Phone Liliam Crum PA-C Primary Care Provider [phone] Reason for Visit * Reason Onset Date Comments Health Maintenance 10/09/2023 Encounter Details Date Type Department Care Team (Late st Contact Info) Description 10/09/2023 Telephone Family Practice [facility] [address] [facility] [address] Liliam Crum PA-C [address] [facility] [place] [address] Health Maintenance Allergies Active Allergy Reactions Criticality Noted Date [...] as of this encounter (statuses as of 10/09/2023) Medications Medication Sig Dispensed Refills Start Date [...] as of this encounter (statuses as of 10/09/2023) Active Problems Problem Noted Date Diagnosed Date [...] as of this encounter (statuses as of 10/09/2023) Resolved Problems Problem Noted Date Diagnosed Date Resolved Date Acute cystitis without hematuria 02/20/2018 05/22/2018 Bronchitis, complicated 05/07/201710/2017 Impaired fasting glucose 02/21/201110/2017 Dyslipidemia, goal to be determined 05/02/2009 06/28/2009 Overview: Per Lipid Taxonomy 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 Torn rotator cuff 02/16/2019 Overview: surgeries times 3. documented as of this encounter (statuses as of 10/09/2023) Immunizations Name Administration Dates Next Due Pneumococcal [...] encounter Miscellaneous Notes * Telephone Encounter - Belen Masterson LPN - 10/09/2023 9:26 AM EST Care Gaps Comprehensive Care Outreach Last Office/Telemedicine Visit: 02/17/2023 (in office), 12/07/2020 (telemedicine) Next Office Visit: Visit date not found Hemoglobin AIC Results: Lab Results Component Value Date/Time HEMOGLOBIN A1C - [facility] 6.1 (H) 04/04/2023 04:41 AM HEMOGLOBIN A1C - [facility] 6.2 (H) 07/03/2022 10:27 AM HEMOGLOBIN A1C - [facility] 6.8 (H) 10/03/2020 09:59 AM HEMOGLOBIN A1C - [facility] 6.3 (H) 03/06/2020 07:55 AM HEMOGLOBIN A1C - [facility] 6.4 (H) 01/20/2020 09:23 AM HEMOGLOBIN A1C - [facility] 6.0 (H) 02/11/2019 08:09 AM BP Readings from Last 1 Encounters: 08/20/23 126/66 Reviewed Health Maintenance below: Health Maintenance Topic Date Due Zoster Vaccines (1 of 2) Never done Colorectal Cancer Screening 05/15/2017 Depression Screening 06/15/2019 Mammogram 01/26/2020 *BISPHONATE OR OTHER ACCEPTABLE MEDICATION NEEDED FOR OSTEOPOROSIS (REFER TO SMARTSET #1146) Never done DXA Scan 01/26/2021 Diabetic Foot Exam 07/31/2021 Pneumococcal Vaccine: 65+ Years (3 of 3 - PPSV23 or PCV20) 02/03/2022 Influenza Vaccine (FLU shot) (1) 04/04/2023 COVID-19 Vaccine (1 - 2022-24 season) Never done Diabetic Eye Exam 05/14/2023 Albumin/Creatinine Ratio 07/03/2023 B-12 07/03/2023 HbA1c 10/03/2023 Per last phone call with patient she does not want calls about preventative care Care Gap Outreach Action Taken: Outreach not indicated documented in this encounter Plan of Treatment Upcoming Encounters Date Type Department Care Team (Late st Contact Info) Description 10/10/2023 10:45 AM EST Office Visit Urogynecology [facility] [address] [place] [address] Selena Lopez MD [address] [place] [address] Nurse Sakina Griffith [address] [place] [address] 12/24/2023 2:55 PM EDT Office Visit [facility] [address] [facility] [place] [address] George Loyola MD [address] [place] [address] Nurse Sakina [facility] [address] [place] [address] Scheduled Procedures Name Priority Associated Diagnoses Date/Ti [...] 07/31/2018, 02/03/2017 COVID-19 Vaccine ( season) 2023 Influenza Vaccine (FLU shot) (#1) 2023 07/10/2022, [...] D LEVEL ONCE IN A LIFETIME-USE SMARTSET# [id number] Completed 03/06/2020 GARDASIL-HPV IMMUNIZATION SERIES Aged Out No longer eligible based on patient's age to complete this topic Hepatitis B Aged Out No longer eligi ble based on patient's age to complete this topic MENINGOCOCCAL (MENACTRA/MENVEO) Aged Out No longer eligible based on patient's age to complete this topic documented as of this encounter Medical Devices Implanted Type Area Waterproofer Helper Device Identifier Shelf Expiration Date Model / Serial / Lot Sling Kaleigh Mclaughlin - [id number] Implanted:Qty: 1 on 04/03/2023 by George Loyola MD at OR [facility] N/A: Vagina [employer] 06/14/2024 [id number] / / [id number] Y-Mesh 26 X 4 X 3 Cm - [id number] Implanted:Qty: 1 on 04/03/2023 by George Loyola MD at OR [facility] N/A: Vagina [employer] 06/04/2027 [id number] / / [id number] documented as of this encounter Advance Directives Latest Code Status on File Code Status Date Activated Date Inactivated Comments Full Code 04/03/2023 1:19 PM 04/04/2023 5:35 PM This o rder reflects the patients wishes and were consensually agreed upon. Question Answer Comments Discussion of Advance Directives occurred with: Patient Care Teams Housekeeping Director Relationship Specialty Start Date End Date Ebonynovember ELISEO Rosa [address] [facility] [place] [address] PCP - General Physician Hat Finishing Materials Preparer 02/20/18 documented as of this encounter
--- OUTSIDE RECORDS SUMMARY | 2023-11-22 18:21 | External Medical Summary | Summary of Care ---
Author Name Unknown Organization [facility] Address [address] [facility] [place] [address] Phone [phone] Care Team Providers Care Grey Roll Worker Name Role Phone Liliam Crum PA-C Primary Care Provider [phone] Reason for Visit * Reason Onset Date Comments Test Results 11/06/2023 Encounter Details Date Type Department Care Team (Late st Contact Info) Description 11/06/2023 Telephone Family Practice [facility] [address] [facility] [place] [address] Liliam Crum PA-C [address] [facility] [place] [address] Test Results Allergies Active Allergy Reactions Criticality Noted Date [...] as of this encounter (statuses as of 11/06/2023) Medications Medication Sig Dispensed Refills Start Date [...] as of this encounter (statuses as of 11/06/2023) Active Problems Problem Noted Date Diagnosed Date [...] as of this encounter (statuses as of 11/06/2023) Resolved Problems Problem Noted Date Diagnosed Date Resolved Date Acute cystitis without hematuria 02/20/2018 05/22/2018 Bronchitis, complicated 05/07/201710/2017 Impaired fasting glucose 02/21/201110/2017 Dyslipidemia, goal to be determined 05/02/2009 06/28/2009 Overview: Per Lipid Taxonomy 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 Torn rotator cuff 02/16/2019 Overview: surgeries times 3. documented as of this encounter (statuses as of 11/06/2023) Immunizations Name Administration Dates Next Due Pneumococcal [...] encounter Miscellaneous Notes * Telephone Encounter - Riya Marcos MED ASSIST - 11/06/2023 1:32 PM EDT ----- Message from Liliam Crum PA-C sent at 11/06/2023 1:00 PM EDT ----- Please send abnormal lab letter. Discuss at office visit, documented in this encounter Plan of Treatment Upcoming Encounters Date Type Department Care Team (Late st Contact Info) Description 11/10/2023 8:00 AM EDT Office Visit [facility] [address] [facility] [place] [address] Liliam Crum PA-C [address] [facility] [place] [address] 12/24/2023 2:55 PM EDT Office Visit [facility]necology [facility] [address] [place] [address] George Loyola MD [address] [place] [address] Nurse Sakina [facility] [address] [place] [address] Scheduled Procedures Name Priority Associated Diagnoses Date/Ti [...] 11/03/2024 11/04/2023, 08/04, 04/04/2023, Additional history exists Lipid Panel 11/03/2028 11/04/2023, 06/06, 10/03/2020, Additional history exists DTaP,Tdap,and Td Vaccines (4 - Td or Tdap) 11/28/2031 11/27/2021, 08/06/2017, 05/26/2008 VITAMIN D LEVEL ONCE IN A LIFETIME-USE SMARTSET# [id number] Completed 03/06/2020 GARDASIL-HPV IMMUNIZATION SERIES Aged Out No longer eligible based on patient's age to complete this topic Hepatitis B Aged Out No longer eligi ble based on patient's age to complete this topic MENINGOCOCCAL (MENACTRA/MENVEO) Aged Out No longer eligible based on patient's age to complete this topic documented as of this encounter Medical Devices Implanted Type Area Sand Buffer Device Identifier Shelf Expiration Date Model / Serial / Lot Sling Kaleigh One - [id number] Implanted:Qty: 1 on 04/03/2023 by George Loyola MD at OR [facility] N/A: Vagina [employer] 06/14/2024 [id number] / / [id number] Y-Mesh 26 X 4 X 3 Cm - [id number] Implanted:Qty: 1 on 04/03/2023 by George Loyola MD at OR [facility] N/A: Vagina [employer] 06/04/2027 [id number] / / [id number] documented as of this encounter Advance Directives Latest Code Status on File Code Status Date Activated Date Inactivated Comments Full Code 04/03/2023 1:19 PM 04/04/2023 5:35 PM This o rder reflects the patients wishes and were consensually agreed upon. Question Answer Comments Discussion of Advance Directives occurred with: Patient Care Teams Grey Roll Worker Relationship Specialty Start Date End Date Ebonynovember ELISEO Rosa [address] [place] [address] PCP - General Physician Brass Instrument Repair Technician 02/20/18 documented as of this encounter
--- OUTSIDE RECORDS SUMMARY | 2023-11-22 18:21 | External Medical Summary | Summary of Care ---
Author Name Unknown Organization [facility] Address [address] [facility] [place] [address] Phone [phone] Care Team Providers Care Shoe Turner Name Role Phone Liliam Crum ELISEO Primary Care Provider [phone] Reason for Visit * Reason Comments Outpatient Testing Encounter Details Date Type Department Care Team (Late st Contact Info) Description 08/20/2023 3:00 PM EST Laboratory [facility] [address] [facility] [address] [facility] [address] HTN, goal below 140/90; Dyslipidemia, goal to be determined Allergies Active Allergy Reactions Criticality Noted Date [...] hemoglobin A1c goal of less than 7.0% ([facility]) Take 1 Tablet by mouth in the morning. 30 Tab 0 02/03/2017 Active ONETOUCH ULTRASOFT LANCETS [facility] Use as directed 4 times a day [...] week sparingly 60 g 3 09/03/2022 Active hydroCHLOROthiazid e 25 MG Oral Tablet (Hydrodiuril)Indic ations:Essential hypertension with goal blood pressure less than 140/90 Take 1 Tablet by mouth daily as needed for Other (swelling). 90 Tablet 3 10/09/2022 Active Lisinopril 5 MG Oral Tablet (Prinivil)Indicati [...] and 2 Capsules before bedtime. 0 Active documented as of this encounter (statuses [...] 10/10/2023 10:45 AM EST Office Visit Urogynecology [facility] [address] [place] [address] Selena Lopez MD [address] [place] [address] Nurse Sakina Griffith [address] [place] [address] 12/24/2023 2:55 PM EDT Office Visit [facility]necology [facility] [address] [place] [address] George Loyola MD [address] [place] [address] Nurse Sakina [facility] [address] [place] [address] Pending Results Name Type Priority Associated Diagnoses [...] be determined 08/20/2023 2:57 PM EST Scheduled Procedures Name Priority Associated Diagnoses Date/Ti [...] Additional history exists Lipid Panel 07/03/2027 07/03/2022, 030 09/2020, 03/06/2020, Additional history exists DTaP,Tdap,and Td Vaccines (4 - Td or Tdap) 11/28/2031 11/27/2021, 08/06/2017, 05/26/2008 VITAMIN D LEVEL ONCE IN A LIFETIME-USE SMARTSET# [id number] Completed 03/06/2020 GARDASIL-HPV IMMUNIZATION SERIES Aged Out No longer eligible based on patient's age to complete this topic MENINGOCOCCAL (MENACTRA/MENVEO) Aged Out No longer eligible based on patient's age to complete this topic documented as of this encounter Medical Devices Implanted Type Area Director Of Distance Learning Device Identifier Shelf Expiration Date Model / Serial / Lot Y-Mesh 26 X 4 X 3 Cm - [id number] Implanted:Qty: 1 on 04/03/2023 by George Loyola MD at OR [facility] N/A: Vagina [employer] 06/04/2027 [id number] / / [id number] documented as of this encounter Visit Diagnoses Diagnosis HTN, goal below 140/90 Unspecified essential hypertension Dyslipidemia, goal to be determined Other and unspecified hyperlipidemia documented in this encounter Advance Directives Latest Code Status on File Code Status Date Activated Date Inactivated Comments Full Code 04/03/2023 1:19 PM 04/04/2023 5:35 PM This o rder reflects the patients wishes and were consensually agreed upon. Question Answer Comments Discussion of Advance Directives occurred with: Patient Care Teams Shoe Turner Relationship Specialty Start Date End Date Radames November ELISEO Rosa [address] [place] [address] PCP - General Physician Global Chief Experience Officer 02/20/18 documented as of this encounter
--- OUTSIDE RECORDS SUMMARY | 2023-11-22 18:22 | External Medical Summary | Summary of Care ---
Author Name Unknown Organization [facility] Address [address] [facility] [place] [address] Phone [phone] Care Team Providers Care Assembler Crimper Name Role Phone Radames Liliam Shelley ELISEO Primary Care Provider [phone] Reason for Visit * Reason Comments Follow Up Encounter Details Date Type Department Care Team (Late st Contact Info) Description 06/25/2023 2:55 PM EST Office Visit [facility]gynecology [facility] [address] [place] [address] George Loyola MD [address] [place] [address] Nurse Sakina [facility]car[facility] [address] [place] [address] Uterovaginal prolapse, incomplete*; Stress incontinence Allergies Active [...] Tab 0 02/03/2017 Active ONETOUCH ULTRASOFT LANCETS [facility] Use as directed 4 [...] presents for a follow up visit at [facility]Uro[facility]ologic Division. She [...] taking: Reported on 05/14/2023) ONETOUCH ULTRASOFT LANCETS [facility] Use as directed 4 [...] 4 week PVR. documented in this encounter Plan of Treatment Upcoming Encounters Date Type Department Care Team (Late st Contact Info) Description 09/11/2023 2:30 PM EST Office Visit Cardiology, [facility] [address] [place] [address] Noah Carmona MD [address] [place] [address] 10/10/2023 10:45 AM EST Office Visit Urogynecology [facility] [address] [place] [facility] [place] [address] Selena Lopez MD [address] [facility] [place] [address] Nurse Saleem Urogyanastasiya [address] [place] [facility] [place] [address] 12/24/2023 2:55 PM EDT Office Visit [facility]gynecology [facility] [address] [place] [address] George Loyola MD [address] [place] [address] Nurse Sakina [facility] [address] [place] [address] Scheduled Procedures Name Priority Associated Diagnoses Date/Ti [...] 022, 06/07/2016, 11/16/2014 (Discussed) B-12 07/03/2023 07/03/2022, 0 09/2020, 02/11/2019, Additional history exists HbA1c 10/03/2023 04/04/2023, 06/06, 10/03/2020, Additional history exists GFR 04/04/2024 04/04/2023, 03/04, 07/03/2022, Additional history exists Lipid Panel 07/03/2027 07/03/2022, 030 09/2020, 03/06/2020, Additional history exists DTaP,Tdap,and Td Vaccines (4 - Td or Tdap) 11/28/2031 11/27/2021, 08/06/2017, 05/26/2008 VITAMIN D LEVEL ONCE IN A LIFETIME-USE SMARTSET# [id number] Completed 03/06/2020 GARDASIL-HPV IMMUNIZATION SERIES Aged Out No longer eligible based on patient's age to complete this topic MENINGOCOCCAL (MENACTRA/MENVEO) Aged Out No longer eligible based on patient's age to complete this topic documented as of this encounter Medical Devices Implanted Type Area Manager Pulmonary Device Identifier Shelf Expiration Date Model / Serial / Lot Y-Mesh 26 X 4 X 3 Cm - [id number] Implanted:Qty: 1 on 04/03/2023 by George Loyola MD at OR [facility] N/A: Vagina [employer] 06/04/2027 [id number] / / [id number] documented as of this encounter Visit Diagnoses [...] Advance Directives occurred with: Patient Care Teams Assembler Crimper Relationship Specialty Start Date End Date Radames November Shelley, ELISEO [address] [place] [address] PCP - General Physician Offshore Wind Operations Manager 02/20/18 documented as of this encounter
--- OUTSIDE RECORDS SUMMARY | 2023-11-22 18:22 | External Medical Summary ---
Author Name Unknown Address Unknown Organization K01:[facility] - [address] [facility] [address] Laboratory Report Ordering Provider Test Date Status ADEOLA BHAKTA 06/25/2023 15:17:38 Final <10,000 colonies/ml mixed no rmal booker Observation Date Value Abnormality Reference (Units ) Status Bacteria identified in Specimen by Culture 06/25/2023 15:17:38 [id number]^ESCHE RICHIA COLI Abnormal Final >100,000 colonies/mL Escheri payam coli Performing Location [facility] [place] - [address] [facility] [address] Ordering Provider Test Date Status ADEOLA BHAKTA 06/25/2023 15:17:38 Final Observation Date Value Abnormality Reference (Units ) Status Ampicillin 06/25/2023 15:17:38 <=2 Susceptible Final Cefazolin 06/25/2023 15:17:38 <=4 Susceptible Final Cefepime susceptibility 06/25/2023 15:17:38 <=1 Susceptible Final Ceftriaxone suceptibility 06/25/2023 15:17:38 <=1 Susceptible Final Ciprofloxacin 06/25/2023 15:17:38 <=0.25 Susceptible Final Due to serious side effects, the FDA has advised against using Ciprofloxacin to treat uncomplicated UTIs and respiratory tract infections unless there are no alternative treatment options. Gentamicin susceptibility 06/25/2023 15:17:38 <=1 Susc eptible Final Nitrofurantoin susceptibility 06/25/2023 15:17:38 <=16 Susceptible Final Piperacillin + Tazobactamsusceptibility 06/25/2023 15:17:38 <=4 Susceptible Final TMP-SMZ susceptibility 06/25/2023 15:17:38 <=20 Suscept ible Final Test: Culture, Urine, Quanti tative
Specimen Source: Urine, Clean Catch
Specimen Type: Urine
Specimen Date: 06/25/2023 3:17 PM
Result Date: 06/27/2023 1:04 PM
Result Status: Final result
Abnormal: Yes
Resulting Lab: [facility]
[address]
[facility] [address]

CULTURE

>100,000 colonies/mL Escherichia coli (Abnormal)

<10,000 colonies/ml mixed normal booker

SUSCEPTIBILITY

Escherichia coli
METHOD MICROBROTH DILUTIONS

AMPICILLIN <=2 Susceptible
CEFAZOLIN <=4 Susceptible
CEFEPIME <=1 Susceptible
CEFTRIAXONE <=1 Susceptible
CIPROFLOXACIN <=0.25 Susceptible [1]
GENTAMICIN <=1 Susceptible
NITROFURANTOIN <=16 Susceptible
PIPERACILLIN TAZOBACTAM <=4 Susceptible
TRIMETH/SULFAMETHOXAZOLE <=20 Susceptible

[1] Due to serious side effects, the FDA has advised against using
Ciprofloxacin to treat uncomplicated UTIs and respiratory tract infections
unless there are no alternative treatment options.

null Performing Location [facility] [place] - [address] [facility] [address]
[2023-11-22] MEDS: ACETAMINOPHEN 325 MG TAB PO PRN (18:46)
[2023-11-22] MEDS: LANTUS PER UNIT CHARGE SQ SCH (20:38)
[2023-11-22] MEDS: LOPERAMIDE HCL 2 MG CAP PO PRN (20:41)
[2023-11-22] MEDS: gemfibroziL 600 MG TAB PO SCH (20:41)
[2023-11-23] MEDS: lisinopril 5 MG TAB PO SCH (07:46)
[2023-11-23] MEDS: EZETIMIBE 10 MG TAB PO SCH (07:46)
[2023-11-23] MEDS: ASPIRIN 81 MG ECTAB PO SCH (07:46)
[2023-11-23 07:51] LABS: Hematocrit (blood only) 28.2 % (37.0-47.0); Hemoglobin 9.1 g/dl (12.0-16.0); Mean Corpuscular Hemoglobin 25.7 pg (25.0-34.0); Mean Corpuscular Hgb Conc 32.3 g/dL (32.0-36.0); Mean Corpuscular Volume 79.7 fL (80.0-100.0); Mean Platelet Volume 9.3 fL (9.4-12.4); Platelet Count 328 K/uL (130-400); RDW Coefficient of Variation 15.8 % (11.5-14.5); Red Blood Count 3.54 M/uL (4.20-5.40); White Blood Count 10.43 K/ul (4.8-10.8)
[2023-11-23 08:07] LABS: Calcium 8.9 mg/dl (8.6-10.3); Creatinine Clr Calc Pharmacy 88.3 ml/min; Est GFR (African American) 107.5 ml/min; Est GFR (Non-African American) 92.7 ml/min; Magnesium 2.2 mg/dl (1.7-2.4); Potassium 3.8 mmol/L (3.5-5.1)
[2023-11-23 08:25] LABS: Ferritin 489.3 ng/ml (8-388)
[2023-11-23 08:28] LABS: Folate (Folic Acid),Ser orPlas 17.47 ng/ml (>5.38)
[2023-11-23 08:29] LABS: Vitamin B12 > 1500 pg/ml (180-914)
[2023-11-23] MEDS: COUGH DROP (SUGAR FREE) LOZ 24 LOZ/1 BOX BUCCAL PRN (14:06)
--- NOTE | 2023-11-23 16:06 | Hospitalist Progress Note ---
Date of Service November 23, 2023 Assessment & Plan (1) Pneumonia: Plan: Sepsis Left lower lobe pneumonia Hypoxia --CXR:Airspace consolidation at the left lung base is typical for pneumonia/aspiration pneumonitis. Clinical correlation will be required and radiographic follow-up to resolution is recommended. Cardiomegaly without radiographic evidence of congestive failure. -- BioFire negative -Normal lactate -Procalcitonin 1.49 -Blood cultures: No growth to date Continue cefepime, doxycycline Received IV fluids Weaned off of supplemental oxygen Nebs as needed Clinically improving Abnormal urine culture R/O UTI Urine culture negative to date On cefepime as above Diarrhea Stool PCR, stool for C. difficile negative Monitor volume status Imodium as needed Acute on chronic anemia Iron deficiency anemia Denies any acute bleeding issues Anemia workup reviewed FOBT negative Ferritin elevated likely secondary to acute infection Started on iron supplements Hypokalemia Replete electrolytes as needed PACs Monitor and replete electrolytes as needed DM Type II: Hold oral diabetic meds Last A1c:6.6 ISS, basal Insulin, Accu checks, Diabetic diet Monitor BGs Hyponatremia Likely chronic, GI losses, poor oral intake likely contributing as well Sodium improved to 135 Monitor Other chronic conditions Dyslipidemia H/O statin intolerance Hypertension Obesity BMI 38 Lichen sclerosus Continue home medications as able DVT Px: Lovenox SQ CODE STATUS Full code Disposition PT OT prior to discharge (2) Acute UTI (urinary tract infection): (3) Sepsis: Plan: Management as above Admission and Anticipated Discharge Date Admission Date: November 22, 2023 Subjective Patient is seen and examined at bedside States feeling better today Sitting in chair comfortably during my encounter Still has some cough Dyspnea much improved Saturating well on room air Denies any chest pain, nausea, vomiting, abdominal pain Review of Systems Review of Systems: All systems reviewed & are unremarkable except as noted in Subjective Physical Exam Physical Exam: Physical Exam: Vitals signs as noted above General Appearance:Obese, no apparent distress Head: normocephalic, Atraumatic Eyes: normal inspection, EOMI Neck: supple, Trachea midline Respiratory/Chest: Decreased breath sounds, CTA, No accessory muscle use Cardiovascular: S1, S2, No murmur Abdomen/GI:Soft, Non tender, Bowel sounds present Extremities/Musculoskeletal:normal inspection, Trace pedal edema Neurologic/Psych:AAOX3, grossly no focal neurological deficits Skin: normal color, warm Results & Data Results & Data Vital Signs (Past 12 Hours) Vital Signs Temp Pulse Pulse Resp BP Pulse Ox O2 Del Method 11/23/23 11:56 36.5 C 79 16 129/76 96 Room Air 11/23/23 08:22 87 16 94 Room Air 11/23/23 08:00 37.0 C 90 16 120/76 94 Room Air 11/23/23 07:30 Room Air 11/23/23 07:04 96 H Laboratory Results Short CBC 11/23/23 Range/Units 07:17 WBC 10.43 (4.8-10.8) K/ul Hgb 9.1 L (12.0-16.0) g/dl Hct 28.2 L (37.0-47.0) % Plt Count 328 (130-400) K/uL BMP 11/23/23 07:17 Sodium 135 L Potassium 3.8 Chloride 105 Carbon Dioxide 22 BUN 11 Creatinine 0.58 L Glucose 117 H Calcium 8.9 (1) Pneumonia Lung location: lower lobe of lung Pneumonia type: due to unspecified organism (3) Sepsis Sepsis acute organ dysfunction status: unspecified Sepsis type: sepsis due to unspecified organism Qualified Code(s): A41.9 - Sepsis, unspecified organism
[2023-11-24 07:14] LABS: Hematocrit (blood only) 28.6 % (37.0-47.0); Hemoglobin 9.2 g/dl (12.0-16.0); Mean Corpuscular Hemoglobin 25.8 pg (25.0-34.0); Mean Corpuscular Hgb Conc 32.2 g/dL (32.0-36.0); Mean Corpuscular Volume 80.1 fL (80.0-100.0); Mean Platelet Volume 9.5 fL (9.4-12.4); Platelet Count 353 K/uL (130-400); RDW Coefficient of Variation 15.9 % (11.5-14.5); RDW Standard Deviation 46.8 fL (36.4-46.3); Red Blood Count 3.57 M/uL (4.20-5.40); White Blood Count 6.64 K/ul (4.8-10.8)
[2023-11-24] MEDS: FERROUS SULFATE 325 MG TAB PO SCH (07:40)
[2023-11-24 07:44] LABS: BUN Creatinine Ratio 18.6 (10-20); Calcium 9.2 mg/dl (8.6-10.3); Creatinine Clr Calc Pharmacy 86.8 ml/min; Est GFR (African American) 106.9 ml/min; Est GFR (Non-African American) 92.2 ml/min; Magnesium 1.8 mg/dl (1.7-2.4); Potassium 3.7 mmol/L (3.5-5.1)
[2023-11-24] MEDS: IRON SUCROSE 200 MG in 0.9 % SODIUM CHLORIDE 100 ML IV ONE (09:08)
[2023-11-24] MEDS: hydroCHLOROthiazide 25 MG TAB PO SCH (10:50)
--- NOTE | 2023-11-24 15:31 | Hospitalist Progress Note ---
Date of Service November 24, 2023 Assessment & Plan (1) Pneumonia: Plan: Sepsis Left lower lobe pneumonia Hypoxia --CXR:Airspace consolidation at the left lung base is typical for pneumonia/aspiration pneumonitis. Clinical correlation will be required and radiographic follow-up to resolution is recommended. Cardiomegaly without radiographic evidence of congestive failure. -- BioFire negative -Normal lactate -Procalcitonin 1.49 -Blood cultures: No growth to date Continue cefepime, doxycycline>> Rocephin, Doxy Received IV fluids Weaned off of supplemental oxygen Nebs as needed Likely plan to discharge home in next 24 to 48 hours Abnormal urine culture Rule out UTI Urine culture probable skin booker Diarrhea Stool PCR, stool for C. difficile negative Monitor volume status Imodium as needed Resolved per patient Acute on chronic anemia Iron deficiency anemia Denies any acute bleeding issues Anemia workup reviewed FOBT negative Ferritin elevated likely secondary to acute infection Received IV iron Continue iron supplements Peripheral smear pending Advised further workup as outpatient Hypokalemia Replete electrolytes as needed Monitor PACs Monitor and replete electrolytes as needed DM Type II: Hold oral diabetic meds Last A1c:6.6 ISS, basal Insulin, Accu checks, Diabetic diet Monitor BGs Hyponatremia Likely chronic, GI losses, poor oral intake likely contributing as well Sodium improved to 137 Monitor Other chronic conditions Dyslipidemia H/O statin intolerance Hypertension Obesity BMI 38 Lichen sclerosus Continue home medications as able DVT Px: Lovenox SQ CODE STATUS Full code Disposition Home as able (2) Acute UTI (urinary tract infection): (3) Sepsis: Plan: Management as above Admission and Anticipated Discharge Date Admission Date: November 22, 2023 Subjective Patient is seen and examined at bedside Diarrhea resolved States having some dyspnea on exertion but otherwise feels well Saturating well on room air Less cough today Denies any chest pain, nausea, vomiting, abdominal pain Review of Systems Review of Systems: All systems reviewed & are unremarkable except as noted in Subjective Physical Exam Physical Exam: Physical Exam: Vitals signs as noted above General Appearance:Obese, no apparent distress Head: normocephalic, Atraumatic Eyes: normal inspection, EOMI Neck: supple, Trachea midline Respiratory/Chest: Decreased breath sounds, CTA, No accessory muscle use Cardiovascular: S1, S2, No murmur Abdomen/GI:Soft, Non tender, Bowel sounds present Extremities/Musculoskeletal:normal inspection, Trace pedal edema Neurologic/Psych:AAOX3, grossly no focal neurological deficits Skin: normal color, warm Results & Data Results & Data Vital Signs (Past 12 Hours) Vital Signs Temp Pulse Pulse Resp BP BP Pulse Ox 11/24/23 11:21 36.3 C L 87 17 147/76 H 95 11/24/23 09:16 89 11/24/23 09:14 11/24/23 08:57 91 H 16 96 11/24/23 07:33 36.6 C 94 H 18 131/79 96 11/24/23 03:54 36.9 C 88 16 111/70 92 O2 Del Method 11/24/23 11:21 Room Air 11/24/23 09:16 11/24/23 09:14 Room Air 11/24/23 08:57 Room Air 11/24/23 07:33 Room Air 11/24/23 03:54 Room Air Laboratory Results Short CBC 11/24/23 Range/Units 06:36 WBC 6.64 (4.8-10.8) K/ul Hgb 9.2 L (12.0-16.0) g/dl Hct 28.6 L (37.0-47.0) % Plt Count 353 (130-400) K/uL BMP 11/24/23 06:36 Sodium 137 Potassium 3.7 Chloride 107 Carbon Dioxide 20 L BUN 11 Creatinine 0.59 L Glucose 147 H Calcium 9.2 (1) Pneumonia Lung location: lower lobe of lung Pneumonia type: due to unspecified organism (3) Sepsis Sepsis acute organ dysfunction status: unspecified Sepsis type: sepsis due to unspecified organism Qualified Code(s): A41.9 - Sepsis, unspecified organism
[2023-11-24] MEDS: cefTRIAXone SODIUM 2,000 MG in DEXTROSE 5 % MINI-B 50 ML IV SCH (16:13)
[2023-11-25 07:09] LABS: Hematocrit (blood only) 29.4 % (37.0-47.0); Hemoglobin 9.4 g/dl (12.0-16.0); Mean Corpuscular Hemoglobin 25.4 pg (25.0-34.0); Mean Corpuscular Volume 79.5 fL (80.0-100.0); Platelet Count 413 K/uL (130-400); RDW Coefficient of Variation 16.2 % (11.5-14.5); RDW Standard Deviation 46.5 fL (36.4-46.3)
[2023-11-25 07:28] LABS: BUN Creatinine Ratio 16.7 (10-20); Calcium 9.4 mg/dl (8.6-10.3); Creatinine Clr Calc Pharmacy 85.1 ml/min; Est GFR (African American) 106.3 ml/min; Est GFR (Non-African American) 91.7 ml/min; Potassium 3.8 mmol/L (3.5-5.1)
[2023-11-25] MEDS: cefTRIAXone SODIUM 2,000 MG in DEXTROSE 5 % MINI-B 50 ML IV SCH (11:16)
--- NOTE | 2023-11-25 12:25 | Hospitalist Progress Note ---
Date of Service November 25, 2023 Assessment & Plan (1) Pneumonia: Plan: Sepsis Left lower lobe pneumonia Hypoxia --CXR:Airspace consolidation at the left lung base is typical for pneumonia/aspiration pneumonitis. Clinical correlation will be required and radiographic follow-up to resolution is recommended. Cardiomegaly without radiographic evidence of congestive failure. -- BioFire negative -Normal lactate -Procalcitonin 1.49 -Blood cultures: No growth to date Continue cefepime, doxycycline>> Rocephin, Doxy Received IV fluids Weaned off of supplemental oxygen Nebs as needed Plan to discharge home today Abnormal urine culture Rule out UTI Urine culture probable skin booker Diarrhea Stool PCR, stool for C. difficile negative Monitor volume status Imodium as needed Resolved Acute on chronic anemia Iron deficiency anemia Denies any acute bleeding issues Anemia workup reviewed FOBT negative Ferritin elevated likely secondary to acute infection Received IV iron Continue iron supplements Peripheral smear consistent with iron deficiency, anemia of chronic disease Advised further workup as outpatient Hypokalemia Replete electrolytes as needed Monitor PACs and PVCs Monitor and replete electrolytes as needed Started on metoprolol 12.5 mg twice a day DM Type II: Hold oral diabetic meds Last A1c:6.6 ISS, basal Insulin, Accu checks, Diabetic diet Monitor BGs Hyponatremia Likely chronic, GI losses, poor oral intake likely contributing as well Sodium improved to 138 Monitor Other chronic conditions Dyslipidemia H/O statin intolerance Hypertension Obesity BMI 38 Lichen sclerosus Continue home medications as able DVT Px: Lovenox SQ CODE STATUS Full code Disposition Home today (2) Acute UTI (urinary tract infection): (3) Sepsis: Plan: Management as above Admission and Anticipated Discharge Date Admission Date: November 22, 2023 Subjective Patient is seen and examined at bedside States feeling well today Offers no new complaints No recurrence of diarrhea Cough, dyspnea much improved Discussed with patient's family at bedside PACs, PVCs on monitor Denies any chest pain, nausea, vomiting, abdominal pain Plan to be discharged home today Review of Systems Review of Systems: All systems reviewed & are unremarkable except as noted in Subjective Physical Exam Physical Exam: Physical Exam: Vitals signs as noted above General Appearance:Obese, no apparent distress Head: normocephalic, Atraumatic Eyes: normal inspection, EOMI Neck: supple, Trachea midline Respiratory/Chest: Decreased breath sounds, CTA, No accessory muscle use Cardiovascular: S1, S2, No murmur Abdomen/GI:Soft, Non tender, Bowel sounds present Extremities/Musculoskeletal:normal inspection, Trace pedal edema Neurologic/Psych:AAOX3, grossly no focal neurological deficits Skin: normal color, warm Results & Data Results & Data Vital Signs (Past 12 Hours) Vital Signs Temp Pulse Pulse Resp BP BP Pulse Ox 11/25/23 11:42 36.4 C L 114 H 18 125/69 94 11/25/23 11:13 95 H 18 95 11/25/23 09:00 77 11/25/23 08:10 11/25/23 07:58 36.5 C 90 18 125/76 95 11/25/23 03:51 37.1 C 86 20 111/63 95 11/25/23 00:47 11/25/23 00:21 37.0 C 102 H 20 161/80 H 93 O2 Del Method 11/25/23 11:42 Room Air 11/25/23 11:13 Room Air 11/25/23 09:00 11/25/23 08:10 Room Air 11/25/23 07:58 Room Air 11/25/23 03:51 Room Air 11/25/23 00:47 Room Air 11/25/23 00:21 Room Air Laboratory Results Short CBC 11/25/23 Range/Units 06:42 WBC 8.40 (4.8-10.8) K/ul Hgb 9.4 L (12.0-16.0) g/dl Hct 29.4 L (37.0-47.0) % Plt Count 413 H (130-400) K/uL BMP 11/25/23 06:42 Sodium 138 Potassium 3.8 Chloride 105 Carbon Dioxide 24 BUN 10 Creatinine 0.60 Glucose 103 H Calcium 9.4 (1) Pneumonia Lung location: lower lobe of lung Pneumonia type: due to unspecified organism (3) Sepsis Sepsis acute organ dysfunction status: unspecified Sepsis type: sepsis due to unspecified organism Qualified Code(s): A41.9 - Sepsis, unspecified organism
[2023-11-25] MEDS ORDERED: METOPROLOL TARTRATE 25 MG TAB PO SCH (12:30)
--- NOTE | 2023-11-25 12:37 | Discharge Summary ---
Date of Service November 25, 2023 Admission HPI Per Admitting Provider Patient is a 73-year-old female with history of diabetes mellitus type 2, dyslipidemia, hypertension, lichen sclerosis, COVID, obesity and other medical problems presents with history of worsening generalized weakness, cough since about 1 week duration. Patient states having significant weakness and having difficulty with ambulation. She was prescribed prednisone by her PCP 2 days ago but has not started to take the medication yet. Reports dry cough associated with intermittent fever, poor oral intake, dyspnea predominantly on exertion, nausea and vomiting. Also reports diarrhea 2 days ago which she currently believes has improved. Patient is a poor historian. Patient also states that she had transient confusion 2 days ago but currently has no issues. She states being prone to UTIs and currently suspicious of having UTI. Denies any aspiration. Denies any history of chest pain, palpitations, dizziness, hemoptysis, headache, change in vision, abdominal pain, blood in stools, hematuria. Admission Exam Per Admitting Provider Physical Exam: Vitals signs as noted above General Appearance:Obese, no apparent distress Head: normocephalic, Atraumatic Eyes: normal inspection, EOMI Neck: supple, Trachea midline Respiratory/Chest: Decreased breath sounds, CTA, No accessory muscle use Cardiovascular: S1, S2, No murmur Abdomen/GI:Soft, Non tender, Bowel sounds present Extremities/Musculoskeletal:normal inspection, Trace pedal edema Neurologic/Psych:AAOX3, grossly no focal neurological deficits Skin: normal color, warm Principal Diagnosis Sepsis Left lower lobe pneumonia Iron deficiency anemia Tachycardia Discharge Data Allergies Allergy/AdvReac Type Severity Reaction Status Date / Time naproxen Allergy Intermediate EDEMA OF Verified 11/22/23 11:32 FACE/LIPS/TONGUE Sulfa (Sulfonamide Allergy Intermediate RASH Unverified 11/22/23 11:32 Antibiotics) atorvastatin AdvReac Intermediate LEG Verified 11/22/23 11:32 PAIN/SWELLING simvastatin AdvReac Mild LEG CRAMPS Verified 11/22/23 11:32 Consultations 11/22/23 06:53 ED Decision to Admit Stat Procedures Performed Laboratory Results WBC 8.40 K/ul (4.8-10.8) 11/25/23 06:42 RBC 3.70 M/uL (4.20-5.40) L 11/25/23 06:42 Hgb 9.4 g/dl (12.0-16.0) L 11/25/23 06:42 Hct 29.4 % (37.0-47.0) L 11/25/23 06:42 MCV 79.5 fL (80.0-100.0) L 11/25/23 06:42 MCH 25.4 pg (25.0-34.0) 11/25/23 06:42 MCHC 32.0 g/dL (32.0-36.0) 11/25/23 06:42 RDW Std Deviation 46.5 fL (36.4-46.3) H 11/25/23 06:42 RDW Coeff of Jason 16.2 % (11.5-14.5) H 11/25/23 06:42 Plt Count 413 K/uL (130-400) H 11/25/23 06:42 MPV 9.0 fL (9.4-12.4) L 11/25/23 06:42 Immature Gran % (Auto) 0.8 % 11/22/23 05:40 Neut % (Auto) 85.1 % 11/22/23 05:40 Lymph % (Auto) 9.0 % 11/22/23 05:40 Hand % (Auto) 4.9 % 11/22/23 05:40 Eos % (Auto) 0.0 % 11/22/23 05:40 Baso % (Auto) 0.2 % 11/22/23 05:40 Neut # (Auto) 9.82 K/uL (1.40-6.50) H 11/22/23 05:40 Lymph # (Auto) 1.04 K/uL (1.20-3.40) L 11/22/23 05:40 Hand # (Auto) 0.57 K/uL (0.11-0.59) 11/22/23 05:40 Eos # (Auto) 0.00 K/uL (0.00-0.50) 11/22/23 05:40 Baso # (Auto) 0.02 K/uL (0.00-0.20) 11/22/23 05:40 Immature Gran # (Auto) 0.09 K/uL (0.01-0.20) 11/22/23 05:40 Toxic Granulation 1+ 11/22/23 05:40 Dohle Bodies 1+ 11/22/23 05:40 Peripher Smr Path Cons 11/25/23 06:42 Sodium 138 mmol/L (136-145) 11/25/23 06:42 Potassium 3.8 mmol/L (3.5-5.1) 11/25/23 06:42 Chloride 105 mmol/L (98-107) 11/25/23 06:42 Carbon Dioxide 24 mmol/L (21-32) 11/25/23 06:42 Anion Gap 9 (3-11) 11/25/23 06:42 BUN 10 mg/dl (6-23) 11/25/23 06:42 Creatinine 0.60 mg/dl (0.6-1.2) 11/25/23 06:42 Est Cr Clr Drug Dosing 85.1 ml/min 11/25/23 06:42 Est GFR ( Amer) 106.3 ml/min 11/25/23 06:42 Est GFR (Non-Af Amer) 91.7 ml/min 11/25/23 06:42 BUN/Creatinine Ratio 16.7 (10-20) 11/25/23 06:42 Glucose 103 mg/dl (70-99(Fasting)) H 11/25/23 06:42 POC Glucose 114 mg/dl (70-99) H 11/25/23 08:15 Osmolality 268 mOsm/kg (280-300) L 11/22/23 05:40 Lactate 0.9 mmol/L (0.4-2.0) 11/22/23 06:56 Calcium 9.4 mg/dl (8.6-10.3) 11/25/23 06:42 Magnesium 1.8 mg/dl (1.7-2.4) 11/24/23 06:36 Iron 13 mcg/dl (35-150) L 11/23/23 07:17 TIBC 217 mcg/dl (250-450) L 11/23/23 07:17 Unsaturated IBC 204 mcg/dl (155-355) 11/23/23 07:17 Transferrin % Sat 6 % (15-50) L 11/23/23 07:17 Ferritin 489.3 ng/ml (8-388) H 11/23/23 07:17 Total Bilirubin 0.5 mg/dl (0.2-1.0) 11/22/23 05:40 AST 30 U/L (13-39) 11/22/23 05:40 ALT 25 U/L (7-52) 11/22/23 05:40 Alkaline Phosphatase 73 U/L (34-104) 11/22/23 05:40 Total Protein 6.6 gm/dl (6.0-8.3) 11/22/23 05:40 Albumin 3.1 gm/dl (3.4-5.0) L 11/22/23 05:40 Globulin 3.5 gm/dl (2.5-4.0) 11/22/23 05:40 Albumin/Globulin Ratio 0.9 (0.9-2) 11/22/23 05:40 Vitamin B12 > 1500 pg/ml (180-914) H 11/23/23 07:17 Folate 17.47 ng/ml (>5.38) 11/23/23 07:17 Procalcitonin 1.49 ng/ml (0-0.5) H 11/22/23 05:40 Urine Color Yellow 11/22/23 09:10 Urine Appearance Clear (Clear) 11/22/23 09:10 Urine pH 6.0 (4.5-7.5) 11/22/23 09:10 Ur Specific [place] 1.013 (1.000-1.030) 11/22/23 09:10 Urine Protein 1+ (Negative) H 11/22/23 09:10 Urine Glucose (UA) Negative (Negative) 11/22/23 09:10 Urine Ketones 1+ (Negative) H 11/22/23 09:10 Urine Blood 2+ (Negative) H 11/22/23 09:10 Urine Nitrite Negative (Negative) 11/22/23 09:10 Urine Bilirubin Negative (Negative) 11/22/23 09:10 Urine Urobilinogen Negative (Negative) 11/22/23 09:10 Ur Leukocyte Esterase Trace (Negative) H 11/22/23 09:10 Urine WBC (Auto) 21-50 /hpf (0-5) H 11/22/23 09:10 Urine RBC (Auto) 0-2 /hpf (0-2) 11/22/23 09:10 U Hyaline Cast (Auto) 0-2 /lpf (0-2) 11/22/23 09:10 U Epithel Cells (Auto) 0-2 /hpf (0-2) 11/22/23 09:10 Urine Bacteria (Auto) 4+ (None Seen) H 11/22/23 09:10 Urine Osmolality 326 mOsm/kg (500-800) L 11/22/23 09:10 Ur Random Sodium 15 mmol/L 11/22/23 09:10 Stool Occult Bld Scrn Negative (Negative) 11/23/23 00:22 Stl C. cayetanensis PCR Not Detected (NotDetected) 11/22/23 16:00 Stool Rotavirus A PCR Not Detected (NotDetected) 11/22/23 16:00 Stl Adenov F 40/41 PCR Not Detected (NotDetected) 11/22/23 16:00 Stool Astrovirus (PCR) Not Detected (NotDetected) 11/22/23 16:00 Stool Campylobacter PCR Not Detected (NotDetected) 11/22/23 16:00 Stl C. diff Tox B Gene Negative Cdiff Gene (Neg) 11/22/23 16:00 Stool Cryptosporidium PCR Not Detected (NotDetected) 11/22/23 16:00 Stl E.coli Shiga Tox PCR Not Detected (NotDetected) 11/22/23 16:00 Stl Enterotoxigenic E PCR Not Detected (NotDetected) 11/22/23 16:00 Stool EPEC (PCR) Not Detected (NotDetected) 11/22/23 16:00 Stool EAEC (PCR) Not Detected (NotDetected) 11/22/23 16:00 Stl E. histolytica PCR Not Detected (NotDetected) 11/22/23 16:00 Stool Giardia Lamblia PCR Not Detected (NotDetected) 11/22/23 16:00 Stool Salmonella PCR Not Detected (NotDetected) 11/22/23 16:00 Stool Sapovirus (PCR) Not Detected (NotDetected) 11/22/23 16:00 Stl P. shigelloides PCR Not Detected (NotDetected) 11/22/23 16:00 Stl Shigella/EIEC PCR Not Detected (NotDetected) 11/22/23 16:00 St Y.enterocolitica PCR Not Detected (NotDetected) 11/22/23 16:00 Stool Vibrio (PCR) Not Detected (NotDetected) 11/22/23 16:00 Stl Vibrio cholerae PCR Not Detected (NotDetected) 11/22/23 16:00 Stl Norovirus GI/GII PCR Not Detected (NotDetected) 11/22/23 16:00 Adenovirus (PCR) Not Detected (NotDetected) 11/22/23 09:45 B. pertussis DNA (PCR) Not Detected (NotDetected) 11/22/23 09:45 B.parapertussis DNA PCR Not Detected (NotDetected) 11/22/23 09:45 C. pneumoniae DNA (PCR) Not Detected (NotDetected) 11/22/23 09:45 Coronavirus OC43 (PCR) Not Detected (NotDetected) 11/22/23 09:45 Coronavirus HKU1 (PCR) Not Detected (NotDetected) 11/22/23 09:45 Coronavirus 229E (PCR) Not Detected (NotDetected) 11/22/23 09:45 SARS-CoV-2 (PCR) Not Detected (NotDetected) 11/22/23 09:45 Coronavirus NL63 (PCR) Not Detected (NotDetected) 11/22/23 09:45 Human Metapneumovir PCR Not Detected (NotDetected) 11/22/23 09:45 Influenza Type A (PCR) Not Detected (NotDetected) 11/22/23 09:45 Influenza Type B (PCR) Not Detected (NotDetected) 11/22/23 09:45 M. pneumoniae (PCR) Not Detected (NotDetected) 11/22/23 09:45 Parainfluenza 1 (PCR) Not Detected (NotDetected) 11/22/23 09:45 Parainfluenza 2 (PCR) Not Detected (NotDetected) 11/22/23 09:45 Parainfluenza 3 (PCR) Not Detected (NotDetected) 11/22/23 09:45 Parainfluenza 4 (PCR) Not Detected (NotDetected) 11/22/23 09:45 RSV (RT-PCR) Negative (Neg) 11/22/23 05:44 RSV (PCR) Not Detected (NotDetected) 11/22/23 09:45 Entero/Rhino (PCR) Not Detected (NotDetected) 11/22/23 09:45 Impressions Chest X-Ray 11/22/23 05:41 SINGLE VIEW CHEST CLINICAL HISTORY: Dyspnea. Hypoxia. FINDINGS: An AP, portable, upright chest radiograph is compared to study dated 12/03/2020 and correlated with chest CT dated 11/28/2020. The heart is enlarged noting atherosclerotic calcification of the thoracic aorta. The pulmonary vasculature is noncongested. There is airspace consolidation at the left lung base. No large pleural effusion or pneumothorax is seen. The skeletal structures are osteopenic. The bony thorax is grossly intact. Advanced arthritic change is noted in the shoulders. IMPRESSION: 1. Airspace consolidation at the left lung base is typical for pneumonia/aspiration pneumonitis. Clinical correlation will be required and radiographic follow-up to resolution is recommended. 2. Cardiomegaly without radiographic evidence of congestive failure. ACT 112: Negative or not required by law. Electronically signed by: Luis Quintana M.D. 11/22/2023 7:36 AM Hospital Course (1) Pneumonia: Sepsis Left lower lobe pneumonia Hypoxia --CXR:Airspace consolidation at the left lung base is typical for pneumonia/aspiration pneumonitis. Clinical correlation will be required and radiographic follow-up to resolution is recommended. Cardiomegaly without radiographic evidence of congestive failure. -- BioFire negative -Normal lactate -Procalcitonin 1.49 -Blood cultures: No growth to date Continue cefepime, doxycycline>> Rocephin, Doxy Received IV fluids Weaned off of supplemental oxygen Nebs as needed Plan to discharge home today Abnormal urine culture Rule out UTI Urine culture probable skin booker Diarrhea Stool PCR, stool for C. difficile negative Monitor volume status Imodium as needed Resolved Acute on chronic anemia Iron deficiency anemia Denies any acute bleeding issues Anemia workup reviewed FOBT negative Ferritin elevated likely secondary to acute infection Received IV iron Continue iron supplements Peripheral smear consistent with iron deficiency, anemia of chronic disease Advised further workup as outpatient Hypokalemia Replete electrolytes as needed Monitor PACs and PVCs Monitor and replete electrolytes as needed Started on metoprolol 12.5 mg twice a day DM Type II: Hold oral diabetic meds Last A1c:6.6 ISS, basal Insulin, Accu checks, Diabetic diet Monitor BGs Hyponatremia Likely chronic, GI losses, poor oral intake likely contributing as well Sodium improved to 138 Monitor Other chronic conditions Dyslipidemia H/O statin intolerance Hypertension Obesity BMI 38 Lichen sclerosus Continue home medications as able DVT Px: Lovenox SQ CODE STATUS Full code Disposition Home today (2) Acute UTI (urinary tract infection): (3) Sepsis: Management as above Total Time Total Time Spent Total Time Spent (In Minutes): 55 minutes Discharge Plan Discharge Items Patient Disposition: Home - Self-Care Reason For Visit: PNEUMONIA Discharge Diagnosis: Sepsis Left lower lobe pneumonia Iron deficiency anemia Tachycardia Activity: Per Instructions section Exercise/Sports: Wait until after follow-up appointment Non-emergency contact: Primary Care Provider Call non-emergency contact if: you have any medication questions, your symptoms worsen, your pain is concerning for you and you have a fever Follow-up/Referrals: Liliam Crum PA-C [Primary Care Provider] - (Date & Time 12/01/2023 12:00 PM Provider Liliam Crum PA-C Department [facility] ) Diet: Carb Consistent or DM2 and Lactose Intolerant Addtl Attending Provider Instructions: Follow-up with your primary care physician Liliam Crum PA-C on 12/01/2023 12:00 PM --Your blood cultures are pending at the time of discharge. Follow-up with your physician for results. -- Get colonoscopy as outpatient to further evaluate for anemia as advised -- Complete the antibiotic course cefdinir, doxycycline as prescribed Seek immediate medical attention if your symptoms reoccur or worsen Please take all medications as instructed on discharge list below. Please call if you have any questions or problems. You can reach a [facility] hospitalist on duty at [facility] 24 hours a day by calling [phone] Pending Studies at Discharge: Yes Studies:: Blood Culture Stand-Alone Forms: [facility], Smoking Cessation Medications and DC Order Prescriptions: New doxycycline hyclate 100 mg Capsule 100 mg PO BID Qty: 7 0RF ferrous sulfate 325 mg (65 mg iron) Tablet,Delayed Release (Dr/Ec) 325 mg PO QAM Qty: 30 1RF metoprolol tartrate 25 mg Tablet 12.5 mg PO BID Qty: 60 0RF Advanced Probiotic 625 mg (10 billion cell) Capsule 1 cap PO DAILY Qty: 10 0RF cefdinir 300 mg capsule 300 mg PO BID Qty: 7 0RF Continued metformin 500 mg Tablet 500 mg PO BID albuterol sulfate 2.5 mg /3 mL (0.083 %) Solution For Nebulization 2.5 mg INHALATION QID PRN (Reason: Shortness Of Breath Or Wheezing) aspirin 81 mg Tablet,Delayed Release (Dr/Ec) 81 mg PO DAILY gemfibrozil [Lopid] 600 mg Tablet 600 mg PO BID omeprazole 20 mg Capsule,Delayed Release(Dr/Ec) 20 mg PO QAM lisinopril 5 mg Tablet 5 mg PO QAM hydrochlorothiazide 25 mg Tablet 25 mg PO DAILY PRN (Reason: Edema) albuterol sulfate [ProAir HFA] 90 mcg/actuation Hfa Aerosol Inhaler 2 puff INHALATION DIRECTED PRN (Reason: Shortness Of Breath) ezetimibe [Zetia] 10 mg Tablet 10 mg PO QAM Discharge Orders: Discharge Order (Routine); Ordered 11/25/23 Ordered By: Harrison Sandra Admission Data Admit Date/Time: 11/22/23 07:53 Attending Provider: Harrison Sandra Admit Provider: Harrison Sandra Primary Care Provider: Liliam Crum Other Providers: Pilo Noland
== END 2023-11-25 13:46 | disposition home or self-care (01) | DRG 871 ==
LOC: ED 05:27 → EDINP 07:53 → 2N 08:16